=== PATIENT | female | born 1975 | race Caucasian/White ===

== ENCOUNTER 2020-05-28 20:14 | Emergency (ER) | payer MEDICAID, SELFPAY ==
[2020-05-28 20:45] VITALS: BP 141/83; PULSE 95; RESP 20; TEMP 36.9; O2SAT 98; BMI 35.9
--- NOTE | 2020-05-28 20:47 | HMH.EDUTC ---
[facility] [place] Disposition Clinical Impression: UTI (urinary tract infection) Qualifiers: Urinary tract infection type: site unspecified Hematuria presence: with hematuria Qualified Code(s): N39.0 - Urinary tract infection, site not specified Disposition: Home, Self-Care Condition on Discharge: Good Instructions: Urinary Tract Infection Additional Instructions: Drink plenty of fluids. Take tylenol or ibuprofen for pain or fever. Take the medications as directed. Follow up with your regular doctor. GO TO THE ER FOR ANY WORSENING SYMPTOMS The pyridium will make your urine turn orange, this is an expected side effect. It will stain your clothes if it comes into contact with them. Prescriptions: Ondansetron [Zofran 4mg ODT] 4 mg PO Q8HP PRN #10 tab.rapdis PRN Reason: Nausea Transmission Status: Received by [facility] Ciprofloxacin HCl [Cipro 500mg Tab] 500 mg PO BID 7 Days #14 tab Transmission Status: Received by [facility] Phenazopyridine HCl [Pyridium 200mg Tablet] 200 pow PO TID #6 tab Transmission Status: Received by [facility] Referrals: PCP,No [Primary Care Provider] - Forms: Work/School Release Time of Disposition: 20:50 Medical Decision Making - Medical Records Medical records reviewed: No: I reviewed the patient's medical records. - Tee Inquiry Pt receiving controlled substance: No Vital Signs: 05/28/20 20:45 05/28/20 21:08 Temperature 98.4 F 98.4 F Temperature Source Oral Pulse Rate 95 H Pulse Rate [Right Brachial] 95 H Respiratory Rate 20 20 Blood Pressure 141/83 H Blood Pressure [Right Arm] 141/83 H Blood Pressure Mean [Right Arm] 102 Blood Pressure Source [Right Arm] Automatic Cuff Blood Pressure Position [Right Arm] Sitting 02 Sat by Pulse Oximetry 98 Oxygen Delivery Method Room Air - Lab Data Lab results reviewed: Yes: I reviewed the patient's lab results. Lab Results 05/28/20 20:58: Urine Color [place], Urine Appearance Clear, Urine pH 5.0, Ur Specific [place] 1.010, Urine Protein 3+, Urine Glucose (UA) 250, Urine Ketones Trace, Urine Blood 3+, Urine Nitrate Positive A, Urine Bilirubin 2+ A, Urine Urobilinogen >=8, Ur Leukocyte Esterase 3+ A Orders (Tests/Meds): ED MEDICATIONS Discontinued Medications Generic Name Dose Route Start Last Admin Trade Name Eder PRN Reason Stop Dose Admin Ceftriaxone Sodium 1 gm 05/28/20 20:59 05/28/20 21:02 Rocephin 1gm Vial IM 05/28/20 21:00 1 gm ONCE ONE Administration Protocol Lidocaine HCl 0 ml 05/28/20 20:59 05/28/20 21:02 Lidocaine 1% 10ml Mdv IM 05/28/20 21:00 2.1 ml ONCE ONE Administration ORDERS Category Date Time Status Urine Culture Stat Micro 05/28/20 20:30 Results [facility] [place] HPI - General Stated complaint: Possible UTI Time Seen by Provider: 05/28/20 20:47 - History of Present Illness Provider Complaint: She c/o dysuria and low back pain since yesterday. - Related Data Previous Rx's Medication Instructions Recorded Ciprofloxacin HCl [Cipro 500mg 500 mg PO BID 7 Days #14 tab 05/28/20 Tab] Ondansetron [Zofran 4mg ODT] 4 mg PO Q8HP PRN #10 tab.rapdis 05/28/20 Phenazopyridine HCl [Pyridium 200 pow PO TID #6 tab 05/28/20 200mg Tablet] Allergies Allergy/AdvReac Type Severity Reaction Status Date / Time codeine Allergy Verified 05/28/20 20:48 Sulfa (Sulfonamide Allergy Verified 05/28/20 20:48 Antibiotics) [facility] History - Hepatitis A Screen Attestation statement:: This patient has been screened for Hepatitis A risk factors. I have reviewed the patient's past medical history: Yes ROS Obtained: Yes All systems reviewed & no additional complaints - Constitutional Constitutional: Reports chills, Denies fever(s), Reports poor appetite, Reports malaise - Eyes Eyes: Denies eye discharge - ENT Ears, Nose, Mouth, and Throat: Denies sore throat Physical
[2020-05-28 21:08] VITALS: BP 141/83; PULSE 95; RESP 20; TEMP 36.9; O2SAT 98
[2020-05-28 21:39] LABS: Apearance,Urine Clear (Clear); Color,Urine Orange (Yellow); Glucose,Urine (UA) 250 (Negative); Protein,Urine 3+ (Negative)
[2020-05-28 21:40] LABS: Bilirubin,Urine 2+ (Negative); Blood, Urine 3+ (Negative); Ketones,Urine TRACE (Negative); Urobilinogen,Urine >=8 EU/dl (0.2)
[2020-05-28 21:41] LABS: UTC Leukocyte Esterase,Urine 3+ (Negative); UTC Nitrate,Urine Positive (Negative)
--- NOTE | 2020-05-29 12:45 | PC.NURSE ---
[facility]
== END 2020-05-28 21:13 | disposition home or self-care (01) ==
PROVIDERS: Emergency Provider Nurse Practitioner Family
DX: N30.00 Acute cystitis without hematuria (principal); Z88.2 Allergy status to sulfonamides; Z88.5 Allergy status to narcotic agent
CPT/HCPCS: 81003; 87086; 87088; 87186; 96372; 99202

== ENCOUNTER 2020-10-17 12:31 | Emergency (ER) | payer MEDICAID, SELFPAY ==
[2020-10-17 13:00] VITALS: BP 143/76; PULSE 97; RESP 14; TEMP 36.8; O2SAT 97; BMI 33.1
[2020-10-17 13:02] LABS: Apearance,Urine Clear (Clear); Color,Urine Orange (Yellow)
[2020-10-17 13:03] LABS: Bilirubin,Urine Negative (Negative); Blood, Urine Trace (Negative); Glucose,Urine (UA) 1+ (Negative); Ketones,Urine Negative (Negative); Protein,Urine Negative (Negative); Specific Gravity, Urine <= 1.005 (1.005-1.030)
[2020-10-17 13:04] LABS: UTC Leukocyte Esterase,Urine Negative (Negative); UTC Nitrate,Urine Positive (Negative); Urobilinogen,Urine 1 EU/dl (0.2)
--- NOTE | 2020-10-17 13:20 | HMH.EDUTC ---
[facility] [place] Disposition Clinical Impression: UTI (urinary tract infection) Qualifiers: Urinary tract infection type: acute cystitis Hematuria presence: with hematuria Qualified Code(s): N30.01 - Acute cystitis with hematuria Disposition: Home, Self-Care Condition on Discharge: Good Instructions: Urinary Tract Infection, DI for Urinary Tract Infection (UTI) Additional Instructions: Increase fluids, water and not soda or tea. Can drink cranberry juice or cranberry extract. Wipe front to back Wear cotton underwear Empty bladder after intercourse Start antibiotics immediately and make sure you take the full course although you may start to see improvement over the next 48 hours. You can eat yogurt or take probiotics to decrease diarrhea or yeast infection caused by the antibiotic Be sure to follow-up anytime for new or worsening symptoms in 48 hours for wound urine culture results be sure to let you PCP no recent urine for culture so they can request records and ensure that you have appropriate antibiotic if you are not getting better or getting worse. If symptoms worsen or do not improve return or be seen in the ER. Follow-up with primary care this week. Prescriptions: cephALEXin [Keflex 500mg Cap] 500 mg PO BID 10 Days #20 cap Transmission Status: Pending to [facility] # Phenazopyridine HCl [Pyridium] 100 mg PO BID PRN 3 Days #6 tab PRN Reason: Mild To Moderate Pain Transmission Status: Pending to [facility] # Referrals: PCP,No [Primary Care Provider] - Time of Disposition: 13:23 Medical Decision Making - Tee Inquiry Pt receiving controlled substance: No - Lab Data Lab Results 10/17/20 13:01: Urine Color [place], Urine Appearance Clear, Urine pH 6.0, Ur Specific [place] <= 1.005, Urine Protein Negative, Urine Glucose (UA) 1+, Urine Ketones Negative, Urine Blood Trace, Urine Nitrate Positive A, Urine Bilirubin Negative, Urine Urobilinogen 1, Ur Leukocyte Esterase Negative Orders (Tests/Meds): ORDERS Category Date Time Status Urine Culture Routine Micro 10/17/20 13:04 Ordered [facility] [place] HPI - General Chief complaint: Urgent Treatment Center Stated complaint: UTI syptoms Time Seen by Provider: 10/17/20 13:20 Mode of Arrival: Ambulatory Source of Information: Patient Limitations: No Limitations - History of Present Illness Provider Complaint: 45 yr old female presents for burning with urination, freq, urgency, pain in pelvis and occ incont for 2 days. denies fever - Related Data Previous Rx's Medication Instructions Recorded Ciprofloxacin HCl [Cipro 500mg 500 mg PO BID 7 Days #14 tab 05/28/20 Tab] Ondansetron [Zofran 4mg ODT] 4 mg PO Q8HP PRN #10 tab.rapdis 05/28/20 Phenazopyridine HCl [Pyridium 200 pow PO TID #6 tab 05/28/20 200mg Tablet] Phenazopyridine HCl [Pyridium] 100 mg PO BID PRN 3 Days #6 tab 10/17/20 cephALEXin [Keflex 500mg Cap] 500 mg PO BID 10 Days #20 cap 10/17/20 Allergies Allergy/AdvReac Type Severity Reaction Status Date / Time codeine Allergy Verified 05/28/20 20:48 Sulfa (Sulfonamide Allergy Verified 05/28/20 20:48 Antibiotics) [facility] History - Hepatitis A Screen Attestation statement:: This patient has been screened for Hepatitis A risk factors. I have reviewed the patient's past medical history: Yes - Social History Alcohol Intake: never Occupational Status: employed ROS Obtained: Yes All systems reviewed & no additional complaints - Constitutional Constitutional: Reports system reviewed and no additional complaints, except as docu, Denies body ache, Denies chills, Denies fatigue, Denies fever(s) - Eyes Eyes: Reports system reviewed and no additional complaints, except as docu, Denies blurry vision, Denies eye discharge - ENT Ears, Nose, Mouth, and Throat: Reports system reviewed and no additional complaints, except as docu, Denies sore throat, Denies vertigo/dizziness - Cardiovascular Cardiovascul
[2020-10-17 13:27] VITALS: BP 143/76; PULSE 97; RESP 14; TEMP 36.8; O2SAT 97
== END 2020-10-17 13:36 | disposition home or self-care (01) ==
PROVIDERS: Emergency Provider Nurse Practitioner Family
DX: N30.01 Acute cystitis with hematuria (principal); Z88.2 Allergy status to sulfonamides; Z88.5 Allergy status to narcotic agent
CPT/HCPCS: 81003; 87086; 99202; G0463

== ENCOUNTER 2020-11-23 12:04 | Emergency (ER) | payer MEDICAID, SELFPAY ==
[2020-11-23 12:20] VITALS: BP 158/104; PULSE 131; RESP 18; TEMP 37.1; O2SAT 97; BMI 24.9
--- NOTE | 2020-11-23 12:36 | HMH.EDUTC ---
[facility] [place] Disposition Clinical Impression: Injury of conjunctiva and corneal abrasion without foreign body, left eye, initial encounter Disposition: Home, Self-Care Condition on Discharge: Good Instructions: DI for Corneal Abrasion, Corneal Abrasion Additional Instructions: Use the eye drops as directed. Follow up with an eye doctor. Follow up with your regular doctor. GO TO THE ER FOR ANY WORSENING SYMPTOMS, ESPECIALLY ANY VISION CHANGES OR EYE PAIN Prescriptions: Ofloxacin [Ocuflox 0.3% OPHTH drops 5mL] 1 drp EYE-LEFT Q4H 7 Days #1 bottle Transmission Status: Received by [facility][id number] Referrals: Apolinar Meneses [Primary Care Provider] - Time of Disposition: 12:47 Medical Decision Making - Medical Records Medical records reviewed: No: I reviewed the patient's medical records. - Tee Inquiry Pt receiving controlled substance: No Vital Signs: 11/23/20 12:20 11/23/20 12:38 Temperature 98.7 F 97.8 F Temperature Source Oral Tympanic Pulse Rate 106 H Pulse Rate [Right] 131 H Respiratory Rate 18 18 Blood Pressure 136/84 Blood Pressure [Right Arm] 158/104 H Blood Pressure Mean [Right Arm] 122 Blood Pressure Source [Right Arm] Automatic Cuff Blood Pressure Position [Right Arm] Sitting 02 Sat by Pulse Oximetry 97 Oxygen Delivery Method Room Air [facility] [place] HPI - General Stated complaint: possible eye infection, swelling Time Seen by Provider: 11/23/20 12:36 Mode of Arrival: Ambulatory Source of Information: Patient Limitations: No Limitations Description of Symptoms (Recalled from Triage Doc. by RN): pt states, left eye is hurting, itching, and blurry. there has been yellowish stuff comig out around my eye and its hurting. its been doing this for two days and is getting worse. i think my eye is infected. . under the patients left eye is red. PERRLA. HEENT Symptoms (Recalled from RN notes): Yes (pt complains of left eye discomfort. PERRLA) Resp Symptoms (Recalled from RN notes): No Skin Symptoms (Recalled from RN notes): No MS Symptoms (Recalled from RN notes): No Functional Status (Recalled from RN notes): na - History of Present Illness Provider Complaint: She states that for the past 2 days she has awoke with her left eye matted shut. Her eye has also felt irritated. She denies any known injury, but she does think that she wiped her eye and scratched before her symptoms began. She denies any foreign body sensation. - Related Data Previous Rx's Medication Instructions Recorded Ciprofloxacin HCl [Cipro 500mg 500 mg PO BID 7 Days #14 tab 05/28/20 Tab] Ondansetron [Zofran 4mg ODT] 4 mg PO Q8HP PRN #10 tab.rapdis 05/28/20 Phenazopyridine HCl [Pyridium 200 pow PO TID #6 tab 05/28/20 200mg Tablet] Phenazopyridine HCl [Pyridium] 100 mg PO BID PRN 3 Days #6 tab 10/17/20 cephALEXin [Keflex 500mg Cap] 500 mg PO BID 10 Days #20 cap 10/17/20 Ofloxacin [Ocuflox 0.3% OPHTH 1 drp EYE-LEFT Q4H 7 Days #1 bottle 11/23/20 drops 5mL] Allergies Allergy/AdvReac Type Severity Reaction Status Date / Time codeine Allergy Verified 11/23/20 12:11 Sulfa (Sulfonamide Allergy Verified 11/23/20 12:11 Antibiotics) - Worker's Comp Is this a Worker's Comp case?: No [facility] History - Hepatitis A Screen Drug use history?: No High risk sexual behaviors?: No History of sexually transmitted infection?: No Currently employed?: No Childcare worker?: No Do you have indoor plumbing?: Yes Do you have electricity?: Yes Attestation statement:: This patient has been screened for Hepatitis A risk factors. I have reviewed the patient's past medical history: Yes - Social History Smoking Status: Current every day smoker # Packs/Day (cigarettes): 2 Alcohol Intake: never Occupational Status: unemployed ROS Obtained: Yes All systems reviewed & no additional complaints - Constitutional Constitutional: Denies chills, Denies fever(s) - Eyes Eyes: Reports as per HPI
[2020-11-23 12:38] VITALS: BP 136/84; PULSE 106; RESP 18; TEMP 36.6
== END 2020-11-23 13:04 | disposition home or self-care (01) ==
PROVIDERS: Emergency Provider Nurse Practitioner Family; PCP Family Medicine
DX: S05.02XA Injury of conjunctiva and corneal abrasion without foreign body, left eye, initial encounter (principal)
CPT/HCPCS: 99202; G0463

== ENCOUNTER 2021-01-05 15:48 | Emergency (ER) | payer MEDICAID, SELFPAY ==
[2021-01-05 16:06] VITALS: BP 165/96; PULSE 102; RESP 16; O2SAT 100; BMI 33.2
--- NOTE | 2021-01-05 16:18 | HMH.EDUTC ---
[facility] [place] Disposition Clinical Impression: Muscle ache Disposition: Home, Self-Care Condition on Discharge: Good Instructions: Muscle Strain, DI for Muscle Strain Additional Instructions: *Ibuprofen brendan 6 hours with meal as needed for pain/inflammation *Not additional anti-inflammatory like motrin, aleve, advil with the above amount of ibuprofen. You can still take Tylenol every 4 hours as needed if you need something else for pain *Ice 20 minutes every 2 hours for the first 48 hours after the initial injury followed by moist heat every 20 minutes 3-4 times a day to affected area Over the counter Muscle rubs may help with pain and aches Wear good supportive bra *Keep this area active, no movement leads to more stiffness, However take it easy and avoid heavy lifting pushing or pulling *Follow up with you family doctor if no improvement for further treatment and further testing call and make appointment Straight to ER if any life threatening symptoms Referrals: Apolinar Meneses [Primary Care Provider] - As needed Time of Disposition: 16:34 Medical Decision Making - Tee Inquiry Pt receiving controlled substance: No Tee was queried for this patient: No Vital Signs: 01/05/21 16:06 01/05/21 16:45 Temperature 98 F Pulse Rate 95 H Pulse Rate [Right] 102 H Respiratory Rate 16 14 Blood Pressure 144/89 H Blood Pressure [Right Arm] 165/96 H Blood Pressure Mean [Right Arm] 119 Blood Pressure Source [Right Arm] Automatic Cuff Blood Pressure Position [Right Arm] Sitting 02 Sat by Pulse Oximetry 100 Medical Decision Narrative: Discussed with patient and recommended transfer to ED for further work up to rule out heart and patient declined states that pain only occurs when she moves it and improves with Ibuprofen states that she wanted to get checked to make sure she didnt have breast cancer and because her breast hurt when she squeezed it State that she slept wrong and her arm feels muscular. Patient aware of risks and still declined transfer Discussed with patient and educated her that she needs to make appointment with her PCP for further evaluation and more extensive testing such as mamograms etc and patient verbalized understanding and still declined transfer to the ED [facility] [place] HPI - General Stated complaint: pain under left arm and breast Time Seen by Provider: 01/05/21 16:15 Mode of Arrival: Ambulatory Source of Information: Patient Limitations: No Limitations Description of Symptoms (Recalled from Triage Doc. by RN): pt states she woke up two days ago and her left side of her arm and left breast is sore and aching. . pt is having pain around her left shoulder blade that comes around under her arm and in her left breast. pt states ibprofen helps relieve the pain as well as wearing a sports bra. pt thinks she may have pulled a muscle. HEENT Symptoms (Recalled from RN notes): No Resp Symptoms (Recalled from RN notes): No Skin Symptoms (Recalled from RN notes): No MS Symptoms (Recalled from RN notes): Yes (L behind the shoulder pain) Functional Status (Recalled from RN notes): na - History of Present Illness Provider Complaint: Patient states that she thinks she slept wrong States that she woke up a couple days ago feeling achy in the back of arm and it would come under her arm to her breast area States that when she touched the back of her it would feel achy all down the muscle into her breast Statse that she took some Ibuprofen and it helped but when she moves her arm feels like that muscle is tight and hurts Denies chest pain denies pain in neck states that pain is improved with wearing a good support bra. 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
[2021-01-05 16:45] VITALS: BP 144/89; PULSE 95; RESP 14; TEMP 36.6
== END 2021-01-05 16:48 | disposition home or self-care (01) ==
PROVIDERS: Emergency Provider Nurse Practitioner; PCP Family Medicine
DX: M79.18 Myalgia, other site (principal); F17.210 Nicotine dependence, cigarettes, uncomplicated; Z88.2 Allergy status to sulfonamides; Z88.5 Allergy status to narcotic agent
CPT/HCPCS: 99202; G0463

== ENCOUNTER 2021-03-09 18:01 | Emergency (ER) | payer MEDICAID, SELFPAY ==
[2021-03-09 18:34] VITALS: BP 147/88; PULSE 113; RESP 20; TEMP 36.7; O2SAT 100; BMI 34.3
--- NOTE | 2021-03-09 18:45 | HMH.EDGENADL ---
ED Disposition Condition on Discharge: Fair - Critical Care Critical Care Time: No <Dariel Moser - Last Filed: 03/09/21 20:09> <Marcial Landaverde - Last Filed: 03/09/21 21:49> Clinical Impression: Elevated d-dimer Calf pain Qualifiers: Laterality: left Qualified Code(s): M79.662 - Pain in left lower leg Disposition: Home, Self-Care Instructions: DI for Leg Pain Additional Instructions: see pcp in am for consideration of venous doppler or return to ed if needed Referrals: Apolinar Meneses [Primary Care Provider] - Attestation: On 03/09/21, the high probability of a clinically significant, sudden or life threatening deterioration of the following system(s) required my full and direct attention, intervention and personal management. The time I documented below is in addition to time spent performing reported procedures but includes the following listed in this critical care notation. Medical Decision Making - Medical Records Medical records reviewed: Yes: I reviewed the patient's medical records. - Tee Inquiry Pt receiving controlled substance: No - Lab Data Lab results reviewed: Yes: I reviewed the patient's lab results. Result diagrams: 03/09/21 19:10 03/09/21 19:10 - ECG Data Tracing #1 ECG initial impression date: 03/09/21 ECG initial impression time: 19:02 <Dariel Moser - Last Filed: 03/09/21 20:09> - Lab Data Result diagrams: 03/09/21 19:10 03/09/21 19:10 - CT Data CT Scan: Chest Time Received: 21:[address] Reviewed: Yes: I have viewed the radiologist's interpretation Preliminary Findings: Normal/NAD <Marcial Landaverde - Last Filed: 03/09/21 21:49> Vital Signs: 03/09/21 18:34 03/09/21 18:48 Temperature 98.1 F 98.3 F Temperature Source Oral Oral Pulse Rate [Right] 113 H 106 H Respiratory Rate 20 16 Blood Pressure [Right Arm] 147/88 H 130/71 Blood Pressure Mean [Right Arm] 107 90 Blood Pressure Source [Right Arm] Automatic Cuff Blood Pressure Position [Right Arm] Sitting Sitting 02 Sat by Pulse Oximetry 100 98 Oxygen Delivery Method Room Air Room Air - Lab Data Lab Results 03/09/21 19:10: D-Dimer 0.83 H 03/09/21 19:10: WBC 7.7, RBC 4.21, Hgb 10.1 L, Hct 32.9 L, MCV 78.2 L, MCH 24.0 L, MCHC 30.7 L, RDW 17.4, Plt Count 172, MPV 10.5 H, Neut % (Auto) 72.8, Lymph % (Auto) 21.0, [place] % (Auto) 3.2, Eos % (Auto) 2.6, Baso % (Auto) 0.4, Neut # (Auto) 5.6, Lymph # (Auto) 1.6, [place] # (Auto) 0.3, Eos # (Auto) 0.2, Baso # (Auto) 0.0 03/09/21 19:10: Sodium 139, Potassium 3.8, Chloride 104, Carbon Dioxide 28, Anion Gap 10.8, BUN 13, Creatinine 0.90, Estimated Creat Clear 115, Estimated GFR 68, Est GFR ( Amer) 83, Glucose 126 H, Calcium 9.0, Total Bilirubin 0.3, AST 24, ALT 14, Alkaline Phosphatase 63, Total Protein 7.1, Albumin 4.3, Globulin 2.8, Albumin/Globulin Ratio 1.5 Orders (Tests/Meds): ED MEDICATIONS Discontinued Medications Generic Name Dose Route Start Last Admin Trade Name Adamq PRN Reason Stop Dose Admin Iopamidol 70 ml 03/09/21 19:59 03/09/21 20:01 Iopamidol-370 (76%);100ml Bottle IV 03/09/21 20:00 70 ml ONCE ONE Administration Sodium Chloride 40 ml 03/09/21 19:59 03/09/21 20:00 0.9 % Sodium Chloride 50 Ml Vial IV 03/09/21 20:00 40 ml ONCE ONE Administration Sodium Chloride 10 ml 03/09/21 19:59 03/09/21 20:01 Sodium Chloride 0.9% 10ml Syr (Rad Only) IV 03/09/21 20:00 10 ml ONCE ONE Administration - ECG Data Tracing #1 64 bpm, normal sinus rhythm, no ST elevation or depression, normal intervals, no ectopy. (Dariel Moser) Medical Decision Narrative: 45yo F evaluated for pain in her left calf worsened with range of motion of her ankle. Patient is found to be tachycardic. She is 42 years old and smokes. Patient has some swelling of her left lower extremity without erythema, extreme tenderness to palpation, warmth. Patient has a positive PERC screen secondary to swelling. Ultrasound is not availab
[2021-03-09 18:48] VITALS: BP 130/71; PULSE 106; RESP 16; TEMP 36.8; O2SAT 98; BMI 34.3
[2021-03-09 19:35] LABS: D-Dimer 0.83 ug/mL (0.0-0.5)
--- NOTE | 2021-03-09 19:39 | CT_ITS ---
PROCEDURE INFORMATION: Exam: CTA Chest With Contrast Exam date and time: 03/09/2021 7:39 PM Age: 45 years old Clinical indication: Other: Weakness, elevated d dimer, left leg numbness; Additional info: Elevated d-dimer TECHNIQUE: Imaging protocol: Computed tomographic angiography of the chest with contrast. 3D rendering (Not supervised by radiologist): MIP and/or 3D reconstructed images were created by the technologist. Radiation optimization: All CT scans at this facility use at least one of these dose optimization techniques: automated exposure control; mA and/or kV adjustment per patient size (includes targeted exams where dose is matched to clinical indication); or iterative reconstruction. Contrast material: ISOVUE 370; Contrast volume: 70 ml; Contrast route: INTRAVENOUS (IV); COMPARISON: No relevant prior studies available. FINDINGS: Pulmonary arteries: Normal. No pulmonary emboli. Aorta: Unremarkable. No aortic aneurysm. No aortic dissection. Lungs: Unremarkable. No consolidation. No masses. Pleural spaces: Unremarkable. No pneumothorax. No pleural effusion. Heart: Unremarkable. No cardiomegaly. No pericardial effusion. Lymph nodes: Unremarkable. No enlarged lymph nodes. Bones/joints: Unremarkable. No acute fracture. Soft tissues: Unremarkable. IMPRESSION: No acute findings.
[2021-03-09 19:50] LABS: Basophils % 0.4 % (0.1-2.0); Chloride 104 mmol/L (98-107); Eosinophils # 0.2 K/mm3 (0.0-0.4); Eosinophils % 2.6 % (0.1-12.0); Hematocrit 32.9 % (37.0-47.0); Hemoglobin 10.1 g/dL (12.2-16.2); Lymphocytes # 1.6 K/mm3 (0.7-4.5); Mean Corpuscular HGB Conc 30.7 g/dL (31.8-35.4); Mean Corpuscular Volume 78.2 fl (81-99); Mean Platelet Volume 10.5 fl (7.4-10.4); Monocytes # 0.3 K/mm3 (0.1-1.0); Monocytes % 3.2 % (1.7-9.3); Neutrophils # 5.6 K/mm3 (1.8-7.8); Neutrophils % 72.8 % (37.0-80.0); Platelet Count 172 K/mm3 (142-424); Potassium 3.8 mmoL/L (3.5-5.1); Red Blood Count 4.21 M/mm3 (4.20-5.40); Red Cell Distribution Width 17.4 % (11.5-17.5); Sodium 139 mmol/L (136-145); White Blood Count 7.7 K/mm3 (4.8-10.8)
[2021-03-09 19:53] LABS: Alanine Aminotransferase 14 U/L (12-78); Albumin Level 4.3 g/dl (3.5-5.0); Albumin/Globulin Ratio 1.5 (1.1-1.8); Alkaline Phosphatase 63 U/L (38-126); Anion Gap 10.8 mEq/L (5-15); Aspartate Amino Transferase 24 U/L (14-36); Bilirubin,Total 0.3 mg/dl (0.2-1.3); Blood Urea Nitrogen 13 mg/dl (7-17); Carbon Dioxide 28 mmol/L (22.0-30.0); Creatinine Clearance Estimated 115 mL/min (50-200); Estimated Glomerular Filt Rate 68 ml/min (>60); GFR (African American) 83 ML/MIN (>60); Globulin 2.8 g/dL (1.3-3.2); Total Protein,Serum 7.1 g/dl (6.3-8.2)
[2021-03-09 19:54] LABS: Glucose 126 mg/dl (74-100)
--- NOTE | 2021-03-09 21:36 | PC.NURSE ---
pt ambulated to the BR with cane
--- NOTE | 2021-03-09 21:53 | PC.NURSE ---
Called [facility] for therapeutic Lovenox dosinmg SQ q12 would be the recommended dose
[2021-03-09 22:09] VITALS: BP 142/89; PULSE 78; RESP 18; TEMP 36.7; O2SAT 97
== END 2021-03-09 22:20 | disposition home or self-care (01) ==
LOC: UTC 18:15 → ER 18:42
PROVIDERS: Emergency Provider Family Medicine; PCP Family Medicine
DX: M79.662 Pain in left lower leg (principal); R79.89 Other specified abnormal findings of blood chemistry; F17.210 Nicotine dependence, cigarettes, uncomplicated
CPT/HCPCS: 71275; 80053; 85025; 85378; 96372; 99282; Q9967

== ENCOUNTER → 2021-03-15 14:10 | Outpatient (CLI) | payer MEDICAID, SELFPAY ==
--- NOTE | 2021-03-15 14:11 | CA_ITS ---
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: CT Indications Lower Extremity Pain: Left Lower Extremity Edema: Left LLE Edema Vein Imaging CFV (L): compressive, spontaneous, phasic, augmentation SFJ (L): compressive, spontaneous, phasic, augmentation FEM (L): compressive, spontaneous, phasic, augmentation POP (L): compressive, spontaneous, phasic, augmentation DFV (L): compressive, spontaneous, phasic, augmentation PTV (L): compressive, spontaneous, phasic, augmentation GSV (L): compressive, spontaneous, phasic, augmentation SSV (L): compressive, spontaneous, phasic, augmentation Peroneals (L):compressive, spontaneous, phasic, augmentation GAS (L): compressive, spontaneous, phasic, augmentation Findings LLE negative for DVT/SVT vessels fully compressible Conclusion LLE negative for DVT/SVT vessels fully compressible Electronically signed by : Milo Quinteros MD 03/15/2021 17:39:08
== END ==
PROVIDERS: PCP Nurse Practitioner Family; Visit Provider Nurse Practitioner Family
DX: R60.0 Localized edema (principal)
CPT/HCPCS: 93971

== ENCOUNTER 2021-06-16 02:49 | Emergency (ER) | payer MEDICAID, SELFPAY ==
[2021-06-16 03:00] VITALS: BP 150/97; PULSE 119; RESP 24; TEMP 36.9; O2SAT 100; BMI 31.7
--- NOTE | 2021-06-16 03:07 | CT_ITS ---
PROCEDURE INFORMATION: Exam: CT Abdomen And Pelvis With Contrast Exam date and time: 06/16/2021 3:07 AM Age: 45 years old Clinical indication: Abdominal pain; Localized; Right upper quadrant (ruq); Prior surgery; Surgery type: Gallbladder; Patient HX: Ruq pain for 2 days with nausea; Additional info: Abd pain TECHNIQUE: Imaging protocol: Computed tomography of the abdomen and pelvis with contrast. Radiation optimization: All CT scans at this facility use at least one of these dose optimization techniques: automated exposure control; mA and/or kV adjustment per patient size (includes targeted exams where dose is matched to clinical indication); or iterative reconstruction. Contrast material: ISOVUE; Contrast volume: 75 ml; Contrast route: IV; COMPARISON: CT ANGIO CHEST 03/09/2021 7:50 PM FINDINGS: Liver: Normal. No mass. Gallbladder and bile ducts: The patient is status post cholecystectomy. Pancreas: Normal. No ductal dilation. Spleen: Normal. No splenomegaly. Adrenal glands: Normal. No mass. Kidneys and ureters: Multiple small intrarenal stones are present on the right and left measuring 2-3 mm in maximal diameter. There is mild right-sided hydroureter and hydronephrosis although a stone is not identified within the ureter. Stomach and bowel: Unremarkable. No obstruction. No mucosal thickening. Appendix: No evidence of appendicitis. Intraperitoneal space: Unremarkable. No free air. No significant fluid collection. Vasculature: Unremarkable. No abdominal aortic aneurysm. Lymph nodes: Unremarkable. No enlarged lymph nodes. Urinary bladder: Unremarkable as visualized. Reproductive: The left adnexa is enlarged measuring 6.5 x 5.4 by 6.0 cm and contains multiple hypodensities. Bones/joints: Unremarkable. No acute fracture. Soft tissues: Unremarkable. IMPRESSION: Complex cystic appearing left adnexal mass recommend pelvic sonography for further characterization. Nonobstructing bilateral nephrolithiasis. Mild right hydroureter without identified stone, this may represent a recently passed stone.
[2021-06-16 03:29] LABS: Microscopic, Urine URINE MICROSCOPIC (MICROSCOPIC)
[2021-06-16 03:30] VITALS: BP 142/91; PULSE 99; O2SAT 97
[2021-06-16 03:33] LABS: Basophils # 0.1 K/mm3 (0-0.2); Basophils % 0.9 % (0.1-2.0); Eosinophils # 0.3 K/mm3 (0.0-0.4); Hematocrit 38.3 % (37.0-47.0); Hemoglobin 11.4 g/dL (12.2-16.2); Lymphocytes # 1.8 K/mm3 (0.7-4.5); Mean Corpuscular HGB Conc 29.8 g/dL (31.8-35.4); Mean Corpuscular Hemoglobin 25.2 pg (27.0-31.2); Mean Corpuscular Volume 84.5 fl (81-99); Mean Platelet Volume 10.2 fl (7.4-10.4); Monocytes # 0.2 K/mm3 (0.1-1.0); Monocytes % 3.7 % (1.7-9.3); Neutrophils # 4.2 K/mm3 (1.8-7.8); Neutrophils % 64.3 % (37.0-80.0); Platelet Count 299 K/mm3 (142-424); Red Blood Count 4.53 M/mm3 (4.20-5.40); Red Cell Distribution Width 17.8 % (11.5-17.5); White Blood Count 6.6 K/mm3 (4.8-10.8)
[2021-06-16 03:38] LABS: Appearance,Urine CLEAR (Clear); Bilirubin,Urine Negative (Negative); Blood, Urine 2+ (Negative); Color,Urine YELLOW (Yellow); Glucose,Urine (UA) Negative (Negative); Ketones,Urine Negative (Negative); Leukocyte Esterase,Urine Negative (Negative); Nitrate,Urine Negative (Negative); Protein,Urine Negative (Negative); Specific Gravity, Urine <= 1.005 (1.005-1.030); Urobilinogen,Urine 0.2 EU/dl (0.2)
[2021-06-16 03:41] LABS: Alanine Aminotransferase 12 U/L (12-78); Albumin Level 4.1 g/dl (3.5-5.0); Albumin/Globulin Ratio 1.2 (1.1-1.8); Alkaline Phosphatase 77 U/L (38-126); Amylase 58 U/L (30-110); Anion Gap 12.1 mEq/L (5-15); Aspartate Amino Transferase 22 U/L (14-36); Bilirubin,Total 0.3 mg/dl (0.2-1.3); Blood Urea Nitrogen 13 mg/dl (7-17); Calcium 8.8 mg/dl (8.4-10.2); Carbon Dioxide 28 mmol/L (22.0-30.0); Chloride 103 mmol/L (98-107); Creatinine Clearance Estimated 107 mL/min (50-200); Estimated Glomerular Filt Rate 68 ml/min (>60); GFR (African American) 83 ML/MIN (>60); Globulin 3.3 g/dL (1.3-3.2); Glucose 98 mg/dl (74-100); Lipase 92 U/L (23-300); Potassium 4.1 mmoL/L (3.5-5.1); Sodium 139 mmol/L (136-145); Total Protein,Serum 7.4 g/dl (6.3-8.2)
[2021-06-16 03:47] LABS: C-Reactive Protein 1.8 mg/L (0-4)
[2021-06-16 04:00] VITALS: BP 151/95; PULSE 98; RESP 16; O2SAT 99
[2021-06-16 04:01] LABS: Procalcitonin 0.031 ng/mL (0.0-2.0)
[2021-06-16 04:02] LABS: Bacteria,Urine Trace /lpf; WBC,Urine Occasional #/hpf (0-3)
[2021-06-16 04:03] LABS: Erythrocyte Sedimentation Rate 23 mm/hr (0-20)
--- NOTE | 2021-06-16 04:20 | HMH.EDGENADL ---
ED Disposition Clinical Impression: UTI (urinary tract infection), Renal lithiasis, Adnexal mass Disposition: Home, Self-Care Condition on Discharge: Good Instructions: DI for Acute Abdominal Pain Additional Instructions: Finish the entire course of antibiotics and increase oral hydration. Return to the ED for any new or worsening symptoms. Please be sure to follow-up with gynecology for repeat evaluation of the ovarian mass seen today on CT and for follow-up ultrasound. Prescriptions: Cefdinir [Omnicef 300mg Capsule] 300 mg PO BID 10 Days #20 cap Transmission Status: Pending to [facility] # Ondansetron [Zofran 4mg ODT] 4 mg PO TIDP PRN 3 Days #9 tab PRN Reason: Nausea Transmission Status: Pending to [facility] # Referrals: Provider,MD Robert [Primary Care Provider] - Tiffanie Varma MD [Staff Physician] - Time of Disposition: 04:37 - Critical Care Critical Care Time: No Attestation: On 06/16/21, the high probability of a clinically significant, sudden or life threatening deterioration of the following system(s) required my full and direct attention, intervention and personal management. The time I documented below is in addition to time spent performing reported procedures but includes the following listed in this critical care notation. Medical Decision Making - Medical Records Medical records reviewed: Yes: I reviewed the patient's medical records. - Tee Inquiry Pt receiving controlled substance: No Vital Signs: 06/16/21 03:00 Temperature 98.4 F Temperature Source Oral Pulse Rate [Right Brachial] 119 H Respiratory Rate 24 Blood Pressure [Right Arm] 150/97 H Blood Pressure Mean [Right Arm] 114 Blood Pressure Source [Right Arm] Automatic Cuff Blood Pressure Position [Right Arm] Sitting 02 Sat by Pulse Oximetry 100 Oxygen Delivery Method Room Air - Lab Data Lab Results 06/16/21 03:00: Urine Color Yellow, Urine Appearance Clear, Urine pH 7.0, Ur Specific [place] <= 1.005, Urine Protein Negative, Urine Glucose (UA) Negative, Urine Ketones Negative, Urine Blood 2+, Urine Nitrate Negative, Urine Bilirubin Negative, Urine Urobilinogen 0.2, Ur Leukocyte Esterase Negative, Urine RBC 5-10, Urine WBC Occasional, Ur Squamous Epith Cells 3-5, Urine Bacteria Trace 06/16/21 03:00: WBC 6.6, RBC 4.53, Hgb 11.4 L, Hct 38.3, MCV 84.5, MCH 25.2 L, MCHC 29.8 L, RDW 17.8 H, Plt Count 299, MPV 10.2, Neut % (Auto) 64.3, Lymph % (Auto) 27.0, [place] % (Auto) 3.7, Eos % (Auto) 4.0, Baso % (Auto) 0.9, Neut # (Auto) 4.2, Lymph # (Auto) 1.8, [place] # (Auto) 0.2, Eos # (Auto) 0.3, Baso # (Auto) 0.1, ESR 23 H 06/16/21 03:00: Sodium 139, Potassium 4.1, Chloride 103, Carbon Dioxide 28, Anion Gap 12.1, BUN 13, Creatinine 0.90, Estimated Creat Clear 107, Estimated GFR 68, Est GFR ( Amer) 83, Glucose 98, Calcium 8.8, Total Bilirubin 0.3, AST 22, ALT 12, Alkaline Phosphatase 77, C-Reactive Protein 1.8, Total Protein 7.4, Albumin 4.1, Globulin 3.3 H, Albumin/Globulin Ratio 1.2, Amylase 58, Lipase 92, Procalcitonin 0.031 Result diagrams: 06/16/21 03:00 06/16/21 03:00 Orders (Tests/Meds): ED MEDICATIONS Discontinued Medications Generic Name Dose Route Start Last Admin Trade Name Freq PRN Reason Stop Dose Admin Belladonna Alkaloids 60 ml 06/16/21 03:32 06/16/21 04:10 Gi Cocktail 60ml Udc PO 06/16/21 03:33 60 ml ONCE ONE Administration Iopamidol 75 ml 06/16/21 04:02 06/16/21 04:03 Iopamidol-370 (76%);100ml Bottle IV 06/16/21 04:03 75 ml ONCE ONE Administration Ketorolac Tromethamine 15 mg 06/16/21 03:34 06/16/21 04:10 Ketorolac 30mg/Ml Vial IV 06/16/21 03:35 15 mg ONCE ONE Administration Ondansetron HCl 4 mg 06/16/21 03:32 06/16/21 04:10 Ondansetron 4mg/2ml Vial IV 06/16/21 03:33 4 mg ONCE ONE Administration Sodium Chloride 10 ml 06/16/21 04:02 06/16/21 04:03 Sodium Chloride 0.9% 10ml Syr (Rad Only) IV 06/16/21 04:03 10 m
[2021-06-16 04:30] VITALS: BP 154/82; PULSE 104; O2SAT 96
[2021-06-16 05:04] VITALS: BP 146/86; PULSE 96; RESP 16; TEMP 36.9; O2SAT 97
== END 2021-06-16 05:05 | disposition home or self-care (01) ==
PROVIDERS: Emergency Provider Student in an Organized Health Care Education/Training Program
DX: N39.0 Urinary tract infection, site not specified (principal); N20.0 Calculus of kidney; F41.8 Other specified anxiety disorders; Z87.442 Personal history of urinary calculi; F17.210 Nicotine dependence, cigarettes, uncomplicated
CPT/HCPCS: 74177; 80053; 81001; 82150; 83690; 84145; 85025; 85651; 86140; 96374; 96375; 99283; J2405; Q9967

== ENCOUNTER 2021-06-22 15:06 | Emergency (ER) | payer MEDICAID, SELFPAY ==
[2021-06-22 16:39] VITALS: BP 143/79; RESP 19; TEMP 36.9; O2SAT 98; BMI 28.7
--- NOTE | 2021-06-22 16:45 | HMH.EDUTC ---
[facility] Disposition Clinical Impression: Urinary problem in female Disposition: Home, Self-Care Condition on Discharge: Good Instructions: DI for Dysuria -- Adult Additional Instructions: Continue taking medication as prescribed Follow up with your Family Doctor for further evaluation and treatment Return if needed Make sure to drink plenty of fluids Straight to ER if any life threatening symptoms Referrals: Apolinar Meneses [Primary Care Provider] - As needed Time of Disposition: 16:50 Medical Decision Making - Tee Inquiry Pt receiving controlled substance: No Tee was queried for this patient: No Vital Signs: 06/22/21 16:39 Temperature 98.5 F Temperature Source Oral Respiratory Rate 19 Blood Pressure [Right Arm] 143/79 H Blood Pressure Mean [Right Arm] 100 02 Sat by Pulse Oximetry 98 - Lab Data Lab results reviewed: Yes: I reviewed the patient's lab results. [facility] HPI - General Stated complaint: uti Time Seen by Provider: 06/22/21 16:46 Description of Symptoms (Recalled from Triage Doc. by RN): UTI INFECTION MEDS NOT WORKING & NOW I'M HURTING TO URINE & MY KIDNEY ARE HURTING HEENT Symptoms (Recalled from RN notes): No Resp Symptoms (Recalled from RN notes): No Skin Symptoms (Recalled from RN notes): No MS Symptoms (Recalled from RN notes): No Functional Status (Recalled from RN notes): WNL - History of Present Illness Provider Complaint: Patient states that she is currently on Medication for UTI states that she has been having some burning on and off and achy like pain in her lower back on and off and wanted to get her urine checked to make sure that her medication was working to clear her UTI - Related Data Home Medications Medication Instructions Recorded Confirmed Buprenorphine HCl/Naloxone HCl 8 mg SL BID 03/09/21 03/15/21 [Suboxone 8 mg-2 mg Sl Film] Gabapentin [Gabapentin 300mg/6ml 300 mg PO BID 03/09/21 03/15/21 Oral Soln] Previous Rx's Medication Instructions Recorded polyethylene glycol 3350 17 17 g PO DAILY #238 g 03/15/21 gram/dose oral powder cyclobenzaprine 10 mg tablet 10 mg PO TID PRN #60 tab 03/17/21 buspirone 10 mg tablet 10 mg PO BID #60 tab 03/24/21 Cefdinir [Omnicef 300mg Capsule] 300 mg PO BID 10 Days #20 cap 06/16/21 Ondansetron [Zofran 4mg ODT] 4 mg PO TIDP PRN 3 Days #9 tab 06/16/21 Allergies Allergy/AdvReac Type Severity Reaction Status Date / Time codeine Allergy Verified 06/22/21 16:44 Sulfa (Sulfonamide Allergy Verified 06/22/21 16:44 Antibiotics) - Worker's Comp Is this a Worker's Comp case?: No Is this an H Worker's Comp?: No [facility] History - Hepatitis A Screen Drug use history?: No High risk sexual behaviors?: No History of sexually transmitted infection?: No Currently employed?: No Childcare worker?: No Do you have indoor plumbing?: Yes Do you have electricity?: Yes Attestation statement:: This patient has been screened for Hepatitis A risk factors. I have reviewed the patient's past medical history: Yes Medical History: Reports:: Anxiety, Depression, Kidney Stones Other Medical History: Reports: Anemia, Other Other Surgeries: Yes: Cholecystectomy, , Tubal Ligation - Social History Smoking Status: Current every day smoker # Packs/Day (cigarettes): 2 Alcohol Intake: never Occupational Status: unemployed - Psychiatric History Pschychiatric History:: Reports:: Anxiety, Depression Family Hx:: Hypertension, Cancer, Heart Attack, Mental illness ROS Obtained: Yes All systems reviewed & no additional complaints, Yes Systems reviewed as appropriate & no additional complaints - Constitutional Constitutional: Reports system reviewed and no additional complaints, except as docu, Denies body ache, Denies chills, Denies fever(s) - ENT Ears, Nose, Mouth, and Throat: Reports system reviewed and no additional complaints, except as docu - Cardiovascular Cardiovascular: Reports system reviewed and n
[2021-06-22 16:58] VITALS: BP 143/79; PULSE 68; RESP 19; TEMP 36.9; O2SAT 98
[2021-06-22 20:12] LABS: Apearance,Urine Clear (Clear); Blood, Urine Negative (Negative); Color,Urine Yellow (Yellow); Glucose,Urine (UA) Negative (Negative); Ketones,Urine Negative (Negative); Protein,Urine Negative (Negative)
[2021-06-22 20:13] LABS: Bilirubin,Urine Negative (Negative); UTC Leukocyte Esterase,Urine Negative (Negative); UTC Nitrate,Urine Negative (Negative); Urobilinogen,Urine 0.2 EU/dl (0.2)
== END 2021-06-22 16:59 | disposition home or self-care (01) ==
PROVIDERS: Emergency Provider Nurse Practitioner; PCP Family Medicine
DX: N39.0 Urinary tract infection, site not specified (principal); F41.8 Other specified anxiety disorders; F17.210 Nicotine dependence, cigarettes, uncomplicated; Z88.2 Allergy status to sulfonamides; Z88.5 Allergy status to narcotic agent
CPT/HCPCS: 81003; 99202; G0463

== ENCOUNTER 2021-07-02 00:34 | Emergency (ER) | payer MEDICAID, SELFPAY ==
--- NOTE | 2021-07-02 00:45 | HMH.EDGENADL ---
ED Disposition Clinical Impression: Abdominal pain Qualifiers: Abdominal location: epigastric Qualified Code(s): R10.13 - Epigastric pain Disposition: Home, Self-Care Condition on Discharge: Good Instructions: DI for Acute Abdominal Pain Additional Instructions: Protonix as prescribed. Reduce use of ibuprofen. Follow-up with Dr. Barbour, gastroenterology, call for appointment. Also, Keep your appointments with your primary care provider and education program coordinator. Prescriptions: Pantoprazole Sodium [Protonix 40mg tablet] 40 mg PO DAILY #15 tab Transmission Status: Pending to [facility] #[id number] Referrals: Apolinar Meneses [Primary Care Provider] - Ant Barbour MD [Staff Physician] - - Critical Care Critical Care Time: No Attestation: On , the high probability of a clinically significant, sudden or life threatening deterioration of the following system(s) required my full and direct attention, intervention and personal management. The time I documented below is in addition to time spent performing reported procedures but includes the following listed in this critical care notation. Medical Decision Making - Medical Records Medical records reviewed: Yes: I reviewed the patient's medical records. MR Comment: Emergency department chart from 06/16/2021 reviewed. Patient's presenting symptoms sound identical to her complaints tonight. She had an extensive work-up including CT scan of her abdomen and pelvis. She had a cystic mass of her left adnexa. Nephrolithiasis and some mild right hydroureter without ureteral stone. She was treated for UTI, no culture sent. - Tee Inquiry Pt receiving controlled substance: No Tee was queried for this patient: Yes Vital Signs: 07/02/21 00:47 Temperature 98 F Temperature Source Oral Pulse Rate [Left] 103 H Respiratory Rate 16 Blood Pressure [Left Arm] 165/85 H Blood Pressure Mean [Left Arm] 111 Blood Pressure Source [Left Arm] Automatic Cuff Blood Pressure Position [Left Arm] Sitting 02 Sat by Pulse Oximetry 97 Oxygen Delivery Method Room Air - Lab Data Lab Results 07/02/21 00:41: Urine Color Yellow, Urine Appearance Clear, Urine pH 7.0, Ur Specific [place] 1.020, Urine Protein Negative, Urine Glucose (UA) Negative, Urine Ketones Negative, Urine Blood Trace-i, Urine Nitrate Negative, Urine Bilirubin Negative, Urine Urobilinogen 0.2, Ur Leukocyte Esterase Trace, Urine WBC 3-5, Ur Squamous Epith Cells 10-20 07/02/21 00:49: WBC 7.7, RBC 4.60, Hgb 11.7 L, Hct 37.6, MCV 81.9, MCH 25.5 L, MCHC 31.1 L, RDW 17.3, Plt Count 231, MPV 9.8, Neut % (Auto) 62.6, Lymph % (Auto) 29.5, [place] % (Auto) 3.3, Eos % (Auto) 4.1, Baso % (Auto) 0.4, Neut # (Auto) 4.8, Lymph # (Auto) 2.3, [place] # (Auto) 0.3, Eos # (Auto) 0.3, Baso # (Auto) 0.0 07/02/21 00:49: Sodium 140, Potassium 3.6, Chloride 104, Carbon Dioxide 26, Anion Gap 13.6, BUN 11, Creatinine 0.80, Estimated Creat Clear 114, Estimated GFR 78, Est GFR ( Amer) 95, Glucose 110 H, Calcium 9.5, Total Bilirubin < 0.1 L, AST 23, ALT 11 L, Alkaline Phosphatase 77, Total Protein 7.7, Albumin 4.5, Globulin 3.2, Albumin/Globulin Ratio 1.4, Lipase 200 07/02/21 00:49: Serum HCG, Qual Negative Result diagrams: 07/02/21 00:49 07/02/21 00:49 Orders (Tests/Meds): ED MEDICATIONS Generic Name Dose Route Start Last Admin Trade Name Freq PRN Reason Stop Dose Admin Sodium Chloride 10 ml 07/02/21 01:11 Sodium Chloride 0.9% 10ml Vial IV 08/01/21 01:10 NEEDED PRN dilute protonix Discontinued Medications Generic Name Dose Route Start Last Admin Trade Name Freq PRN Reason Stop Dose Admin Pantoprazole Sodium 40 mg 07/02/21 01:11 07/02/21 01:18 Pantoprazole 40mg Vial IV 07/02/21 01:12 40 mg ONCE ONE Administration General Adult HPI - General Stated complaint: Stomach pain with nausea Time Seen by Provider: 07/02/21 00:45 - History of Present Illness HPI narrative: States that she has
[2021-07-02 00:47] VITALS: BP 165/85; PULSE 103; RESP 16; TEMP 36.6; O2SAT 97
[2021-07-02 01:10] LABS: Chloride 104 mmol/L (98-107); Potassium 3.6 mmoL/L (3.5-5.1); Sodium 140 mmol/L (136-145)
[2021-07-02 01:11] LABS: Microscopic, Urine URINE MICROSCOPIC (MICROSCOPIC)
[2021-07-02 01:11] LABS: Basophils % 0.4 % (0.1-2.0); Eosinophils # 0.3 K/mm3 (0.0-0.4); Eosinophils % 4.1 % (0.1-12.0); Hematocrit 37.6 % (37.0-47.0); Hemoglobin 11.7 g/dL (12.2-16.2); Lymphocytes # 2.3 K/mm3 (0.7-4.5); Lymphocytes % 29.5 % (10-50); Mean Corpuscular HGB Conc 31.1 g/dL (31.8-35.4); Mean Corpuscular Hemoglobin 25.5 pg (27.0-31.2); Mean Corpuscular Volume 81.9 fl (81-99); Mean Platelet Volume 9.8 fl (7.4-10.4); Monocytes # 0.3 K/mm3 (0.1-1.0); Monocytes % 3.3 % (1.7-9.3); Neutrophils # 4.8 K/mm3 (1.8-7.8); Neutrophils % 62.6 % (37.0-80.0); Platelet Count 231 K/mm3 (142-424); Red Cell Distribution Width 17.3 % (11.5-17.5); White Blood Count 7.7 K/mm3 (4.8-10.8)
[2021-07-02 01:12] LABS: Alanine Aminotransferase 11 U/L (12-78); Aspartate Amino Transferase 23 U/L (14-36); Blood Urea Nitrogen 11 mg/dl (7-17); Creatinine Clearance Estimated 114 mL/min (50-200); Estimated Glomerular Filt Rate 78 ml/min (>60); GFR (African American) 95 ML/MIN (>60)
[2021-07-02 01:12] LABS: Appearance,Urine CLEAR (Clear); Bilirubin,Urine Negative (Negative); Blood, Urine TRACE-I (Negative); Color,Urine YELLOW (Yellow); Glucose,Urine (UA) Negative (Negative); Ketones,Urine Negative (Negative); Leukocyte Esterase,Urine TRACE (Negative); Nitrate,Urine Negative (Negative); Protein,Urine Negative (Negative); Urobilinogen,Urine 0.2 EU/dl (0.2)
[2021-07-02 01:13] LABS: Albumin Level 4.5 g/dl (3.5-5.0); Albumin/Globulin Ratio 1.4 (1.1-1.8); Alkaline Phosphatase 77 U/L (38-126); Anion Gap 13.6 mEq/L (5-15); Bilirubin,Total < 0.1 mg/dl (0.2-1.3); Calcium 9.5 mg/dl (8.4-10.2); Carbon Dioxide 26 mmol/L (22.0-30.0); Globulin 3.2 g/dL (1.3-3.2); Glucose 110 mg/dl (74-100); Lipase 200 U/L (23-300); Total Protein,Serum 7.7 g/dl (6.3-8.2)
[2021-07-02 01:17] LABS: HCG Qualitative, Serum Negative (Negative)
[2021-07-02 01:34] VITALS: BP 144/81; PULSE 80; RESP 16; TEMP 36.8; O2SAT 98
== END 2021-07-02 01:50 | disposition home or self-care (01) ==
PROVIDERS: Emergency Provider Emergency Medicine; PCP Family Medicine
DX: R10.13 Epigastric pain (principal); M79.7 Fibromyalgia; Z79.899 Other long term (current) drug therapy; Z88.2 Allergy status to sulfonamides; Z88.6 Allergy status to analgesic agent; F41.9 Anxiety disorder, unspecified; F32.9 Major depressive disorder, single episode, unspecified; Z72.0 Tobacco use
CPT/HCPCS: 80053; 81001; 83690; 84703; 85025; 96374; 99282

== ENCOUNTER 2021-07-07 15:48 | Emergency (ER) | payer MEDICAID, SELFPAY ==
[2021-07-07 15:55] VITALS: BP 140/97; PULSE 91; RESP 18; TEMP 36.8; O2SAT 99; BMI 28.2
--- NOTE | 2021-07-07 16:27 | HMH.EDUTC ---
[facility] [place] Clinical Impression: Allergic rhinitis Qualifiers: Allergic rhinitis trigger: unspecified Allergic rhinitis seasonality: unspecified Qualified Code(s): J30.9 - Allergic rhinitis, unspecified Disposition: Home, Self-Care Condition on Discharge: Good Instructions: Allergic Rhinitis, DI for Allergic Rhinitis, Fluticasone Nasal [place] Additional Instructions: *Monitor Temp, Over the counter Motrin or Tylenol as directed/as needed Tylenol every 4 hours and Motrin every 6 hours (as long as your family doctor has told you that you can take it) for fever or pain. and straight to ER if unable to lower temp less than 101.0 after medication given *Warm salt water gargles may help to soothe the throat *Throat Lozenges *Warm fluids like tea with honey may help to soothe the throat *Sleep elevated *Humidifier/Vaporizer *Flonase 2 sprays in each nostril daily but be aware that it may take 2-3 days before you notice improvement Over the counter allergy medication like Claritan or Zyrtec may help with allergy symptoms Follow up IMMEDIATELY for new or worsening symptoms or no Noticeable improvement over the next 48-72 hours. 911 for difficulty breathing or swallowing Prescriptions: Fluticasone Propionate [Flonase 50mcg nasal spray 16gm] 1 spr NS DAILY #1 ml Transmission Status: Pending to [facility] #[id number] Referrals: Apolinar Meneses [Primary Care Provider] - As needed Time of Disposition: 16:37 Medical Decision Making - Tee Inquiry Pt receiving controlled substance: No Tee was queried for this patient: No Vital Signs: 07/07/21 15:55 07/07/21 16:34 Temperature 98.2 F 98.2 F Temperature Source Oral Pulse Rate 91 H Pulse Rate [Left] 91 H Respiratory Rate 18 18 Blood Pressure 140/97 H Blood Pressure [Right Arm] 140/97 H Blood Pressure Mean [Right Arm] 111 02 Sat by Pulse Oximetry 99 [facility] [place] HPI - General Stated complaint: ears,glands swollen Time Seen by Provider: 07/07/21 16:27 Mode of Arrival: Ambulatory Source of Information: Patient Limitations: No Limitations Description of Symptoms (Recalled from Triage Doc. by RN): pt c/o her ears hurtig, off balanve, right gland is swollen like an infection. ongoing x3 days. HEENT Symptoms (Recalled from RN notes): Yes (ears aching and vertigo) Resp Symptoms (Recalled from RN notes): No Skin Symptoms (Recalled from RN notes): No MS Symptoms (Recalled from RN notes): No Functional Status (Recalled from RN notes): na - History of Present Illness Provider Complaint: Patient states that she has been having pressure like feeling on and off in her ears and feeling a little off balance at times if she raises up too quickly for months States that for the last couple of days she feels like her ears has fluid in them and feels like her gland is swollen on her right neck area and wanted to have it checked to see if it was allergies or if she had an infection Denies fever, denies chills - Related Data Home Medications Medication Instructions Recorded Confirmed Buprenorphine HCl/Naloxone HCl 8 mg SL BID 03/09/21 03/15/21 [Suboxone 8 mg-2 mg Sl Film] Gabapentin [Gabapentin 300mg/6ml 300 mg PO BID 03/09/21 03/15/21 Oral Soln] Previous Rx's Medication Instructions Recorded polyethylene glycol 3350 17 17 g PO DAILY #238 g 03/15/21 gram/dose oral powder cyclobenzaprine 10 mg tablet 10 mg PO TID PRN #60 tab 03/17/21 buspirone 10 mg tablet 10 mg PO BID #60 tab 03/24/21 Cefdinir [Omnicef 300mg Capsule] 300 mg PO BID 10 Days #20 cap 06/16/21 Ondansetron [Zofran 4mg ODT] 4 mg PO TIDP PRN 3 Days #9 tab 06/16/21 Pantoprazole Sodium [Protonix 40mg 40 mg PO DAILY #15 tab 07/02/21 tablet] Fluticasone Propionate [Flonase 1 spr NS DAILY #1 ml 07/07/21 50mcg nasal spray 16gm] Allergies Allergy/AdvReac Type Severity Reaction Status Date / Time codeine Allergy Verified 06/22/21 16:44 Sulfa (Sulfonamide Allergy Verified 06/22/21
[2021-07-07 16:34] VITALS: BP 140/97; PULSE 91; RESP 18; TEMP 36.8
== END 2021-07-07 16:39 | disposition home or self-care (01) ==
PROVIDERS: Emergency Provider Nurse Practitioner; PCP Family Medicine
DX: J30.9 Allergic rhinitis, unspecified (principal); F41.8 Other specified anxiety disorders; F17.210 Nicotine dependence, cigarettes, uncomplicated
CPT/HCPCS: 99202; G0463

== ENCOUNTER → 2021-10-13 09:56 | Outpatient (CLI) | payer MEDICAID, SELFPAY ==
--- NOTE | 2021-10-13 09:56 | US_ITS ---
PROCEDURE: US TRANSVAGINAL CLINICAL INDICATION: adnexal mass COMPARISON: CT CT ABDOMEN PELVIS W CON from 06/16/2021 FINDINGS: UTERUS: 9cm x 7cmx 6cm with a combined endometrial thickness of 3.4mm. The uterus is retroverted and bulky appearing. Heterogeneous echogenicity is noted in the fundus of the uterus raising the question of fibroid involvement. LEFT OVARY: [id number] with a volume of 45.4ml. There is a complex appearing left ovarian cyst measuring approximately 6 by 3 x 3 cm with low level echoes and irregular margins. This would correspond to the cystic left adnexal mass on the CT scan of 06/16/2021. RIGHT OVARY: [id number] with a volume of 27.3ml. Complex appearing right ovarian cyst noted at 4 x 2 cm. Lopez are slightly thickened and irregular. No cul-de-sac fluid. IMPRESSION: Complex bilateral ovarian cysts. Suggest MRI of the pelvis without and with contrast for more thorough evaluation and characterization of these lesions. Retroverted bulky uterus with possible uterine fibroid Dictated by: Milo Quinteros MD 10/13/2021 15:37 Milo Quinteros MD in [place] 10/13/2021 15:37
== END ==
PROVIDERS: PCP Family Medicine; Visit Provider Obstetrics & Gynecology
DX: R10.2 Pelvic and perineal pain (principal); N94.89 Other specified conditions associated with female genital organs and menstrual cycle
CPT/HCPCS: 76830

== ENCOUNTER 2021-10-17 18:05 | Emergency (ER) | payer MEDICAID, SELFPAY ==
[2021-10-17 18:18] VITALS: BP 153/84; PULSE 97; RESP 18; TEMP 37; O2SAT 98; BMI 31.7
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
[2021-10-17 18:54] VITALS: BP 143/98; PULSE 95; RESP 18; TEMP 36.9; O2SAT 98
== END 2021-10-17 18:54 | disposition home or self-care (01) ==
PROVIDERS: Emergency Provider Emergency Medicine; PCP Family Medicine
DX: S00.83XA Contusion of other part of head, initial encounter (principal); W06.XXXA Fall from bed, initial encounter; Y92.013 Bedroom of single-family (private) house as the place of occurrence of the external cause; F41.8 Other specified anxiety disorders; F17.210 Nicotine dependence, cigarettes, uncomplicated; Z88.2 Allergy status to sulfonamides; Z88.5 Allergy status to narcotic agent
CPT/HCPCS: 99281

== ENCOUNTER 2021-10-22 21:39 | Emergency (ER) | payer MEDICAID, SELFPAY ==
[2021-10-22 21:40] VITALS: BP 151/91; PULSE 114; RESP 20; TEMP 36.9; O2SAT 97; BMI 31.7
[2021-10-22 22:01] VITALS: BP 132/84; PULSE 105; O2SAT 96
--- NOTE | 2021-10-22 22:19 | CT_ITS ---
PROCEDURE INFORMATION: Exam: CT Abdomen And Pelvis Without Contrast Exam date and time: 10/22/2021 10:19 PM Age: 46 years old Clinical indication: Abdominal pain; Localized; Left lower quadrant (llq); Prior surgery; Surgery type: Tubal, gallbladder, csection; Patient HX: Llq pain TECHNIQUE: Imaging protocol: Computed tomography of the abdomen and pelvis without contrast. Radiation optimization: All CT scans at this facility use at least one of these dose optimization techniques: automated exposure control; mA and/or kV adjustment per patient size (includes targeted exams where dose is matched to clinical indication); or iterative reconstruction. COMPARISON: CT ABDOMEN PELVIS W CON 06/16/2021 3:53 AM transvaginal ultrasound 10/13/2021 FINDINGS: Lungs: Multiple nodules at the lung bases measuring up to 4 mm. Liver: Parenchymal enhancement is not evaluated without contrast. No hepatomegaly. Gallbladder and bile ducts: Post cholecystectomy change. Pancreas: Parenchymal enhancement is not evaluated without contrast. No ductal dilation. Spleen: Parenchymal enhancement is not evaluated without contrast. No splenomegaly. Adrenal glands: No mass. Kidneys and ureters: Nonobstructing renal calculi bilaterally. Stomach and bowel: Scattered colonic diverticula with moderate to large stool burden. Appendix: No evidence of appendicitis. Intraperitoneal space: No free air. No significant fluid collection. Vasculature: Limited evaluation without contrast. No abdominal aortic aneurysm. Lymph nodes: No enlarged lymph nodes. Urinary bladder: No acute abnormality. Reproductive: Complex appearing left adnexal mass measuring 4.2 x 4.6 cm. Right ovarian hypodensity measuring 4.5 x 3.3 cm. Bones/joints: Scattered sclerotic bony lesions which appear grossly stable. No acute fracture. Soft tissues: Limited evaluation without contrast. No significant soft tissue swelling. IMPRESSION: 1. Bilateral adnexal lesions which may be benign or malignant and for which pelvic MRI was recommended for further evaluation. 2. Nonobstructing renal calculi bilaterally. 3. Scattered colonic diverticula with moderate to large stool burden. 4. Multiple nodules at the lung bases measuring up to 4 mm. For patients at low risk (minimal or absent history of smoking and of other known risk factors), no routine follow-up is indicated. For patients at high risk (history of smoking or of other known risk factors), consider optional CT Chest at 12 months. (Reference: Jillian) References: Jillian Ware et al. Guidelines for Management of Incidental Pulmonary Nodules Detected on CT Images: From the Fleischner Society 2017. Radiology. 2017;284(1):228-243.
[2021-10-22 22:25] LABS: Basophils # 0.1 K/mm3 (0-0.2); Basophils % 0.9 % (0.1-2.0); Eosinophils # 0.2 K/mm3 (0.0-0.4); Eosinophils % 4.5 % (0.1-12.0); Hematocrit 31.3 % (37.0-47.0); Hemoglobin 9.4 g/dL (12.2-16.2); Lymphocytes # 1.8 K/mm3 (0.7-4.5); Lymphocytes % 34.1 % (10-50); Mean Corpuscular Hemoglobin 21.8 pg (27.0-31.2); Mean Corpuscular Volume 72.8 fl (81-99); Mean Platelet Volume 12.1 fl (7.4-10.4); Monocytes # 0.2 K/mm3 (0.1-1.0); Monocytes % 3.7 % (1.7-9.3); Neutrophils # 3.1 K/mm3 (1.8-7.8); Neutrophils % 56.9 % (37.0-80.0); Platelet Count 155 K/mm3 (142-424); Red Blood Count 4.31 M/mm3 (4.20-5.40); Red Cell Distribution Width 18.4 % (11.5-17.5); White Blood Count 5.4 K/mm3 (4.8-10.8)
[2021-10-22 22:26] LABS: Chloride 99 mmol/L (98-107); Potassium 3.6 mmoL/L (3.5-5.1); Sodium 139 mmol/L (136-145)
[2021-10-22 22:28] LABS: Alanine Aminotransferase 16 U/L (12-78); Amylase 71 U/L (30-110); Aspartate Amino Transferase 29 U/L (14-36); Blood Urea Nitrogen 15 mg/dl (7-17); Creatinine Clearance Estimated 106 mL/min (50-200); Estimated Glomerular Filt Rate 68 ml/min (>60); GFR (African American) 82 ML/MIN (>60)
[2021-10-22 22:29] LABS: Albumin Level 3.9 g/dl (3.5-5.0); Albumin/Globulin Ratio 1.3 (1.1-1.8); Alkaline Phosphatase 77 U/L (38-126); Anion Gap 13.6 mEq/L (5-15); Bilirubin,Total 0.3 mg/dl (0.2-1.3); Calcium 8.6 mg/dl (8.4-10.2); Carbon Dioxide 30 mmol/L (22.0-30.0); Glucose 103 mg/dl (74-100); Total Protein,Serum 6.9 g/dl (6.3-8.2)
[2021-10-22 22:33] VITALS: BP 126/72; PULSE 89; O2SAT 100
[2021-10-22 22:34] LABS: C-Reactive Protein 0.9 mg/L (0-4)
[2021-10-22 22:38] LABS: Appearance,Urine SL CLOUDY (Clear); Bilirubin,Urine Negative (Negative); Blood, Urine 3+ (Negative); Color,Urine YELLOW (Yellow); Glucose,Urine (UA) Negative (Negative); Ketones,Urine Negative (Negative); Leukocyte Esterase,Urine Negative (Negative); Microscopic, Urine URINE MICROSCOPIC (MICROSCOPIC); Nitrate,Urine Negative (Negative); Protein,Urine Negative (Negative); Urobilinogen,Urine 0.2 EU/dl (0.2)
[2021-10-22 22:51] LABS: Bacteria,Urine 2+ /lpf
[2021-10-22 23:00] VITALS: BP 124/68; PULSE 88; O2SAT 97
[2021-10-22 23:03] LABS: Erythrocyte Sedimentation Rate 20 mm/hr (0-20)
--- NOTE | 2021-10-22 23:23 | HMH.EDGENADL ---
ED Disposition Clinical Impression: Pelvic pain in female, Adnexal mass Disposition: Home, Self-Care Condition on Discharge: Good Instructions: DI for Pelvic Pain Additional Instructions: see pcp and systems development consultant for follow up Prescriptions: Ketorolac Tromethamine [Toradol 10mg tablet] 10 mg PO Q6HP PRN #6 tab MDD 40mg/day PRN Reason: Moderate To Severe Pain Transmission Status: Pending to [facility] #[id number] Referrals: Apolinar Meneses [Primary Care Provider] - Bulmaro Varma [Referring] - Tiffanie Varma MD [Staff Physician] - - Critical Care Critical Care Time: No Attestation: On 10/22/21, the high probability of a clinically significant, sudden or life threatening deterioration of the following system(s) required my full and direct attention, intervention and personal management. The time I documented below is in addition to time spent performing reported procedures but includes the following listed in this critical care notation. Medical Decision Making - Medical Records Medical records reviewed: Yes: I reviewed the patient's medical records. - Tee Inquiry Pt receiving controlled substance: No Vital Signs: 10/22/21 21:40 10/22/21 22:01 10/22/21 22:33 Temperature 98.5 F Temperature Source Oral Pulse Rate 105 H 89 Pulse Rate [Apical] 114 H Respiratory Rate 20 Blood Pressure 132/84 126/72 Blood Pressure [Right Arm] 151/91 H Blood Pressure Mean [Right Arm] 111 Blood Pressure Source [Right Arm] Automatic Cuff Blood Pressure Position [Right Arm] Sitting 02 Sat by Pulse Oximetry 97 96 100 Oxygen Delivery Method Room Air Room Air Room Air 10/22/21 23:00 10/22/21 23:32 Temperature Temperature Source Pulse Rate 88 67 Pulse Rate [Apical] Respiratory Rate Blood Pressure 124/68 115/55 L Blood Pressure [Right Arm] Blood Pressure Mean [Right Arm] Blood Pressure Source [Right Arm] Blood Pressure Position [Right Arm] 02 Sat by Pulse Oximetry 97 97 Oxygen Delivery Method Room Air Room Air - Lab Data Lab results reviewed: Yes: I reviewed the patient's lab results. Lab Results 10/22/21 21:44: WBC 5.4, RBC 4.31, Hgb 9.4 L, Hct 31.3 L, MCV 72.8 L, MCH 21.8 L, MCHC 30.0 L, RDW 18.4 H, Plt Count 155, MPV 12.1 H, Neut % (Auto) 56.9, Lymph % (Auto) 34.1, [place] % (Auto) 3.7, Eos % (Auto) 4.5, Baso % (Auto) 0.9, Neut # (Auto) 3.1, Lymph # (Auto) 1.8, [place] # (Auto) 0.2, Eos # (Auto) 0.2, Baso # (Auto) 0.1, ESR 20 10/22/21 21:44: Sodium 139, Potassium 3.6, Chloride 99, Carbon Dioxide 30, Anion Gap 13.6, BUN 15, Creatinine 0.90, Estimated Creat Clear 106, Estimated GFR 68, Est GFR ( Amer) 82, Glucose 103 H, Calcium 8.6, Total Bilirubin 0.3, AST 29, ALT 16, Alkaline Phosphatase 77, C-Reactive Protein 0.9, Total Protein 6.9, Albumin 3.9, Globulin 3.0, Albumin/Globulin Ratio 1.3, Amylase 71 10/22/21 21:44: Urine Color Yellow, Urine Appearance Sl cloudy, Urine pH 6.0, Ur Specific [place] 1.020, Urine Protein Negative, Urine Glucose (UA) Negative, Urine Ketones Negative, Urine Blood 3+, Urine Nitrate Negative, Urine Bilirubin Negative, Urine Urobilinogen 0.2, Ur Leukocyte Esterase Negative, Urine WBC 5-10, Ur Squamous Epith Cells 5-10, Urine Bacteria 2+ Result diagrams: 10/22/21 21:44 10/22/21 21:44 Orders (Tests/Meds): ED MEDICATIONS Generic Name Dose Route Start Last Admin Trade Name Freq PRN Reason Stop Dose Admin Sodium Chloride 1,000 mls @ 999 mls/hr 10/22/21 22:30 10/22/21 22:47 Sod Chlor 0.9% 1000ml Bag IV 10/22/21 23:30 999 mls/hr .Q1H1M ELIZABETH Administration Discontinued Medications Generic Name Dose Route Start Last Admin Trade Name Freq PRN Reason Stop Dose Admin Ketorolac Tromethamine 30 mg 10/22/21 22:18 10/22/21 22:47 Ketorolac 30mg/Ml Vial IV 10/22/21 22:19 30 mg ONCE ONE Administration ORDERS Category Date Time Status Urine Culture Stat Micro 10/22/21 21:44 Received - CT Data CT Scan: Abdomen, Pelvis Time Re
[2021-10-22 23:32] VITALS: BP 115/55; PULSE 67; O2SAT 97
[2021-10-23 00:03] VITALS: BP 115/55; PULSE 67; RESP 20; TEMP 36.9; O2SAT 97
== END 2021-10-23 00:05 | disposition home or self-care (01) ==
PROVIDERS: Emergency Provider Emergency Medicine; PCP Family Medicine
DX: N94.89 Other specified conditions associated with female genital organs and menstrual cycle (principal); R10.2 Pelvic and perineal pain
CPT/HCPCS: 74176; 80053; 81001; 82150; 85025; 85651; 86140; 87086; 96365; 96375; 99282

== ENCOUNTER 2021-11-03 09:22 | Emergency (ER) | payer MEDICAID, SELFPAY ==
[2021-11-03 11:49] VITALS: BP 162/83; PULSE 102; RESP 20; TEMP 36.8; O2SAT 100; BMI 31.7
--- NOTE | 2021-11-03 11:59 | HMH.EDUTC ---
[facility] [place] Disposition Clinical Impression: Strep throat Disposition: Home, Self-Care Condition on Discharge: Good Instructions: DI for Strep Throat, Strep Throat Additional Instructions: Drink plenty of fluids. Take tylenol or ibuprofen for pain or fever. Take the medications as directed. Follow up with your regular doctor. GO TO THE ER FOR ANY WORSENING SYMPTOMS Throw your tooth brush away and get a new one. Don't start the oral steroids until tomorrow, since you had the shot here today. Prescriptions: Amoxicillin [Amoxicillin 500mg Tab] 500 mg PO TID 10 Days #30 tab Transmission Status: Pending to [facility] # Benzonatate [Benzonatate 100mg cap] 100 mg PO TIDP PRN #30 cap PRN Reason: Cough Transmission Status: Pending to [facility] # methylPREDNISolone [Medrol] 4 mg PO DIRECTED 6 Days #21 packet Transmission Status: Pending to [facility] # Referrals: Apolinar Meneses [Primary Care Provider] - Forms: Work/School Release Time of Disposition: 12:10 Medical Decision Making - Medical Records Medical records reviewed: No: I reviewed the patient's medical records. - Tee Inquiry Pt receiving controlled substance: No Vital Signs: 11/03/21 11:49 Temperature 98.2 F Temperature Source Oral Pulse Rate [Left] 102 H Respiratory Rate 20 Blood Pressure [Right Arm] 162/83 H Blood Pressure Mean [Right Arm] 109 02 Sat by Pulse Oximetry 100 - Lab Data Lab results reviewed: Yes: I reviewed the patient's lab results. Orders (Tests/Meds): ORDERS Category Date Time Status Rapid Strep Scrn Group A [Strep Scrn Group A (Rapid)] Lab 11/03/21 11:42 Received Stat [facility] [place] HPI - General Stated complaint: sore throat, runny nose Time Seen by Provider: 11/03/21 11:59 Mode of Arrival: Ambulatory Source of Information: Patient Limitations: No Limitations Description of Symptoms (Recalled from Triage Doc. by RN): PT C/O A SORE THROAT, R SIDED SINUS CONGESTION/PAIN, AND R EAR ACHE. PT WAS NEGATIVE FOR COVID OF TODAY. BOY FRIEND IS POSITIVE FOR STREP. HEENT Symptoms (Recalled from RN notes): Yes Resp Symptoms (Recalled from RN notes): No Skin Symptoms (Recalled from RN notes): No MS Symptoms (Recalled from RN notes): No Functional Status (Recalled from RN notes): WNL - History of Present Illness Provider Complaint: She states that she has had a sore throat, sinus congestion, ear pain, chills and body aches for the past 2 days. She had a negative covid test yesterday. Her boy friend has strep throat, so that is what she thinks it going on. - Related Data Home Medications Medication Instructions Recorded Confirmed Buprenorphine HCl/Naloxone HCl 8 mg SL BID 03/09/21 10/13/21 [Suboxone 8 mg-2 mg Sl Film] sertraline 100 mg tablet 100 mg PO DAILY 09/29/21 10/13/21 Gabapentin [Gabapentin 400mg Cap] 400 mg PO TID 10/22/21 10/22/21 Previous Rx's Medication Instructions Recorded Ketorolac Tromethamine [Toradol 10 mg PO Q6HP PRN #6 tab MDD 10/22/21 10mg tablet] 40mg/day Amoxicillin [Amoxicillin 500mg Tab] 500 mg PO TID 10 Days #30 tab 11/03/21 Benzonatate [Benzonatate 100mg 100 mg PO TIDP PRN #30 cap 11/03/21 cap] methylPREDNISolone [Medrol] 4 mg PO DIRECTED 6 Days #21 11/03/21 packet Allergies Allergy/AdvReac Type Severity Reaction Status Date / Time codeine Allergy Verified 10/13/21 15:33 Sulfa (Sulfonamide Allergy Verified 10/13/21 15:33 Antibiotics) - Worker's Comp Is this a Worker's Comp case?: No [facility] History - Hepatitis A Screen Drug use history?: No High risk sexual behaviors?: No History of sexually transmitted infection?: No Currently employed?: No Childcare worker?: No Do you have indoor plumbing?: Yes Do you have electricity?: Yes Attestation statement:: This patient has been screened for Hepatitis A risk factors. I have reviewed the patient's past medical history: Yes
[2021-11-03 12:19] VITALS: BP 162/83; PULSE 102; RESP 20; TEMP 36.8
[2021-11-03 12:23] LABS: Strep Scrn Group A (Rapid) Negative (Negative)
== END 2021-11-03 12:20 | disposition home or self-care (01) ==
PROVIDERS: Emergency Provider Nurse Practitioner Family; PCP Family Medicine
DX: J02.0 Streptococcal pharyngitis (principal); F41.8 Other specified anxiety disorders; F17.210 Nicotine dependence, cigarettes, uncomplicated; Z87.442 Personal history of urinary calculi
CPT/HCPCS: 87430; 96372; 99202; G0463; J0696

== ENCOUNTER 2021-12-04 21:41 | Emergency (ER) | payer MEDICAID, SELFPAY ==
[2021-12-04 21:42] VITALS: BP 130/84; PULSE 78; RESP 20; TEMP 36.7; O2SAT 99; BMI 33.5
--- NOTE | 2021-12-04 22:07 | CT_ITS ---
PROCEDURE INFORMATION: Exam: CT Abdomen And Pelvis Without Contrast Exam date and time: 12/04/2021 10:07 PM Age: 46 years old Clinical indication: Abdominal pain; Flank; Right; Prior surgery; Surgery date: 6+ months; Surgery type: Gb and tubal ligation; Additional info: Back and abd pain TECHNIQUE: Imaging protocol: Computed tomography of the abdomen and pelvis without contrast. Radiation optimization: All CT scans at this facility use at least one of these dose optimization techniques: automated exposure control; mA and/or kV adjustment per patient size (includes targeted exams where dose is matched to clinical indication); or iterative reconstruction. COMPARISON: CT ABDOMEN PELVIS WO CON 10/22/2021 10:27 PM FINDINGS: Liver: Parenchymal enhancement is not evaluated without contrast. No hepatomegaly. Gallbladder and bile ducts: Post cholecystectomy change. Pancreas: Parenchymal enhancement is not evaluated without contrast. No ductal dilation. Spleen: Parenchymal enhancement is not evaluated without contrast. No splenomegaly. Adrenal glands: No mass. 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 Moderately distended right renal collecting system and ureter without visualized radiodense intraluminal obstructing calcification. Stomach and bowel: Diverticulosis coli with decompression of the descending and sigmoid colon. Appendix: No evidence of appendicitis. Intraperitoneal space: No free air. No significant fluid collection. Vasculature: Limited evaluation without contrast. No abdominal aortic aneurysm. Lymph nodes: No enlarged lymph nodes. Urinary bladder: No acute abnormality. Reproductive: Bilobed intermediate density structure within the region of the left adnexa measuring 3.7 x 5 cm in bilobed low-density structure region of right adnexa measuring approximately 5.2 x 4.2 cm. Bones/joints: No acute fracture. Soft tissues: Limited evaluation without contrast. No significant soft tissue swelling. IMPRESSION: 1. 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 2. Moderately distended right renal collecting system and ureter without visualized radiodense intraluminal obstructing calcification. 3. Bilateral adnexal structures which are indeterminate and may be benign or malignant. Ultrasound is recommended on a nonemergent basis for further evaluation. 4. Diverticulosis coli with decompression of the descending and sigmoid colon which is not well evaluated. Colitis should be clinically excluded.
[2021-12-04 22:11] LABS: Microscopic, Urine URINE MICROSCOPIC (MICROSCOPIC)
[2021-12-04 22:22] LABS: Basophils % 0.4 % (0.1-2.0); Eosinophils % 0.5 % (0.1-12.0); Hematocrit 41.5 % (37.0-47.0); Hemoglobin 12.5 g/dL (12.2-16.2); Lymphocytes # 1.4 K/mm3 (0.7-4.5); Lymphocytes % 16.5 % (10-50); Mean Corpuscular HGB Conc 30.1 g/dL (31.8-35.4); Mean Corpuscular Volume 79.8 fl (81-99); Mean Platelet Volume 10.3 fl (7.4-10.4); Monocytes # 0.4 K/mm3 (0.1-1.0); Monocytes % 4.7 % (1.7-9.3); Neutrophils # 6.5 K/mm3 (1.8-7.8); Neutrophils % 77.9 % (37.0-80.0); Platelet Count 253 K/mm3 (142-424); Red Cell Distribution Width 20.6 % (11.5-17.5); White Blood Count 8.3 K/mm3 (4.8-10.8)
[2021-12-04 22:23] LABS: Appearance,Urine CLEAR (Clear); Bilirubin,Urine Negative (Negative); Blood, Urine 2+ (Negative); Color,Urine YELLOW (Yellow); Glucose,Urine (UA) Negative (Negative); Ketones,Urine Negative (Negative); Leukocyte Esterase,Urine TRACE (Negative); Nitrate,Urine Negative (Negative); Protein,Urine Negative (Negative); Specific Gravity, Urine <= 1.005 (1.005-1.030); Urobilinogen,Urine 0.2 EU/dl (0.2)
[2021-12-04 22:24] LABS: HCG Qualitative, Serum Negative (Negative)
[2021-12-04 22:28] LABS: WBC,Urine Occasional #/hpf (0-3)
[2021-12-04 22:28] LABS: Alanine Aminotransferase 21 U/L (12-78); Albumin Level 4.6 g/dl (3.5-5.0); Albumin/Globulin Ratio 1.6 (1.1-1.8); Alkaline Phosphatase 66 U/L (38-126); Amylase 67 U/L (30-110); Anion Gap 11.7 mEq/L (5-15); Aspartate Amino Transferase 31 U/L (14-36); Bilirubin,Total 0.4 mg/dl (0.2-1.3); Blood Urea Nitrogen 17 mg/dl (7-17); Calcium 9.2 mg/dl (8.4-10.2); Carbon Dioxide 28 mmol/L (22.0-30.0); Chloride 99 mmol/L (98-107); Creatinine Clearance Estimated 125 mL/min (50-200); Estimated Glomerular Filt Rate 78 ml/min (>60); GFR (African American) 94 ML/MIN (>60); Globulin 2.9 g/dL (1.3-3.2); Glucose 122 mg/dl (74-100); Lipase 89 U/L (23-300); Potassium 3.7 mmoL/L (3.5-5.1); Sodium 135 mmol/L (136-145); Total Protein,Serum 7.5 g/dl (6.3-8.2)
[2021-12-04 22:33] LABS: C-Reactive Protein 1.2 mg/L (0-4)
[2021-12-04 22:46] LABS: Erythrocyte Sedimentation Rate 11 mm/hr (0-20)
[2021-12-04 22:57] LABS: Procalcitonin < 0.030 ng/mL (0.0-2.0)
--- NOTE | 2021-12-04 23:14 | HMH.EDGENADL ---
ED Disposition Clinical Impression: Flank pain, acute Disposition: Home, Self-Care Condition on Discharge: Good Instructions: DI for Flank Pain Additional Instructions: fluids and see pcp and urology for follow up Prescriptions: Ketorolac Tromethamine [Toradol 10mg tablet] 10 mg PO Q4HP PRN #6 tab MDD 40mg/day PRN Reason: Moderate To Severe Pain Transmission Status: Pending to [facility] Referrals: Apolinar Meneses [Primary Care Provider] - Jose Guadalupe Cash MD [Staff Physician] - - Critical Care Critical Care Time: No Attestation: On 12/04/21, the high probability of a clinically significant, sudden or life threatening deterioration of the following system(s) required my full and direct attention, intervention and personal management. The time I documented below is in addition to time spent performing reported procedures but includes the following listed in this critical care notation. Medical Decision Making - Medical Records Medical records reviewed: Yes: I reviewed the patient's medical records. - Tee Inquiry Pt receiving controlled substance: No Vital Signs: 12/04/21 21:42 Temperature 98.1 F Temperature Source Oral Pulse Rate [Apical] 78 Respiratory Rate 20 Blood Pressure [Right Arm] 130/84 Blood Pressure Mean [Right Arm] 99 Blood Pressure Source [Right Arm] Automatic Cuff Blood Pressure Position [Right Arm] Sitting 02 Sat by Pulse Oximetry 99 Oxygen Delivery Method Room Air - Lab Data Lab results reviewed: Yes: I reviewed the patient's lab results. Lab Results 12/04/21 21:50: Urine Color Yellow, Urine Appearance Clear, Urine pH 7.0, Ur Specific [place] <= 1.005, Urine Protein Negative, Urine Glucose (UA) Negative, Urine Ketones Negative, Urine Blood 2+, Urine Nitrate Negative, Urine Bilirubin Negative, Urine Urobilinogen 0.2, Ur Leukocyte Esterase Trace, Urine RBC 3-5, Urine WBC Occasional, Ur Squamous Epith Cells 3-5, Urine Bacteria None 12/04/21 22:00: WBC 8.3, RBC 5.20, Hgb 12.5, Hct 41.5, MCV 79.8 L, MCH 24.0 L, MCHC 30.1 L, RDW 20.6 H, Plt Count 253, MPV 10.3, Neut % (Auto) 77.9, Lymph % (Auto) 16.5, [place] % (Auto) 4.7, Eos % (Auto) 0.5, Baso % (Auto) 0.4, Neut # (Auto) 6.5, Lymph # (Auto) 1.4, [place] # (Auto) 0.4, Eos # (Auto) 0.0, Baso # (Auto) 0.0, ESR 11 12/04/21 22:00: Sodium 135 L, Potassium 3.7, Chloride 99, Carbon Dioxide 28, Anion Gap 11.7, BUN 17, Creatinine 0.80, Estimated Creat Clear 125, Estimated GFR 78, Est GFR ( Amer) 94, Glucose 122 H, Calcium 9.2, Total Bilirubin 0.4, AST 31, ALT 21, Alkaline Phosphatase 66, C-Reactive Protein 1.2, Total Protein 7.5, Albumin 4.6, Globulin 2.9, Albumin/Globulin Ratio 1.6, Amylase 67, Lipase 89, Procalcitonin < 0.030 12/04/21 22:00: Serum HCG, Qual Negative Result diagrams: 12/04/21 22:00 12/04/21 22:00 Orders (Tests/Meds): ED MEDICATIONS Generic Name Dose Route Start Last Admin Trade Name Freq PRN Reason Stop Dose Admin Sodium Chloride 1,000 mls @ 999 mls/hr 12/04/21 22:15 12/04/21 22:21 Sod Chlor 0.9% 1000ml Bag IV 12/04/21 23:15 999 mls/hr .Q1H1M ELIZABETH Administration Discontinued Medications Generic Name Dose Route Start Last Admin Trade Name Freq PRN Reason Stop Dose Admin Ketorolac Tromethamine 30 mg 12/04/21 22:08 12/04/21 22:21 Ketorolac 30mg/Ml Vial IV 12/04/21 22:09 30 mg ONCE ONE Administration - CT Data CT Scan: Abdomen, Pelvis Time Received: 23:[address] Reviewed: Yes: I have viewed the radiologist's interpretation Preliminary Findings: Abnormal (see report ) Medical Decision Narrative: has acute flank pain with abn ct but no def stone and will have pt see pcp and consider pelvic u/s and urology appt General Adult HPI - General Chief complaint: PAIN Stated complaint: RIGHT SIDE PAIN Time Seen by Provider: 12/04/21 22:20 Mode of Arrival: Ambulatory Source of Information: Patient, Medical Record Limitations: No Limitations Description of Symptoms
[2021-12-04 23:26] VITALS: BP 125/78; PULSE 80; RESP 18; TEMP 36.8; O2SAT 98
== END 2021-12-04 23:28 | disposition home or self-care (01) ==
PROVIDERS: Emergency Provider Emergency Medicine; PCP Family Medicine
DX: R10.11 Right upper quadrant pain (principal); M54.9 Dorsalgia, unspecified; F41.8 Other specified anxiety disorders; Z88.2 Allergy status to sulfonamides
CPT/HCPCS: 74176; 80053; 81001; 82150; 83690; 84145; 84703; 85025; 85651; 86140; 96365; 96375; 99283; 99284

== ENCOUNTER 2022-03-02 23:26 | Emergency (ER) | payer MEDICAID, SELFPAY ==
[2022-03-02 23:30] VITALS: BP 161/90; PULSE 85; RESP 16; TEMP 36.7; O2SAT 100; BMI 34.7
[2022-03-02 23:41] LABS: Microscopic, Urine URINE MICROSCOPIC (MICROSCOPIC)
[2022-03-02 23:53] LABS: Appearance,Urine CLEAR (Clear); Bilirubin,Urine Negative (Negative); Blood, Urine TRACE-I (Negative); Color,Urine YELLOW (Yellow); Glucose,Urine (UA) Negative (Negative); Ketones,Urine Negative (Negative); Leukocyte Esterase,Urine Negative (Negative); Nitrate,Urine Negative (Negative); Protein,Urine Negative (Negative); Urobilinogen,Urine 0.2 EU/dl (0.2)
--- NOTE | 2022-03-02 23:55 | HMH.EDUROGF ---
ED Disposition Clinical Impression: Cystitis, Enlarged uterus Disposition: Home, Self-Care Condition on Discharge: Good Instructions: DI for Urinary Tract Infection (UTI) Additional Instructions: see pcp and exceptional student education aide for follow up Prescriptions: RX: levoFLOXacin [Levaquin 500mg tab] 500 mg PO DAILY #7 tab Transmission Status: Pending to [facility] Referrals: Apolinar Meneses [Primary Care Provider] - - Critical Care Critical Care Time: No Attestation: On 03/02/22, the high probability of a clinically significant, sudden or life threatening deterioration of the following system(s) required my full and direct attention, intervention and personal management. The time I documented below is in addition to time spent performing reported procedures but includes the following listed in this critical care notation. Medical Decision Making - Medical Records Medical records reviewed: Yes: I reviewed the patient's medical records. - Tee Inquiry Pt receiving controlled substance: No Vital Signs: 03/02/22 23:30 03/03/22 01:47 Temperature 98.0 F Temperature Source Oral Pulse Rate 89 Pulse Rate [Right Brachial] 85 Respiratory Rate 16 Blood Pressure 132/77 Blood Pressure [Right Arm] 161/90 H Blood Pressure Mean 98 Blood Pressure Mean [Right Arm] 113 Blood Pressure Source [Right Arm] Automatic Cuff Blood Pressure Position [Right Arm] Sitting 02 Sat by Pulse Oximetry 100 100 Oxygen Delivery Method Room Air - Lab Data Lab results reviewed: Yes: I reviewed the patient's lab results. Lab Results 03/02/22 23:35: Urine Color Yellow, Urine Appearance Clear, Urine pH 6.0, Ur Specific [place] 1.020, Urine Protein Negative, Urine Glucose (UA) Negative, Urine Ketones Negative, Urine Blood Trace-i, Urine Nitrate Negative, Urine Bilirubin Negative, Urine Urobilinogen 0.2, Ur Leukocyte Esterase Negative, Urine WBC 3-5, Ur Squamous Epith Cells 5-10, Urine Bacteria 1+ 03/03/22 00:00: Urine HCG, Qual Negative 03/03/22 00:25: WBC 7.6, RBC 4.42, Hgb 11.5 L, Hct 36.2 L, MCV 81.9, MCH 26.0 L, MCHC 31.7 L, RDW 16.6, Plt Count 143, MPV 13.5 H, Neut % (Auto) 73.7, Lymph % (Auto) 18.2, [place] % (Auto) 3.2, Eos % (Auto) 3.7, Baso % (Auto) 1.1, Neut # (Auto) 5.6, Lymph # (Auto) 1.4, [place] # (Auto) 0.3, Eos # (Auto) 0.3, Baso # (Auto) 0.1, ESR 56 H 03/03/22 00:25: Sodium 138, Potassium 3.6, Chloride 104, Carbon Dioxide 28, Anion Gap 9.6, BUN 8, Creatinine 0.80, Estimated Creat Clear 138, Estimated GFR 78, Est GFR ( Amer) 94, Glucose 134 H, Calcium 8.5, Total Bilirubin 0.2, AST 25, ALT 17, Alkaline Phosphatase 69, Total Protein 6.4, Albumin 3.7, Globulin 2.7, Albumin/Globulin Ratio 1.4, Procalcitonin 0.042 03/03/22 00:25: Lactate 2.0 Result diagrams: 03/03/22 00:25 03/03/22 00:25 Orders (Tests/Meds): ED MEDICATIONS Generic Name Dose Route Start Last Admin Trade Name Freq PRN Reason Stop Dose Admin Sodium Chloride 1,000 mls @ 999 mls/hr 03/03/22 00:30 03/03/22 00:27 Sod Chlor 0.9% 1000ml Bag IV 03/03/22 01:30 999 mls/hr .Q1H1M ELIZABETH Administration Ceftriaxone Sodium 1 gm/ 50 mls @ 100 mls/hr 03/03/22 02:00 03/03/22 02:00 Sodium Chloride IV 03/17/22 01:59 100 mls/hr Q24H ELIZABETH Administration Discontinued Medications Generic Name Dose Route Start Last Admin Trade Name Freq PRN Reason Stop Dose Admin Iopamidol 75 ml 03/03/22 01:33 03/03/22 01:34 Iopamidol-370 (76%);100ml Bottle IV 03/03/22 01:34 75 ml ONCE ONE Administration Ketorolac Tromethamine 30 mg 03/03/22 01:53 03/03/22 02:00 Ketorolac 30mg/Ml Vial IV 03/03/22 01:54 30 mg ONCE ONE Administration Sodium Chloride 10 ml 03/03/22 01:33 03/03/22 01:34 Sodium Chloride 0.9% 10ml Syr (Rad Only) IV 03/03/22 01:34 10 ml ONCE ONE Administration ORDERS Category Date Time Status C-Reactive Protein Stat Lab 03/03/22 00:25 Results Comprehensive Metabolic Panel Stat Lab 03/03/22 00:25 Results
--- NOTE | 2022-03-03 00:14 | CT_ITS ---
PROCEDURE INFORMATION: Exam: CT Abdomen And Pelvis With Contrast Exam date and time: 03/03/2022 1:24 AM Age: 46 years old Clinical indication: Abdominal pain; Localized; Lower; Patient HX: HX ovarian cysts; Additional info: Low abd pain TECHNIQUE: Imaging protocol: Computed tomography of the abdomen and pelvis with contrast. Radiation optimization: All CT scans at this facility use at least one of these dose optimization techniques: automated exposure control; mA and/or kV adjustment per patient size (includes targeted exams where dose is matched to clinical indication); or iterative reconstruction. Contrast material: ISOVUE; Contrast volume: 75 ml; Contrast route: IV; COMPARISON: CT ABDOMEN PELVIS WO CON 12/04/2021 10:28 PM FINDINGS: Lungs: Several small nodules are noted at each lung base including a calcified granuloma in the left lower lobe. Findings are similar to prior. Pleural spaces: No pleural fluid. Heart: Normal heart size. Liver: Normal. No mass. Gallbladder and bile ducts: Exam demonstrates features of prior cholecystectomy. No biliary tree dilation or high-density retained stones appreciated. Pancreas: Normal. No ductal dilation. Spleen: Normal. No splenomegaly. Adrenal glands: Normal. No mass. Kidneys and ureters: Kidneys enhance symmetrically and demonstrate no evidence of mass, obstruction, or inflammation. Punctate intrarenal stones are noted on each side. Kidneys are mildly atrophic for age. Stomach and bowel: Postprandial stomach. Normal caliber small bowel. Normal colon. Appendix: Normal appendix is confirmed. Intraperitoneal space: Unremarkable. No free air. No significant fluid collection. Vasculature: Unremarkable. No abdominal aortic aneurysm. Lymph nodes: Unremarkable. No enlarged lymph nodes. Urinary bladder: Unremarkable as visualized. Reproductive: Lobulated bulky appearing uterus. Right ovarian fluid-filled structure may reflect hydrosalpinx. Bones/joints: Unremarkable. No acute fracture. Soft tissues: Unremarkable. IMPRESSION: 1. Lobulated enlarged uterus. Probable right hydrosalpinx, slightly diminished from prior. Ovaries are difficult to separate from the uterus there is no inflammatory change. Pelvic ultrasound may be helpful for further characterization. 2. Renal atrophy for age. Numerous small intrarenal stones. No obstruction. 3. Stable multiple tiny pulmonary nodules.For patients at low risk (minimal or absent history of smoking and of other known risk factors), no routine follow-up is indicated. For patients at high risk (history of smoking or of other known risk factors), consider optional CT Chest at 12 months. (Reference: Jillian) REFERENCES: Jillian Ware, et al. Guidelines for Management of Incidental Pulmonary Nodules Detected on CT Images: From the Fleischner Society 2017. Radiology. 2017;284(1):228-243.
[2022-03-03 00:23] LABS: Bacteria,Urine 1+ /lpf
[2022-03-03 00:38] LABS: Basophils # 0.1 K/mm3 (0-0.2); Basophils % 1.1 % (0.1-2.0); Eosinophils # 0.3 K/mm3 (0.0-0.4); Eosinophils % 3.7 % (0.1-12.0); Hematocrit 36.2 % (37.0-47.0); Hemoglobin 11.5 g/dL (12.2-16.2); Lymphocytes # 1.4 K/mm3 (0.7-4.5); Lymphocytes % 18.2 % (10-50); Mean Corpuscular HGB Conc 31.7 g/dL (31.8-35.4); Mean Corpuscular Volume 81.9 fl (81-99); Mean Platelet Volume 13.5 fl (7.4-10.4); Monocytes # 0.3 K/mm3 (0.1-1.0); Monocytes % 3.2 % (1.7-9.3); Neutrophils # 5.6 K/mm3 (1.8-7.8); Neutrophils % 73.7 % (37.0-80.0); Platelet Count 143 K/mm3 (142-424); Red Blood Count 4.42 M/mm3 (4.20-5.40); Red Cell Distribution Width 16.6 % (11.5-17.5); White Blood Count 7.6 K/mm3 (4.8-10.8)
[2022-03-03 00:43] LABS: Chloride 104 mmol/L (98-107); Potassium 3.6 mmoL/L (3.5-5.1); Sodium 138 mmol/L (136-145)
[2022-03-03 00:46] LABS: Alanine Aminotransferase 17 U/L (12-78); Albumin Level 3.7 g/dl (3.5-5.0); Albumin/Globulin Ratio 1.4 (1.1-1.8); Alkaline Phosphatase 69 U/L (38-126); Anion Gap 9.6 mEq/L (5-15); Aspartate Amino Transferase 25 U/L (14-36); Bilirubin,Total 0.2 mg/dl (0.2-1.3); Blood Urea Nitrogen 8 mg/dl (7-17); Calcium 8.5 mg/dl (8.4-10.2); Carbon Dioxide 28 mmol/L (22.0-30.0); Creatinine Clearance Estimated 138 mL/min (50-200); Estimated Glomerular Filt Rate 78 ml/min (>60); GFR (African American) 94 ML/MIN (>60); Globulin 2.7 g/dL (1.3-3.2); Glucose 134 mg/dl (74-100); Total Protein,Serum 6.4 g/dl (6.3-8.2)
[2022-03-03 01:15] LABS: Erythrocyte Sedimentation Rate 56 mm/hr (0-20)
[2022-03-03 01:15] LABS: Urine Pregnancy, HCG Qual. Negative (Negative)
[2022-03-03 01:47] VITALS: BP 132/77; PULSE 89; O2SAT 100
--- NOTE | 2022-03-03 01:48 | PC.NURSE ---
Pt updated on POC. No new needs.
[2022-03-03 02:13] LABS: Procalcitonin 0.042 ng/mL (0.0-2.0)
[2022-03-03 02:32] VITALS: BP 132/70; PULSE 78; RESP 17; TEMP 36.7; O2SAT 98
[2022-03-03 02:39] LABS: C-Reactive Protein 2.5 mg/L (0-4)
== END 2022-03-03 02:42 | disposition home or self-care (01) ==
PROVIDERS: Emergency Provider Emergency Medicine; PCP Family Medicine
DX: N39.0 Urinary tract infection, site not specified (principal); D64.9 Anemia, unspecified; F41.9 Anxiety disorder, unspecified; F32.A Depression, unspecified; F17.210 Nicotine dependence, cigarettes, uncomplicated; Z88.2 Allergy status to sulfonamides; Z88.5 Allergy status to narcotic agent; Z82.49 Family history of ischemic heart disease and other diseases of the circulatory system; Z80.9 Family history of malignant neoplasm, unspecified; Z81.8 Family history of other mental and behavioral disorders
CPT/HCPCS: 74177; 80053; 81001; 81025; 83605; 84145; 85025; 85651; 86140; 87086; 87088; 87186; 96361; 96374; 96375; 99285; J0696; Q9967

== ENCOUNTER → 2022-03-07 15:40 | Outpatient (CLI) | payer MEDICAID, SELFPAY ==
[2022-03-07 16:57] LABS: Urine Pregnancy, HCG Qual. Negative (Negative)
== END ==
PROVIDERS: Visit Provider Internal Medicine Gastroenterology
DX: Z01.818 Encounter for other preprocedural examination (principal); Z20.822 Contact with and (suspected) exposure to COVID-19
CPT/HCPCS: 81025; C9803; U0003; U0005

== ENCOUNTER → 2022-03-22 16:24 | Outpatient (CLI) | payer MEDICAID, SELFPAY ==
[2022-03-22 17:17] LABS: Urine Pregnancy, HCG Qual. Negative (Negative)
== END ==
PROVIDERS: PCP Emergency Medicine; Visit Provider Internal Medicine Gastroenterology
DX: Z01.818 Encounter for other preprocedural examination (principal); Z20.822 Contact with and (suspected) exposure to COVID-19; Z13.810 Encounter for screening for upper gastrointestinal disorder
CPT/HCPCS: 81025; C9803; U0003; U0005

== ENCOUNTER 2022-03-23 09:35 | Day surgery (SDC) | payer MEDICAID, SELFPAY ==
[2022-03-21 14:00] VITALS: BMI 36.0
[2022-03-23 09:48] VITALS: BP 133/79; PULSE 76; RESP 16; TEMP 36.4; O2SAT 99
--- NOTE | 2022-03-23 10:06 | HMH.ANESCL ---
[facility] Anesthesia Checklist - Patient Identification Patient Identification: Arm Band - Structural Data Admitted From: Home Planned Operative Procedure/s: EGD Consent for Planned Operative Procedure(s) Verified: Yes - NPO Status Verified Time NPO: 00:00 - Airway Assessment C-Spine Mobility Assessed: Yes TMJ Mobility Assessed: Yes Dentition: Good Dentition - Neurological Assessment Level of Consciousness: Awake Hx Seizures: No Numbness or tingling in extremities: No - Anesthesia Plan Anesthesia Risk discussed: Yes Anesthesia Plan: Verified ASA Class: II Anesthesia Type: MAC [facility] History Medical History: Reports:: Anxiety, Depression, Kidney Stones Denies:: Cancer, Diabetes Mellitus Type 1, Diabetes Mellitus Type 2, MRSA, Seizures *Have you ever received a pneumonia vaccine?: No *Have you received a flu vaccine this season?: No Other Medical History: Reports: Anemia, Other Anesthesia experience/problems:: None Other Surgeries: Yes: Cholecystectomy, , Tubal Ligation Amputation: No Fractures: No - *Social History Last grade of school completed: Some college Smoking Status: Current every day smoker Tobacco Type: cigarettes # Packs/Day (cigarettes): 2 Alcohol Intake: never Substance Use Type: painkillers *Occupational Status:: unemployed Housing: house Household Members: significant other, family *Travel in the last 8 weeks: None - Psychiatric History Pschychiatric History:: Reports:: Anxiety, Depression Family Hx:: Hypertension, Cancer, Heart Attack, Mental illness
[2022-03-23 10:11] VITALS: O2SAT 99
[2022-03-23 10:24] VITALS: BP 113/72; PULSE 83; RESP 18; TEMP 36.8; O2SAT 97
--- NOTE | 2022-03-23 10:25 | HMH.SCOPE ---
- Procedure: Date: 03/23/22 Patient Date of :: 1975 Procedure Performed:: Diagnostic EGD Indications:: Abdominal pain, bloating Performing Provider:: Timur Best MD Referring Provider:: Marcial Landaverde Sedation:: Propofol Procedure:: The gastroscope was gently passed through the incisoral orifice into the oral cavity and under direct visualization the esophagus was intubated. The endoscope was passed down the esophagus, through the stomach, and into the duodenum. Color, texture, mucosa, and anatomy of the esophagus, stomach, and duodenum were carefully examined with the scope. Findings:: Oropharynx: normal Esophagus: normal EG Junction: intact at 40 cm Cardia: normal Fundus: normal Body: normal Antrum: normal Duodenal bulb: normal Duodenum (second and third portion): normal Impression: Normal EGD No evidence of ulcer disease or hiatus hernia Specimens:: None Recommendations:: Consider Treatment for IBS and f/u with PCP Complications:: None Estimated blood obtained (mL): 0
[2022-03-23 10:35] VITALS: BP 139/87; PULSE 96; RESP 18; O2SAT 98
[2022-03-23 10:41] VITALS: BP 137/88; PULSE 85; RESP 18; O2SAT 100
[2022-03-23 10:54] VITALS: BP 149/91; PULSE 88; RESP 18; O2SAT 99
== END 2022-03-23 11:03 | disposition home or self-care (01) ==
LOC: OUTP 09:36
PROVIDERS: PCP Emergency Medicine; Visit Provider Internal Medicine Gastroenterology
PROC: 0DJ08ZZ Inspection of Upper Intestinal Tract, Via Natural or Artificial Opening Endoscopic (ICD-10-PCS; CPT 43235; principal; 2022-03-23 11:00)
DX: R10.84 Generalized abdominal pain (principal); R14.0 Abdominal distension (gaseous); K58.9 Irritable bowel syndrome, unspecified
CPT/HCPCS: 43235

== ENCOUNTER 2022-07-14 16:20 | Emergency (ER) | payer MEDICAID, SELFPAY ==
[2022-07-14 16:47] VITALS: BP 131/86; PULSE 86; RESP 19; TEMP 36.9; O2SAT 97; BMI 29.3
--- NOTE | 2022-07-14 16:53 | EXP.UTC ---
Discharge Plan Disposition Patient Disposition: Home, Self-Care Condition: Good Prescriptions Prescriptions: New cefdinir 300 mg capsule 300 mg PO BID 7 Days Qty: 14 0RF No Action sertraline [Zoloft] 100 mg tablet 100 mg PO DAILY Qty: 30 2RF dicyclomine 10 mg capsule 10 mg PO TID Qty: 90 0RF nicotine 21 mg/24 hr patch 24 hour 1 patch transdermal DAILY Qty: 30 2RF clonazepam [Klonopin] 0.5 mg tablet 0.5 mg PO TID Qty: 90 2RF gabapentin 800 mg tablet 800 mg PO TID Qty: 90 2RF buprenorphine-naloxone 1 EACH film 8 mg SL BID Referrals Follow up/Referrals: Marcial Landaverde MD [Primary Care Provider] - See instructions Activity Restrictions/Add. Instructions Additional Instructions/Restrictions: *Monitor Temp, Over the counter Motrin or Tylenol as directed/as needed Tylenol every 4 hours and Motrin every 6 hours (as long as your family doctor has told you that you can take it) for fever or pain. and straight to ER if unable to lower temp less than 101.0 after medication given *Warm salt water gargles may help to soothe the throat *Throat Lozenges? *Warm fluids like tea with honey may help to soothe the throat? *Sleep elevated *Humidifier/Vaporizer Take medication as prescribed Follow up IMMEDIATELY for new or worsening symptoms or no Noticeable improvement over the next 48-72 hours. 911 for difficulty breathing or swallowing Clinical Impressions Clinical Impression: Sinusitis Qualifiers: Sinusitis location: unspecified location Chronicity: unspecified Qualified Code(s): J32.9 - Chronic sinusitis, unspecified Stand Alone Forms Stand Alone Forms: Work/School Release Instructions Patient Instructions: Sinusitis, DI for Sinusitis Discharge ED Provider: Nola Haque [facility] General Stated complaint: [place],Left earache Mode of Arrival: Ambulatory Source of Information: Patient Limitations: No Limitations Time Seen by Provider: 07/14/22 16:53 Description of Symptoms (Recalled from Triage Doc. by RN): C/O left side sinus pressure and cough HEENT Symptoms (Recalled from RN notes): Yes (Left sinus pressure) Resp Symptoms (Recalled from RN notes): Yes (cough) Skin Symptoms (Recalled from RN notes): No MS Symptoms (Recalled from RN notes): No Functional Status (Recalled from RN notes): n/a History of Present Illness Provider Complaint: Patient states that she has been having sinus pain and pressure, headache and pain in her left ear States that she has taken several OTC sinus medications but they havent helped States that she came in this evening when she was still having headache and pressure to see if there was something she could get to help with her headache Related Data Home Medications Medication Instructions Recorded Confirmed buprenorphine 8 mg-naloxone 2 mg 8 mg sublingual BID RECOVERY 03/09/21 07/11/22 sublingual film Previous Rx's Medication Instructions Recorded dicyclomine 10 mg capsule 10 mg PO TID #90 caps 06/21/22 sertraline 100 mg tablet (Zoloft) 100 mg PO DAILY Depression #30 tabs 06/21/22 clonazepam 0.5 mg tablet (Klonopin) 0.5 mg PO TID #90 tabs 07/11/22 gabapentin 800 mg tablet 800 mg PO TID #90 tabs 07/11/22 nicotine 21 mg/24 hr daily 1 patch transdermal DAILY #30 ea 07/11/22 transdermal patch cefdinir 300 mg capsule 300 mg PO BID 7 days #14 caps 07/14/22 Allergies Allergy/AdvReac Type Severity Reaction Status Date / Time codeine Allergy Verified 07/11/22 09:26 Sulfa (Sulfonamide Allergy Verified 07/11/22 09:26 Antibiotics) Worker's Comp Is this a Worker's Comp case?: No PFSH PFSH Social History Smoking Status: Current every day smoker tobacco type: cigarettes packs per day: 2 alcohol intake: never substance use type: painkillers current occupational status: unemployed Travel in the last 8 weeks: None household members: significant o
[2022-07-14 17:45] VITALS: BP 131/86; PULSE 86; RESP 19; TEMP 36.9; O2SAT 97
== END 2022-07-14 17:45 | disposition home or self-care (01) ==
PROVIDERS: Emergency Provider Nurse Practitioner; PCP Emergency Medicine
DX: J32.9 Chronic sinusitis, unspecified (principal); H92.02 Otalgia, left ear; R51.9 Headache, unspecified; R05.9 Cough, unspecified; F17.210 Nicotine dependence, cigarettes, uncomplicated; Z88.2 Allergy status to sulfonamides; Z88.5 Allergy status to narcotic agent
CPT/HCPCS: 96372; 99213; G0463

== ENCOUNTER → 2022-08-18 16:51 | Outpatient (CLI) | payer MEDICAID, SELFPAY ==
[2022-08-18 14:44] LABS: Adenovirus,PCR Not Detected (NotDetected); Bordetella Pertussis Not Detected (NotDetected); Chlamydophila Pneumoniae, PCR Not Detected (NotDetected); Coronavirus 19, PCR Not Detected (NotDetected); Coronavirus 229E Not Detected (NotDetected); Coronavirus NL63 Not Detected (NotDetected); Coronavirus OC43 Not Detected (NotDetected); Coronovirus HKU1,PCR Not Detected (NotDetected); Human Metapneumovirus Not Detected (NotDetected); Influenza A, PCR Not Detected (NotDetected); Influenza AH1, 2009 Not Detected (NotDetected); Influenza AH1, PCR Not Detected (NotDetected); Influenza AH3,PCR Not Detected (NotDetected); Influenza B, PCR Not Detected (NotDetected); Mycoplasma Pneumoniae, PCR Not Detected (NotDetected); Parainfluenza 1, PCR Not Detected (NotDetected); Parainfluenza 2, PCR Not Detected (NotDetected); Parainfluenza 3, PCR Not Detected (NotDetected); Parainfluenza 4, PCR Not Detected (NotDetected); Respiratory Syncytial Virus Not Detected (NotDetected); Rhinovirus/Enterovirus Not Detected (NotDetected)
== END ==
PROVIDERS: PCP Student in an Organized Health Care Education/Training Program; Visit Provider Student in an Organized Health Care Education/Training Program
DX: J06.9 Acute upper respiratory infection, unspecified (principal)
CPT/HCPCS: 87581; 87632; 87798; C9803; U0003; U0005

== ENCOUNTER → 2023-01-05 18:23 | Outpatient (CLI) | payer MEDICAID, SELFPAY | PROVIDERS: PCP Nurse Practitioner Family; Visit Provider Nurse Practitioner Family | DX: N39.0 Urinary tract infection, site not specified (principal) | CPT/HCPCS: 87086 ==

== ENCOUNTER 2023-01-07 10:25 | Emergency (ER) | payer MEDICAID, SELFPAY ==
[2023-01-07 11:11] VITALS: BMI 27.4
[2023-01-07 11:11] LABS: Microscopic, Urine URINE MICROSCOPIC (MICROSCOPIC)
[2023-01-07 11:16] VITALS: BP 180/142; PULSE 115; RESP 18; TEMP 36.8; O2SAT 100; BMI 27.4
--- NOTE | 2023-01-07 11:16 | PC.NURSE ---
1045 OBTAINED URINE FROM PATIENT LABELED AND SENT TO LAB. CALL NATHAN WITHIN REACH
[2023-01-07 11:20] LABS: Appearance,Urine CLOUDY (Clear); Blood, Urine 2+ (Negative); Color,Urine ORANGE (Yellow); Glucose,Urine (UA) TRACE (Negative); Ketones,Urine 3+ (Negative); Leukocyte Esterase,Urine TRACE (Negative); Nitrate,Urine POSITIVE (Negative); PH,Urine 5.5 (5.0-8.5); Protein,Urine 2+ (Negative); Specific Gravity, Urine 1.025 (1.005-1.030)
[2023-01-07 11:21] LABS: Urine Pregnancy, HCG Qual. Negative (Negative)
[2023-01-07 11:21] LABS: Chloride 103 mmol/L (98-107); Potassium 3.8 mmoL/L (3.5-5.1); Sodium 138 mmol/L (136-145)
[2023-01-07 11:24] LABS: Alanine Aminotransferase 15 U/L (12-78); Albumin Level 4.3 g/dl (3.5-5.0); Albumin/Globulin Ratio 1.5 (1.1-1.8); Alkaline Phosphatase 82 U/L (38-126); Anion Gap 10.8 mEq/L (5-15); Aspartate Amino Transferase 23 U/L (14-36); Bilirubin,Total 0.5 mg/dl (0.2-1.3); Blood Urea Nitrogen 10 mg/dl (7-17); Carbon Dioxide 28 mmol/L (22.0-30.0); Creatinine Clearance Estimated 90 mL/min (50-200); Estimated Glomerular Filt Rate 68 ml/min (>60); GFR (African American) 82 ML/MIN (>60); Globulin 2.8 g/dL (1.3-3.2); Total Protein,Serum 7.1 g/dl (6.3-8.2)
[2023-01-07 11:25] LABS: Basophils % 0.7 % (0.1-2.0); Calcium 8.9 mg/dl (8.4-10.2); Eosinophils # 0.1 K/mm3 (0.0-0.4); Glucose 119 mg/dl (74-100); Hematocrit 49.4 % (37.0-47.0); Hemoglobin 15.4 g/dL (12.2-16.2); Lymphocytes % 20.4 % (10-50); Mean Corpuscular HGB Conc 31.2 g/dL (31.8-35.4); Mean Corpuscular Hemoglobin 27.9 pg (27.0-31.2); Mean Corpuscular Volume 89.5 fl (81-99); Mean Platelet Volume 12.7 fl (7.4-10.4); Monocytes # 0.1 K/mm3 (0.1-1.0); Monocytes % 2.6 % (1.7-9.3); Neutrophils # 3.5 K/mm3 (1.8-7.8); Neutrophils % 74.4 % (37.0-80.0); Platelet Count 91 K/mm3 (142-424); Red Blood Count 5.51 M/mm3 (4.20-5.40); Red Cell Distribution Width 16.7 % (11.5-17.5); White Blood Count 4.7 K/mm3 (4.8-10.8)
[2023-01-07 11:25] LABS: Bilirubin,Urine 2+ (Negative)
[2023-01-07 11:36] LABS: Bacteria,Urine Trace /lpf; Calcium Oxalate Crystals,Urine Trace /lpf
--- NOTE | 2023-01-07 11:40 | CT_ITS ---
PROCEDURE INFORMATION: Exam: CT Abdomen And Pelvis Without Contrast Exam date and time: 01/07/2023 11:57 AM Age: 47 years old Clinical indication: Abdominal pain; Flank; Right; Additional info: Right flank pain, hematuria, R/O stone TECHNIQUE: Imaging protocol: Computed tomography of the abdomen and pelvis without contrast. Radiation optimization: All CT scans at this facility use at least one of these dose optimization techniques: automated exposure control; mA and/or kV adjustment per patient size (includes targeted exams where dose is matched to clinical indication); or iterative reconstruction. REPORTING DATA: Count of CT and Cardiac NM exams in prior 12 months: This patient has received [address] and 0 known cardiac nuclear medicine studies in the 12 months prior to the current study. COMPARISON: CT ABDOMEN PELVIS W CON 03/03/2022 1:24 AM FINDINGS: Lungs: Lung bases are clear. Liver: Normal. No mass. Gallbladder and bile ducts: Gallbladder has been removed. Bile ducts are not appreciably dilated. Pancreas: Unremarkable. Main pancreatic duct is not significantly dilated. Spleen: Spleen is borderline enlarged, unchanged. Adrenal glands: Normal. No mass. Kidneys and ureters: There are numerable indistinct punctate calcifications along the medullary pyramids of both kidneys fairly symmetric consistent with medullary sponge kidney. Few small non-obstructing calyceal stones. There are no ureteral stones or hydronephrosis. Stomach and bowel: Unremarkable. No obstruction. No mucosal thickening. Appendix: No evidence of acute appendicitis. Intraperitoneal space: Unremarkable. No free air. No significant fluid collection. Vasculature: Unremarkable. No abdominal aortic aneurysm. Lymph nodes: Unremarkable. No enlarged lymph nodes. Urinary bladder: Unremarkable as visualized. Reproductive: Uterus is retroverted mildly enlarged, unchanged. 6 x 4 cm lobulated solid-appearing left adnexal mass that needs further evaluation. 4 x 3 cm septated cystic structure right adnexa possibly secondary to chronic hydrosalpinx and could also be better assessed on the ultrasound study. Bones/joints: Mild degenerative disc/endplate changes L5-S1. No acute abnormalities. The Soft tissues: Unremarkable. IMPRESSION: 1. Findings consistent with medullary sponge kidney disease with few small non-obstructing calyceal stones bilaterally. No hydronephrosis. 2. 6 x 4 cm solid left adnexal mass and questionable hydrosalpinx right adnexa for which follow-up nonemergent pelvic ultrasound recommended for further evaluation. 3. Retroverted enlarged uterus unchanged.
[2023-01-07 11:44] LABS: Lipase 73 U/L (23-300)
--- NOTE | 2023-01-07 12:40 | PC.NURSE ---
Pt updated on plan of care; awaiting CT results.
--- NOTE | 2023-01-07 13:10 | HMH.EDGENADL ---
Discharge Plan Disposition Patient Disposition: Home, Self-Care Condition: Fair Prescriptions Prescriptions: New cefdinir 300 mg capsule 300 mg PO BID 10 Days Qty: 20 0RF No Action sertraline [Zoloft] 100 mg tablet 100 mg PO DAILY Qty: 30 2RF trazodone 50 mg tablet 50 mg PO DAILY Qty: 30 2RF clonazepam [Klonopin] 0.5 mg tablet 0.5 mg PO TID Qty: 90 1RF nitrofurantoin macrocrystal [Macrodantin] 100 mg capsule 100 mg PO BID Qty: 20 0RF Rx Instructions: must administer with a meal/food nystatin 100,000 unit/mL suspension 10 ml PO TID 7 Days Qty: 210 0RF Rx Instructions: swish and swallow pregabalin 150 mg capsule 150 mg PO BID Qty: 60 0RF buprenorphine-naloxone 1 EACH film 8 mg SL BID Referrals Follow up/Referrals: Marcial Landaverde MD [Primary Care Provider] - See instructions Activity Restrictions/Add. Instructions Additional Instructions/Restrictions: Please follow-up with your [facility] about findings on your CT. I would also recommend following up with Dr. Hope at urology to talk about potential options with your kidneys. Clinical Impressions Clinical Impression: Pyelonephritis Instructions Patient Instructions: DI for Kidney Infection Discharge ED Provider: Jaxson Neri General Adult HPI General Chief complaint: Abdominal Pain Stated complaint: Rt side abd pain Time Seen by Provider: 01/07/23 10:45 Mode of Arrival: Ambulatory Source of Information: Patient Limitations: No Limitations Description of Symptoms (Recalled from ER Triage Doc. by RN): Pt c/o ongoing Right flank pain w hematuria since 01/04; was seen at PCP and Rx macrobid then but no better History of Present Illness HPI narrative: Patient is a 47-year-old female with past medical history of recurrent nephrolithiasis, recurrent urinary tract infection who presents with right flank pain and hematuria. She says that she was seen by her PCP who placed her on Macrobid. She says that since then she has started to develop the right-sided lower quadrant pain as well as the flank pain. She says he also has a generalized unwell feeling. She is a little bit nauseous. Denies any diarrhea or constipation. No vomiting. Denies any fever. Related Data Home Medications Medication Instructions Recorded Confirmed buprenorphine 8 mg-naloxone 2 mg 8 mg sublingual BID RECOVERY 03/09/21 01/05/23 sublingual film Previous Rx's Medication Instructions Recorded nystatin 100,000 unit/mL oral 10 ml PO TID 7 days #210 mL 10/10/22 suspension clonazepam 0.5 mg tablet (Klonopin) 0.5 mg PO TID #90 tabs 11/28/22 sertraline 100 mg tablet (Zoloft) 100 mg PO DAILY Depression #30 tabs 11/28/22 trazodone 50 mg tablet 50 mg PO DAILY #30 tabs 11/28/22 pregabalin 150 mg capsule 150 mg PO BID #60 caps 12/25/22 nitrofurantoin macrocrystal 100 mg 100 mg PO BID #20 caps 01/05/23 capsule (Macrodantin) cefdinir 300 mg capsule 300 mg PO BID 10 days #20 caps 01/07/23 Allergies Allergy/AdvReac Type Severity Reaction Status Date / Time codeine Allergy Verified 01/05/23 15:31 Sulfa (Sulfonamide Allergy Verified 01/05/23 15:31 Antibiotics) [facility] Disclaimer: The information contained in this section may have been updated after the patient was seen, as this information can be updated by other users. Social History Smoking Status: Never smoker alcohol intake: never substance use type: painkillers current occupational status: unemployed Travel in the last 8 weeks: None household members: significant other and family housing: house ROS Obtained: Yes All systems reviewed & no additional complaints except as documented Physical Exam General General appearance: alert and in no apparent distress Head Head exam: atraumatic, normocephalic and normal inspection Eye Eye exam: Present normal appearance and PERRL ENT EN
[2023-01-07 13:30] VITALS: BP 181/88; PULSE 83; RESP 16; TEMP 36.9; O2SAT 99
== END 2023-01-07 13:36 | disposition home or self-care (01) ==
PROVIDERS: Emergency Provider Student in an Organized Health Care Education/Training Program; PCP Emergency Medicine
DX: N10 Acute pyelonephritis (principal); R31.9 Hematuria, unspecified
CPT/HCPCS: 74176; 80053; 81001; 81025; 83690; 85025; 96372; 96374; 96375; 99284; 99285; J0696; J2405

== ENCOUNTER → 2023-02-23 13:17 | Outpatient (CLI) | payer MEDICAID, SELFPAY ==
[2023-02-23 15:20] LABS: Amphetamine/Metha Screen,Urine Negative ng/ml (<1000)
[2023-02-23 15:21] LABS: Barbiturates Screen,Urine Negative ng/ml (<200)
[2023-02-23 15:22] LABS: Benzodiazepines Screen,Urine Negative ng/ml (<200); Cannabinoid Screen,Urine Negative ng/ml (<50)
[2023-02-23 15:23] LABS: Cocaine Screen,Urine Negative ng/ml (<300)
[2023-02-23 15:24] LABS: Methadone Screen,Urine Negative ng/ml (<300); Opiate Screen,Urine Negative ng/ml (<300)
[2023-02-23 15:25] LABS: Phencyclidine Screen,Urine Negative ng/ml (<25)
== END ==
PROVIDERS: PCP Emergency Medicine; Visit Provider Emergency Medicine
DX: N39.0 Urinary tract infection, site not specified (principal); Z79.899 Other long term (current) drug therapy
CPT/HCPCS: 80305; 87086

== ENCOUNTER → 2023-05-22 13:06 | Outpatient (CLI) | payer MEDICAID, SELFPAY ==
[2023-05-22 13:17] LABS: Amphetamine/Metha Screen,Urine Negative ng/ml (<1000); Barbiturates Screen,Urine Negative ng/ml (<200); Benzodiazepines Screen,Urine Negative ng/ml (<200); Cocaine Screen,Urine Negative ng/ml (<300); Opiate Screen,Urine Negative ng/ml (<300); Phencyclidine Screen,Urine Negative ng/ml (<25)
[2023-05-22 13:25] LABS: Cannabinoid Screen,Urine Negative ng/ml (<50)
[2023-05-23 15:58] LABS: Methadone Screen,Urine Negative ng/ml (<300)
== END ==
PROVIDERS: PCP Emergency Medicine; Visit Provider Emergency Medicine
DX: F41.9 Anxiety disorder, unspecified (principal)
CPT/HCPCS: 80305

== ENCOUNTER 2023-06-20 21:58 | Emergency (ER) | payer MEDICAID, SELFPAY ==
[2023-06-20 22:09] VITALS: BP 160/101; PULSE 82; RESP 17; TEMP 36.8; O2SAT 98; BMI 27.4
--- NOTE | 2023-06-20 22:22 | XR_ITS ---
PROCEDURE INFORMATION: Exam: XR Chest Exam date and time: 06/20/2023 10:22 PM Age: 47 years old Clinical indication: Pain; Right-sided; Additional info: Right lateral chest wall pain after fall TECHNIQUE: Imaging protocol: Radiologic exam of the chest. Views: 2 views. COMPARISON: CT ANGIO CHEST 03/09/2021 7:50 PM FINDINGS: Lungs: Unremarkable. No consolidation. Pleural spaces: Unremarkable. No pleural effusion. No pneumothorax. Heart/Mediastinum: Unremarkable. No cardiomegaly. Bones/joints: Unremarkable. IMPRESSION: No acute findings.
--- NOTE | 2023-06-20 22:22 | HMH.EDGENADL ---
Discharge Plan Disposition Patient Disposition: Home, Self-Care Prescriptions Prescriptions: No Action buprenorphine-naloxone 1 EACH film 8 mg SL BID clonazepam [Klonopin] 0.5 mg tablet 0.5 mg PO TID sertraline 100 mg tablet See Rx Instructions .ROUTE .COMPLEX Rx Instructions: TAKE ONE TABLET BY MOUTH ONCE A DAY FOR DEPRESSION gabapentin 800 mg tablet 800 mg PO TID Referrals Follow up/Referrals: Marcial Landaverde MD [Primary Care Provider] - See instructions Clinical Impressions Clinical Impression: Contusion of right chest wall Discharge ED Provider: Nathanael Varma General Adult HPI General Chief complaint: PAIN Stated complaint: AO fall 06/13, right rib pain Time Seen by Provider: 06/20/23 22:17 Mode of Arrival: Family Vehicle Source of Information: Patient Limitations: No Limitations Description of Symptoms (Recalled from ER Triage Doc. by RN): 47 yo female presents with CC of right side rib pain radiating down into her right lower quad abd; patient states she fell on 06/13/23 against a metal chair and 'somewhat caught myself' and 'now i figure i should get checked out'. Afebrile. Denies n/v/d. Denies constipation. Denies hematuria. Denies dysuria. Denies blood in stool. PMH: depression, anxiety,peripheal neuropathy. PSH: cholecystectomy,c/s,tubal,nephrolithiasis, teeth removal. All: sulfa,codeine. 1ppd smoker. History of Present Illness HPI narrative: Patient is a 47-year-old female with a history of fibromyalgia presents today with right lateral chest wall pain after she fell and struck the side of her chest wall. States she was in bed and jumped due to being startled and fell to the right side into a metal chair that struck her directly in the lateral side of her chest wall. She is been taking Tylenol and ibuprofen with improvement over the last several days but she is here to get a chest x-ray because she wants to make sure that there are any rib fractures. States that her pain is largely controlled with Tylenol and ibuprofen she is wants to make sure is not some underlying problem. She denies any abdominal pain any urinary symptoms no hematuria. No injuries elsewhere. Related Data Home Medications Medication Instructions Recorded Confirmed buprenorphine 8 mg-naloxone 2 mg 8 mg sublingual BID RECOVERY 03/09/21 06/20/23 sublingual film clonazepam 0.5 mg tablet (Klonopin) 0.5 mg PO TID Anxiety 06/20/23 06/20/23 gabapentin 800 mg tablet 800 mg PO TID neuropathy 06/20/23 06/20/23 sertraline 100 mg tablet See Rx Instructions .Route 06/20/23 06/20/23 .COMPLEX Depression Allergies Allergy/AdvReac Type Severity Reaction Status Date / Time codeine Allergy Verified 05/22/23 08:50 Sulfa (Sulfonamide Allergy Verified 05/22/23 08:50 Antibiotics) [facility] Disclaimer: The information contained in this section may have been updated after the patient was seen, as this information can be updated by other users. Social History Smoking Status: Current every day smoker tobacco type: cigarettes packs per day: 2 alcohol intake: never substance use type: painkillers current occupational status: unemployed Travel in the last 8 weeks: None household members: significant other and family housing: house ROS Obtained: Yes All systems reviewed & no additional complaints except as documented Physical Exam General General appearance: alert Chest Chest inspection: Present tenderness (Right inferior lateral chest wall tenderness along the rib margins) Respiratory Respiratory exam: Present normal lung sounds bilaterally; Absent respiratory distress Cardiovascular Cardiovascular exam: Present regular rate; Absent tachycardia Abdominal Exam Abdominal exam: Present soft; Absent distention or tenderness Neurological Exam Neurological exam: Present alert and oriented X3 Medical Decision Making Tee Inquiry Pt
[2023-06-20 22:51] VITALS: BP 150/70; PULSE 81; RESP 17; TEMP 36.8; O2SAT 98
== END 2023-06-20 22:53 | disposition home or self-care (01) ==
PROVIDERS: Emergency Provider Student in an Organized Health Care Education/Training Program; PCP Emergency Medicine
DX: S20.211A Contusion of right front wall of thorax, initial encounter (principal); R10.31 Right lower quadrant pain; M79.7 Fibromyalgia; F17.210 Nicotine dependence, cigarettes, uncomplicated; W06.XXXA Fall from bed, initial encounter
CPT/HCPCS: 71046; 99283

== ENCOUNTER 2023-08-01 16:50 | Emergency (ER) | payer MEDICAID, SELFPAY ==
[2023-08-01 16:50] VITALS: BP 168/109; PULSE 88; RESP 16; TEMP 36.8; O2SAT 100; BMI 27.4
--- OUTSIDE RECORDS SUMMARY | 2023-08-01 16:55 | XMS_ITS | Patient Health Record ---
Author Name Unknown Organization Unknown Support Name Relationship Address Phone Vaibhav Orozco Emergency Contact , [place] [id number] [address] Guarantor Unknown [phone] ALLERGIES Allergen (clinical drug ingredient) Drug/Non Drug Allergy documented on EMR Reaction Allergy Type Onset Date Status BuSpar Unknown Drug Allergy Active Tylenol with Codeine SOB Drug Allergy Active fluoxetine Prozac Unknown Drug Allergy Active citalopram Celexa felt like she wants to jump out of skin Drug Allergy Active REASON FOR REFERRAL No Information MEDICATIONS Medication SIG (Take, Route, Fr equency, Duration) Notes Start Date End Date Status Suboxone 8 mg-2 mg 2 film(s) sublingually once a day Active sertraline 100 mg 1 tab(s) orally once a day for 30 day(s) 05/13/2021 Active PROBLEMS Problem Type ICD Code Onset Dates Problem Status W/U Status Risk SNOMED Code Notes Problem Essential (primary) hypertension (I10) Active confirmed Essential hypertension (97213254) Problem 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
--- NOTE | 2023-08-01 16:59 | PC.NURSE ---
pt sitting up in bed with call light within reach.
[2023-08-01 17:00] VITALS: BMI 27.4
[2023-08-01 17:11] LABS: Microscopic, Urine URINE MICROSCOPIC (MICROSCOPIC)
[2023-08-01 17:16] LABS: Appearance,Urine CLEAR (Clear); Bilirubin,Urine Negative (Negative); Blood, Urine 3+ (Negative); Color,Urine YELLOW (Yellow); Glucose,Urine (UA) Negative (Negative); Ketones,Urine Negative (Negative); Leukocyte Esterase,Urine Negative (Negative); Nitrate,Urine Negative (Negative); PH,Urine 6.5 (5.0-8.5); Protein,Urine Negative (Negative); Specific Gravity, Urine <= 1.005 (1.005-1.030); Urobilinogen,Urine 0.2 EU/dl (0.2)
--- NOTE | 2023-08-01 17:23 | CT_ITS ---
PROCEDURE INFORMATION: Exam: CT Abdomen And Pelvis With Contrast Exam date and time: 08/01/2023 6:05 PM Age: 47 years old Clinical indication: Abdominal pain; Flank; Right; Additional info: R flank pain to rlq, assess for stones, append TECHNIQUE: Imaging protocol: Computed tomography of the abdomen and pelvis with contrast. Radiation optimization: All CT scans at this facility use at least one of these dose optimization techniques: automated exposure control; mA and/or kV adjustment per patient size (includes targeted exams where dose is matched to clinical indication); or iterative reconstruction. Contrast material: ISOVUE; Contrast volume: 75 ml; Contrast route: IV; REPORTING DATA: Count of CT and Cardiac NM exams in prior 12 months: This patient has received [address] and 0 known cardiac nuclear medicine studies in the 12 months prior to the current study. COMPARISON: CT ABDOMEN PELVIS WO CON 01/07/2023 11:57 AM FINDINGS: Lungs: There are areas of subpleural reticulation throughout the visualized lungs which are nonspecific. Liver: Normal. No mass. Gallbladder and bile ducts: The patient is status post cholecystectomy. There is dilation of the intrahepatic biliary ducts most likely reflecting post cholecystectomy effect. Pancreas: The pancreas is of normal size and morphology, without evidence of masses, cysts, or calcifications. The pancreatic duct is not dilated. Spleen: Upper limits of normal-sized spleen. Adrenal glands: The adrenal glands appear normal. Kidneys and ureters: There are nonobstructing bilateral intrarenal calculi. [id number] right hydroureteronephrosis extending to the urinary bladder without a focal obstructing calculus identified; the appearance is stable from prior. Mild bilateral urothelial thickening is noted. Bilateral medullary nephrocalcinosis. Stomach and bowel: See Reproductive finding. Appendix: The appendix is normal. Intraperitoneal space: There is a small volume of free fluid in the pelvis. Vasculature: The abdominal aorta and its major branches appear normal without evidence of aneurysm or stenosis. The portal and mesenteric veins are patent. Lymph nodes: No enlarged or pathological lymph nodes are identified in the abdomen or pelvis. Urinary bladder: There is moderate distention of the urinary bladder. Reproductive: There is bulky enlargement of the uterus with suspected multiple fibroids. Moderate cystic enlargement of the right adnexa with a tubular fluid-filled structure, possibly reflecting hydrosalpinx versus adjacent fluid-filled small bowel. Mild cystic enlargement of the left ovary. Bones/joints: Bone island in T12. Soft tissues: Unremarkable. Other findings: Mild pericystic stranding. IMPRESSION: 1. Bulky enlargement of the uterus with suspected underlying fibroids. Complex cystic expansion of the right adnexa, increased from the prior examination with possible hydrosalpinx versus adjacent fluid-filled small bowel loop. Cystic expansion of the left adnexa. Further evaluation with pelvic ultrasound is suggested, the urgency of which would be as per patient's clinical status. 2. Stable bilateral renal calculi and nephrocalcinosis. Mild right hydronephrosis, stable from prior.
[2023-08-01 17:30] VITALS: BP 151/95; PULSE 94; RESP 20; O2SAT 96
--- NOTE | 2023-08-01 17:36 | PC.NURSE ---
pt ambulated to bathroom independently. warm blanket was given upon request.
[2023-08-01 17:43] LABS: Basophils % 0.4 % (0.1-2.0); Eosinophils # 0.2 K/mm3 (0.0-0.4); Eosinophils % 2.6 % (0.1-12.0); Hematocrit 34.2 % (37.0-47.0); Hemoglobin 11.2 g/dL (12.2-16.2); Lymphocytes # 2.3 K/mm3 (0.7-4.5); Lymphocytes % 26.6 % (10-50); Mean Corpuscular HGB Conc 32.7 g/dL (31.8-35.4); Mean Corpuscular Hemoglobin 30.1 pg (27.0-31.2); Mean Corpuscular Volume 91.8 fl (81-99); Mean Platelet Volume 9.6 fl (7.4-10.4); Monocytes # 0.3 K/mm3 (0.1-1.0); Monocytes % 3.6 % (1.7-9.3); Neutrophils # 5.8 K/mm3 (1.8-7.8); Neutrophils % 66.7 % (37.0-80.0); Platelet Count 234 K/mm3 (142-424); Red Blood Count 3.72 M/mm3 (4.20-5.40); Red Cell Distribution Width 16.4 % (11.5-17.5); White Blood Count 8.7 K/mm3 (4.8-10.8)
[2023-08-01 17:44] LABS: Chloride 102 mmol/L (98-107)
[2023-08-01 17:45] LABS: Potassium 3.5 mmoL/L (3.5-5.1); Sodium 138 mmol/L (136-145)
[2023-08-01 17:47] LABS: Alanine Aminotransferase 14 U/L (12-78); Aspartate Amino Transferase 26 U/L (14-36); Blood Urea Nitrogen 11 mg/dl (7-17); Creatinine Clearance Estimated 102 mL/min (50-200); Estimated Glomerular Filt Rate 78 ml/min (>60); GFR (African American) 94 ML/MIN (>60)
[2023-08-01 17:48] LABS: Albumin/Globulin Ratio 1.2 (1.1-1.8); Alkaline Phosphatase 78 U/L (38-126); Anion Gap 9.5 mEq/L (5-15); Calcium 8.8 mg/dl (8.4-10.2); Carbon Dioxide 30 mmol/L (22.0-30.0); Globulin 3.3 g/dL (1.3-3.2); Glucose 87 mg/dl (74-100); Lipase 123 U/L (23-300); Total Protein,Serum 7.3 g/dl (6.3-8.2)
[2023-08-01 17:51] LABS: Bilirubin,Total < 0.1 mg/dl (0.2-1.3)
[2023-08-01 18:00] VITALS: BP 144/91; PULSE 96; RESP 20; O2SAT 95
--- NOTE | 2023-08-01 18:01 | PC.NURSE ---
Pt called out to ask if she could have her IV removed at this time. Marylu Florentino RN educated pt that she would be getting a CT scan with contrast, so the IV was needed at this time. Pt was understanding and agreed to keep IV in place at this time.
[2023-08-01 18:03] LABS: Lactic Acid 0.9 mmol/L (0.7-2.1)
--- NOTE | 2023-08-01 18:03 | PC.NURSE ---
pt to CT by wheelchair
--- NOTE | 2023-08-01 18:04 | PC.NURSE ---
Pt gone to RAD via wheelchair
--- NOTE | 2023-08-01 18:05 | PC.NURSE ---
pt to CT via wheelchair
[2023-08-01 18:12] LABS: RBC,Urine Occasional #/hpf (0-3)
--- NOTE | 2023-08-01 18:14 | HMH.EDGENADL ---
Discharge Plan Disposition Patient Disposition: Home, Self-Care Condition: Good Prescriptions Prescriptions: No Action buprenorphine-naloxone 1 EACH film 8 mg SL BID clonazepam [Klonopin] 0.5 mg tablet 0.5 mg PO TID sertraline 100 mg tablet See Rx Instructions .ROUTE .COMPLEX Rx Instructions: TAKE ONE TABLET BY MOUTH ONCE A DAY FOR DEPRESSION gabapentin 800 mg tablet 800 mg PO TID Referrals Follow up/Referrals: Marcial Landaverde MD [Primary Care Provider] - See instructions Activity Restrictions/Add. Instructions Additional Instructions/Restrictions: You have been evaluated in the ED for your complaints. You may follow-up with your PCP in the next 3 to 5 days. Please return to ED for any new or worsening symptoms. Clinical Impressions Clinical Impression: Nephrolithiasis, Right flank pain Instructions Patient Instructions: DI for Urinary Tract Infection (UTI), DI for Urinary Tract Infection in Children Discharge ED Provider: James Jones Adult HPI General Chief complaint: Urogenital-Female Stated complaint: right side pain Time Seen by Provider: 08/01/23 17:13 Mode of Arrival: Ambulatory Source of Information: Patient Limitations: No Limitations Description of Symptoms (Recalled from ER Triage Doc. by RN): Patient reports right sided lower back pain that feels like a soreness that started a few days ago. States she just wants to make sure she doesn't have a uti. History of Present Illness HPI narrative: 47-year-old female with past medical history significant for IBS, anxiety, medullary sponge kidney, history of pyelonephritis, sciatica, PTSD, history of nephrolithiasis, presents today for evaluation concerning right-sided abdominal pain over the past 2 to 3 days. Patient states that the pain initially starts in her right flank region and radiates around to her right upper quadrant. She has not had any episodes of emesis. Has not any fevers or chills, chest pain, shortness of breath, nausea, dysuria, hematuria. States that she took 800 mg of ibuprofen prior to arrival to assist with her pain. To add to history she does report that she was recently walking a dog and was pulled by the dog and is unsure as to whether or not she is having a muscle spasm. No further complaints on assessment. Related Data Home Medications Medication Instructions Recorded Confirmed buprenorphine 8 mg-naloxone 2 mg 8 mg sublingual BID RECOVERY 03/09/21 06/20/23 sublingual film clonazepam 0.5 mg tablet (Klonopin) 0.5 mg PO TID Anxiety 06/20/23 06/20/23 gabapentin 800 mg tablet 800 mg PO TID neuropathy 06/20/23 06/20/23 sertraline 100 mg tablet See Rx Instructions .Route 06/20/23 06/20/23 .COMPLEX Depression Allergies Allergy/AdvReac Type Severity Reaction Status Date / Time codeine Allergy Verified 05/22/23 08:50 Sulfa (Sulfonamide Allergy Verified 05/22/23 08:50 Antibiotics) [facility] Disclaimer: The information contained in this section may have been updated after the patient was seen, as this information can be updated by other users. Social History Smoking Status: Current every day smoker tobacco type: cigarettes packs per day: 2 alcohol intake: never substance use type: painkillers current occupational status: unemployed Travel in the last 8 weeks: None household members: significant other and family housing: house ROS Obtained: Yes All systems reviewed & no additional complaints except as documented Physical Exam General General appearance: alert and in no apparent distress Head Head exam: atraumatic and normocephalic Eye Eye exam: Present normal appearance, PERRL and EOMI ENT ENT exam: Present normal oropharynx and mucous membranes moist Neck Neck exam: Present full ROM; Absent meningismus Respiratory Respiratory exam: Absent respiratory distress, wheezes, stridor or accessory muscl
[2023-08-01 18:34] VITALS: BP 156/103; PULSE 93; RESP 20; O2SAT 100
[2023-08-01 18:50] VITALS: BP 137/85; PULSE 84; RESP 20; O2SAT 96
[2023-08-01 20:35] VITALS: BP 161/98; PULSE 92; RESP 16; TEMP 36.6; O2SAT 98
== END 2023-08-01 20:37 | disposition home or self-care (01) ==
PROVIDERS: Emergency Provider Emergency Medicine; PCP Emergency Medicine
DX: R10.31 Right lower quadrant pain (principal); N20.0 Calculus of kidney; F17.210 Nicotine dependence, cigarettes, uncomplicated; F41.9 Anxiety disorder, unspecified; F43.10 Post-traumatic stress disorder, unspecified; Q61.5 Medullary cystic kidney
CPT/HCPCS: 74177; 80053; 81001; 83605; 83690; 85025; 99284; Q9967

== ENCOUNTER 2023-08-17 22:14 | Emergency (ER) | payer MEDICAID, SELFPAY ==
[2023-08-17 22:15] VITALS: BP 162/98; PULSE 110; RESP 19; TEMP 37; O2SAT 100; BMI 27.4
[2023-08-17 22:23] VITALS: BP 152/103; PULSE 110; RESP 15; O2SAT 100
[2023-08-17 22:30] VITALS: BP 162/98; PULSE 109; RESP 21; O2SAT 100
--- NOTE | 2023-08-17 22:59 | CT_ITS ---
PROCEDURE INFORMATION: Exam: CT Lumbar Spine Without Contrast Exam date and time: 08/17/2023 11:30 PM Age: 47 years old Clinical indication: Low back pain; Additional info: Midline tenderness rad down ble TECHNIQUE: Imaging protocol: Computed tomography of the lumbar spine without contrast. Radiation optimization: All CT scans at this facility use at least one of these dose optimization techniques: automated exposure control; mA and/or kV adjustment per patient size (includes targeted exams where dose is matched to clinical indication); or iterative reconstruction. REPORTING DATA: Count of CT and Cardiac NM exams in prior 12 months: This patient has received 2 known CTs and 0 known cardiac nuclear medicine studies in the 12 months prior to the current study. COMPARISON: CT ABDOMEN PELVIS W CON 08/01/2023 6:05 PM FINDINGS: Bones/joints: Trace retrolisthesis of L2 on L3, L3 on L4 and L4 on L5. The alignment is otherwise maintained. Minimal posterior wedging of the L5 vertebral body is likely degenerative. The vertebral body heights are otherwise maintained. No evidence of acute fractures. L1-L2: Minimal disc bulge. The spinal canal and neural foramina are patent. L2-L3: Diffuse disc bulge. Mild epidural the ligamentum flavum. Mild facet arthropathy. No high-grade spinal canal or neural foraminal stenosis. L3-L4: Diffuse disc bulge/disc osteophyte complex. Mild hypertrophy of the ligamentum flavum. Overall mild the moderate spinal canal stenosis. L4-L5: Diffuse disc bulge. Mild hypertrophy of the ligamentum flavum. Minimal spinal canal narrowing. No high-grade spinal canal stenosis. Mild bilateral lateral recess stenosis. Bilateral facet arthropathy. Mild bilateral neural foraminal stenosis. L5-S1: Diffuse disc bulge/disc osteophyte complex. Mild spinal canal narrowing without high-grade stenosis. Moderate right and severe left neural foraminal stenosis. Gallbladder and bile ducts: The patient is status post cholecystectomy. Metallic clips are seen in the jamal hepatis. Kidneys and ureters: There are calcific densities in the kidneys compatible with small renal stones and papillary calcifications. The largest stone in the right kidney measures approximately 4 mm, (series 3, image 38), and the largest in the left kidney measures less than 2 mm, (series 3, image 18). Soft tissues: Unremarkable. IMPRESSION: 1. No evidence of acute fracture or traumatic malalignment in the lumbar spine. 2. Bilateral nonobstructing renal stones. 3. Multilevel degenerative disc and joint disease as detailed level by level above, worst at L5-S1 and L3-L4 as outlined.
[2023-08-17 23:00] VITALS: BP 173/103; PULSE 108; RESP 27; O2SAT 100
--- NOTE | 2023-08-17 23:02 | HMH.EDGENADL ---
Discharge Plan Disposition Patient Disposition: Home, Self-Care Prescriptions Prescriptions: New lidocaine 5 % adhesive patch,medicated 1 patch topical DAILY PRN (Reason: pain) Qty: 30 0RF Rx Instructions: leave on most painful area for up to 12 hrs No Action sertraline 100 mg tablet See Rx Instructions .ROUTE .COMPLEX Qty: 30 0RF Dose Instruction: TAKE ONE TABLET BY MOUTH ONCE A DAY FOR DEPRESSION Rx Instructions: TAKE ONE TABLET BY MOUTH ONCE A DAY FOR DEPRESSION cyclobenzaprine 10 mg tablet 10 mg PO BID Qty: 20 0RF buprenorphine-naloxone 1 EACH film 8 mg SL BID clonazepam [Klonopin] 0.5 mg tablet 0.5 mg PO TID gabapentin 800 mg tablet 800 mg PO TID Referrals Follow up/Referrals: Marcial Landaverde MD [Primary Care Provider] - See instructions Activity Restrictions/Add. Instructions Additional Instructions/Restrictions: Please use multimodal pain control including lidocaine patches as discussed. Please follow-up with your primary care provider. Please return to the emergency department if you develop any new or worsening symptoms or become concerned for your health. Clinical Impressions Clinical Impression: Back pain Qualifiers: Back pain location: low back pain Chronicity: acute Back pain laterality: bilateral Sciatica laterality: bilateral sciatica Discharge ED Provider: Moody Hui General Adult HPI <Mike Phillip MD - Last Filed: 08/17/23 23:06> General Chief complaint: PAIN Stated complaint: pain, cant feel legs Time Seen by Provider: 08/17/23 22:14 Mode of Arrival: Wheelchair Source of Information: Patient Limitations: No Limitations Description of Symptoms (Recalled from ER Triage Doc. by RN): patient to ED via wheelchair. C/O of lower back pain radiating into her right leg. Complains of tingling sensation in bilateral legs. Meds FEED GRINDER, 2400mg of Gabapentin, 2500mg of tylenol and Klonopin. Movement makes pain worst, and rest eases pain. History of Present Illness HPI narrative: Patient is a 47-year-old female with past medical history of neuropathic pain, medullary sponge kidney who presents emergency department for evaluation of back pain. Patient states that she normally has radicular pain down her left lower extremity. She slept in an awkward position last night and has since had bilateral pain radiating down her lower extremities. Patient denies saddle anesthesia, urinary incontinence, bowel incontinence. Patient is a previous opiate abuser on Suboxone, has never injected opiates. Symptoms are refractory to supratherapeutic dose of Tylenol with 2.4 g, home dose gabapentin. No other acute complaints at this time. Related Data Home Medications Medication Instructions Recorded Confirmed buprenorphine 8 mg-naloxone 2 mg 8 mg sublingual BID RECOVERY 03/09/21 06/20/23 sublingual film clonazepam 0.5 mg tablet (Klonopin) 0.5 mg PO TID Anxiety 06/20/23 06/20/23 gabapentin 800 mg tablet 800 mg PO TID neuropathy 06/20/23 06/20/23 Previous Rx's Medication Instructions Recorded sertraline 100 mg tablet See Rx Instructions .Route 08/13/23 .COMPLEX #30 tabs cyclobenzaprine 10 mg tablet 10 mg PO BID #20 tabs 08/17/23 lidocaine 5 % topical patch 1 patch topical DAILY PRN pain #30 08/18/23 ea Allergies Allergy/AdvReac Type Severity Reaction Status Date / Time codeine Allergy Verified 05/22/23 08:50 Sulfa (Sulfonamide Allergy Verified 05/22/23 08:50 Antibiotics) [facility] <Mike Phillip MD - Last Filed: 08/17/23 23:06> [facility] Disclaimer: The information contained in this section may have been updated after the patient was seen, as this information can be updated by other users. Social History Smoking Status: Current every day smoker tobacco type: cigarettes packs per day: 2 alcohol intake: never substance use type: painkillers current occupational status: unempl
[2023-08-17 23:11] LABS: Basophils % 0.5 % (0.1-2.0); Eosinophils # 0.2 K/mm3 (0.0-0.4); Eosinophils % 3.8 % (0.1-12.0); Hematocrit 36.5 % (37.0-47.0); Hemoglobin 11.7 g/dL (12.2-16.2); Lymphocytes # 1.8 K/mm3 (0.7-4.5); Lymphocytes % 28.3 % (10-50); Mean Corpuscular HGB Conc 32.1 g/dL (31.8-35.4); Mean Corpuscular Volume 90.3 fl (81-99); Mean Platelet Volume 10.4 fl (7.4-10.4); Monocytes # 0.2 K/mm3 (0.1-1.0); Monocytes % 2.8 % (1.7-9.3); Neutrophils # 4.1 K/mm3 (1.8-7.8); Neutrophils % 64.5 % (37.0-80.0); Platelet Count 165 K/mm3 (142-424); Red Blood Count 4.04 M/mm3 (4.20-5.40); White Blood Count 6.4 K/mm3 (4.8-10.8)
[2023-08-17 23:12] LABS: Chloride 103 mmol/L (98-107); Potassium 3.6 mmoL/L (3.5-5.1); Sodium 141 mmol/L (136-145)
[2023-08-17 23:14] LABS: Blood Urea Nitrogen 11 mg/dl (7-17); Creatinine Clearance Estimated 74 mL/min (50-200); Estimated Glomerular Filt Rate 54 ml/min (>60); GFR (African American) 65 ML/MIN (>60)
[2023-08-17 23:15] LABS: Alanine Aminotransferase 23 U/L (12-78); Albumin Level 4.3 g/dl (3.5-5.0); Albumin/Globulin Ratio 1.4 (1.1-1.8); Alkaline Phosphatase 67 U/L (38-126); Anion Gap 9.6 mEq/L (5-15); Aspartate Amino Transferase 32 U/L (14-36); Bilirubin,Total < 0.1 mg/dl (0.2-1.3); Calcium 8.6 mg/dl (8.4-10.2); Carbon Dioxide 32 mmol/L (22.0-30.0); Glucose 115 mg/dl (74-100); Total Protein,Serum 7.3 g/dl (6.3-8.2)
[2023-08-17 23:20] VITALS: BP 146/99; PULSE 98; RESP 17; O2SAT 99
[2023-08-17 23:21] LABS: HCG Qualitative, Serum Negative (Negative)
--- NOTE | 2023-08-17 23:22 | PC.NURSE ---
in to administer medications, pt found to be rest in bed with eyes closed, easily awakened with verbal stimuli, rates pain 10/10
[2023-08-17 23:28] LABS: C-Reactive Protein 1.7 mg/L (0-4)
--- NOTE | 2023-08-17 23:36 | PC.NURSE ---
provided patients family with zachery bruno
[2023-08-18] VITALS: BP 122/79; PULSE 95; RESP 16; O2SAT 100
[2023-08-18 00:28] VITALS: BP 143/87; PULSE 92; RESP 15; TEMP 36.9; O2SAT 100
== END 2023-08-18 00:28 | disposition home or self-care (01) ==
PROVIDERS: Emergency Medicine; Emergency Provider Emergency Medicine; PCP Emergency Medicine
DX: M54.41 Lumbago with sciatica, right side (principal); M54.42 Lumbago with sciatica, left side; F17.210 Nicotine dependence, cigarettes, uncomplicated
CPT/HCPCS: 72131; 80053; 84703; 85025; 86140; 96361; 96374; 99284

== ENCOUNTER → 2023-08-20 16:44 | Outpatient (CLI) | payer MEDICAID, SELFPAY ==
[2023-08-20 16:28] LABS: Amphetamine/Metha Screen,Urine Negative ng/ml (<1000); Barbiturates Screen,Urine Negative ng/ml (<200)
[2023-08-20 16:29] LABS: Benzodiazepines Screen,Urine Negative ng/ml (<200)
[2023-08-20 16:30] LABS: Cannabinoid Screen,Urine Negative ng/ml (<50); Cocaine Screen,Urine Negative ng/ml (<300)
[2023-08-20 16:31] LABS: Methadone Screen,Urine Negative ng/ml (<300)
[2023-08-20 16:32] LABS: Opiate Screen,Urine Negative ng/ml (<300); Phencyclidine Screen,Urine Negative ng/ml (<25)
== END ==
PROVIDERS: PCP Emergency Medicine; Visit Provider Emergency Medicine
DX: M79.2 Neuralgia and neuritis, unspecified (principal); Z79.899 Other long term (current) drug therapy
CPT/HCPCS: 80305

== ENCOUNTER 2023-11-02 14:36 | Emergency (ER) | payer MEDICAID, SELFPAY ==
--- NOTE | 2023-11-02 14:40 | EXP.UTC ---
Discharge Plan Disposition Patient Disposition: Home, Self-Care Condition: Good Prescriptions Prescriptions: New prednisone [prednisone] 20 mg tablet 20 mg PO BID 5 Days Qty: 10 0RF pseudoephedrine HCl [12 Hour Decongestant] 120 mg Tablet Extended Release 120 mg PO Q12H Qty: 20 0RF amoxicillin-pot clavulanate 875-125 mg Tablet 1 tab PO Q12H Qty: 20 0RF No Action gabapentin 800 mg tablet 800 mg PO TID 30 Days Qty: 90 0RF clonazepam 0.5 mg tablet 0.5 mg PO TID 30 Days Qty: 90 0RF buprenorphine-naloxone 1 EACH film 8 mg SL BID sertraline 100 mg tablet 100 mg PO DAILY Rx Instructions: TAKE ONE TABLET BY MOUTH ONCE A DAY FOR DEPRESSION trazodone 50 mg Tablet 50 mg PO HS Referrals Follow up/Referrals: Zackary Newell DO [Primary Care Provider] - See instructions Clinical Impressions Clinical Impression: Sinusitis Qualifiers: Sinusitis location: maxillary Chronicity: acute Recurrence: non-recurrent Qualified Code(s): J01.00 - Acute maxillary sinusitis, unspecified Bilateral otitis media Qualifiers: Otitis media type: suppurative Chronicity: acute Recurrence: non-recurrent Spontaneous tympanic membrane rupture: without spontaneous rupture Qualified Code(s): H66.003 - Acute suppurative otitis media without spontaneous rupture of ear drum, bilateral Instructions Patient Instructions: DI for Sinusitis Discharge ED Provider: Lakisha Simmons [facility] [place], [place] HPI General Stated complaint: congestion,sore throat, ear pain Time Seen by Provider: 11/02/23 15:13 History of Present Illness Provider Complaint: Cough, congestion, fever, sinus pressure, ear pain X 2-3 days. No vomiting or diarrhea. She does smoke. Onset (ago): day(s) (2) Treatments prior to arrival: none Related Data Home Medications Medication Instructions Recorded Confirmed buprenorphine 8 mg-naloxone 2 mg 8 mg sublingual BID 03/09/21 11/02/23 sublingual film sertraline 100 mg tablet 100 mg PO DAILY 11/02/23 11/02/23 trazodone 50 mg tablet 50 mg PO HS 11/02/23 11/02/23 Previous Rx's Medication Instructions Recorded clonazepam 0.5 mg tablet 0.5 mg PO TID 30 days #90 tabs 11/01/23 gabapentin 800 mg tablet 800 mg PO TID 30 days #90 tabs 11/01/23 amoxicillin 875 mg-potassium 1 tab PO Q12H #20 tabs 11/02/23 clavulanate 125 mg tablet prednisone 20 mg tablet 20 mg PO BID 5 days #10 tabs 11/02/23 pseudoephedrine HCl 120 mg 120 mg PO Q12H #20 tabs 11/02/23 tablet,extended release (12 Hour Decongestant ER) Allergies Allergy/AdvReac Type Severity Reaction Status Date / Time codeine Allergy Verified 09/18/23 09:19 Sulfa (Sulfonamide Allergy Verified 09/18/23 09:19 Antibiotics) [facility] Disclaimer: The information contained in this section may have been updated after the patient was seen, as this information can be updated by other users. Social History Smoking Status: Current every day smoker tobacco type: cigarettes packs per day: 2 alcohol intake: never substance use type: painkillers current occupational status: unemployed Travel in the last 8 weeks: None household members: significant other and family housing: house ROS Obtained: Yes Systems reviewed as appropriate & no additional complaints except as documented Constitutional Constitutional: Reports headache(s) and Reports malaise ENT Ears, Nose, Mouth, and Throat: Reports otalgia, Reports headache(s), Reports nasal congestion, Reports sinus pain, Reports sinus pressure and Reports sore throat Respiratory Respiratory: Reports cough Neurologic Neurologic: Reports headache(s) Physical Exam General General appearance: alert and in no apparent distress Head Head exam: atraumatic and normocephalic Eye Eye exam: Present PERRL and EOMI ENT ENT exam: Present mucous membranes moist Expanded ENT Exam TM/Canal exam: Bilateral TM: erythema and effusion Nose exam: Present sinus tenderness Neck Neck exam: Present normal inspection Chest Chest inspection: Present normal inspection and symmetric chest wall rise Respiratory Respiratory exam: Absent respiratory distress Cardiovascular Cardiovascular exam: Present regular rate and normal rhythm Neurological Exam Neurological exam: Present alert and CN II-XII intact; Absent motor sensory deficit Psychiatric Psychiatric exam: Present normal affect Skin Skin exam: Present warm and dry Medical Decision Making Tee Inquiry Pt receiving controlled substance: No
[2023-11-02 14:50] VITALS: BP 128/81; PULSE 110; RESP 19; TEMP 36.8; O2SAT 98; BMI 28.8
[2023-11-02 15:18] VITALS: BP 128/81; PULSE 110; RESP 19; TEMP 36.8; O2SAT 98
== END 2023-11-02 15:20 | disposition home or self-care (01) ==
PROVIDERS: Emergency Provider Physician Assistant; PCP Internal Medicine
DX: J01.00 Acute maxillary sinusitis, unspecified (principal); H66.003 Acute suppurative otitis media without spontaneous rupture of ear drum, bilateral; R07.0 Pain in throat; R50.9 Fever, unspecified; R05.9 Cough, unspecified; F17.210 Nicotine dependence, cigarettes, uncomplicated
CPT/HCPCS: 99212; 99214; G0463

== ENCOUNTER 2023-11-26 13:38 | Outpatient (CLI) | payer MEDICAID, SELFPAY ==
[2023-11-26 12:25] LABS: Basophils % 0.3 % (0.1-2.0); Eosinophils # 0.1 K/mm3 (0.0-0.4); Eosinophils % 1.3 % (0.1-12.0); Hematocrit 43.7 % (37.0-47.0); Hemoglobin 14.2 g/dL (12.2-16.2); Lymphocytes # 1.9 K/mm3 (0.7-4.5); Lymphocytes % 30.7 % (10-50); Mean Corpuscular HGB Conc 32.4 g/dL (31.8-35.4); Mean Corpuscular Hemoglobin 26.8 pg (27.0-31.2); Mean Corpuscular Volume 82.8 fl (81-99); Mean Platelet Volume 10.3 fl (7.4-10.4); Monocytes # 0.3 K/mm3 (0.1-1.0); Neutrophils % 63.7 % (37.0-80.0); Platelet Count 237 K/mm3 (142-424); Red Blood Count 5.29 M/mm3 (4.20-5.40); Red Cell Distribution Width 19.9 % (11.5-17.5); White Blood Count 6.2 K/mm3 (4.8-10.8)
[2023-11-26 20:06] LABS: Alanine Aminotransferase 23 U/L (12-78); Alkaline Phosphatase 75 U/L (38-126); Aspartate Amino Transferase 27 U/L (14-36); Bilirubin,Total 0.3 mg/dl (0.2-1.3); Blood Urea Nitrogen 13 mg/dl (7-17); Carbon Dioxide 25 mmol/L (22.0-30.0); Estimated Glomerular Filt Rate 67 ml/min (>60); GFR (African American) 82 ML/MIN (>60)
[2023-11-26 20:07] LABS: Albumin Level 4.6 g/dl (3.5-5.0); Albumin/Globulin Ratio 1.6 (1.1-1.8); Calcium 9.7 mg/dl (8.4-10.2); Chol/HDL Ratio 6.2 (1-3.5); Cholesterol 254 mg/dl (140-200); Globulin 2.9 g/dL (1.3-3.2); Glucose 103 mg/dl (74-100); HDL Cholesterol 41 mg/dl (40-60); Iron 60 ug/dL (37-170); Total Protein,Serum 7.5 g/dl (6.3-8.2); Triglycerides 151 mg/dl (30-150); VLDL Cholesterol 30 mg/dL (0-40)
[2023-11-26 20:17] LABS: 25-OH Vitamin D, Total < 12.8 ng/mL (30-100)
[2023-11-26 20:38] LABS: Thyroid Stimulating Hormone 1.21 uIU/mL (0.465-4.68)
[2023-11-26 20:42] LABS: Ferritin 10.4 ng/ml (6.24-137)
[2023-11-26 20:56] LABS: Anion Gap 15.2 mEq/L (5-15); Chloride 102 mmol/L (98-107); Potassium 4.2 mmoL/L (3.5-5.1); Sodium 138 mmol/L (136-145)
[2023-11-26 21:49] LABS: Vitamin B12 258 pg/mL (239-931)
[2023-11-26 22:12] LABS: Total Iron Binding Capacity 411 ug/dL (265-497)
[2023-11-27 08:18] LABS: HBsAg Screen Negative (Negative); HCV Ab Non Reactive (Non Reactive); HIV Screen 4th Generation wRfx Non Reactive (Non Reactive); Hep A Ab, IGM Negative (Negative); Hep B Core Ab, IgM Negative (Negative)
== END 2023-11-26 23:59 ==
LOC: LAB.DROPOF 13:38
PROVIDERS: PCP Internal Medicine; Visit Provider Internal Medicine
DX: R53.83 Other fatigue (principal); F41.9 Anxiety disorder, unspecified; F19.90 Other psychoactive substance use, unspecified, uncomplicated; N20.0 Calculus of kidney; M79.7 Fibromyalgia; M54.50 Low back pain, unspecified; E55.9 Vitamin D deficiency, unspecified; Z91.89 Other specified personal risk factors, not elsewhere classified; Z79.899 Other long term (current) drug therapy; Z11.4 Encounter for screening for human immunodeficiency virus [HIV]; E61.1 Iron deficiency
CPT/HCPCS: 80053; 80061; 80074; 82306; 82607; 82728; 83540; 83550; 84443; 85025; 86703; G0432

== ENCOUNTER 2023-12-25 19:00 | Outpatient (CLI) | payer MEDICAID, SELFPAY ==
[2023-12-25 17:56] LABS: Coronavirus 19, PCR Not Detected (NotDetected); Influenza A, PCR Not Detected (NotDetected); Influenza B, PCR Not Detected (NotDetected)
== END 2023-12-25 23:59 ==
LOC: LAB.DROPOF 19:01
PROVIDERS: PCP Internal Medicine; Visit Provider Internal Medicine
DX: H66.90 Otitis media, unspecified, unspecified ear (principal); J34.89 Other specified disorders of nose and nasal sinuses; R53.83 Other fatigue; R05.9 Cough, unspecified
CPT/HCPCS: 87636

== ENCOUNTER 2023-12-28 00:14 | Emergency (ER) | payer MEDICAID, SELFPAY ==
[2023-12-28 00:23] VITALS: BP 191/124; PULSE 117; RESP 20; TEMP 36.9; O2SAT 99; BMI 26.6
--- NOTE | 2023-12-28 00:32 | HMH.EDGENADL ---
Discharge Plan Disposition Patient Disposition: Home, Self-Care Condition: Good Prescriptions Prescriptions: New fluticasone propionate [Flonase Allergy Relief] 50 mcg/actuation spray,suspension 1 spray intranasal BID Qty: 16 0RF Rx Instructions: administer into each nostril Zyrtec 10 mg capsule 10 mg PO DAILY Qty: 30 0RF amoxicillin-pot clavulanate 875-125 mg tablet 1 tab PO BID Qty: 20 0RF No Action amitriptyline 25 mg tablet 25 mg PO HS 60 Days Qty: 60 2RF sertraline 100 mg tablet 100 mg PO DAILY Qty: 90 0RF Rx Instructions: TAKE ONE TABLET BY MOUTH ONCE A DAY FOR DEPRESSION sertraline 50 mg tablet 50 mg PO DAILY Qty: 90 3RF cholecalciferol (vitamin D3) 1,250 mcg (50,000 unit) capsule 1,250 mcg PO WEEKLY Qty: 5 0RF prednisone 5 mg tablets,dose pack See Rx Instructions PO PER PKG DIR Qty: 21 0RF Rx Instructions: PO PER PKG DIR fluticasone propionate [Flonase Allergy Relief] 50 mcg/actuation spray,suspension 1 spray intranasal BID Qty: 16 2RF Rx Instructions: administer into each nostril fluconazole 150 mg tablet 150 mg PO Q3D Qty: 2 0RF clonazepam 0.5 mg tablet 0.5 mg PO TID 30 Days Qty: 90 0RF gabapentin 800 mg tablet 800 mg PO TID 30 Days Qty: 90 0RF azithromycin 250 mg tablet See Rx Instructions PO .COMPLEX Qty: 6 0RF Rx Instructions: For 250 mg dose pack: take 500 mg today (day 1), then 250 mg for 4 days (days 2-5) PO buprenorphine-naloxone 1 EACH film 8 mg SL BID Referrals Follow up/Referrals: Zackary Newell DO [Primary Care Provider] - See instructions Activity Restrictions/Add. Instructions Additional Instructions/Restrictions: You were evaluated in the emergency department today. At this time, it is felt that you could be potentially developing a bacterial sinusitis on top of a viral infection that you are previously diagnosed with. We are prescribing antibiotics. Please take the full course as prescribed. Take Tylenol and ibuprofen at home as needed for pain. Use nasal spray and allergy medication prescribed to you as well. Return to the emergency department for new or worsening symptoms. Clinical Impressions Clinical Impression: Sinusitis Instructions Patient Instructions: DI for Sinusitis, DI for Viral Upper Respiratory Infection -- Adult Discharge ED Provider: Rebecca Wang General Adult HPI General Chief complaint: Upper Respiratory Infection Stated complaint: pain in teeth, congestion, pain in ears, weakness Time Seen by Provider: 12/28/23 00:18 Mode of Arrival: Ambulatory Source of Information: Patient Limitations: No Limitations Description of Symptoms (Recalled from ER Triage Doc. by RN): patient states she feels like she has a sinus infection states she seen her PCP 3 days ago and tested negative for flu,covid, and strep she was diagnosed with viral infection and prescribed steriods. Patient feels she is getting worse. History of Present Illness HPI narrative: This patient is a 48-year-old female with a history of substance use, anxiety, PTSD, and tobacco dependence presenting with concern for sinus congestion, tooth pain, and bilateral ear pain that has been going on for at least 10 days. She notes that she saw her primary care provider 12/25/2023, and she was told she had a viral upper respiratory infection and was given steroids. She states that she knows that it is bacterial sinus infection and she is upset that she was not given antibiotics. She states that she was swabbed for COVID and flu, and it was negative so she knows that it is not viral. She states that she knows her body and has always required antibiotics for this in the past, so she is sure that she needs antibiotics now. She states that because of her symptoms and knowing that she is not being appropriately treated for bacterial infection, she is getting worse and she is concerned that her infection is going to spread to her bloodstream and kill her. She notes that right now, her anxiety is through the roof because of this. Related Data Home Medications Medication Instructions Recorded Confirmed buprenorphine 8 mg-naloxone 2 mg 8 mg sublingual BID 03/09/21 12/25/23 sublingual film Previous Rx's Medication Instructions Recorded amitriptyline 25 mg tablet 25 mg PO HS 60 days #60 tabs 11/26/23 fluconazole 150 mg tablet 150 mg PO Q3D 2 doses #2 tabs 12/07/23 cholecalciferol (vitamin D3) 1,250 1,250 mcg PO WEEKLY #5 caps 12/25/23 mcg (50,000 unit) capsule fluticasone propionate 50 1 spray intranasal BID #16 grams 03/12/24 mcg/actuation nasal spray,suspension (Flonase Allergy Relief) prednisone 5 mg tablets in a dose See Rx Instructions PO PER PKG DIR 12/25/23 pack #21 tabs sertraline 100 mg tablet 100 mg PO DAILY #90 tabs 12/25/23 sertraline 50 mg tablet 50 mg PO DAILY #90 tabs 12/25/23 clonazepam 0.5 mg tablet 0.5 mg PO TID 30 days #90 tabs 12/26/23 gabapentin 800 mg tablet 800 mg PO TID 30 days #90 tabs 12/26/23 azithromycin 250 mg tablet See Rx Instructions PO .COMPLEX #6 12/27/23 tabs amoxicillin 875 mg-potassium 1 tab PO BID #20 tabs 12/28/23 clavulanate 125 mg tablet cetirizine 10 mg capsule (Zyrtec) 10 mg PO DAILY #30 caps 12/28/23 fluticasone propionate 50 1 spray intranasal BID #16 grams 12/28/23 mcg/actuation nasal spray,suspension (Flonase Allergy Relief) Allergies Allergy/AdvReac Type Severity Reaction Status Date / Time codeine Allergy Verified 12/25/23 14:28 Sulfa (Sulfonamide Allergy Verified 12/25/23 14:28 Antibiotics) [facility] Disclaimer: The information contained in this section may have been updated after the patient was seen, as this information can be updated by other users. Social History Smoking Status: Current every day smoker tobacco type: cigarettes packs per day: 2 alcohol intake: never substance use type: painkillers current occupational status: unemployed Travel in the last 8 weeks: None household members: significant other and family housing: house ROS Obtained: Yes All systems reviewed & no additional complaints except as documented Physical Exam General General appearance: alert and anxious Comment: Agitated Head Head exam: atraumatic and normocephalic Eye Eye exam: Present normal appearance, PERRL and EOMI ENT ENT exam: Present normal oropharynx, mucous membranes moist, TM's normal bilaterally and normal external ear exam Expanded ENT Exam Nose exam: Present sinus tenderness; Absent nasal deviation Nasal speculum exam: Bilateral: normal Mouth exam: Present normal external inspection Teeth exam: Present normal inspection Throat exam: Present normal inspection Neck Neck exam: Present normal inspection, full ROM and trachea midline; Absent tenderness Chest Chest inspection: Present normal inspection and symmetric chest wall rise; Absent tenderness Respiratory Respiratory exam: Present normal lung sounds bilaterally; Absent respiratory distress, wheezes, stridor or accessory muscle use Cardiovascular Cardiovascular exam: Present regular rate and normal rhythm Abdominal Exam Abdominal exam: Present soft; Absent distention, tenderness or guarding Extremities Exam Extremities exam: Present normal inspection, full ROM and normal capillary refill; Absent tenderness or edema Back Exam Back exam: Present normal inspection and full ROM; Absent tenderness Neurological Exam Neurological exam: Present alert, oriented X3, CN II-XII intact and normal gait; Absent motor sensory deficit Psychiatric Psychiatric exam: Present agitated and anxious Skin Skin exam: Present warm and dry Medical Decision Making Medical Records Medical records reviewed: Yes I reviewed the patient's medical records. Tee Inquiry Pt receiving controlled substance: No Vital Signs: 12/28/23 00:23 Temperature 98.4 F Temperature Source Oral Pulse Rate [Left Radial] 117 H Respiratory Rate 20 Blood Pressure [Right Arm] 191/124 H Blood Pressure Mean [Right Arm] 146 02 Sat by Pulse Oximetry 99 Oxygen Delivery Method Room Air Lab Data Lab results reviewed: Yes I reviewed the patient's lab results. Medical Decision Narrative: In summary, this patient is a 48-year-old female presenting to the Emergency Department for evaluation of nasal congestion, facial pain, and dental pain as well as bilateral ear pain that has been going on for approximately 10 days. Differential diagnoses considered include but are not limited to sinusitis, bacterial sinusitis, dental infection, otitis. Ruling out the most morbid conditions drove assessment. I reviewed patient's past medical records and noted evaluation by her primary care provider and appropriate diagnosis of viral upper respiratory infection given her symptoms and duration of symptoms. On exam, the patient is nontoxic-appearing. She has sinus tenderness, but her exam is otherwise reassuring. I do feel that the initial diagnosis of viral upper respiratory infection was appropriate given the duration of patient's symptoms. She states that since she was negative for COVID and flu, she knows it is not a viral infection. I did spend quite some time explaining to her that there are multiple different viral infections that cause upper respiratory infections, which we do not routinely test for. She also advised that she knows her body and knows that she has to have an antibiotic, and I explained to her that antibiotics are not indicated in the setting of viral sinusitis, which is the most common cause of sinusitis. I explained to her that she may have been previously given antibiotics every time, however this is not good practice. Given that she maintains that her symptoms been going on for at least 10 days and are acutely worsening, it could be possible that she is developing a secondary bacterial sinusitis on top of a viral infection. Given this, after long discussion with the patient, decision was made to prescribe her Augmentin as well as Flonase and Zyrtec for treatment. She was given instructions for close follow-up with her primary care provider, strict return precautions, and she was discharged in stable condition after all questions were answered. Critical Care Critical Care Time Critical Care Time: No
[2023-12-28 00:38] VITALS: BP 170/106; PULSE 93; RESP 24; TEMP 36.8; O2SAT 96
== END 2023-12-28 00:47 | disposition home or self-care (01) ==
LOC: ER 00:39
PROVIDERS: Emergency Provider Emergency Medicine; PCP Internal Medicine
DX: J01.90 Acute sinusitis, unspecified (principal); H92.03 Otalgia, bilateral; G50.1 Atypical facial pain; R53.1 Weakness; F17.210 Nicotine dependence, cigarettes, uncomplicated
CPT/HCPCS: 99282

== ENCOUNTER 2024-02-04 12:18 | Outpatient (CLI) | payer MEDICAID, SELFPAY ==
[2024-02-04 15:51] LABS: Microscopic, Urine URINE MICROSCOPIC (MICROSCOPIC)
[2024-02-04 16:27] LABS: Appearance,Urine CLEAR (Clear); Blood, Urine 3+ (Negative); Color,Urine YELLOW (Yellow); Glucose,Urine (UA) Negative (Negative); Ketones,Urine TRACE (Negative); Leukocyte Esterase,Urine TRACE (Negative); Nitrate,Urine Negative (Negative); Protein,Urine 2+ (Negative); Specific Gravity, Urine 1.025 (1.005-1.030); Urobilinogen,Urine 0.2 EU/dl (0.2)
[2024-02-04 17:11] LABS: Bilirubin,Urine 1+ (Negative)
[2024-02-04 17:38] LABS: RBC,Urine TNTC #/hpf (0-3); Squamous Epithelial Cell,Urine Occasional #/hpf (0-5); WBC,Urine Occasional #/hpf (0-3)
== END 2024-02-04 23:59 | disposition home or self-care (01) ==
PROVIDERS: PCP Internal Medicine; Visit Provider Urology
DX: R31.9 Hematuria, unspecified (principal)
CPT/HCPCS: 81001

== ENCOUNTER 2024-02-14 07:16 | Outpatient (CLI) | payer BC, SELFPAY ==
--- NOTE | 2024-02-14 07:21 | CT_ITS ---
FINAL REPORT TECHNIQUE: Axial CT of the abdomen and pelvis, without and with IV contrast. CLINICAL HISTORY: Renal Stone COMPARISON: 08/01/2023 FINDINGS: Abdomen: Lung bases are clear. Liver has an unremarkable CT appearance. The spleen, pancreas and adrenal glands are unremarkable. The gallbladder has been surgically resected. Mild fecal impaction is noted. There are numerous bilateral calyceal renal stones, without evidence of an obstructive stone. The medullary calcifications may indicate medullary sponge disease. On the right side, there is urothelial thickening that may represent infection versus inflammation, which however is stable since the prior CT of July 2023. An upper pole right renal cyst is present. No bowel obstruction or fluid collection is seen. Pelvis: The appendix is normal. The uterus is retroverted. Bilateral ovarian cysts are present with enlargement of the left ovary at 5.2 x 2.7 cm in size, similar to that seen in the prior CT. Pelvic bowel loops are unremarkable. No fluid collection or adenopathy is seen. IMPRESSION: Numerous bilateral calyceal stones without obstruction, which are stable. This may represent medullary sponge kidneys. No active obstruction or stone is seen. Right urothelial thickening, infectious versus inflammatory, however the lack of change since the prior CT makes chronic inflammation more likely. Reviewed, Interpreted and Dictated by Grover Das MD Transcribed by Vangie Meeks Authenticated and . [facility]
[2024-02-14] MEDS: IOPAMIDOL-370 (76%);100ML BOTTLE 75 ML IV (08:05)
[2024-02-14] MEDS: SODIUM CHLORIDE 0.9% 10ML SYR (RAD ONLY) 10 ML IV (08:05)
== END 2024-02-14 23:59 | disposition home or self-care (01) ==
LOC: RAD 07:17
PROVIDERS: PCP Internal Medicine; Visit Provider Urology
DX: N20.0 Calculus of kidney (principal)
CPT/HCPCS: 74178; Q9967

== ENCOUNTER 2024-04-02 17:00 | Outpatient (RCR) | payer BC, SELFPAY ==
--- NOTE | 2024-03-04 15:03 | HMH.PTOPEV ---
PT Outpatient Evaluation Rehab PT Outpatient Evaluation Start: 03/04/24 14:08 Freq: Status: Active Protocol: Document 03/04/24 14:24 ANG (Rec: 03/04/24 15:03 ANG [id number]) E-signed By Jaxson Navarro, PT Outpatient Therapy Subjective History Subjective History Pt reports h/o chronic LBP for 'years', and intermittent episodes of LE radicular s/s. Pt reports w/this episode of LBP 'it's been hurting in both legs from time to time'. Recent lumbar spine CT has revealed multi-level lumbar spine DDD. Pt currently reports 'very little' LBP and denies any LE s/s this pm. New diagnosis of cancer in past 12 No months? Chief Complaint Pain,Stiff Symptom Type Ache,Sharp,Dull,Stabbing Symptoms Relieved By Rest/Positioning,Heat,OTC Meds ,Prescription Meds Symptoms Aggravated By Standing,Walking,Lifting Prior Functional Limitations Lifting,Housework,Standing, Walking Current Functional Limitations Lifting,Housework,Standing, Walking Symptom Description Constant but Variable Level of pain today (0-10) 0 Pain scale - at its best (0-10) 0 Pain scale - at its worst (0-10) 10 Lumbopelvic Eval Posture Thoracic Spine Posture Standing Position Neutral Lumbar Spine Posture Standing Position Neutral Assistive device Assistive Devices None / NA Gait Observation General Gait Pattern Observation Antalgic Gait Palapation tenderness right lumbar spinal tenderness Yes: 2/4 paraspinal tenderness Yes: 2/4 buttock tenderness Yes: 0-1/4 Lumbar/Sacral Palpation Findings Tenderness left lumbar spinal tenderness Yes: 2/4 paraspinal tenderness Yes: 2-3/4 buttock tenderness Yes: 1/4 Lumbar/Sacral Palpation Findings Tenderness,Muscle Guarding Accessory Movement L-spine Vertebrae Accessory Movements Central P/A [place] that Elicit Symptoms L3 bilateral L4 bilateral L5 bilateral Range of Motion Lumbar Spine Active Flexion Range of 0-65 Motion (degrees) Lumbar Spine Active Extension Range of 0-10 Motion (degrees) Left Lumbar Spine Lateral Flexion Active 0-15 Range of Motion (degrees) Right Lumbar Spine Lateral Flexion 0-20 Active Range of Motion (degrees) Lumbar Spine ROM Limitations Pain Manual Muscle Test Bilateral Knee Extension Strength Grade 5 Normal Knee Flexion Strength Grade 5 Normal Hip Flexion Strength Grade 4 Good Hip Abduction Strength Grade 4- Good- Extensor Hallucis Longus Strength Grade 5 Normal Ankle Dorsiflexion Strength Grade 5 Normal Gastronemius/Soleus Strength Grade 5 Normal Special Tests Hip Piriformis Test Negative Left,Negative Right Sciatic Nerve Tension Test Negative Left,Negative Right Reverse Sciatic Nerve Tension Test Negative Left,Negative Right Lumbar Long Lapoint Distraction Test/Manual Positive Traction Oswestry Index Section 1 Pain Intensity The pain is moderate and does not vary much Section 2 Personal Care (Washing,Dresing) my way of washing or dressing even though it causes some pain Section 3 Lifting I can only lift very light weights at most Section 4 Walking I have some pain when walking but it does not increase with distance Section 5 Sitting Pain prevents me from sitting for more than one hour Section 6 Standing I cannot stand more than 10 minutes without increasing pain Section 7 Sleeping Because of my pain, my normal night's sleep is less than 6 hours sleep Section 8 Social Life Pain has restricted my social life and I do not go out often Section 9 Traveling I get some pain when traveling , but none of my usual forms of travel m Section 10 Changing Degreee of Pain My pain is gradually getting worse Score and Risk Level Oswestry Sc 26 Oswestry Risk Level Severe Disability Outpatient Therapy Assessment Impairments Problems/Impairmments Palpation Tenderness,Impaired Range of Motion,Impaired Strength,Impaired Gait Pattern ,Impaired Walking,Impaired Standing,Impaired Lifting, Impaired Household Care, Impaired Bending,Subjective C/ O Pain,Impaired Self Care/Self Management Prognosis Rehab Potential Good Clinical Impression Consistent with Diagnosis Yes Short Term Goals Number of Weeks 4 Decreased Palpation Tenderness Yes: 1-2/4 lumbar mm Increase Range of Motion Yes: 50-75% of WFL LUMBAR AROM Increase Strength Yes: 4/5 B/L LE'S Increase Ability to Walk Yes: 30MIN Increase Ability to Stand Yes: 30MIN Improve Ability For Household Care Yes: 30MIN Decrease Subjective C/O Pain Yes: 3-4/10 W/ABOVE ACTIVITIES Patient to be Ind w/ HEP Yes Ip Attorney Goals Number of Weeks 6-8 Decreased Palpation Tenderness Yes: 0-1/4 LUMBAR MM Increase Range of Motion Yes: WFL LUMBAR AROM Increase Strength Yes: 4+-5/5 B/L LE'S Increase Ability to Walk Yes: 60MIN Increase Ability to Stand Yes: 60MIN Restore Ability to Lift Objects to Waist Yes: 10-15# Level Improve Ability For Household Care Yes: 60MIN Improve Oswestry Score Yes: 10-12 Decrease Subjective C/O Pain Yes: 0-2/10 W/ABOVE ACTIVITIES Patient to be Ind w/ Advanced HEP Yes Outpatient Therapy Plan of Care Treatment Plan May Include Therapeutic Exercise Including Home Yes Exercise Program Manual Therapy Techniques Yes Neuromuscular Re-education Yes Therapeutic Activities to Return to Yes Previous Functional/Work Level ADL/Self Care Education Yes Mechanical Traction Yes Dry Needling Yes Thermal Modalities Yes Electrical Stimulation Yes Ultrasound/Phonophoresis Yes Iontophoresis Yes Eval/Re-Eval Yes Frequency Times per week 2-3 Duration Number of Weeks 6-8 Addendums This patient is a candidate for social No or vocational rehab? Patient/Guardian verbally acknowledges Yes understanding of treatment program and consents to further treatment? Patient/Guardian verbally acknowledges Yes understanding of diagnosis, prognosis and goals for treatment? Eval Complexity PT Charges 48033 - Moderate Complexity Shoulder/Elbow Eval Shoulder Objective Measurements Elbow Objective Measurements PHYSICIAN CERTIFICATION: I certify the specified therapy services for Armida Horta are required, authorized, and reviewed every 30 days.
== END 2024-04-02 18:10 | disposition home or self-care (01) ==
LOC: PT 17:00
PROVIDERS: Visit Provider Internal Medicine
DX: M51.36 Other intervertebral disc degeneration, lumbar region (principal); M54.16 Radiculopathy, lumbar region; M54.9 Dorsalgia, unspecified
CPT/HCPCS: 97010; 97014; 97035; 97163; G0283

== ENCOUNTER 2024-07-18 10:37 | Emergency (ER) | payer BC, SELFPAY ==
[2024-07-18 10:53] VITALS: BP 153/99; PULSE 90; RESP 16; TEMP 36.6; O2SAT 99; BMI 29.2
--- NOTE | 2024-07-18 11:00 | ED_ITS ---
Discharge Plan Disposition Patient Disposition: Home, Self-Care Condition: Good Prescriptions Prescriptions: New amoxicillin-pot clavulanate 875-125 mg Tablet 1 tab PO Q12H Qty: 20 0RF fluticasone propionate [Flonase Allergy Relief] 50 mcg/actuation spray ,suspension 2 spray intranasal DAILY Qty: 16 0RF Rx Instructions: administer into each nostril No Action atorvastatin 10 mg tablet 10 mg PO DAILY 90 Days Qty: 90 2RF cetirizine 10 mg tablet See Rx Instructions .ROUTE .COMPLEX Qty: 90 2RF Dose Instruction: TAKE ONE TABLET BY MOUTH ONCE A DAY Rx Instructions: TAKE ONE TABLET BY MOUTH ONCE A DAY amitriptyline 25 mg tablet 25 mg PO HS 60 Days Qty: 60 2RF fluticasone propionate [Flonase Allergy Relief] 50 mcg/actuation spray,suspension 1 spray intranasal BID Qty: 16 2RF Rx Instructions: administer into each nostril sertraline 50 mg tablet 50 mg PO DAILY Qty: 90 3RF buprenorphine-naloxone 8-2 mg tablet, sublingual sublingual cholecalciferol (vitamin D3) 1,250 mcg (50,000 unit) capsule See Rx Instructions .ROUTE .COMPLEX Qty: 12 4RF Dose Instruction: TAKE ONE CAPSULE BY MOUTH ONCE WEEKLY Rx Instructions: TAKE ONE CAPSULE BY MOUTH ONCE WEEKLY clonazepam 0.5 mg tablet 0.5 mg PO BID 30 Days Qty: 60 0RF gabapentin 800 mg tablet 800 mg PO TID 30 Days Qty: 90 0RF sertraline 100 mg tablet See Rx Instructions .ROUTE .COMPLEX Qty: 30 0RF Dose Instruction: TAKE ONE TABLET BY MOUTH ONCE A DAY FOR DEPRESSION Rx Instructions: TAKE ONE TABLET BY MOUTH ONCE A DAY FOR DEPRESSION Referrals Follow up/Referrals: Zackary Newell DO [Primary Care Provider] - See instructions Activity Restrictions/Add. Instructions Additional Instructions/Restrictions: *Monitor Temp, Over the counter Motrin or Tylenol as directed/as needed Tylenol every 4 hours and Motrin every 6 hours (as long as your family doctor has told you that you can take it) for fever or pain. and straight to ER if unable to lower temp less than 101.0 after medication given *Warm salt water gargles may help to soothe the throat *Throat Lozenges? *Warm fluids like tea with honey may help to soothe the throat? *Sleep elevated *Humidifier/Vaporizer *Flonase 2 sprays in each nostril daily but be aware that it may take 2-3 days before you notice improvement *Bromfed may cause drowsiness. Know how it effects you (your child) before driving, caring for small child, or sending your child to school. Not other antihistamines/allergy medications while taking bromfed Your throat swab was sent for culture. Those results are typically sent to your primary care. Be sure to follow up in 2-3 days with your family doctor/primary care physician if no improvement so they can review those result and treat if necessary. If you don?t have a primary care doctor, I recommend you get one but in the mean time, you will have to return to a walk in clinic Follow up IMMEDIATELY for new or worsening symptoms or no Noticeable improvement over the next 48-72 hours. 911 for difficulty breathing or swallowing Clinical Impressions Clinical Impression: Sinusitis Qualifiers: Sinusitis location: unspecified location Chronicity: unspecified Qualified Code(s): J32.9 - Chronic sinusitis, unspecified Instructions Patient Instructions: DI for Sinusitis, Amoxicillin and Clavulanic Acid Print Language Print Language: Khmer Discharge ED Provider: Nola Haque [facility] General Stated complaint: severe headache, ear pain, teeth pain Mode of Arrival: Ambulatory Source of Information: Patient Limitations: No Limitations Time Seen by Provider: 07/18/24 11:00 Description of Symptoms (Recalled from Triage Doc. by RN): Patient reports she thinks she has a sinus infection. Complaint of facial, teeth and head pain. HEENT Symptoms (Recalled from RN notes): Yes Resp Symptoms (Recalled from RN notes): No Skin Symptoms (Recalled from RN notes): No MS Symptoms (Recalled from RN notes): No Functional Status (Recalled from RN notes): wnl History of Present Illness Provider Complaint: Patient states that she feels like she is has a sinus infection States that she has been having sinus pain and pressure and pressure behind her eyes an her teeth like she has had before with a sinus infection so she came in to get checked Related Data Home Medications ?Medication ?Instructions ?Recorded ?Confirmed buprenorphine 8 mg-naloxone 2 mg tab sublingual 02/25/24 07/09/24 sublingual tablet Previous Rx's ?Medication ?Instructions ?Recorded amitriptyline 25 mg tablet 25 mg PO HS 60 days #60 tabs 11/26/23 fluticasone propionate 50 1 spray intranasal BID #16 grams 01/30/24 mcg/actuation nasal spray,suspension (Flonase Allergy Relief) sertraline 50 mg tablet 50 mg PO DAILY #90 tabs 01/30/24 cholecalciferol (vitamin D3) 1,250 See Rx Instructions .Route 04/21/24 mcg (50,000 unit) capsule .COMPLEX #12 caps sertraline 100 mg tablet See Rx Instructions .Route 04/21/24 .COMPLEX #30 tabs atorvastatin 10 mg tablet 10 mg PO DAILY 90 days #90 tabs 06/18/24 cetirizine 10 mg tablet See Rx Instructions .Route 06/18/24 .COMPLEX #90 tabs clonazepam 0.5 mg tablet 0.5 mg PO BID 30 days #60 tabs 07/09/24 gabapentin 800 mg tablet 800 mg PO TID 30 days #90 tabs 07/09/24 amoxicillin 875 mg-potassium 1 tab PO Q12H #20 tabs 07/18/24 clavulanate 125 mg tablet fluticasone propionate 50 2 spray intranasal DAILY #16 grams 07/18/24 mcg/actuation nasal spray,suspension (Flonase Allergy Relief) Allergies Allergy/AdvReac Type Severity Reaction Status Date / Time codeine Allergy Verified 07/09/24 09:49 Sulfa (Sulfonamide Allergy Verified 07/09/24 09:49 Antibiotics) Worker's Comp Is this a Worker's Comp case?: No [facility] Disclaimer: The information contained in this section may have been updated after the patient was seen, as this information can be updated by other users. Social History Smoking Status: Current every day smoker tobacco type: cigarettes packs per day: 2 alcohol intake: never substance use type: painkillers current occupational status: unemployed Travel in the last 8 weeks: None household members: significant other and family housing: house ROS Obtained: Yes All systems reviewed & no additional complaints except as documented and Yes Systems reviewed as appropriate & no additional complaints except as documented Constitutional Constitutional: Reports system reviewed and no additional complaints, except as documented, Reports as per HPI and Reports headache(s) ENT Ears, Nose, Mouth, and Throat: Reports system reviewed and no additional complaints, except as documented, Reports as per HPI, Reports otalgia, Reports headache(s), Reports sinus pain and Reports sinus pressure Cardiovascular Cardiovascular: Reports system reviewed and no additional complaints, except as documented and Reports as per HPI Respiratory Respiratory: Reports system reviewed and no additional complaints, except as documented and Reports as per HPI Neurologic Neurologic: Reports headache(s) Physical Exam General General appearance: alert and in no apparent distress ENT ENT exam: Present mucous membranes moist Expanded ENT Exam Nose exam: Present sinus tenderness Throat exam: Present other (PND noted) Respiratory Respiratory exam: Present normal lung sounds bilaterally; Absent respiratory distress or wheezes Cardiovascular Cardiovascular exam: Present regular rate, normal rhythm and normal heart sounds Neurological Exam Neurological exam: Present alert, oriented X3 and normal gait Medical Decision Making Medical Records Screening: Per USPSTF and CDC recommendations, given the prevalence of disease in our region, it is our hospital?s policy to screen for HIV and viral Hepatitis for all patients aged 18 and over and those with ongoing risk factors. Tee Inquiry Pt receiving controlled substance: No Tee was queried for this patient: No Vital Signs: 07/18/24 10:53 Temperature 97.9 F Temperature Source Oral Pulse Rate [Radial] 90 Respiratory Rate 16 Blood Pressure [Right Arm] 153/99 H Blood Pressure Mean [Right Arm] 117 Blood Pressure Source [Right Arm] Automatic Cuff Blood Pressure Position [Right Arm] Sitting 02 Sat by Pulse Oximetry 99 Oxygen Delivery Method Room Air
[2024-07-18 11:09] VITALS: BP 153/99; PULSE 90; RESP 16; TEMP 36.6; O2SAT 99
== END 2024-07-18 11:10 | disposition home or self-care (01) ==
PROVIDERS: Emergency Provider Nurse Practitioner; PCP Internal Medicine
DX: J32.9 Chronic sinusitis, unspecified (principal)
CPT/HCPCS: 99212; G0381

== ENCOUNTER 2024-08-23 00:03 | Emergency (ER) | payer BC, SELFPAY ==
[2024-08-23 00:28] VITALS: BP 144/89; PULSE 83; RESP 16; TEMP 36.6; O2SAT 97; BMI 29.2
[2024-08-23] MEDS: FLUORESCEIN SODIUM 1MG STRIP 1 MG OP (00:38)
[2024-08-23 00:39] VITALS: BP 144/89; PULSE 83; RESP 16; TEMP 36.6
[2024-08-23] MEDS: TETRACAINE 0.5% OPTH SOL 15ML OP (00:41)
--- NOTE | 2024-08-23 00:46 | ED_ITS ---
Discharge Plan Disposition Patient Disposition: Home, Self-Care Condition: Good Prescriptions Prescriptions: No Action atorvastatin 10 mg tablet 10 mg PO DAILY 90 Days Qty: 90 2RF cetirizine 10 mg tablet See Rx Instructions .ROUTE .COMPLEX Qty: 90 2RF Dose Instruction: TAKE ONE TABLET BY MOUTH ONCE A DAY Rx Instructions: TAKE ONE TABLET BY MOUTH ONCE A DAY fluticasone propionate [Flonase Allergy Relief] 50 mcg/actuation spray,suspension 1 spray intranasal BID Qty: 16 2RF Rx Instructions: administer into each nostril buprenorphine-naloxone 8-2 mg tablet, sublingual sublingual cholecalciferol (vitamin D3) 1,250 mcg (50,000 unit) capsule See Rx Instructions .ROUTE .COMPLEX Qty: 12 4RF Dose Instruction: TAKE ONE CAPSULE BY MOUTH ONCE WEEKLY Rx Instructions: TAKE ONE CAPSULE BY MOUTH ONCE WEEKLY amitriptyline 25 mg tablet 25 mg PO HS 60 Days Qty: 60 2RF clonazepam 0.5 mg tablet 0.25 mg PO TID 30 Days Qty: 45 0RF varenicline [Chantix Starting Month Box] 0.5 mg (11)- 1 mg (42) tablets,dose pack See Rx Instructions PO PER PKG DIR Qty: 53 0RF Rx Instructions: PO PER PKG DIR gabapentin 800 mg tablet 800 mg PO TID 30 Days Qty: 90 1RF sertraline 100 mg tablet See Rx Instructions .ROUTE .COMPLEX Qty: 30 0RF Dose Instruction: TAKE ONE TABLET BY MOUTH ONCE A DAY FOR DEPRESSION Rx Instructions: TAKE ONE TABLET BY MOUTH ONCE A DAY FOR DEPRESSION sertraline 50 mg tablet See Rx Instructions .ROUTE .COMPLEX Qty: 90 0RF Dose Instruction: TAKE ONE TABLET BY MOUTH ONCE A DAY Rx Instructions: TAKE ONE TABLET BY MOUTH ONCE A DAY amoxicillin-pot clavulanate 875-125 mg Tablet 1 tab PO Q12H Qty: 20 0RF fluticasone propionate [Flonase Allergy Relief] 50 mcg/actuation spray,suspension 2 spray intranasal DAILY Qty: 16 0RF Rx Instructions: administer into each nostril Referrals Follow up/Referrals: Zackary Newell DO [Primary Care Provider] - See instructions Activity Restrictions/Add. Instructions Additional Instructions/Restrictions: You were evaluated in the ER and are appropriate for discharge at this time. Continue your home medications as previously prescribed. As discussed, you can try an [id number] eyedrop to help with symptoms if necessary. Even saline drops may help to keep the eye moist and more comfortable. Make an appointment with your primary care doctor for reevaluation in a few days, also follow-up with your eye doctor for reevaluation. Return to the ER with new, worsening, or otherwise concerning symptoms Clinical Impressions Clinical Impression: Itch of right eye Print Language Print Language: Kenyan Discharge ED Provider: Nidia Espinosa Adult HPI General Chief complaint: PAIN Stated complaint: R eye pain Time Seen by Provider: 08/23/24 00:27 Mode of Arrival: Ambulatory Source of Information: Patient Limitations: No Limitations Description of Symptoms (Recalled from ER Triage Doc. by RN): Left eye pain and swelling History of Present Illness HPI narrative: 48-year-old female with a history of environmental allergies presents to the ER with right eye itching. She reports she woke up a few hours ago and her right eye was slightly red and itchy. She states she flushed it out and the itching improved but she came to the ER to make sure that she would not go blind. Patient reports no vision changes, she wears glasses at baseline and states her vision is at baseline. Last eye exam was 1 year ago. She has no headache, dizziness, numbness, tingling, weakness, nausea, vomiting, chest pain, shortness of breath, or any other associated symptoms. 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 Patient does not wear contacts Related Data Home Medications ?Medication ?Instructions ?Recorded ?Confirmed buprenorphine 8 mg-naloxone 2 mg tab sublingual 02/25/24 08/13/24 sublingual tablet Previous Rx's ?Medication ?Instructions ?Recorded fluticasone propionate 50 1 spray intranasal BID #16 grams 01/30/24 mcg/actuation nasal spray,suspension (Flonase Allergy Relief) cholecalciferol (vitamin D3) 1,250 See Rx Instructions .Route 04/21/24 mcg (50,000 unit) capsule .COMPLEX #12 caps sertraline 100 mg tablet See Rx Instructions .Route 04/21/24 .COMPLEX #30 tabs atorvastatin 10 mg tablet 10 mg PO DAILY 90 days #90 tabs 06/18/24 cetirizine 10 mg tablet See Rx Instructions .Route 06/18/24 .COMPLEX #90 tabs amoxicillin 875 mg-potassium 1 tab PO Q12H #20 tabs 07/18/24 clavulanate 125 mg tablet fluticasone propionate 50 2 spray intranasal DAILY #16 grams 07/18/24 mcg/actuation nasal spray,suspension (Flonase Allergy Relief) sertraline 50 mg tablet See Rx Instructions .Route 07/18/24 .COMPLEX #90 tabs amitriptyline 25 mg tablet 25 mg PO HS 60 days #60 tabs 08/13/24 clonazepam 0.5 mg tablet 0.25 mg (1/2 x 0.5 mg) PO TID 30 08/13/24 days #45 tabs gabapentin 800 mg tablet 800 mg PO TID 30 days #90 tabs 08/13/24 varenicline 0.5 mg (11)-1 mg (42) See Rx Instructions PO PER PKG DIR 08/13/24 tablets in a dose pack (Chantix #53 tabs Starting Month Box) Allergies Allergy/AdvReac Type Severity Reaction Status Date / Time codeine Allergy Verified 08/13/24 10:13 Sulfa (Sulfonamide Allergy Verified 08/13/24 10:13 Antibiotics) [facility] Disclaimer: The information contained in this section may have been updated after the patient was seen, as this information can be updated by other users. Social History Smoking Status: Current every day smoker tobacco type: cigarettes packs per day: 2 alcohol intake: never substance use type: painkillers current occupational status: unemployed Travel in the last 8 weeks: None household members: significant other and family housing: house Other Medical History Have you received the Flu Vaccine for this season: No Have you received the Pneumonia Vaccine: No ROS Obtained: Yes Systems reviewed as appropriate & no additional complaints except as documented ROS per HPI Physical Exam General General appearance: alert and in no apparent distress Head Head exam: atraumatic and normocephalic Eye Eye exam: Present PERRL and EOMI; Absent conjunctival redness, conjunctival injection or discharge Expanded Eye Exam Eyelids: bilateral: normal inspection Pupils: Bilateral: size (3mm) Sclera/Conjunctival: bilateral: normal inspection Visual acuity (R) = 20/: 30 Visual acuity (L) = 20/: 30 With correction: Yes IOP (R) in mmH IOP (L) in mmH IOP measured with: other ([employer]Care tonometer) Comment: Fluorescein stain of right eye negative for abrasion, ulcer, foreign body, or other abnormality No hyphema, no hypopyon ENT ENT exam: Present mucous membranes moist Neck Neck exam: Present normal inspection and full ROM Chest Chest inspection: Present symmetric chest wall rise Respiratory Respiratory exam: Absent respiratory distress or stridor Cardiovascular Cardiovascular exam: Present regular rate and normal rhythm Extremities Exam Extremities exam: Present full ROM Neurological Exam Neurological exam: Present alert and oriented X3; Absent motor sensory deficit Psychiatric Psychiatric exam: Present normal affect and normal mood Skin Skin exam: Present warm and dry Medical Decision Making Medical Records Screening: Per USPSTF and CDC recommendations, given the prevalence of disease in our region, it is our hospital?s policy to screen for HIV and viral Hepatitis for all patients aged 18 and over and those with ongoing risk factors. Tee Inquiry Pt receiving controlled substance: No Vital Signs: 08/23/24 00:28 08/23/24 00:39 Temperature 97.9 F 97.9 F Temperature Source Oral Oral Pulse Rate 83 Pulse Rate [Left Brachial] 83 Respiratory Rate 16 16 Blood Pressure 144/89 H Blood Pressure [Right Arm] 144/89 H Blood Pressure Mean [Right Arm] 107 Blood Pressure Source Automatic Cuff Blood Pressure Source [Right Arm] Automatic Cuff Blood Pressure Position Sitting 02 Sat by Pulse Oximetry 97 Oxygen Delivery Method Room Air Room Air Orders (Tests/Meds): ED MEDICATIONS Discontinued Medications Generic Name Dose Route Start Last Admin Trade Name Freq PRN Reason Stop Dose Admin Fluorescein Sodium 1 mg 08/23/24 00:36 08/23/24 00:38 Fluorescein Sodium 1mg Strip OP 08/23/24 00:37 1 mg ONCE ONE Administration Tetracaine HCl 0 ml 08/23/24 00:36 08/23/24 00:41 Tetracaine 0.5% Opth Lola 15ml OP 08/23/24 00:37 1 ml ONCE ONE Administration ORDERS Category Date Time Status HIV (1&2) Antibody Rapid Stat Lab 08/23/24 00:32 Ordered Hep C Ab with Reflex to RNA Stat Lab 08/23/24 00:32 Ordered Medical Decision Narrative: In summary, 48-year-old female presents to the ER with right eye itching, redness earlier. Differential diagnose includes but is not limited to conjuncti vitis, foreign body, corneal abrasion, corneal ulcer, histamine reaction, increased intraocular pressure. On evaluation patient is hemodynamically stable, afebrile, her corrected visual acuity is at baseline, 20/30 in each eye, 20/20 in both eyes. Negative fluorescein stain exam. Intraocular pressure is normal and reassuring. Patient states she is asymptomatic at this time and I do not have any abnormal findings on exam. I do not believe she requires treatment or further workup. I did suggest an [id number] saline or antihistamine eyedrop since patient has a history of significant environmental allergies. Patient was given instructions on symptomatic management, follow up instructions, and return precautions for the emergency department. Patient indicated understanding and was discharged in stable condition. Critical Care Critical Care Time Critical Care Time: No
== END 2024-08-23 00:50 | disposition home or self-care (01) ==
PROVIDERS: Emergency Provider Emergency Medicine; PCP Internal Medicine
DX: H57.9 Unspecified disorder of eye and adnexa (principal); H57.11 Ocular pain, right eye
CPT/HCPCS: 99282

== ENCOUNTER 2024-09-09 11:24 | Outpatient (CLI) | payer BC, SELFPAY ==
[2024-09-09 18:39] LABS: Chol/HDL Ratio 5.5 (1-3.5); Cholesterol 233 mg/dl (140-200); HDL Cholesterol 42 mg/dl (40-60); Triglycerides 230 mg/dl (30-150); VLDL Cholesterol 46 mg/dL (0-40)
[2024-09-09 18:50] LABS: Direct LDL Cholesterol 140.11 mg/dL (100-129)
== END 2024-09-09 23:59 | disposition home or self-care (01) ==
LOC: LAB.DROPOF 09-10 07:18
PROVIDERS: PCP Internal Medicine; Visit Provider Internal Medicine
DX: I10 Essential (primary) hypertension (principal); H69.92 Unspecified Eustachian tube disorder, left ear; Z72.0 Tobacco use
CPT/HCPCS: 80061

== ENCOUNTER 2024-09-10 21:27 | Outpatient (CLI) | payer BC, SELFPAY ==
[2024-09-10 22:05] LABS: Creatinine,Urine Random 147 mg/dL (Not Estab.); Microalbumin/Creatinine Ratio 35.7
== END 2024-09-10 23:59 | disposition home or self-care (01) ==
LOC: LAB.DROPOF 21:28
PROVIDERS: PCP Internal Medicine; Visit Provider Internal Medicine
DX: R73.9 Hyperglycemia, unspecified (principal)
CPT/HCPCS: 82043; 82570

== ENCOUNTER 2024-11-04 09:45 | Outpatient (CLI) | payer MEDICAID, SELFPAY ==
[2024-11-04 18:22] LABS: Basophils # 0.1 K/mm3 (0-0.2); Basophils % 0.5 % (0.1-2.0); Eosinophils # 0.2 K/mm3 (0.0-0.4); Eosinophils % 2.6 % (0.1-12.0); Hemoglobin 14.3 g/dL (12.2-16.2); Lymphocytes # 3.6 K/mm3 (0.7-4.5); Lymphocytes % 38.3 % (10-50); Mean Corpuscular HGB Conc 32.5 g/dL (31.8-35.4); Mean Corpuscular Hemoglobin 29.8 pg (27.0-31.2); Mean Corpuscular Volume 91.7 fl (81-99); Mean Platelet Volume 13.2 fl (7.4-10.4); Monocytes # 0.5 K/mm3 (0.1-1.0); Monocytes % 4.8 % (1.7-9.3); Neutrophils % 53.7 % (37.0-80.0); Platelet Count 204 K/mm3 (142-424); Red Cell Distribution Width 13.4 % (11.5-17.5); White Blood Count 9.3 K/mm3 (4.8-10.8)
[2024-11-04 18:49] LABS: Alanine Aminotransferase 24 U/L (12-78); Albumin Level 4.8 g/dl (3.5-5.0); Albumin/Globulin Ratio 1.9 (1.1-1.8); Alkaline Phosphatase 63 U/L (38-126); Anion Gap 17.8 mEq/L (5-15); Aspartate Amino Transferase 30 U/L (14-36); Bilirubin,Total 0.4 mg/dl (0.2-1.3); Blood Urea Nitrogen 21 mg/dl (7-17); Calcium 9.6 mg/dl (8.4-10.2); Carbon Dioxide 22 mmol/L (22.0-30.0); Chloride 102 mmol/L (98-107); Chol/HDL Ratio 7.8 (1-3.5); Cholesterol 225 mg/dl (140-200); Estimated Glomerular Filt Rate 67 ml/min (>60); GFR (African American) 81 ML/MIN (>60); Globulin 2.5 g/dL (1.3-3.2); Glucose 115 mg/dl (74-100); HDL Cholesterol 29 mg/dl (40-60); Potassium 3.8 mmoL/L (3.5-5.1); Sodium 138 mmol/L (136-145); Total Protein,Serum 7.3 g/dl (6.3-8.2); Triglycerides 193 mg/dl (30-150); VLDL Cholesterol 39 mg/dL (0-40)
[2024-11-04 19:00] LABS: Direct LDL Cholesterol 140.27 mg/dL (100-129)
[2024-11-04 19:05] LABS: Hemoglobin A1C 5.1 % (4.0-6.0)
[2024-11-04 19:12] LABS: 25-OH Vitamin D, Total 75.9 ng/mL (30-100)
== END 2024-11-04 23:59 | disposition home or self-care (01) ==
LOC: LAB.DROPOF 11-05 12:11
PROVIDERS: PCP Internal Medicine; Visit Provider Internal Medicine
DX: I10 Essential (primary) hypertension (principal); E66.3 Overweight; R06.09 Other forms of dyspnea; Z13.1 Encounter for screening for diabetes mellitus; E78.00 Pure hypercholesterolemia, unspecified; Z79.899 Other long term (current) drug therapy; Z68.25 Body mass index [BMI] 25.0-25.9, adult; Q61.5 Medullary cystic kidney
CPT/HCPCS: 80053; 80061; 82306; 83036; 85025

== ENCOUNTER 2024-12-11 01:58 | Emergency (ER) | payer MEDICAID, SELFPAY ==
--- NOTE | 2024-12-11 02:05 | ED_ITS ---
Discharge Plan Disposition Patient Disposition: Left Against Medical Advice Condition: Undetermined Prescriptions Prescriptions: New tamsulosin [Flomax] 0.4 mg capsule 0.4 mg PO HS Qty: 7 0RF No Action cetirizine 10 mg tablet See Rx Instructions .ROUTE .COMPLEX Qty: 90 2RF Dose Instruction: TAKE ONE TABLET BY MOUTH ONCE A DAY Rx Instructions: TAKE ONE TABLET BY MOUTH ONCE A DAY buprenorphine-naloxone 8-2 mg tablet, sublingual 8 tab sublingual DIRECTED cholecalciferol (vitamin D3) 1,250 mcg (50,000 unit) capsule See Rx Instructions .ROUTE .COMPLEX Qty: 12 4RF Dose Instruction: TAKE ONE CAPSULE BY MOUTH ONCE WEEKLY Rx Instructions: TAKE ONE CAPSULE BY MOUTH ONCE WEEKLY clonazepam 0.5 mg tablet 0.25 mg PO TID 30 Days Qty: 45 2RF lisinopril 5 mg tablet 10 mg PO DAILY 90 Days Qty: 180 2RF simvastatin 20 mg tablet 20 mg PO DAILY Qty: 30 2RF sertraline 100 mg tablet See Rx Instructions .ROUTE .COMPLEX Qty: 30 0RF Dose Instruction: TAKE ONE TABLET BY MOUTH ONCE A DAY FOR DEPRESSION Rx Instructions: TAKE ONE TABLET BY MOUTH ONCE A DAY FOR DEPRESSION gabapentin 800 mg tablet 800 mg PO TID 30 Days Qty: 90 2RF sertraline 50 mg tablet See Rx Instructions .ROUTE .COMPLEX Qty: 90 3RF Dose Instruction: TAKE ONE TABLET BY MOUTH ONCE A DAY Rx Instructions: TAKE ONE TABLET BY MOUTH ONCE A DAY fluticasone propionate [Flonase Allergy Relief] 50 mcg/actuation spray,suspension 2 spray intranasal DAILY Qty: 16 0RF Rx Instructions: administer into each nostril Referrals Follow up/Referrals: Zackary Newell DO [Primary Care Provider] - See instructions Rohit Morales MD [Referring] - See instructions (3mm distal R ureteral stone w/ hydro, Rx tamsulosin from ER) Clinical Impressions Clinical Impression: Right flank pain, Calculus of distal right ureter, Hydronephrosis Print Language Print Language: [place] Discharge ED Provider: Nidia Espinosa General Adult HPI General Chief complaint: Urogenital-Female Stated complaint: pain R side, history of kidney issues Time Seen by Provider: 12/11/24 02:03 History of Present Illness HPI narrative: 49-year-old female with history of medullary sponge kidney, previous pyelonephritis, previous kidney stones, previous infected kidney stone presents to the ER with right flank pain. She states pain is consistent with previous kidney stones. It is in her low right flank, she states it comes in waves and is sharp. She has not had nausea or vomiting, no diarrhea or constipation. She is unclear if there has been any blood in her urine because she is currently on her menstrual period. She denies any fevers, chills, chest pain, difficulty breathing, abdominal pain, dysuria. No headache, dizziness, numbness, tingling, or weakness. She reports she took ibuprofen prior to arrival. Symptoms started approximately 1 hour ago. Related Data Home Medications ?Medication ?Instructions ?Recorded ?Confirmed buprenorphine 8 mg-naloxone 2 mg 8 tab sublingual DIRECTED 02/25/24 12/11/24 sublingual tablet Previous Rx's ?Medication ?Instructions ?Recorded cholecalciferol (vitamin D3) 1,250 See Rx Instructions .Route 04/21/24 mcg (50,000 unit) capsule .COMPLEX #12 caps sertraline 100 mg tablet See Rx Instructions .Route 04/21/24 .COMPLEX #30 tabs cetirizine 10 mg tablet See Rx Instructions .Route 06/18/24 .COMPLEX #90 tabs fluticasone propionate 50 2 spray intranasal DAILY #16 grams 07/18/24 mcg/actuation nasal spray,suspension (Flonase Allergy Relief) gabapentin 800 mg tablet 800 mg PO TID 30 days #90 tabs 10/20/24 sertraline 50 mg tablet See Rx Instructions .Route 10/21/24 .COMPLEX #90 tabs clonazepam 0.5 mg tablet 0.25 mg (1/2 x 0.5 mg) PO TID 30 11/04/24 days #45 tabs lisinopril 5 mg tablet 10 mg (2 x 5 mg) PO DAILY 90 days 11/04/24 #180 tabs simvastatin 20 mg tablet 20 mg PO DAILY #30 tabs 11/04/24 tamsulosin 0.4 mg capsule (Flomax) 0.4 mg PO HS #7 caps 12/11/24 Allergies Allergy/AdvReac Type Severity Reaction Status Date / Time codeine Allergy Verified 11/04/24 09:22 Sulfa (Sulfonamide Allergy Verified 11/04/24 09:22 Antibiotics) [facility] Disclaimer: The information contained in this section may have been updated after the patient was seen, as this information can be updated by other users. Social History Smoking Status: Current every day smoker tobacco type: cigarettes packs per day: 2 alcohol intake: never substance use type: painkillers current occupational status: unemployed Travel in the last 8 weeks: None household members: significant other and family housing: house Have you lived/traveled outside [place] in past 30 days?: No Contact w/someone who lives/traveled outside US past 30 days?: No Exposure to someone with infectious disease in past 14 days?: No Do you have a fever (greater than 100.4 F or 38 C)?: No Have you tested positive for COVID-19: No Exposed to someone with COVID-19 in past 14 days?: No Do you have a sore throat?: No Do you have a cough?: No Do you have any weakness?: No Do you have any diarrhea?: No Are you experiencing any unusual bleeding?: No Do you have any muscle aches/pain?: No Do you have any abdominal pain?: Yes Are you experiencing loss of taste or smell?: No Other Medical History Have you received the Flu Vaccine for this season: No Have you received the Pneumonia Vaccine: No ROS Obtained: Yes Systems reviewed as appropriate & no additional complaints except as documented Per HPI Physical Exam General General appearance: alert and in no apparent distress Head Head exam: atraumatic and normocephalic Eye Eye exam: Present PERRL and EOMI ENT ENT exam: Present mucous membranes moist Neck Neck exam: Present normal inspection and full ROM Chest Chest inspection: Present symmetric chest wall rise Respiratory Respiratory exam: Present normal lung sounds bilaterally; Absent respiratory distress, wheezes or stridor Cardiovascular Cardiovascular exam: Present normal rhythm and tachycardia Abdominal Exam Abdominal exam: Present soft; Absent distention, tenderness, guarding or rebound Extremities Exam Extremities exam: Present full ROM; Absent edema Back Exam Back exam: Present CVA tenderness (R) (Low right CVA); Absent CVA tenderness (L) Neurological Exam Neurological exam: Present alert and oriented X3; Absent motor sensory deficit Psychiatric Psychiatric exam: Present normal affect and normal mood Skin Skin exam: Present warm and dry Medical Decision Making Medical Records Medical records reviewed: Yes I reviewed the patient's medical records. Screening: Per USPSTF and CDC recommendations, given the prevalence of disease in our region, it is our hospital?s policy to screen for HIV and viral Hepatitis for all patients aged 18 and over and those with ongoing risk factors. MR Comment: Patient had nephrolithiasis in July 2023 but did not have ureterolithiasis at that time. Provider had suspicion that she may have passed a stone. She was discharged in stable condition. In December 2022 patient had pyelonephritis identified in the ER, no evidence of retained stone, treated in the hospital with Rocephin and then outpatient with cefdinir. Discharged from the ER. Note from urology in January 2024 demonstrates patient presented to the urologist for complaints of hematuria with large occult blood in the urine, also had a long history of recurrent renal stones. She was diagnosed with atrophic vaginitis and prescribed estradiol cream. Tee Inquiry Pt receiving controlled substance: No Vital Signs: 12/11/24 02:06 12/11/24 02:12 12/11/24 02:30 Temperature 97.7 F Temperature Source Oral Pulse Rate 119 H 102 H Pulse Rate [Right] 118 H Respiratory Rate 18 Blood Pressure 158/98 H 143/89 H Blood Pressure [Right Arm] 158/98 H Blood Pressure Mean [Right Arm] 118 Blood Pressure Source Blood Pressure Position 02 Sat by Pulse Oximetry 100 100 99 Oxygen Delivery Method Room Air Room Air Room Air 12/11/24 03:00 12/11/24 04:49 Temperature 97.9 F Temperature Source Oral Pulse Rate 102 H 74 Pulse Rate [Right] Respiratory Rate 18 Blood Pressure 145/89 H 132/74 Blood Pressure [Right Arm] Blood Pressure Mean [Right Arm] Blood Pressure Source Automatic Cuff Blood Pressure Position Supine 02 Sat by Pulse Oximetry 98 Oxygen Delivery Method Room Air Room Air Lab Data Lab Results 12/11/24 02:07: WBC 9.4, RBC 4.10 L, Hgb 12.2, Hct 37.1, MCV 90.5, MCH 29.8, MCHC 32.9, RDW 13.3, Plt Count 220, MPV 12.4 H, Neut % (Auto) 59.0, Lymph % (Auto) 32.5, [place] % (Auto) 4.8, Eos % (Auto) 3.1, Baso % (Auto) 0.4, Neut # (Auto) 5.5, Lymph # (Auto) 3.0, [place] # (Auto) 0.5, Eos # (Auto) 0.3, Baso # (Auto) 0.0, PT 10.3, INR 0.91, Sodium 136, Potassium 3.6, Chloride 101, Carbon Dioxide 30, Anion Gap 8.6, BUN 21 H, Creatinine 1.10 H, Estimated Creat Clear 77, Estimated GFR 53 L, Est GFR ( Amer) 64, Glucose 117 H, Calcium 9.6, T otal Bilirubin < 0.1 L, AST 31, ALT 28, Alkaline Phosphatase 78, Total Protein 7.5, Albumin 4.8, Globulin 2.7, Albumin/Globulin Ratio 1.8, Serum HCG, Qual Negative, HCV Ab JILLIAN w/Rflx PCR Qn Negative, HIV Ag/Ab Combo Qual Negative 12/11/24 02:19: Urine Color Yellow, Urine Appearance Clear, Urine pH 6.0, Ur Specific [place] >= 1.030, Urine Protein 1+ A, Urine Glucose (UA) Negative, Urine Ketones Negative, Urine Blood 3+ A, Urine Nitrate Negative, Urine Bilirubin Negative, Urine Urobilinogen 0.2, Ur Leukocyte Esterase Negative, Urine RBC 50-100, Urine WBC 5-10, Ur Squamous Epith Cells 3-5, Urine Bacteria 2+ 12/11/24 02:07 12/11/24 02:07 Orders (Tests/Meds): ED MEDICATIONS Discontinued Medications Generic Name Dose Route Start Last Admin Trade Name Freq PRN Reason Stop Dose Admin Lactated Ringer's 1,000 mls @ 999 mls/hr 12/11/24 02:05 12/11/24 02:27 Lactated Ringer's 1000 Ml Bag IV 12/11/24 03:05 999 mls/hr .Q1H1M ONE Administration Iopamidol 75 ml 12/11/24 03:22 12/11/24 03:23 Iopamidol-370 (76%);100ml Bottle IV 12/11/24 03:23 75 ml ONCE ONE Administration Ketorolac Tromethamine 15 mg 12/11/24 02:05 12/11/24 02:26 Ketorolac 30mg/Ml Vial IV 12/11/24 02:06 15 mg ONCE ONE Administration Sodium Chloride 10 ml 12/11/24 03:22 12/11/24 03:23 Sodium Chloride 0.9% 10ml Syr (Rad Only) IV 01/10/25 03:21 10 ml NEEDED PRN Administration Maintain IV Site ORDERS Category Date Time Status CT abdomen pelvis w con Stat Cat Scan 12/11/24 02:05 Completed CBC w/Auto Diff [Complete Blood Count Auto Diff] Stat Lab 12/11/24 02:07 Completed CMP [Comprehensive Metabolic Panel] Stat Lab 12/11/24 02:07 Completed HCG Qualitative, Serum Stat Lab 12/11/24 02:07 Completed HIV Combo Stat Lab 12/11/24 02:07 Completed Hepatitis C Ab Qual. W/ RFX Stat Lab 12/11/24 02:07 Completed PT INR [Prothrombin Time INR] Stat Lab 12/11/24 02:07 Completed Urinalysis and Microscopic Stat Lab 12/11/24 02:19 Completed Urine Culture Stat Micro 12/11/24 02:19 Received Medical Decision Narrative: In summary, this 49-year-old female with comorbidities as described in the HPI which are likely not at goal therapy presents to the emergency department today with right flank pain that is severe and nonradiating, classic of previous kidney stones according to the patient. On initial evaluation patient is tachycardic but otherwise hemodynamically stable, patient has tenderness to percussion of the low posterior right flank, no abdominal tenderness, remainder of exam reassuring. Differential diagnosis includes but is not limited to urinary tract infection, aloe nephritis, electrolyte abnormality, kidney dysfunction, nephrolithiasis, ureterolithiasis, hydronephrosis, among others. Based on these concerns, I ordered serum labs, urine studies, CT imaging. Patient reports only medication that helps her pain typically is ibuprofen, Toradol was ordered for treatment of pain. She is also receiving IV fluid bolus. Labs personally reviewed demonstrate no leukocytosis or anemia, platelets normal, CMP with BUN 21, creatinine 1.1 up from 0.9, no evidence of BENJAMIN, patient is already receiving IV fluids. hCG negative, UA positive for blood and protein with few WBCs but contaminated with squamous cells, patient is nitrate negative and has no dysuria, will not treat for UTI at this time. CT abdomen pelvis personally interpreted demonstrates right hydronephrosis, possible very small distal right ureteral stone, see radiology read for final interpretation. Radiology read was pending when the patient decided to leave AGAINST MEDICAL ADVICE. She reported she had to go because her ride was leaving and had to go to work and she has no other way to get home, I had offered her taxi or care van services but she stated she had to go with this ride in order to get home because of where she lives. Patient was able to explain back to me their condition and the risks of leaving up to and including wosening of condition, severe life altering disability, or . Patient was able to provide reason for their decision and clearly express their decision. Patient has capacity to make this decision and left AGAINST MEDICAL ADVICE. After the patient had left, CT resulted confirming small right distal ureteral stone with hydronephrosis. Since she does not have evidence of infection or kidney dysfunction at this time, I called to update the patient. It took a few phone calls to get through, however she eventually answered the phone and we discussed the findings on CT. I told her I was prescribing tamsulosin to her pharmacy of choice and that I referred her to Dr. Morales with urology in [place] for outpatient follow-up. She was very grateful for all of these things. I also recommended that she drink plenty of fluids to help pass the stone. She was given instructions on taking the new medication as well as outpatient follow-up with Dr. Mazariegos and her primary care doctor. She indicated understanding to all instructions. Critical Care Critical Care Time Critical Care Time: No
--- NOTE | 2024-12-11 02:05 | CT_ITS ---
PROCEDURE INFORMATION: Exam: CT Abdomen And Pelvis With Contrast Exam date and time: 12/11/2024 3:17 AM Age: 49 years old Clinical indication: Abdominal pain; Flank; Right; Additional info: R flank pain HX stones TECHNIQUE: Imaging protocol: Computed tomography of the abdomen and pelvis with contrast. Radiation optimization: All CT scans at this facility use at least one of these dose optimization techniques: automated exposure control; mA and/or kV adjustment per patient size (includes targeted exams where dose is matched to clinical indication); or iterative reconstruction. Contrast material: ISOVUE; Contrast volume: 75 ml; Contrast route: IV; COMPARISON: CT ABDOMEN PELVIS WO/W CON 02/14/2024 7:43 AM FINDINGS: Liver: The liver has an unremarkable appearance. Gallbladder and biliary ducts: The gallbladder is absent. There are cholecystectomy clips. Non dilated biliary tree. Pancreas: The pancreatic parenchyma appears homogeneous and unremarkable. Spleen: The spleen is normal. Adrenal glands: The adrenal glands are normal. Kidneys and ureters: Bilateral renal calculi. Bilateral renal medullary calcifications. There is right perinephric stranding and fluid with more than typical fluid volume and which may suggest caliceal perforation. Severe right hydronephrosis and proximal ureterectasis. 2.3 x 3.3 mm distal right ureteral calculus on image 3/81. The distal right ureter is decompressed. Stable sized upper pole right renal 1.5 cm probable cyst. Stomach and bowel: No evidence of gastric or intestinal viscus perforation or bowel obstruction. No bowel wall thickening. Appendix: No evidence of appendicitis. Intraperitoneal space: Unremarkable. No free air. No significant fluid collection. Vasculature: No abdominal aortic aneurysm. IVC patent. Lymph nodes: No enlarged lymph nodes. Urinary bladder: Urinary bladder decompressed. No stone within it. Reproductive: Uterus retroflexed. Cystic adnexa redemonstrated. Bones/joints: No acute fracture. Soft tissues: Unremarkable. IMPRESSION: 1. Acute obstructive uropathy. 2.3 x 3.3 in mm distal right ureteral calculus and associated right nephroureteral obstructive findings. 2. Bilateral nephrolithiasis.
[2024-12-11 02:06] VITALS: BP 158/98; PULSE 119; O2SAT 100
[2024-12-11 02:12] VITALS: BP 158/98; PULSE 118; RESP 18; TEMP 36.5; O2SAT 100; BMI 30.1
[2024-12-11 02:21] LABS: Basophils % 0.4 % (0.1-2.0); Eosinophils # 0.3 K/mm3 (0.0-0.4); Eosinophils % 3.1 % (0.1-12.0); Hematocrit 37.1 % (37.0-47.0); Hemoglobin 12.2 g/dL (12.2-16.2); Lymphocytes % 32.5 % (10-50); Mean Corpuscular HGB Conc 32.9 g/dL (31.8-35.4); Mean Corpuscular Hemoglobin 29.8 pg (27.0-31.2); Mean Corpuscular Volume 90.5 fl (81-99); Mean Platelet Volume 12.4 fl (7.4-10.4); Monocytes # 0.5 K/mm3 (0.1-1.0); Monocytes % 4.8 % (1.7-9.3); Neutrophils # 5.5 K/mm3 (1.8-7.8); Platelet Count 220 K/mm3 (142-424); Red Cell Distribution Width 13.3 % (11.5-17.5); White Blood Count 9.4 K/mm3 (4.8-10.8)
[2024-12-11 02:26] LABS: Appearance,Urine CLEAR (Clear); Bilirubin,Urine Negative (Negative); Blood, Urine 3+ (Negative); Color,Urine YELLOW (Yellow); Glucose,Urine (UA) Negative (Negative); Ketones,Urine Negative (Negative); Leukocyte Esterase,Urine Negative (Negative); Microscopic, Urine URINE MICROSCOPIC (MICROSCOPIC); Nitrate,Urine Negative (Negative); Protein,Urine 1+ (Negative); Specific Gravity, Urine >= 1.030 (1.005-1.030); Urobilinogen,Urine 0.2 EU/dl (0.2)
[2024-12-11 02:26] LABS: Alanine Aminotransferase 28 U/L (12-78); Albumin Level 4.8 g/dl (3.5-5.0); Albumin/Globulin Ratio 1.8 (1.1-1.8); Alkaline Phosphatase 78 U/L (38-126); Anion Gap 8.6 mEq/L (5-15); Aspartate Amino Transferase 31 U/L (14-36); Blood Urea Nitrogen 21 mg/dl (7-17); Calcium 9.6 mg/dl (8.4-10.2); Carbon Dioxide 30 mmol/L (22.0-30.0); Chloride 101 mmol/L (98-107); Creatinine Clearance Estimated 77 mL/min (50-200); Estimated Glomerular Filt Rate 53 ml/min (>60); GFR (African American) 64 ML/MIN (>60); Globulin 2.7 g/dL (1.3-3.2); Glucose 117 mg/dl (74-100); Potassium 3.6 mmoL/L (3.5-5.1); Sodium 136 mmol/L (136-145); Total Protein,Serum 7.5 g/dl (6.3-8.2)
[2024-12-11] MEDS: KETOROLAC 30MG/ML VIAL 15 MG IV (02:26)
[2024-12-11] MEDS: LACTATED RINGERS 1000ML 1,000 ML 999 ML IV (02:27)
[2024-12-11 02:28] LABS: Bilirubin,Total < 0.1 mg/dl (0.2-1.3); INR 0.91 (0.9-1.1); Prothrombin Time 10.3 seconds (10.1-12.5)
[2024-12-11 02:30] VITALS: BP 143/89; PULSE 102; O2SAT 99
[2024-12-11 03:00] VITALS: BP 145/89; PULSE 102; O2SAT 98
[2024-12-11 03:02] LABS: HCG Qualitative, Serum Negative (Negative)
[2024-12-11 03:05] LABS: Bacteria,Urine 2+ /lpf; RBC,Urine 50-100 #/hpf (0-3)
[2024-12-11] MEDS: IOPAMIDOL-370 (76%);100ML BOTTLE 75 ML IV (03:23)
[2024-12-11] MEDS: SODIUM CHLORIDE 0.9% 10ML SYR (RAD ONLY) 10 ML IV (03:23)
--- NOTE | 2024-12-11 04:47 | PC.NURSE ---
Patient states her daughter does not want to wait, so she has to leave ama. Dr. Espinosa explained risks of leaving ama, up to and including . IV removed. Catheter tip intact. Bleeding controlled.
[2024-12-11 04:49] VITALS: BP 132/74; PULSE 74; RESP 18; TEMP 36.6; O2SAT 98
[2024-12-11 04:50] LABS: HIV Combo NEGATIVE (Negative)
[2024-12-11 04:58] LABS: Hepatitis C Ab Qual. W/ RFX NEGATIVE (Negative)
== END 2024-12-11 04:49 | disposition left against medical advice (07) ==
LOC: ER 02:21
PROVIDERS: Emergency Provider Emergency Medicine; PCP Internal Medicine
DX: N20.1 Calculus of ureter (principal); F17.210 Nicotine dependence, cigarettes, uncomplicated; R10.31 Right lower quadrant pain; N13.30 Unspecified hydronephrosis; Z53.29 Procedure and treatment not carried out because of patient's decision for other reasons
CPT/HCPCS: 74177; 80053; 81001; 84703; 85025; 85610; 86803; 87086; 87389; 96361; 96374; 99285; J1885; J7120; Q9967

== ENCOUNTER 2024-12-30 11:50 | Emergency (ER) | payer MEDICAID, SELFPAY ==
--- NOTE | 2024-12-30 12:02 | ED_ITS ---
Discharge Plan Disposition Patient Disposition: Home, Self-Care Condition: Good Prescriptions Prescriptions: New tamsulosin 0.4 mg capsule 0.4 mg PO HS Qty: 10 0RF ketorolac 10 mg tablet 10 mg PO Q8H PRN (Reason: pain) 3 Days Qty: 10 0RF cefdinir 300 mg capsule 300 mg PO BID 5 Days Qty: 10 0RF No Action cetirizine 10 mg tablet See Rx Instructions .ROUTE .COMPLEX Qty: 90 2RF Dose Instruction: TAKE ONE TABLET BY MOUTH ONCE A DAY Rx Instructions: TAKE ONE TABLET BY MOUTH ONCE A DAY atorvastatin 20 mg tablet 20 mg PO DAILY amoxicillin 500 mg capsule 500 mg PO DAILY buprenorphine-naloxone 8-2 mg tablet, sublingual 8 tab sublingual DIRECTED cholecalciferol (vitamin D3) 1,250 mcg (50,000 unit) capsule See Rx Instructions .ROUTE .COMPLEX Qty: 12 4RF Dose Instruction: TAKE ONE CAPSULE BY MOUTH ONCE WEEKLY Rx Instructions: TAKE ONE CAPSULE BY MOUTH ONCE WEEKLY clonazepam 0.5 mg tablet 0.25 mg PO TID 30 Days Qty: 45 2RF gabapentin 800 mg tablet 800 mg PO TID 30 Days Qty: 90 2RF sertraline 50 mg tablet See Rx Instructions .ROUTE .COMPLEX Qty: 90 3RF Dose Instruction: TAKE ONE TABLET BY MOUTH ONCE A DAY Rx Instructions: TAKE ONE TABLET BY MOUTH ONCE A DAY Referrals Follow up/Referrals: Zackary Newell DO [Primary Care Provider] - See instructions Rohit Morales MD [Referring] - See instructions Activity Restrictions/Add. Instructions Additional Instructions/Restrictions: I have sent pain medicine that is nonsteroidal nonnarcotic into your pharmacy to help with your kidney stone pain. I sent in antibiotics that you may to take until they are complete. You need to strain all of your urine. Please call Dr. Anderson office to establish a follow-up appointment. If you have any increasing pain fever worsening signs or symptoms return to the ER as needed. Clinical Impressions Clinical Impression: Ureterolithiasis, Complicated urinary tract infection Instructions Patient Instructions: DI for Kidney Stones Print Language Print Language: Uzbek Discharge ED Provider: Sean Ortiz General Adult HPI <LUIS ALBERTO Prado - Last Filed: 12/30/24 13:57> General Chief complaint: Urogenital-Female Stated complaint: pain in upper thighs/abd painful urination Time Seen by Provider: 12/30/24 12:02 History of Present Illness HPI narrative: Patient presents for evaluation of right flank pain and dysuria. Patient states she woke up this morning with pressure in her lower abdomen and right flank pain that radiates to her groin. She denies chest pain shortness of breath fever chills hemoptysis hematochezia melena nausea vomiting diarrhea. Patient reports that she has history of kidney stones as well as frequent UTIs. Related Data Home Medications ?Medication ?Instructions ?Recorded ?Confirmed buprenorphine 8 mg-naloxone 2 mg 8 tab sublingual DIRECTED 02/25/24 12/25/24 sublingual tablet amoxicillin 500 mg capsule 500 mg PO DAILY 12/25/24 12/25/24 atorvastatin 20 mg tablet 20 mg PO DAILY 12/25/24 12/25/24 Previous Rx's ?Medication ?Instructions ?Recorded cholecalciferol (vitamin D3) 1,250 See Rx Instructions .Route 04/21/24 mcg (50,000 unit) capsule .COMPLEX #12 caps cetirizine 10 mg tablet See Rx Instructions .Route 06/18/24 .COMPLEX #90 tabs gabapentin 800 mg tablet 800 mg PO TID 30 days #90 tabs 10/20/24 sertraline 50 mg tablet See Rx Instructions .Route 10/21/24 .COMPLEX #90 tabs clonazepam 0.5 mg tablet 0.25 mg (1/2 x 0.5 mg) PO TID 30 11/04/24 days #45 tabs cefdinir 300 mg capsule 300 mg PO BID 5 days #10 caps 12/30/24 ketorolac 10 mg tablet 10 mg PO Q8H PRN pain 3 days #10 12/30/24 tabs tamsulosin 0.4 mg capsule 0.4 mg PO HS #10 caps 12/30/24 Allergies Allergy/AdvReac Type Severity Reaction Status Date / Time codeine Allergy Verified 12/25/24 09:38 Sulfa (Sulfonamide Allergy Verified 12/25/24 09:38 Antibiotics) FOR[facility]LY [facility], [facility] <LUIS ALBERTO Prado - Last Filed: 12/30/24 13:57> [facility] Disclaimer: The information contained in this section may have been updated after the patient was seen, as this information can be updated by other users. Medical History (Updated 12/30/24 @ 13:41 by LUIS ALBERTO Prado) History of nephrolithotomy with removal of calculi PTSD (post-traumatic stress disorder) Surgical History (Updated 12/25/24 @ 09:55 by DESTINY Kuo) History of cholecystectomy History of Social History Smoking Status: Current every day smoker tobacco type: cigarettes packs per day: 2 alcohol intake: never substance use type: painkillers current occupational status: unemployed Travel in the last 8 weeks: None household members: significant other and family housing: house Have you lived/traveled outside [place] in past 30 days?: No Contact w/someone who lives/traveled outside US past 30 days?: No Exposure to someone with infectious disease in past 14 days?: No Do you have a fever (greater than 100.4 F or 38 C)?: No Have you tested positive for COVID-19: No Exposed to someone with COVID-19 in past 14 days?: No Do you have a sore throat?: No Do you have a cough?: No Do you have any weakness?: No Do you have any diarrhea?: No Are you experiencing any unusual bleeding?: No Do you have any muscle aches/pain?: No Do you have any abdominal pain?: No Are you experiencing loss of taste or smell?: No Other Medical History Have you received the Flu Vaccine for this season: No Have you received the Pneumonia Vaccine: No <LUIS ALBERTO Prado - Last Filed: 12/30/24 13:57> ROS Obtained: Yes Systems reviewed as appropriate & no additional complaints except as documented Physical Exam <LUIS ALBERTO Prado - Last Filed: 12/30/24 13:57> General General appearance: alert and in no apparent distress Respiratory Respiratory exam: Present normal lung sounds bilaterally Cardiovascular Cardiovascular exam: Present regular rate Neurological Exam Neurological exam: Present alert and oriented X3 Medical Decision Making <LUIS ALBERTO Prado - Last Filed: 12/30/24 13:57> Medical Records Medical records reviewed: Yes I reviewed the patient's medical records. Screening: Per USPSTF and CDC recommendations, given the prevalence of disease in our region, it is our hospital?s policy to screen for HIV and viral Hepatitis for all patients aged 18 and over and those with ongoing risk factors. Tee Inquiry Pt receiving controlled substance: No Vital Signs: 12/30/24 12:04 12/30/24 13:50 Temperature 98.6 F 98.9 F Temperature Source Oral Oral Pulse Rate 103 H Pulse Rate [Right Brachial] 120 H Respiratory Rate 18 20 Blood Pressure 155/102 H Blood Pressure [Right Arm] 155/108 H Blood Pressure Mean [Right Arm] 123 Blood Pressure Source Automatic Cuff Blood Pressure Source [Right Arm] Automatic Cuff Blood Pressure Position Sitting Blood Pressure Position [Right Arm] Sitting 02 Sat by Pulse Oximetry 100 Oxygen Delivery Method Room Air Room Air Lab Data Lab results reviewed: Yes I reviewed the patient's lab results. Lab Results 12/30/24 11:54: Urine Color Yellow, Urine Appearance Clear, Urine pH 6.0, Ur Specific [place] 1.015, Urine Protein Negative, Urine Glucose (UA) Negative, Urine Ketones Negative, Urine Blood 3+ A, Urine Nitrate Negative, Urine Bilirubin Negative, Urine Urobilinogen 0.2, Ur Leukocyte Esterase Trace A, Urine RBC 3-5, Urine WBC 3-5, Ur Squamous Epith Cells 5-10, Urine Bacteria Trace, Urine Mucus Trace, Urine HCG, Qual Negative 12/30/24 12:16: WBC 6.8, RBC 4.16 L, Hgb 12.3, Hct 38.5, MCV 92.5, MCH 29.6, MCHC 31.9, RDW 13.2, Plt Count 196, MPV 12.1 H, Neut % (Auto) 54.6, Lymph % (Auto) 36.1, [place] % (Auto) 3.5, Eos % (Auto) 5.3, Baso % (Auto) 0.4, Neut # (Auto) 3.7, Lymph # (Auto) 2.5, [place] # (Auto) 0.2, Eos # (Auto) 0.4, Baso # (Auto) 0.0, Sodium 139, Potassium 3.6, Chloride 102, Carbon Dioxide 31 H, Anion Gap 9.6, BUN 10, Creatinine 1.00, Estimated Creat Clear 89, Estimated GFR 59, Est GFR ( Amer) 72, Glucose 112 H, Calcium 9.1, Total Bilirubin < 0.1 L, AST 23, ALT 25, Alkaline Phosphatase 76, Total Protein 7.1, Albumin 4.3, Globulin 2.8, Albumin/Globulin Ratio 1.5 12/30/24 12:16 12/30/24 12:16 Orders (Tests/Meds): ED MEDICATIONS Discontinued Medications Generic Name Dose Route Start Last Admin Trade Name Eder PRN Reason Stop Dose Admin Acetaminophen 1,000 mg 12/30/24 12:06 12/30/24 12:20 Acetaminophen 500mg Tab PO 12/30/24 12:07 1,000 mg ONCE ONE Administration Sodium Chloride 1,000 mls @ 999 mls/hr 12/30/24 12:06 12/30/24 12:20 Sod Chlor 0.9% 1000ml Bag IV 12/30/24 13:06 999 mls/hr .Q1H1M ONE Administration Ceftriaxone Sodium 1 gm/ 50 mls @ 100 mls/hr 12/30/24 13:30 12/30/24 13:35 Sodium Chloride IV 01/09/25 13:29 100 mls/hr Q24H ELIZABETH Administration Ketorolac Tromethamine 15 mg 12/30/24 12:06 12/30/24 12:20 Ketorolac 30mg/Ml Vial IV 12/30/24 12:07 15 mg ONCE ONE Administration Ondansetron HCl 4 mg 12/30/24 12:06 12/30/24 12:20 Ondansetron 4mg/2ml Vial IV 12/30/24 12:07 4 mg ONCE ONE Administration ORDERS Category Date Time Status CT abdomen pelvis wo con Stat Cat Scan 12/30/24 12:06 Completed CBC w/Auto Diff [Complete Blood Count Auto Diff] Stat Lab 12/30/24 12:16 Completed CMP [Comprehensive Metabolic Panel] Stat Lab 12/30/24 12:16 Completed UA [Urinalysis and Microscopic] Stat Lab 12/30/24 11:54 Completed Urine , HCG Qual. Stat Lab 12/30/24 11:54 Completed Urine Culture Stat Micro 12/30/24 11:54 Received Medical Decision Narrative: In summary patient is a 49-year-old female who presents to the emergency department for evaluation of. Right flank pain. Patient is normotensive tachycardic but afebrile upon arrival.. Physical exam is remarkable for mild suprapubic tenderness to palpation but no rebound no guarding or rigidity. Bowel sounds normal active. Patient has negative CVA tenderness to percussion bilaterally. Differential diagnosis includes urinary tract infection versus pyelonephritis versus kidney stone etc. Initial workup will be conducted with hematologic labs urinalysis urine CT scan abdomen pelvis stone protocol. Initial interventions include crystalloid bolus Toradol Tylenol. Initial workup reviewed by me and patient's white count 6.8 with no neutrophilic shift, BUN is 10 creatinine is 1 GFR is 59 and patient's urinalysis shows 3+ of blood negative nitrite trace leukocyte Estrace microscopic shows 3-5 reds 3-5 whites 5-10 epithelial cells trace bacteria and my informal interpretation of her CT scan abdomen pelvis shows 2 mid to distal obstructing kidney stones with significant hydronephrosis on the right. Given the complicated nature of possible urinary tract infection I gave the patient an initial dose of Rocephin IV upon repeat evaluation patient reports that her pain is now controlled after initial intervention. Given this I had interactive discussion about patient management with Dr. Rohit Morales urology at [facility]. Dr. Morales after review of patient's presentation findings as patient has no fever normal renal function pains under control and no significant urinary tract infection is happy to see the patient in outpatient setting as she will likely pass the stones within addition of tamsulosin to patient's regimen. Given this I had interactive discussion and shared decision-making discussion with the patient and she is comfortable going home with that plan. Thus she will be discharged with a prescription for Omnicef Toradol and tamsulosin with strict return precautions. <Sean Ortiz MD - Last Filed: 12/30/24 14:31> Vital Signs: 12/30/24 12:04 12/30/24 13:50 Temperature 98.6 F 98.9 F Temperature Source Oral Oral Pulse Rate 103 H Pulse Rate [Right Brachial] 120 H Respiratory Rate 18 20 Blood Pressure 155/102 H Blood Pressure [Right Arm] 155/108 H Blood Pressure Mean [Right Arm] 123 Blood Pressure Source Automatic Cuff Blood Pressure Source [Right Arm] Automatic Cuff Blood Pressure Position Sitting Blood Pressure Position [Right Arm] Sitting 02 Sat by Pulse Oximetry 100 Oxygen Delivery Method Room Air Room Air Lab Data Lab Results 12/30/24 11:54: Urine Color Yellow, Urine Appearance Clear, Urine pH 6.0, Ur Specific [place] 1.015, Urine Protein Negative, Urine Glucose (UA) Negative, Urine Ketones Negative, Urine Blood 3+ A, Urine Nitrate Negative, Urine Bilirubin Negative, Urine Urobilinogen 0.2, Ur Leukocyte Esterase Trace A, Urine RBC 3-5, Urine WBC 3-5, Ur Squamous Epith Cells 5-10, Urine Bacteria Trace, Urine Mucus Trace, Urine HCG, Qual Negative 12/30/24 12:16: WBC 6.8, RBC 4.16 L, Hgb 12.3, Hct 38.5, MCV 92.5, MCH 29.6, MCHC 31.9, RDW 13.2, Plt Count 196, MPV 12.1 H, Neut % (Auto) 54.6, Lymph % (Auto) 36.1, [place] % (Auto) 3.5, Eos % (Auto) 5.3, Baso % (Auto) 0.4, Neut # (Auto) 3.7, Lymph # (Auto) 2.5, [place] # (Auto) 0.2, Eos # (Auto) 0.4, Baso # (Auto) 0.0, Sodium 139, Potassium 3.6, Chloride 102, Carbon Dioxide 31 H, Anion Gap 9.6, BUN 10, Creatinine 1.00, Estimated Creat Clear 89, Estimated GFR 59, Est GFR ( Amer) 72, Glucose 112 H, Calcium 9.1, Total Bilirubin < 0.1 L, AST 23, ALT 25, Alkaline Phosphatase 76, Total Protein 7.1, Albumin 4.3, Globulin 2.8, Albumin/Globulin Ratio 1.5 Orders (Tests/Meds): ED MEDICATIONS Discontinued Medications Generic Name Dose Route Start Last Admin Trade Name Freq PRN Reason Stop Dose Admin Acetaminophen 1,000 mg 12/30/24 12:06 12/30/24 12:20 Acetaminophen 500mg Tab PO 12/30/24 12:07 1,000 mg ONCE ONE Administration Sodium Chloride 1,000 mls @ 999 mls/hr 12/30/24 12:06 12/30/24 12:20 Sod Chlor 0.9% 1000ml Bag IV 12/30/24 13:06 999 mls/hr .Q1H1M ONE Administration Ceftriaxone Sodium 1 gm/ 50 mls @ 100 mls/hr 12/30/24 13:30 12/30/24 13:35 Sodium Chloride IV 01/09/25 13:29 100 mls/hr Q24H ELIZABETH Administration Ketorolac Tromethamine 15 mg 12/30/24 12:06 12/30/24 12:20 Ketorolac 30mg/Ml Vial IV 12/30/24 12:07 15 mg ONCE ONE Administration Ondansetron HCl 4 mg 12/30/24 12:06 12/30/24 12:20 Ondansetron 4mg/2ml Vial IV 12/30/24 12:07 4 mg ONCE ONE Administration ORDERS Category Date Time Status CT abdomen pelvis wo con Stat Cat Scan 12/30/24 12:06 Completed CBC w/Auto Diff [Complete Blood Count Auto Diff] Stat Lab 12/30/24 12:16 Completed CMP [Comprehensive Metabolic Panel] Stat Lab 12/30/24 12:16 Completed UA [Urinalysis and Microscopic] Stat Lab 12/30/24 11:54 Completed Urine , HCG Qual. Stat Lab 12/30/24 11:54 Completed Urine Culture Stat Micro 12/30/24 11:54 Received Medical Decision Narrative: In summary patient is a 49-year-old female who presents to the emergency department for evaluation of. Right flank pain. Patient is normotensive tachycardic but afebrile upon arrival.. Physical exam is remarkable for mild suprapubic tenderness to palpation but no rebound no guarding or rigidity. Bowel sounds normal active. Patient has negative CVA tenderness to percussion bilaterally. Differential diagnosis includes urinary tract infection versus pyelonephritis versus kidney stone etc. Initial workup will be conducted with hematologic labs urinalysis urine CT scan abdomen pelvis stone protocol. Initial interventions include crystalloid bolus Toradol Tylenol. Initial workup reviewed by me and patient's white count 6.8 with no neutrophilic shift, BUN is 10 creatinine is 1 GFR is 59 and patient's urinalysis shows 3+ of blood negative nitrite trace leukocyte Estrace microscopic shows 3-5 reds 3-5 whites 5-10 epithelial cells trace bacteria and my informal interpretation of her CT scan abdomen pelvis shows 2 mid to distal obstructing kidney stones with significant hydronephrosis on the right. Given the complicated nature of possible urinary tract infection I gave the patient an initial dose of Rocephin IV upon repeat evaluation patient reports that her pain is now controlled after initial intervention. Given this I had interactive discussion about patient management with Dr. Rohit Morales urology at [facility]. Dr. Morales after review of patient's presentation findings as patient has no fever normal renal function pains under control and no significant urinary tract infection is happy to see the patient in outpatient setting as she will likely pass the stones within addition of tamsulosin to patient's regimen. Given this I had interactive discussion and shared decision-making discussion with the patient and she is comfortable going home with that plan. Thus she will be discharged with a prescription for Omnicef Toradol and tamsulosin with strict return precautions. I was consulted by the CLARA, and we discussed the complexity of the problems being addressed. I approved the treatment and management plan for this patient's care in the Emergency Department, thus performing a substantive portion of the medical decision making. Sean Ortiz MD Critical Care <LUIS ALBERTO Prado - Last Filed: 12/30/24 13:57> Critical Care Time Critical Care Time: Yes Attestation: On 12/30/24, the high probability of a clinically significant, sudden or life threatening deterioration of the following system(s) required my full and direct attention, intervention and personal management. The time I documented below is in addition to time spent performing reported procedures but includes the following listed in this critical care notation. Total Time Total Critical Care Time: 35
[2024-12-30 12:04] VITALS: BP 155/108; PULSE 120; RESP 18; TEMP 37; O2SAT 100; BMI 31.5
--- NOTE | 2024-12-30 12:06 | CT_ITS ---
FINAL REPORT TECHNIQUE: Noncontrast CT exam of the abdomen and pelvis. This study was performed with techniques to keep radiation doses as low as reasonably achievable (ALARA). Individualized dose reduction techniques using automated exposure control or adjustment of mA and/or kV according to the patient's size were employed. CLINICAL HISTORY: Right flank pain and dysuria COMPARISON: 12/11/2024 FINDINGS: CT ABDOMEN PELVIS WITHOUT CONTRAST: Abdomen: Lung bases are clear. Liver, spleen, pancreas and adrenal glands have a normal CT appearance in their limited unenhanced state. There is severe right hydronephrosis and hydroureter present. There is a distal right ureteral stone best seen on image #88 of series 3, measuring 6 x 4 mm. There is a slightly more distal second ureteral stone measuring 5 mm in size, best seen on image #94 of series 3. A nonobstructing left renal lower pole stone is present, measuring 5 mm. Bilateral renal medullary nephrocalcinosis is present. Pelvis: Bladder is unremarkable. No fluid collection or adenopathy is seen. No changes of appendicitis are noted. The uterus is somewhat enlarged, probably secondary to fibroids. Bilateral ovarian cysts are present, larger on the right than on the left. The right sided cyst measures 34 x 18 mm in size. IMPRESSION: Severe right hydronephrosis and hydroureter, also seen on the prior CT of 12/11/2024, with 2 stones now present in the distal ureter as described above. Reviewed, Interpreted and Dictated by Grover Das MD Transcribed by Vangie Meeks Authenticated and [facility]
[2024-12-30] MEDS: ACETAMINOPHEN 500MG TAB 1000 MG PO (12:20)
[2024-12-30] MEDS: 0.9 % SODIUM CHLORIDE 1000ML 1,000 ML 999 ML IV (12:20)
[2024-12-30] MEDS: KETOROLAC 30MG/ML VIAL 15 MG IV (12:20)
[2024-12-30] MEDS: ONDANSETRON 4MG/2ML VIAL 4 MG IV (12:20)
[2024-12-30 12:24] LABS: Microscopic, Urine URINE MICROSCOPIC (MICROSCOPIC)
[2024-12-30 12:27] LABS: Basophils % 0.4 % (0.1-2.0); Eosinophils # 0.4 K/mm3 (0.0-0.4); Eosinophils % 5.3 % (0.1-12.0); Hematocrit 38.5 % (37.0-47.0); Hemoglobin 12.3 g/dL (12.2-16.2); Lymphocytes # 2.5 K/mm3 (0.7-4.5); Lymphocytes % 36.1 % (10-50); Mean Corpuscular HGB Conc 31.9 g/dL (31.8-35.4); Mean Corpuscular Hemoglobin 29.6 pg (27.0-31.2); Mean Corpuscular Volume 92.5 fl (81-99); Mean Platelet Volume 12.1 fl (7.4-10.4); Monocytes # 0.2 K/mm3 (0.1-1.0); Monocytes % 3.5 % (1.7-9.3); Neutrophils # 3.7 K/mm3 (1.8-7.8); Neutrophils % 54.6 % (37.0-80.0); Platelet Count 196 K/mm3 (142-424); Red Blood Count 4.16 M/mm3 (4.20-5.40); Red Cell Distribution Width 13.2 % (11.5-17.5); White Blood Count 6.8 K/mm3 (4.8-10.8)
[2024-12-30 12:30] LABS: Albumin Level 4.3 g/dl (3.5-5.0); Chloride 102 mmol/L (98-107); Potassium 3.6 mmoL/L (3.5-5.1); Sodium 139 mmol/L (136-145)
[2024-12-30 12:32] LABS: Urine Pregnancy, HCG Qual. Negative (Negative)
[2024-12-30 12:33] LABS: Alanine Aminotransferase 25 U/L (12-78); Albumin/Globulin Ratio 1.5 (1.1-1.8); Alkaline Phosphatase 76 U/L (38-126); Anion Gap 9.6 mEq/L (5-15); Aspartate Amino Transferase 23 U/L (14-36); Blood Urea Nitrogen 10 mg/dl (7-17); Calcium 9.1 mg/dl (8.4-10.2); Carbon Dioxide 31 mmol/L (22.0-30.0); Creatinine Clearance Estimated 89 mL/min (50-200); Estimated Glomerular Filt Rate 59 ml/min (>60); GFR (African American) 72 ML/MIN (>60); Globulin 2.8 g/dL (1.3-3.2); Glucose 112 mg/dl (74-100); Total Protein,Serum 7.1 g/dl (6.3-8.2)
[2024-12-30 12:35] LABS: Bilirubin,Total < 0.1 mg/dl (0.2-1.3)
[2024-12-30 12:45] LABS: Appearance,Urine Clear (Clear); Bilirubin,Urine Negative (Negative); Blood, Urine 3+ (Negative); Color,Urine Yellow (Yellow); Glucose,Urine (UA) Negative (Negative); Ketones,Urine Negative (Negative); Nitrate,Urine Negative (Negative); Protein,Urine Negative (Negative); Specific Gravity, Urine 1.015 (1.005-1.030); Urobilinogen,Urine 0.2 EU/dl (0.2)
[2024-12-30 12:46] LABS: Bacteria,Urine Trace /lpf; Leukocyte Esterase,Urine Trace (Negative); Mucus,Urine Trace /lpf
--- NOTE | 2024-12-30 13:03 | PC.NURSE ---
Radiology notified that the pt was concerned her IV was leaking. I went and redressed and tightened the j-loop to the catheter. It stopped leaking. no other needs voiced. no new complaints. call barr in reach.
--- NOTE | 2024-12-30 13:21 | PC.NURSE ---
calling [facility] at this time.
--- NOTE | 2024-12-30 13:30 | PC.NURSE ---
Mckay SAHU states we do not need to obtain blood cultures. He states to continue with IV antibiotics without them.
[2024-12-30] MEDS: CEFTRIAXONE 1 GM 1 GM in 0.9 % SODIUM CHLORIDE 50 ML IV (13:35)
[2024-12-30 13:50] VITALS: BP 155/102; PULSE 103; RESP 20; TEMP 37.2; O2SAT 100
== END 2024-12-30 13:57 | disposition home or self-care (01) ==
PROVIDERS: Physician Assistant; Emergency Provider Emergency Medicine; PCP Internal Medicine
DX: N20.1 Calculus of ureter (principal); N39.0 Urinary tract infection, site not specified; R30.0 Dysuria; R10.30 Lower abdominal pain, unspecified; R30.9 Painful micturition, unspecified; F17.210 Nicotine dependence, cigarettes, uncomplicated
CPT/HCPCS: 74176; 80053; 81001; 81025; 85025; 87086; 96361; 96365; 96374; 96375; 99291; J0696; J1885; J2405; J7030

== ENCOUNTER 2024-12-31 13:04 | Emergency (ER) | payer MEDICAID, SELFPAY ==
[2024-12-31 13:07] VITALS: BP 159/91; PULSE 116; RESP 18; TEMP 36.9; O2SAT 100; BMI 31.5
--- NOTE | 2024-12-31 13:12 | ED_ITS ---
Discharge Plan Disposition Patient Disposition: Home, Self-Care Condition: Good Prescriptions Prescriptions: No Action cetirizine 10 mg tablet See Rx Instructions .ROUTE .COMPLEX Qty: 90 2RF Dose Instruction: TAKE ONE TABLET BY MOUTH ONCE A DAY Rx Instructions: TAKE ONE TABLET BY MOUTH ONCE A DAY atorvastatin 20 mg tablet 20 mg PO DAILY amoxicillin 500 mg capsule 500 mg PO DAILY buprenorphine-naloxone 8-2 mg tablet, sublingual 8 tab sublingual DIRECTED cholecalciferol (vitamin D3) 1,250 mcg (50,000 unit) capsule See Rx Instructions .ROUTE .COMPLEX Qty: 12 4RF Dose Instruction: TAKE ONE CAPSULE BY MOUTH ONCE WEEKLY Rx Instructions: TAKE ONE CAPSULE BY MOUTH ONCE WEEKLY clonazepam 0.5 mg tablet 0.25 mg PO TID 30 Days Qty: 45 2RF gabapentin 800 mg tablet 800 mg PO TID 30 Days Qty: 90 2RF sertraline 50 mg tablet See Rx Instructions .ROUTE .COMPLEX Qty: 90 3RF Dose Instruction: TAKE ONE TABLET BY MOUTH ONCE A DAY Rx Instructions: TAKE ONE TABLET BY MOUTH ONCE A DAY tamsulosin 0.4 mg capsule 0.4 mg PO HS Qty: 10 0RF ketorolac 10 mg tablet 10 mg PO Q8H PRN (Reason: pain) 3 Days Qty: 10 0RF cefdinir 300 mg capsule 300 mg PO BID 5 Days Qty: 10 0RF Referrals Follow up/Referrals: Provider,Referral, MD [Referring] - See instructions Activity Restrictions/Add. Instructions Additional Instructions/Restrictions: Follow-up with the urologist to schedule an appointment. Follow-up with your primary care physician. Continue your medications as prescribed. If you develop any new or worsening symptoms, or if you become concerned for your health for any reason, return to the emergency department for evaluation Clinical Impressions Clinical Impression: Shaking, Right flank pain Stand Alone Forms Stand Alone Forms: Work/School Release Instructions Patient Instructions: DI for Urinary Tract Infection (UTI) Print Language Print Language: Spanish Discharge ED Provider: Norberto Plascencia General Adult HPI <LUIS ALBERTO Prado - Last Filed: 12/31/24 14:18> General Chief complaint: Urogenital-Female Stated complaint: poss. kidney stones w/ back pain and chills Time Seen by Provider: 12/31/24 13:23 Mode of Arrival: Ambulatory Description of Symptoms (Recalled from ER Triage Doc. by RN): Pt states she was seen here yesterday. Pt states she was diagnosed with a UTI. Pt staes she keeps shivering and it keeps getting worse. Pt states she still has pain to her kidneys Related Data Home Medications ?Medication ?Instructions ?Recorded ?Confirmed buprenorphine 8 mg-naloxone 2 mg 8 tab sublingual DIRECTED 02/25/24 12/25/24 sublingual tablet amoxicillin 500 mg capsule 500 mg PO DAILY 12/25/24 12/25/24 atorvastatin 20 mg tablet 20 mg PO DAILY 12/25/24 12/25/24 Previous Rx's ?Medication ?Instructions ?Recorded cholecalciferol (vitamin D3) 1,250 See Rx Instructions .Route 04/21/24 mcg (50,000 unit) capsule .COMPLEX #12 caps cetirizine 10 mg tablet See Rx Instructions .Route 06/18/24 .COMPLEX #90 tabs gabapentin 800 mg tablet 800 mg PO TID 30 days #90 tabs 10/20/24 sertraline 50 mg tablet See Rx Instructions .Route 10/21/24 .COMPLEX #90 tabs clonazepam 0.5 mg tablet 0.25 mg (1/2 x 0.5 mg) PO TID 30 11/04/24 days #45 tabs cefdinir 300 mg capsule 300 mg PO BID 5 days #10 caps 12/30/24 ketorolac 10 mg tablet 10 mg PO Q8H PRN pain 3 days #10 12/30/24 tabs tamsulosin 0.4 mg capsule 0.4 mg PO HS #10 caps 12/30/24 Allergies Allergy/AdvReac Type Severity Reaction Status Date / Time codeine Allergy Verified 12/25/24 09:38 Sulfa (Sulfonamide Allergy Verified 12/25/24 09:38 Antibiotics) <Norberto Plascencia MD - Last Filed: 12/31/24 21:05> History of Present Illness HPI narrative: Armida Horta is a 49-year-old female with a history of previous kidney stones, PTSD, cholecystectomy, who presents to the emergency department for complaints of shaking all over as well as right flank and right lower quadrant abdominal pain in the setting of a known obstructing right-sided kidney stone. Patient was seen in the emergency department yesterday, 12/30/2024 for complaints of flank pain and dysuria and was found to have right-sided hydronephrosis and hydroureter, however this was seen on previous CT in November, with 2 stones present in the distal ureter. She was discharged with tamsulosin, Toradol and cefdinir, which she has been taking. She states that she attempted to call Dr. Morales with urology but has not been able able to get her to his office. She reports that today, she reports that she feels like she is shaking all over and notes that she feels anxious. She states that the pain that she is experiencing is not worse than it was yesterday but her primary concern is the shaking. [facility] <LUIS ALBERTO Prado - Last Filed: 12/31/24 14:18> [facility] Disclaimer: The information contained in this section may have been updated after the patient was seen, as this information can be updated by other users. Medical History (Updated 12/31/24 @ 14:59 by Norberto Plascencia MD) History of nephrolithotomy with removal of calculi PTSD (post-traumatic stress disorder) Surgical History (Updated 12/25/24 @ 09:55 by DESTINY Kuo) History of cholecystectomy History of Social History Smoking Status: Current every day smoker tobacco type: cigarettes packs per day: 2 alcohol intake: never substance use type: painkillers current occupational status: unemployed Travel in the last 8 weeks: None household members: significant other and family housing: house Have you lived/traveled outside [place] in past 30 days?: No Contact w/someone who lives/traveled outside [place] past 30 days?: No Exposure to someone with infectious disease in past 14 days?: No Do you have a fever (greater than 100.4 F or 38 C)?: No Have you tested positive for COVID-19: No Exposed to someone with COVID-19 in past 14 days?: No Do you have a sore throat?: No Do you have a cough?: No Do you have any weakness?: No Do you have any diarrhea?: No Are you experiencing any unusual bleeding?: No Do you have any muscle aches/pain?: No Do you have any abdominal pain?: No Are you experiencing loss of taste or smell?: No Other Medical History Have you received the Flu Vaccine for this season: No Have you received the Pneumonia Vaccine: No <Norberto Plascencia MD - Last Filed: 12/31/24 21:05> ROS Obtained: Yes Systems reviewed as appropriate & no additional complaints except as documented Physical Exam <Norberto Plascencia MD - Last Filed: 12/31/24 21:05> General General appearance: alert and in no apparent distress Comment: Anxious Head Head exam: atraumatic Eye Eye exam: Present normal appearance ENT ENT exam: Present normal external ear exam Neck Neck exam: Present full ROM Chest Chest inspection: Present symmetric chest wall rise Respiratory Respiratory exam: Present normal lung sounds bilaterally; Absent respiratory distress Cardiovascular Cardiovascular exam: Present regular rate and normal rhythm Abdominal Exam Abdominal exam: Present soft; Absent distention, tenderness or guarding Extremities Exam Extremities exam: Present normal inspection Back Exam Back exam: Present normal inspection; Absent CVA tenderness (R) or CVA tenderness (L) Neurological Exam Neurological exam: Present alert and oriented X3 Psychiatric Psychiatric exam: Present normal affect Skin Skin exam: Present warm and dry Medical Decision Making <LUIS ALBERTO Prado - Last Filed: 12/31/24 14:18> Medical Records Screening: Per USPSTF and CDC recommendations, given the prevalence of disease in our region, it is our hospital?s policy to screen for HIV and viral Hepatitis for all patients aged 18 and over and those with ongoing risk factors. Vital Signs: 12/31/24 13:07 12/31/24 14:06 12/31/24 14:10 Temperature 98.4 F Temperature Source Oral Pulse Rate 89 102 H Pulse Rate [Right] 116 H Respiratory Rate 18 Blood Pressure 145/100 H 142/87 H Blood Pressure [Right Arm] 159/91 H Blood Pressure Mean [Right Arm] 113 Blood Pressure Source Blood Pressure Source [Right Arm] Automatic Cuff Blood Pressure Position [Right Arm] Sitting 02 Sat by Pulse Oximetry 100 96 96 Oxygen Delivery Method Room Air Room Air 12/31/24 14:20 12/31/24 15:04 Temperature 98.4 F Temperature Source Oral Pulse Rate 93 H 85 Pulse Rate [Right] Respiratory Rate 17 Blood Pressure 139/87 128/75 Blood Pressure [Right Arm] Blood Pressure Mean [Right Arm] Blood Pressure Source Automatic Cuff Blood Pressure Source [Right Arm] Blood Pressure Position [Right Arm] 02 Sat by Pulse Oximetry 98 Oxygen Delivery Method Room Air Room Air Lab Data Lab Results 12/31/24 13:07: SARS-CoV-2 (PCR) Not detected, Influenza A Untype (PCR) Not detected, Influenza Type B (PCR) Not detected 12/31/24 13:14: Urine Color Yellow, Urine Appearance Clear, Urine pH 6.0, Ur Specific [place] 1.020, Urine Protein Negative, Urine Glucose (UA) Negative, Urine Ketones Negative, Urine Blood Small, Urine Nitrate Negative, Urine Bilirubin Negative, Urine Urobilinogen 0.2, Ur Leukocyte Esterase Trace, Urine RBC None, Urine WBC None, Ur Squamous Epith Cells 3-5, Urine Bacteria Trace 12/31/24 13:47: WBC 5.1, RBC 3.99 L, Hgb 11.7 L, Hct 36.4 L, MCV 91.2, MCH 29.3, MCHC 32.1, RDW 12.8, Plt Count 177, MPV 12.1 H, Neut % (Auto) 65.4, Lymph % (Auto) 26.8, [place] % (Auto) 3.9, Eos % (Auto) 3.3, Baso % (Auto) 0.4, Neut # (Auto) 3.4, Lymph # (Auto) 1.4, [place] # (Auto) 0.2, Eos # (Auto) 0.2, Baso # (Auto) 0.0, Sodium 137, Potassium 4.2, Chloride 103, Carbon Dioxide 27, Anion Gap 11.2, BUN 11, Creatinine 0.90, Estimated Creat Clear 98, Estimated GFR 67, Est GFR ( Amer) 81, Glucose 106 H, Lactate 1.0, Calcium 9.8, Total Bilirubin 0.3, AST 25, ALT 23, Alkaline Phosphatase 62, Total Protein 6.9, Albumin 4.2, Globulin 2.7, Albumin/Globulin Ratio 1.6 12/31/24 13:47 12/31/24 13:47 Orders (Tests/Meds): ED MEDICATIONS Discontinued Medications Generic Name Dose Route Start Last Admin Trade Name Freq PRN Reason Stop Dose Admin Lorazepam 1 mg 12/31/24 13:36 12/31/24 13:54 Lorazepam 1mg Tablet PO 12/31/24 13:37 1 mg ONCE ONE Administration ORDERS Category Date Time Status CBC w/Auto Diff [Complete Blood Count Auto Diff] Stat Lab 12/31/24 13:47 Completed CMP [Comprehensive Metabolic Panel] Stat Lab 12/31/24 13:47 Completed Lactic Acid Stat Lab 12/31/24 13:47 Completed Rapid PCR Covid and Flu A/B Stat Lab 12/31/24 13:07 Completed UA [Urinalysis and Microscopic] Stat Lab 12/31/24 13:14 Completed Blood Culture Stat Micro 12/31/24 13:56 Received <Norberto Plascencia MD - Last Filed: 12/31/24 21:05> [place] Pt receiving controlled substance: No Vital Signs: 12/31/24 13:07 12/31/24 14:06 12/31/24 14:10 Temperature 98.4 F Temperature Source Oral Pulse Rate 89 102 H Pulse Rate [Right] 116 H Respiratory Rate 18 Blood Pressure 145/100 H 142/87 H Blood Pressure [Right Arm] 159/91 H Blood Pressure Mean [Right Arm] 113 Blood Pressure Source Blood Pressure Source [Right Arm] Automatic Cuff Blood Pressure Position [Right Arm] Sitting 02 Sat by Pulse Oximetry 100 96 96 Oxygen Delivery Method Room Air Room Air 12/31/24 14:20 12/31/24 15:04 Temperature 98.4 F Temperature Source Oral Pulse Rate 93 H 85 Pulse Rate [Right] Respiratory Rate 17 Blood Pressure 139/87 128/75 Blood Pressure [Right Arm] Blood Pressure Mean [Right Arm] Blood Pressure Source Automatic Cuff Blood Pressure Source [Right Arm] Blood Pressure Position [Right Arm] 02 Sat by Pulse Oximetry 98 Oxygen Delivery Method Room Air Room Air Lab Data Lab Results 12/31/24 13:07: SARS-CoV-2 (PCR) Not detected, Influenza A Untype (PCR) Not detected, Influenza Type B (PCR) Not detected 12/31/24 13:14: Urine Color Yellow, Urine Appearance Clear, Urine pH 6.0, Ur Specific [place] 1.020, Urine Protein Negative, Urine Glucose (UA) Negative, Urine Ketones Negative, Urine Blood Small, Urine Nitrate Negative, Urine Bilirubin Negative, Urine Urobilinogen 0.2, Ur Leukocyte Esterase Trace, Urine RBC None, Urine WBC None, Ur Squamous Epith Cells 3-5, Urine Bacteria Trace 12/31/24 13:47: WBC 5.1, RBC 3.99 L, Hgb 11.7 L, Hct 36.4 L, MCV 91.2, MCH 29.3, MCHC 32.1, RDW 12.8, Plt Count 177, MPV 12.1 H, Neut % (Auto) 65.4, Lymph % (Auto) 26.8, [place] % (Auto) 3.9, Eos % (Auto) 3.3, Baso % (Auto) 0.4, Neut # (Auto) 3.4, Lymph # (Auto) 1.4, [place] # (Auto) 0.2, Eos # (Auto) 0.2, Baso # (Auto) 0.0, Sodium 137, Potassium 4.2, Chloride 103, Carbon Dioxide 27, Anion Gap 11.2, BUN 11, Creatinine 0.90, Estimated Creat Clear 98, Estimated GFR 67, Est GFR ( Amer) 81, Glucose 106 H, Lactate 1.0, Calcium 9.8, Total Bilirubin 0.3, AST 25, ALT 23, Alkaline Phosphatase 62, Total Protein 6.9, Albumin 4.2, Globulin 2.7, Albumin/Globulin Ratio 1.6 Orders (Tests/Meds): ED MEDICATIONS Discontinued Medications Generic Name Dose Route Start Last Admin Trade Name Freq PRN Reason Stop Dose Admin Lorazepam 1 mg 12/31/24 13:36 12/31/24 13:54 Lorazepam 1mg Tablet PO 12/31/24 13:37 1 mg ONCE ONE Administration ORDERS Category Date Time Status CBC w/Auto Diff [Complete Blood Count Auto Diff] Stat Lab 12/31/24 13:47 Completed CMP [Comprehensive Metabolic Panel] Stat Lab 12/31/24 13:47 Completed Lactic Acid Stat Lab 12/31/24 13:47 Completed Rapid PCR Covid and Flu A/B Stat Lab 12/31/24 13:07 Completed UA [Urinalysis and Microscopic] Stat Lab 12/31/24 13:14 Completed Blood Culture Stat Micro 12/31/24 13:56 Received Medical Decision Narrative: Armida Horta is a 49-year-old female with a history of previous kidney stones, PTSD, cholecystectomy, who presents to the emergency department for complaints of shaking all over as well as right flank and right lower quadrant abdominal pain in the setting of a known obstructing right-sided kidney stone. Patient was seen in the emergency department yesterday, 12/30/2024 for complaints of flank pain and dysuria and was found to have right-sided hydronephrosis and hydroureter, however this was seen on previous CT in November, with 2 stones present in the distal ureter. She was discharged with tamsulosin, Toradol and cefdinir, which she has been taking, and outpatient followup with urology. She states that she attempted to call Dr. Morales with urology but has not been able able to get her to his office. She reports that today, she reports that she feels like she is shaking all over and notes that she feels anxious. She states that the pain that she is experiencing is not worse than it was yesterday but her primary concern is the shaking. Differential diagnosis includes, but is not limited to: Ureterolithiasis, pyelonephritis, infected kidney stone, sepsis, anxiety, electrolyte derangement, among others. Workup in the emergency department included CBC, CMP, urinalysis, lactic acid, blood cultures x 2. Patient was offered pain medication, however states that she does not want opioid pain medication and took a Toradol prior to arrival and states that her pain is fairly well-controlled at this time. Patient was given 1 mg of oral Ativan for anxiety. CT imaging from patient's previous visit was reviewed and showed findings consistent with 2 right-sided kidney stones in distal ureter with hydronephrosis. No additional imaging is indicated at this time. Laboratory studies show no leukocytosis, no elevated lactate, electrolytes unremarkable and nonactionable. No evidence of infection on urinalysis. On reassessment, patient reports significant improvement in her shaking and anxiety. Her workup today demonstrates no acute pathology and no evidence of infected kidney stone. Is felt that she is appropriate for discharge at this time with plan to follow-up with Dr. Morales with urology as discussed on her last visit. She was amenable to this plan. Return precautions were given. All questions were answered. She demonstrated understanding and was subsequently discharged from the emergency department in stable condition. Critical Care <Norberto Plascencia MD - Last Filed: 12/31/24 21:05> Critical Care Time Critical Care Time: No
[2024-12-31 13:19] LABS: Coronavirus 19, PCR Not Detected (NotDetected); Influenza A, PCR Not Detected (NotDetected); Influenza B, PCR Not Detected (NotDetected)
[2024-12-31 13:41] LABS: Microscopic, Urine URINE MICROSCOPIC (MICROSCOPIC)
--- NOTE | 2024-12-31 13:51 | PC.NURSE ---
patient reports she was here yesterday and diagnosed with a uti, she reports today she feels worse she states she feels shaky and anxious
[2024-12-31 13:52] LABS: Appearance,Urine CLEAR (Clear); Bilirubin,Urine Negative (Negative); Blood, Urine SMALL (Negative); Color,Urine YELLOW (Yellow); Glucose,Urine (UA) Negative (Negative); Ketones,Urine Negative (Negative); Leukocyte Esterase,Urine TRACE (Negative); Nitrate,Urine Negative (Negative); Protein,Urine Negative (Negative); Urobilinogen,Urine 0.2 EU/dl (0.2)
[2024-12-31] MEDS: LORazepam 1MG TABLET 1 MG PO (13:54)
[2024-12-31 14:04] LABS: Bacteria,Urine Trace /lpf
[2024-12-31 14:06] VITALS: BP 145/100; PULSE 89; O2SAT 96
[2024-12-31 14:09] LABS: Basophils % 0.4 % (0.1-2.0); Eosinophils # 0.2 K/mm3 (0.0-0.4); Eosinophils % 3.3 % (0.1-12.0); Hematocrit 36.4 % (37.0-47.0); Hemoglobin 11.7 g/dL (12.2-16.2); Lymphocytes # 1.4 K/mm3 (0.7-4.5); Lymphocytes % 26.8 % (10-50); Mean Corpuscular HGB Conc 32.1 g/dL (31.8-35.4); Mean Corpuscular Hemoglobin 29.3 pg (27.0-31.2); Mean Corpuscular Volume 91.2 fl (81-99); Mean Platelet Volume 12.1 fl (7.4-10.4); Monocytes # 0.2 K/mm3 (0.1-1.0); Monocytes % 3.9 % (1.7-9.3); Neutrophils # 3.4 K/mm3 (1.8-7.8); Neutrophils % 65.4 % (37.0-80.0); Platelet Count 177 K/mm3 (142-424); Red Blood Count 3.99 M/mm3 (4.20-5.40); Red Cell Distribution Width 12.8 % (11.5-17.5); White Blood Count 5.1 K/mm3 (4.8-10.8)
[2024-12-31 14:10] VITALS: BP 142/87; PULSE 102; O2SAT 96
[2024-12-31 14:20] VITALS: BP 139/87; PULSE 93; O2SAT 98
[2024-12-31 14:49] LABS: Alanine Aminotransferase 23 U/L (12-78); Albumin Level 4.2 g/dl (3.5-5.0); Albumin/Globulin Ratio 1.6 (1.1-1.8); Alkaline Phosphatase 62 U/L (38-126); Anion Gap 11.2 mEq/L (5-15); Aspartate Amino Transferase 25 U/L (14-36); Bilirubin,Total 0.3 mg/dl (0.2-1.3); Blood Urea Nitrogen 11 mg/dl (7-17); Calcium 9.8 mg/dl (8.4-10.2); Carbon Dioxide 27 mmol/L (22.0-30.0); Chloride 103 mmol/L (98-107); Creatinine Clearance Estimated 98 mL/min (50-200); Estimated Glomerular Filt Rate 67 ml/min (>60); GFR (African American) 81 ML/MIN (>60); Globulin 2.7 g/dL (1.3-3.2); Glucose 106 mg/dl (74-100); Potassium 4.2 mmoL/L (3.5-5.1); Sodium 137 mmol/L (136-145); Total Protein,Serum 6.9 g/dl (6.3-8.2)
[2024-12-31 15:04] VITALS: BP 128/75; PULSE 85; RESP 17; TEMP 36.9; O2SAT 99
== END 2024-12-31 15:05 | disposition home or self-care (01) ==
PROVIDERS: Emergency Provider Student in an Organized Health Care Education/Training Program; PCP Internal Medicine
DX: R25.1 Tremor, unspecified (principal); M54.9 Dorsalgia, unspecified; R68.83 Chills (without fever); R10.31 Right lower quadrant pain; F17.210 Nicotine dependence, cigarettes, uncomplicated
CPT/HCPCS: 80053; 81001; 83605; 85025; 87040; 87636; 99283

== ENCOUNTER 2025-01-03 23:33 | Emergency (ER) | payer MEDICAID, SELFPAY ==
[2025-01-03 23:50] VITALS: PULSE 141; O2SAT 98
[2025-01-03 23:52] VITALS: BP 156/93; PULSE 141; RESP 16; TEMP 37.2; O2SAT 100; BMI 31.5
[2025-01-04 00:01] VITALS: BP 165/98; PULSE 135; O2SAT 100
[2025-01-04 00:08] LABS: Appearance,Urine CLOUDY (Clear); Bilirubin,Urine Negative (Negative); Blood, Urine LARGE (Negative); Color,Urine RED (Yellow); Glucose,Urine (UA) 250 (Negative); Ketones,Urine 15 (Negative); Leukocyte Esterase,Urine MODERATE (Negative); Nitrate,Urine POSITIVE (Negative); Protein,Urine >=300 (Negative); Specific Gravity, Urine 1.015 (1.005-1.030)
[2025-01-04 00:15] VITALS: PULSE 110; O2SAT 99
[2025-01-04 00:30] VITALS: BP 129/84; PULSE 114; O2SAT 98
[2025-01-04] MEDS: LACTATED RINGERS 1000ML 1,000 ML 999 ML IV (00:51)
[2025-01-04 00:56] LABS: Basophils % 0.5 % (0.1-2.0); Eosinophils # 0.1 K/mm3 (0.0-0.4); Eosinophils % 1.9 % (0.1-12.0); Hematocrit 36.6 % (37.0-47.0); Hemoglobin 11.9 g/dL (12.2-16.2); Lymphocytes # 1.4 K/mm3 (0.7-4.5); Lymphocytes % 24.8 % (10-50); Mean Corpuscular HGB Conc 32.5 g/dL (31.8-35.4); Mean Corpuscular Hemoglobin 29.4 pg (27.0-31.2); Mean Corpuscular Volume 90.4 fl (81-99); Mean Platelet Volume 11.9 fl (7.4-10.4); Monocytes # 0.2 K/mm3 (0.1-1.0); Monocytes % 4.2 % (1.7-9.3); Neutrophils # 3.9 K/mm3 (1.8-7.8); Neutrophils % 68.4 % (37.0-80.0); Platelet Count 197 K/mm3 (142-424); Red Blood Count 4.05 M/mm3 (4.20-5.40); Red Cell Distribution Width 12.9 % (11.5-17.5); White Blood Count 5.7 K/mm3 (4.8-10.8)
[2025-01-04 01:00] VITALS: BP 140/87; PULSE 120; O2SAT 98
[2025-01-04 01:03] LABS: Albumin Level 4.7 g/dl (3.5-5.0); Chloride 102 mmol/L (98-107); Potassium 3.7 mmoL/L (3.5-5.1); Sodium 139 mmol/L (136-145)
[2025-01-04 01:06] LABS: Alanine Aminotransferase 18 U/L (12-78); Albumin/Globulin Ratio 1.7 (1.1-1.8); Alkaline Phosphatase 59 U/L (38-126); Anion Gap 6.7 mEq/L (5-15); Aspartate Amino Transferase 22 U/L (14-36); Bilirubin,Total 0.3 mg/dl (0.2-1.3); Blood Urea Nitrogen 13 mg/dl (7-17); Carbon Dioxide 34 mmol/L (22.0-30.0); Creatinine Clearance Estimated 98 mL/min (50-200); Estimated Glomerular Filt Rate 67 ml/min (>60); GFR (African American) 81 ML/MIN (>60); Globulin 2.7 g/dL (1.3-3.2); Total Protein,Serum 7.4 g/dl (6.3-8.2)
[2025-01-04 01:07] LABS: Calcium 9.5 mg/dl (8.4-10.2); Glucose 160 mg/dl (74-100)
[2025-01-04 01:11] VITALS: PULSE 93
[2025-01-04 01:13] VITALS: BP 140/87; PULSE 106; RESP 20; TEMP 36.9; O2SAT 99
--- NOTE | 2025-01-04 02:32 | ED_ITS ---
Discharge Plan Disposition Patient Disposition: Home, Self-Care Condition: Good Prescriptions Prescriptions: No Action cetirizine 10 mg tablet See Rx Instructions .ROUTE .COMPLEX Qty: 90 2RF Dose Instruction: TAKE ONE TABLET BY MOUTH ONCE A DAY Rx Instructions: TAKE ONE TABLET BY MOUTH ONCE A DAY atorvastatin 20 mg tablet 20 mg PO DAILY amoxicillin 500 mg capsule 500 mg PO DAILY buprenorphine-naloxone 8-2 mg tablet, sublingual 8 tab sublingual DIRECTED cholecalciferol (vitamin D3) 1,250 mcg (50,000 unit) capsule See Rx Instructions .ROUTE .COMPLEX Qty: 12 4RF Dose Instruction: TAKE ONE CAPSULE BY MOUTH ONCE WEEKLY Rx Instructions: TAKE ONE CAPSULE BY MOUTH ONCE WEEKLY clonazepam 0.5 mg tablet 0.25 mg PO TID 30 Days Qty: 45 2RF gabapentin 800 mg tablet 800 mg PO TID 30 Days Qty: 90 2RF sertraline 50 mg tablet See Rx Instructions .ROUTE .COMPLEX Qty: 90 3RF Dose Instruction: TAKE ONE TABLET BY MOUTH ONCE A DAY Rx Instructions: TAKE ONE TABLET BY MOUTH ONCE A DAY tamsulosin 0.4 mg capsule 0.4 mg PO HS Qty: 10 0RF ketorolac 10 mg tablet 10 mg PO Q8H PRN (Reason: pain) 3 Days Qty: 10 0RF cefdinir 300 mg capsule 300 mg PO BID 5 Days Qty: 10 0RF Referrals Follow up/Referrals: Zackary Newell DO [Primary Care Provider] - See instructions Rohit Morales MD [Referring] - See instructions (6mm and 5mm stone R ureter, has had stone for a month, needs follow up) Activity Restrictions/Add. Instructions Additional Instructions/Restrictions: You were evaluated in the ER and are appropriate for discharge at this time. Continue your home medications as previously prescribed. Drink plenty of fluids including water to help pass the stone. Continue straining your urine to collect any stones. Call Dr. Morales's office for close follow-up and explain to them that you have had kidney stone for the last month. Also follow-up with your primary care doctor. Return to the ER with new, worsening, or otherwise concerning symptoms. Clinical Impressions Clinical Impression: Anxiety, Dysuria Instructions Patient Instructions: DI for Kidney Stones Print Language Print Language: Mohawk Discharge ED Provider: Nidia Espinosa Adult [facility] General Chief complaint: Urogenital-Female Stated complaint: back pain, racing heart Time Seen by Provider: 01/03/25 23:51 Mode of Arrival: Ambulatory Source of Information: Patient Description of Symptoms (Recalled from ER Triage Doc. by RN): Patient states she is having vaginal pain. States she feels like she may have a UTI. She says it feels like she is peeing sand and that she is having burning and frequency when urinating. Patient is very anxious. States she has anxiety and that is why her heart rate is elevated. States she drinks a lot of mountain dew. History of Present Illness HPI narrative: 49-year-old female presents to the ER with pain down there . She reports she feels like she is peeing sand and reports being very anxious. She states she has bad anxiety especially when she is not feeling well. She has been seen for this in our ER recently. Patient knows she has 2 kidney stones and thinks maybe she is passing those but she is not sure so she is anxious and came to the ER for further evaluation. She is taking Azo which has been helping her symptoms. She is also taking antibiotics which were prescribed for suspected UTI a few days ago. Patient reports she is not having any worsening pain than normal. Pain has been well-controlled with prescription of ketorolac which she is taking at home. She reports she is mainly here for reassurance. She does states she has had difficulty getting into the urology office. No fevers, chills, chest pain, shortness of breath, cough, congestion, vomiting, diarrhea, constipation. Patient reports she is currently on her period. When asked, she does not report vaginal pain, she reports pain with urination. Related Data Home Medications ?Medication ?Instructions ?Recorded ?Confirmed buprenorphine 8 mg-naloxone 2 mg 8 tab sublingual DIRECTED 02/25/24 12/25/24 sublingual tablet amoxicillin 500 mg capsule 500 mg PO DAILY 12/25/24 12/25/24 atorvastatin 20 mg tablet 20 mg PO DAILY 12/25/24 12/25/24 Previous Rx's ?Medication ?Instructions ?Recorded cholecalciferol (vitamin D3) 1,250 See Rx Instructions .Route 04/21/24 mcg (50,000 unit) capsule .COMPLEX #12 caps cetirizine 10 mg tablet See Rx Instructions .Route 06/18/24 .COMPLEX #90 tabs gabapentin 800 mg tablet 800 mg PO TID 30 days #90 tabs 10/20/24 sertraline 50 mg tablet See Rx Instructions .Route 10/21/24 .COMPLEX #90 tabs clonazepam 0.5 mg tablet 0.25 mg (1/2 x 0.5 mg) PO TID 30 11/04/24 days #45 tabs cefdinir 300 mg capsule 300 mg PO BID 5 days #10 caps 12/30/24 ketorolac 10 mg tablet 10 mg PO Q8H PRN pain 3 days #10 12/30/24 tabs tamsulosin 0.4 mg capsule 0.4 mg PO HS #10 caps 12/30/24 Allergies Allergy/AdvReac Type Severity Reaction Status Date / Time codeine Allergy Verified 12/25/24 09:38 Sulfa (Sulfonamide Allergy Verified 12/25/24 09:38 Antibiotics) [facility] Disclaimer: The information contained in this section may have been updated after the patient was seen, as this information can be updated by other users. Medical History (Updated 01/04/25 @ 01:12 by Nidia Espinosa MD) History of nephrolithotomy with removal of calculi PTSD (post-traumatic stress disorder) Surgical History (Updated 12/25/24 @ 09:55 by DESTINY Kuo) History of cholecystectomy History of Social History Smoking Status: Current every day smoker tobacco type: cigarettes packs per day: 2 alcohol intake: never substance use type: painkillers current occupational status: unemployed Travel in the last 8 weeks: None household members: significant other and family housing: house Have you lived/traveled outside US in past 30 days?: No Contact w/someone who lives/traveled outside US past 30 days?: No Exposure to someone with infectious disease in past 14 days?: No Do you have a fever (greater than 100.4 F or 38 C)?: No Have you tested positive for COVID-19: No Exposed to someone with COVID-19 in past 14 days?: No Do you have a sore throat?: No Do you have a cough?: No Do you have any weakness?: No Do you have any diarrhea?: No Are you experiencing any unusual bleeding?: No Do you have any muscle aches/pain?: No Do you have any abdominal pain?: No Are you experiencing loss of taste or smell?: No Other Medical History Have you received the Flu Vaccine for this season: No Have you received the Pneumonia Vaccine: No ROS Obtained: Yes Systems reviewed as appropriate & no additional complaints except as documented Per HPI Physical Exam General General appearance: alert and in no apparent distress Head Head exam: atraumatic and normocephalic Eye Eye exam: Present PERRL and EOMI ENT ENT exam: Present mucous membranes moist Neck Neck exam: Present normal inspection and full ROM Chest Chest inspection: Present symmetric chest wall rise Respiratory Respiratory exam: Present normal lung sounds bilaterally; Absent respiratory distress, wheezes or stridor Cardiovascular Cardiovascular exam: Present regular rate (Patient's heart rate is variable between the 90s and 110s and she is able to lower it by controlling her breathing and trying to relax) and normal rhythm Abdominal Exam Abdominal exam: Present soft and tenderness (Mild suprapubic discomfort but no true tenderness); Absent distention, guarding or rebound Extremities Exam Extremities exam: Present full ROM Back Exam Back exam: Absent CVA tenderness (R) or CVA tenderness (L) Neurological Exam Neurological exam: Present alert and oriented X3; Absent motor sensory deficit Psychiatric Psychiatric exam: Present normal affect and anxious; Absent homicidal ideation or suicidal ideation Skin Skin exam: Present warm and dry Medical Decision Making Medical Records Medical records reviewed: Yes I reviewed the patient's medical records. Screening: Per USPSTF and CDC recommendations, given the prevalence of disease in our region, it is our hospital?s policy to screen for HIV and viral Hepatitis for all patients aged 18 and over and those with ongoing risk factors. MR Comment: Patient has had multiple evaluations in the last week in our ER. Review of imaging demonstrates she has 2 distal right ureteral stones, she is currently on cefdinir. She was seen a few days ago with very similar complaints to those with which she presents today and had reassuring workup. Tee Inquiry Pt receiving controlled substance: No Vital Signs: 01/03/25 23:50 01/03/25 23:52 01/04/25 00:01 Temperature 98.9 F Temperature Source Oral Pulse Rate 141 H 135 H Pulse Rate [Right Radial] 141 H Respiratory Rate 16 Blood Pressure 165/98 H Blood Pressure [Right Arm] 156/93 H Blood Pressure Mean [Right Arm] 114 Blood Pressure Source Blood Pressure Source [Right Arm] Automatic Cuff Blood Pressure Position Blood Pressure Position [Right Arm] Supine 02 Sat by Pulse Oximetry 98 100 100 Oxygen Delivery Method Room Air 01/04/25 00:15 01/04/25 00:30 01/04/25 01:00 Temperature Temperature Source Pulse Rate 110 H 114 H 120 H Pulse Rate [Right Radial] Respiratory Rate Blood Pressure 129/84 140/87 Blood Pressure [Right Arm] Blood Pressure Mean [Right Arm] Blood Pressure Source Blood Pressure Source [Right Arm] Blood Pressure Position Blood Pressure Position [Right Arm] 02 Sat by Pulse Oximetry 99 98 98 Oxygen Delivery Method 01/04/25 01:11 01/04/25 01:13 Temperature 98.4 F Temperature Source Oral Pulse Rate 93 H 106 H Pulse Rate [Right Radial] Respiratory Rate 20 Blood Pressure 140/87 Blood Pressure [Right Arm] Blood Pressure Mean [Right Arm] Blood Pressure Source Automatic Cuff Blood Pressure Source [Right Arm] Blood Pressure Position Sitting Blood Pressure Position [Right Arm] 02 Sat by Pulse Oximetry Oxygen Delivery Method Room Air Lab Data Lab Results 01/04/25 00:01: Urine Color Red, Urine Appearance Cloudy, Urine pH 7.0, Ur Specific [place] 1.015, Urine Protein >=300, Urine Glucose (UA) 250, Urine Ketones 15, Urine Blood Large, Urine Nitrate Positive, Urine Bilirubin Negative, Urine Urobilinogen 4.0, Ur Leukocyte Esterase Moderate 01/04/25 00:46: WBC 5.7, RBC 4.05 L, Hgb 11.9 L, Hct 36.6 L, MCV 90.4, MCH 29.4, MCHC 32.5, RDW 12.9, Plt Count 197, MPV 11.9 H, Neut % (Auto) 68.4, Lymph % (Auto) 24.8, [place] % (Auto) 4.2, Eos % (Auto) 1.9, Baso % (Auto) 0.5, Neut # (Auto) 3.9, Lymph # (Auto) 1.4, [place] # (Auto) 0.2, Eos # (Auto) 0.1, Baso # (Auto) 0.0, Sodium 139, Potassium 3.7, Chloride 102, Carbon Dioxide 34 H, Anion Gap 6.7, BUN 13, Creatinine 0.90, Estimated Creat Clear 98, Estimated GFR 67, Est GFR ( Amer) 81, Glucose 160 H, Calcium 9.5, Total Bilirubin 0.3, AST 22, ALT 18, Alkaline Phosphatase 59, Total Protein 7.4, Albumin 4.7, Globulin 2.7, Albumin/Globulin Ratio 1.7 01/04/25 00:46 01/04/25 00:46 Orders (Tests/Meds): ED MEDICATIONS Discontinued Medications Generic Name Dose Route Start Last Admin Trade Name Eder PRN Reason Stop Dose Admin Lactated Ringer's 1,000 mls @ 999 mls/hr 01/04/25 00:34 01/04/25 00:51 Lactated Ringer's 1000 Ml Bag IV 01/04/25 01:34 999 mls/hr .Q1H1M ONE Administration ORDERS Category Date Time Status CBC w/Auto Diff [Complete Blood Count Auto Diff] Stat Lab 01/04/25 00:46 Completed CMP [Comprehensive Metabolic Panel] Stat Lab 01/04/25 00:46 Completed UA/RFX Microscopic Stat Lab 01/04/25 00:01 Completed Urine Culture Routine Micro 01/04/25 00:01 Received Medical Decision Narrative: In summary, this 49-year-old female with history of kidney stones not at goal therapy presents to the emergency department today with concerns of painful urination, anxiety. On initial evaluation patient is hemodynamically stable, intermittently tachycardia but able to control her heart rate when she calms herself down, afebrile, mild discomfort in the suprapubic area but no true tenderness, no rebound or guarding, no CVA tenderness, remainder of exam benign aside from patient being anxious. Differential diagnosis includes but is not limited to UTI, considered pyelonephritis but have very low suspicion for this since patient is afebrile has no CVA tenderness, patient already has known ureteral stones which have been present since November, consider the possibility of infected stone but have lower suspicion for this, with the presence of stones consider the possibility of kidney dysfunction. Based on these concerns, I ordered basic serum labs and urine studies. Patient received IV fluids for treatment. Labs reviewed by me demonstrate no findings of UTI, nitrate positive consistent with patient taking Azo. I reviewed previous micro results which demonstrate multiple organisms likely contamination. Patient has blood in her urine consistent with her being on her period. Serum labs are nonactionable. I do not believe patient requires any further workup or imaging at this time. I had considered performing CT scan to reevaluate stones but patient is not having any worsening pain, no evidence of active infection, and is resting comfortably. She also has already been referred to urology for outpatient follow-up. I again sent a note to Dr. Morales with urology for close follow-up. Patient is appropriate for discharge. No changes in medication, encouraged the patient to finish her antibiotics as they were prescribed. She is also already on tamsulosin. Pain has been controlled at home with Toradol. No further prescriptions necessary. Patient was given instructions on symptomatic management, follow up instructions, and return precautions for the emergency department. Patient indicated understanding and was discharged in stable condition. Critical Care Critical Care Time Critical Care Time: No
== END 2025-01-04 01:18 | disposition home or self-care (01) ==
PROVIDERS: Emergency Provider Emergency Medicine; PCP Internal Medicine
DX: R30.0 Dysuria (principal); R35.0 Frequency of micturition; F41.9 Anxiety disorder, unspecified
CPT/HCPCS: 80053; 81003; 85025; 87086; 96360; 99283; J7120

== ENCOUNTER 2025-04-01 12:34 | Emergency (ER) | payer MEDICAID, SELFPAY ==
--- OUTSIDE RECORDS SUMMARY | 2025-03-21 17:30 | XMS_ITS ---
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 Name Role Phone Migration, Provider Unavailable Unavailable Allergies Allergen (clinical drug ingredient) Drug/Non Drug Allergy documented on EMR Reaction Allergy Type Onset Date Status citalopram CeleXA felt like she wants to jump out of skin Drug Allergy Active fluoxetine PROzac Unknown Drug Allergy Active Tylenol with Codeine SOB Drug Allergy Active BuSpar Unknown Drug Allergy Active Buspar Unknown Drug Allergy Active REASON FOR VISIT Multum To Medispan Conversion Encounter Medications Medication SIG (Take, Route, Frequency, Duration) Notes Start Date End Date Status Sertraline HCl 100 MG Tablet 1 tab(s) orally once a day; Duration: 30 day(s) 05/13/2021 Active Suboxone 8-2 MG Film 2 film(s) sublingua lly once a day Active Encounters Encounter Location Date Provider Diagnosis [facility] [address] [place] [address] 03/21/2025 Provider Migration Plan Of Treatment No Information Progress Notes * Armida HORTA SDOB:[birth year] (49 yo F)Acc No.[id number]:03/21/2025 Patient: Armida Ly Provider: :1975 A ge:49 Y S ex:Female Date:03/21/2025 Address:[address] [id number] Subjective: * Chief Complaints: * M ultum To Medispan Conversion Encounter * Medications: T akingSuboxone 8-2 MG Film 2 film(s) sublingually once a day Sertraline HCl 100 MG Tablet 1 tab(s) orally once a day Taking Suboxone 8-2 MG Film 2 film(s) sublingually once a day Taking Sertraline HCl 100 MG Tablet 1 tab(s) orally once a day * Allergies: B uSpar: Side EffectsBuspar: Side EffectsPROzac: Side EffectsTylenol with Codeine: SOB - Side EffectsCeleXA: felt like she wants to jump out of skin - Side Effects * Electronic signature of Prov ider Migration on 04/01/2025 at 12:49 PM EDT Sign off status: Pending * Provider: Date: 03/21/2025 Generated for Ani rodriguez/Naveed/Brendon on: 04/01/2025 12:49 PM EDT
[2025-04-01] VITALS (11 sets, daily range): BP systolic 126–181; BP diastolic 69–101; PULSE 89–114; RESP 16–20; TEMP 36.8; O2SAT 96–100; BMI 30.9
--- NOTE | 2025-04-01 12:46 | CT_ITS ---
FINAL REPORT TECHNIQUE: Axial images through the abdomen and pelvis were performed without contrast. This study was performed with techniques to keep radiation doses as low as reasonably achievable, (ALARA). Individualized dose reduction techniques using automated exposure control or adjustment of mA and/or kV according to the patient's size were employed. CLINICAL HISTORY: right flank pain COMPARISON: 12/30/2024 FINDINGS: Abdomen: The lung bases are clear. The liver parenchyma is homogeneous. The gallbladder is surgically absent. The spleen, pancreas, and adrenals are unremarkable. There is marked right hydronephrosis and hydroureter. There is an obstructing stone in the distal right ureter measuring 8 mm in greatest dimension. There are multiple nonobstructing stones in the left kidney measuring up to 7 mm. Bilateral medullary nephrocalcinosis is identified. Pelvis: The urinary bladder is unremarkable. There is a benign-appearing cyst in the right adnexa measuring 3.3 cm. The uterus is retroverted. The appendix is not visualized. IMPRESSION: Redemonstrated is severe right hydronephrosis and hydroureter secondary to a distal right ureteral stone. The more distal of the 2 stones is no longer identified. Multiple nonobstructing left renal stones. Bilateral medullary nephrocalcinosis. Reviewed, Interpreted and Dictated by Martin Linda MD Transcribed by Lorene Vallejo Authenticated and [facility]
--- NOTE | 2025-04-01 12:49 | ED_ITS ---
Discharge Plan Disposition Patient Disposition: Home, Self-Care Prescriptions Prescriptions: No Action cetirizine 10 mg tablet See Rx Instructions .ROUTE .COMPLEX Qty: 90 2RF Dose Instruction: TAKE ONE TABLET BY MOUTH ONCE A DAY Rx Instructions: TAKE ONE TABLET BY MOUTH ONCE A DAY atorvastatin 20 mg tablet 20 mg PO DAILY buprenorphine-naloxone 8-2 mg tablet, sublingual 8 tab sublingual DIRECTED cholecalciferol (vitamin D3) 1,250 mcg (50,000 unit) capsule See Rx Instructions .ROUTE .COMPLEX Qty: 12 4RF Dose Instruction: TAKE ONE CAPSULE BY MOUTH ONCE WEEKLY Rx Instructions: TAKE ONE CAPSULE BY MOUTH ONCE WEEKLY Vraylar 1.5 mg capsule 1.5 mg PO DAILY Qty: 30 2RF Vraylar 1.5 mg capsule 0RF clonazepam 0.5 mg tablet 0.25 mg PO BID 30 Days Qty: 30 2RF sertraline 50 mg tablet See Rx Instructions .ROUTE .COMPLEX Qty: 90 3RF Dose Instruction: TAKE ONE TABLET BY MOUTH ONCE A DAY Rx Instructions: TAKE ONE TABLET BY MOUTH ONCE A DAY gabapentin 800 mg tablet 800 mg PO TID 30 Days Qty: 90 2RF tamsulosin 0.4 mg capsule 0.4 mg PO HS Qty: 10 0RF Referrals Follow up/Referrals: Sarah Stewart APRN [Primary Care Provider, Family Practice] - See instructions Activity Restrictions/Add. Instructions Additional Instructions/Restrictions: Call your family doctor to establish care for this visit to the emergency department and schedule follow-up within 48 hours to ensure improvement. If you have any worsening of your condition or any other concerning signs or symptoms, return to the emergency department or your primary care doctor for further evaluation. Dr. Wilson at [facility] said he would see you tomorrow or the next day in order to get procedure scheduled. [facility] urology. [phone] is the number, you can call this in order to schedule a follow-up. Address [facility] [address] in [facility]. Clinical Impressions Clinical Impression: Acute right flank pain, Hydronephrosis concurrent with and due to calculi of kidney and ureter Instructions Patient Instructions: DI for Urinary Tract Infection (UTI), DI for Urinary Tract Infection in Children Print Language Print Language: Jordanian Discharge ED Provider: Sean Ortiz General Adult HPI <J Reji Varma MD - Last Filed: 04/01/25 15:17> General Chief complaint: Urogenital-Female Stated complaint: back pain soa Time Seen by Provider: 04/01/25 12:42 History of Present Illness HPI narrative: Patient is a 49-year-old with a history of multiple kidney stones some requiring surgical intervention presents today with acute right flank pain over the last few days. Denies any hematuria frequency urgency etc. No fevers or chills. Denies any other symptoms. Related Data Home Medications ?Medication ?Instructions ?Recorded ?Confirmed buprenorphine 8 mg-naloxone 2 mg 8 tab sublingual D IRECTED 02/25/24 01/29/25 sublingual tablet atorvastatin 20 mg tablet 20 mg PO DAILY 12/25/2401/13 Previous Rx's ?Medication ?Instructions ?Recorded cholecalciferol (vitamin D3) 1,250 See Rx Instructions .Route 04/21/24 mcg (50,000 unit) capsule .COMPLEX #12 caps cetirizine 10 mg tablet See Rx Instructions .Route 0 06/18/24 .COMPLEX #90 tabs sertraline 50 mg tablet See Rx Instructions .Route 0 10/21/24 .COMPLEX #90 tabs tamsulosin 0.4 mg capsule 0.4 mg PO HS #10 caps cariprazine 1.5 mg capsule 1.5 mg PO DAILY #30 caps (Vraylar) clonazepam 0.5 mg tablet 0.25 mg (1/2 x 0.5 mg) PO BI D 30 01/29/25 days #30 tabs gabapentin 800 mg tablet 800 mg PO TID 30 days #90 ta bs 03/30/25 Allergies Allergy/AdvReac Type Severity Reaction Status Date / Time codeine Allergy Verified 01/29/25 09:47 Sulfa (Sulfonamide Allergy Verified 01/29/25 09:47 Antibiotics) [facility] <Nathanael Varma MD - Last Filed: 04/01/25 15:17> [facility] Disclaimer: The information contained in this section may have been updated after the patient was seen, as this information can be updated by other users. Medical History History of nephrolithotomy with removal of calculi PTSD (post-traumatic stress disorder) Surgical History History of cholecystectomy History of x1 2004 Social History Smoking Status: Current every day smoker tobacco type: cigarettes packs per day: 2 alcohol intake: never substance use type: painkillers current occupational status: unemployed Travel in the last 8 weeks?: None household members: significant other and family housing: house Have you lived/traveled outside US in past 30 days?: No Contact w/someone who lives/traveled outside US past 30 days?: No Exposure to someone with infectious disease in past 14 days?: No Do you have a fever (greater than 100.4 F or 38 C)?: No Have you tested positive for COVID-19?: No Exposed to someone with COVID-19 in past 14 days?: No Do you have a sore throat?: No Do you have a cough?: No Do you have any weakness?: No Do you have any diarrhea?: No Are you experiencing any unusual bleeding?: No Do you have any muscle aches/pain?: No Do you have any abdominal pain?: No Are you experiencing loss of taste or smell?: No Other Medical History Have you received the Flu Vaccine for this season: No Have you received the Pneumonia Vaccine: No <Nathanael Varma MD - Last Filed: 04/01/25 15:17> ROS Obtained: Yes All systems reviewed & no additional complaints except as documented Physical Exam <Nathanael Varma MD - Last Filed: 04/01/25 15:17> General General appearance: alert Respiratory Respiratory exam: Present normal lung sounds bilaterally Cardiovascular Cardiovascular exam: Present regular rate Abdominal Exam Abdominal exam: Present soft; Absent distention or tenderness Back Exam Back exam: Absent CVA tenderness (R) or CVA tenderness (L) Neurological Exam Neurological exam: Present alert and oriented X3 Medical Decision Making <Nathanael Varma MD - Last Filed: 04/01/25 15:17> Medical Records Screening: Per USPSTF and CDC recommendations, given the prevalence of disease in our region, it is our hospital?s policy to screen for HIV and viral Hepatitis for all patients aged 18 and over and those with ongoing risk factors. Tee Inquiry Pt receiving controlled substance: No Vital Signs: 04/01/25 12:46 04/01/25 13:02 04/01/25 13:28 Temperature 98.3 F Temperature Source Oral Pulse Rate 103 H 96 H Pulse Rate [Right] 114 H Respiratory Rate 18 19 Blood Pressure 157/101 H 147/94 H Blood Pressure [Right Arm] 181/100 H Blood Pressure Mean 133 111 Blood Pressure Mean [Right Arm] 127 02 Sat by Pulse Oximetry 100 100 99 Oxygen Delivery Method Room Air Room Air Room Air 04/01/25 13:30 04/01/25 14:00 04/01/25 14:30 Temperature Temperature Source Pulse Rate 110 H 107 H 105 H Pulse Rate [Right] Respiratory Rate 20 20 18 Blood Pressure 176/97 H 167/96 H 153/90 H Blood Pressure [Right Arm] Blood Pressure Mean 110 118 121 Blood Pressure Mean [Right Arm] 02 Sat by Pulse Oximetry 100 100 99 Oxygen Delivery Method 04/01/25 15:00 04/01/25 15:31 04/01/25 16:00 Temperature Temperature Source Pulse Rate 89 89 97 H Pulse Rate [Right] Respiratory Rate 18 19 Blood Pressure 164/93 H 153/90 H 127/78 Blood Pressure [Right Arm] Blood Pressure Mean 126 124 94 Blood Pressure Mean [Right Arm] 02 Sat by Pulse Oximetry 100 98 97 Oxygen Delivery Method Room Air 04/01/25 16:31 04/01/25 16:52 Temperature 98.3 F Temperature Source Pulse Rate 91 H 97 H Pulse Rate [Right] Respiratory Rate 16 Blood Pressure 126/69 126/69 Blood Pressure [Right Arm] Blood Pressure Mean 88 Blood Pressure Mean [Right Arm] 02 Sat by Pulse Oximetry 96 Oxygen Delivery Method Lab Data Lab results reviewed: Yes I reviewed the patient's lab results. Lab Results 04/01/25 12:38: Urine Color Yellow, Urine Appearance Clear, Urine pH 6.5, Ur Specific Amelia 1.020, Urine Protein Negative, Urine Glucose (UA) Negative, Urine Ketones Negative, Urine Blood Trace-i, Urine Nitrate Negative, Urine Bilirubin Negative, Urine Urobilinogen 0.2, Ur Leukocyte Esterase Negative, Urine RBC None, Urine WBC 5-10, Ur Squamous Epith Cells 50-100, Urine Bacteria Trace 04/01/25 12:45: WBC 7.5, RBC 4.68, Hgb 13.4, Hct 40.5, MCV 86.5, MCH 28.6, MCHC 33.1, RDW 15.2, Plt Count 170, MPV 11.7 H, Neut % (Auto) 44.6, Lymph % (Auto) 45.5, [place] % (Auto) 4.9, Eos % (Auto) 4.1, Baso % (Auto) 0.8, Neut # (Auto) 3.4, Lymph # (Auto) 3.4, [place] # (Auto) 0.4, Eos # (Auto) 0.3, Baso # (Auto) 0.1, Sodium 137, Potassium 3.5, Chloride 105, Carbon Dioxide 29, Anion Gap 6.5, BUN 14, Creatinine 1.00, Estimated Creat Clear 90, Estimated GFR 59, Est GFR ( Amer) 72, Glucose 98, Calcium 9.5, Total Bilirubin 0.3, AST 24, ALT 14, Alkaline Phosphatase 71, Total Protein 7.3, Albumin 4.2, Globulin 3.1, Albumin/Globulin Ratio 1.4, Serum HCG, Qual Negative 04/01/25 12:45 04/01/25 12:45 Orders (Tests/Meds): ED MEDICATIONS Discontinued Medications Generic Name Dose Route Start Last Admin Trade Name Freq PRN Reason Stop Dose Admin Acetaminophen 1,000 mg 04/01/25 13:38 04/01/25 13:41 Acetaminophen 500mg Tab PO 04/01/25 13:39 1,000 mg ONCE ONE Administration Buprenorphine/Naloxone 1 each 04/01/25 16:15 04/01/25 16:20 Buprenorphine/Naloxone 8mg/2mg Odt SL 04/01/25 16:16 1 each ONCE ONE Administration Lactated Ringer's 1,000 mls @ 999 mls/hr 04/01/25 13:00 04/01/25 12:54 Lactated Ringer's 1000 Ml Bag IV 04/01/25 14:00 999 mls/hr .Q1H1M ELIZABETH Administration Ketorolac Tromethamine 15 mg 04/01/25 12:46 04/01/25 12:54 Ketorolac 30mg/Ml Vial IV 04/01/25 12:47 15 mg ONCE ONE Administration Ketorolac Tromethamine 15 mg 04/01/25 15:17 04/01/25 15:26 Ketorolac 30mg/Ml Vial IV 04/01/25 15:18 15 mg ONCE ONE Administration Ondansetron HCl 4 mg 04/01/25 12:46 04/01/25 12:55 Ondansetron 4mg/2ml Vial IV 04/01/25 12:47 4 mg ONCE ONE Administration ORDERS Category Date Time Status CT abdomen pelvis wo con Stat Cat Scan 04/01/25 12:46 Completed CBC w/Auto Diff [Complete Blood Count Auto Diff] Stat Lab 04/01/25 12:45 Completed CMP [Comprehensive Metabolic Panel] Stat Lab 04/01/25 12:45 Completed HCG Qualitative, Serum Stat Lab 04/01/25 12:45 Completed UA [Urinalysis and Microscopic] Stat Lab 04/01/25 12:38 Completed Medical Decision Narrative: 49-year-old with above history and physical. I reviewed the patient's most recent CT scans were she had multiple distal ureteral stones and severe hydronephrosis. Patient has been able to pass them on her own she states but also has had surgical intervention in the past. States her symptoms today are very similar to symptoms she has had in the past with kidney stones therefore we will get a noncontrasted CT scan to further evaluate this. She has no CVA tenderness no signs or symptoms of sepsis do not suspect she has an infection at the moment. Pain medicine nausea medicine and IV fluids have been administered and will reassess. Reassessment 1:[address] scan was performed which I personally interpreted which continues to show severe right sided hydronephrosis and perinephric stranding and there is a 7 mm distal ureteral stone. I compared this to recent CT scans and she has had very severe hydronephrosis since November this appears to be unchanged certainly not improved. She did have 2 stones in the past on previous scans and I went back and talk to her further she was able to pass what she thought was 2 stones but in retrospect may have been just one of the stones that broke up. The stone that I see in the distal ureter appears very similar to previous scans. After talking the patient further she states she has had chronic back pain since November that she attributed to musculoskeletal pain as she thought that she passed the stones but in retrospect she believes that it may have this been persistent pain associated with the stones. Creatinine is stable. Urinalysis is pending. Previous scans did show that she had possible medullary sponge kidney. Given the fact that the patient had been seen at [facility] by urology who initially called them to have a discussion with urology but they are full and unable to speak to me regarding their specialist. Our second call will be Dr. Cash or his group with [facility] given the fact the patient has been seen there. Patient remains stable and symptoms seem to be adequately controlled at the moment. We are still awaiting final disposition and care has been transitioned to Dr. Ortiz. <Sean Ortiz MD - Last Filed: 04/01/25 18:54> Vital Signs: 04/01/25 12:46 04/01/25 13:02 04/01/25 13:28 Temperature 98.3 F Temperature Source Oral Pulse Rate 103 H 96 H Pulse Rate [Right] 114 H Respiratory Rate 18 19 Blood Pressure 157/101 H 147/94 H Blood Pressure [Right Arm] 181/100 H Blood Pressure Mean 133 111 Blood Pressure Mean [Right Arm] 127 02 Sat by Pulse Oximetry 100 100 99 Oxygen Delivery Method Room Air Room Air Room Air 04/01/25 13:30 04/01/25 14:00 04/01/25 14:30 Temperature Temperature Source Pulse Rate 110 H 107 H 105 H Pulse Rate [Right] Respiratory Rate 20 20 18 Blood Pressure 176/97 H 167/96 H 153/90 H Blood Pressure [Right Arm] Blood Pressure Mean 110 118 121 Blood Pressure Mean [Right Arm] 02 Sat by Pulse Oximetry 100 100 99 Oxygen Delivery Method 04/01/25 15:00 04/01/25 15:31 04/01/25 16:00 Temperature Temperature Source Pulse Rate 89 89 97 H Pulse Rate [Right] Respiratory Rate 18 19 Blood Pressure 164/93 H 153/90 H 127/78 Blood Pressure [Right Arm] Blood Pressure Mean 126 124 94 Blood Pressure Mean [Right Arm] 02 Sat by Pulse Oximetry 100 98 97 Oxygen Delivery Method Room Air 04/01/25 16:31 04/01/25 16:52 Temperature 98.3 F Temperature Source Pulse Rate 91 H 97 H Pulse Rate [Right] Respiratory Rate 16 Blood Pressure 126/69 126/69 Blood Pressure [Right Arm] Blood Pressure Mean 88 Blood Pressure Mean [Right Arm] 02 Sat by Pulse Oximetry 96 Oxygen Delivery Method Lab Data Lab Results 04/01/25 12:38: Urine Color Yellow, Urine Appearance Clear, Urine pH 6.5, Ur Specific Amelia 1.020, Urine Protein Negative, Urine Glucose (UA) Negative, Urine Ketones Negative, Urine Blood Trace-i, Urine Nitrate Negative, Urine Bilirubin Negative, Urine Urobilinogen 0.2, Ur Leukocyte Esterase Negative, Urine RBC None, Urine WBC 5-10, Ur Squamous Epith Cells 50-100, Urine Bacteria Trace 04/01/25 12:45: WBC 7.5, RBC 4.68, Hgb 13.4, Hct 40.5, MCV 86.5, MCH 28.6, MCHC 33.1, RDW 15.2, Plt Count 170, MPV 11.7 H, Neut % (Auto) 44.6, Lymph % (Auto) 45.5, [place] % (Auto) 4.9, Eos % (Auto) 4.1, Baso % (Auto) 0.8, Neut # (Auto) 3.4, Lymph # (Auto) 3.4, [place] # (Auto) 0.4, Eos # (Auto) 0.3, Baso # (Auto) 0.1, Sodium 137, Potassium 3.5, Chloride 105, Carbon Dioxide 29, Anion Gap 6.5, BUN 14, Creatinine 1.00, Estimated Creat Clear 90, Estimated GFR 59, Est GFR ( Amer) 72, Glucose 98, Calcium 9.5, Total Bilirubin 0.3, AST 24, ALT 14, Alkaline Phosphatase 71, Total Protein 7.3, Albumin 4.2, Globulin 3.1, Albumin/Globulin Ratio 1.4, Serum HCG, Qual Negative Orders (Tests/Meds): ED MEDICATIONS Discontinued Medications Generic Name Dose Route Start Last Admin Trade Name Freq PRN Reason Stop Dose Admin Acetaminophen 1,000 mg 04/01/25 13:38 04/01/25 13:41 Acetaminophen 500mg Tab PO 04/01/25 13:39 1,000 mg ONCE ONE Administration Buprenorphine/Naloxone 1 each 04/01/25 16:15 04/01/25 16:20 Buprenorphine/Naloxone 8mg/2mg Odt SL 04/01/25 16:16 1 each ONCE ONE Administration Lactated Ringer's 1,000 mls @ 999 mls/hr 04/01/25 13:00 04/01/25 12:54 Lactated Ringer's 1000 Ml Bag IV 04/01/25 14:00 999 mls/hr .Q1H1M ELIZABETH Administration Ketorolac Tromethamine 15 mg 04/01/25 12:46 04/01/25 12:54 Ketorolac 30mg/Ml Vial IV 04/01/25 12:47 15 mg ONCE ONE Administration Ketorolac Tromethamine 15 mg 04/01/25 15:17 04/01/25 15:26 Ketorolac 30mg/Ml Vial IV 04/01/25 15:18 15 mg ONCE ONE Administration Ondansetron HCl 4 mg 04/01/25 12:46 04/01/25 12:55 Ondansetron 4mg/2ml Vial IV 04/01/25 12:47 4 mg ONCE ONE Administration ORDERS Category Date Time Status CT abdomen pelvis wo con Stat Cat Scan 04/01/25 12:46 Completed CBC w/Auto Diff [Complete Blood Count Auto Diff] Stat Lab 04/01/25 12:45 Completed CMP [Comprehensive Metabolic Panel] Stat Lab 04/01/25 12:45 Completed HCG Qualitative, Serum Stat Lab 04/01/25 12:45 Completed UA [Urinalysis and Microscopic] Stat Lab 04/01/25 12:38 Completed Medical Decision Narrative: 49-year-old with above history and physical. I reviewed the patient's most recent CT scans were she had multiple distal ureteral stones and severe hydronephrosis. Patient has been able to pass them on her own she states but also has had surgical intervention in the past. States her symptoms today are very similar to symptoms she has had in the past with kidney stones therefore we will get a noncontrasted CT scan to further evaluate this. She has no CVA tenderness no signs or symptoms of sepsis do not suspect she has an infection at the moment. Pain medicine nausea medicine and IV fluids have been administered and will reassess. Reassessment 1:[address] scan was performed which I personally interpreted which continues to show severe right sided hydronephrosis and perinephric stranding and there is a 7 mm distal ureteral stone. I compared this to recent CT scans and she has had very severe hydronephrosis since November this appears to be unchanged certainly not improved. She did have 2 stones in the past on previous scans and I went back and talk to her further she was able to pass what she thought was 2 stones but in retrospect may have been just one of the stones that broke up. The stone that I see in the distal ureter appears very similar to previous scans. After talking the patient further she states she has had chronic back pain since November that she attributed to musculoskeletal pain as she thought that she passed the stones but in retrospect she believes that it may have this been persistent pain associated with the stones. Creatinine is stable. Urinalysis is pending. Previous scans did show that she had possible medullary sponge kidney. Given the fact that the patient had been seen at [facility] by urology who initially called them to have a discussion with urology but they are full and unable to speak to me regarding their specialist. Our second call will be Dr. Cash or his group with [facility] given the fact the patient has been seen there. Patient remains stable and symptoms seem to be adequately controlled at the moment. We are still awaiting final disposition and care has been transitioned to Dr. Ortiz. Angel: I assumed primary responsibility for this patient after signout from previous physician. On my evaluation, patient in no acute distress, appears very clinically well. [facility] called, surgeon is in surgery, will call back afterward. This was read around 3:30 PM. Independent interpretation of workup nonactionable with normal kidney function. Urinalysis unconcerning for UTI. CT scan worsening hydronephrosis from previous with what appears to be a 7 mm stone. Patient agreeable to outpatient management if can be prompt. I got a hold of Dr. Wilson at [facility]. He stated that he can see patient tomorrow in clinic to get her scheduled for procedure in the next couple of days. [phone] [place] [address] in [facility]. Patient agreeable to this plan. Because patient at baseline without signs or symptoms of clinical decompensation, deemed appropriate for discharge. Results were relayed to patient who voiced understanding and were agreeable to outpatient management and follow up. I discussed my clinical impression with patient and answered all questions. At this time, the evidence for any other entities in the differential is insufficient to warrant any further testing or ED observation. This was explained as well. Advisory was given that persistent or worsening symptoms require further evaluation. I confirmed the understanding of this discussion. Critical Care <Nathanael Varma MD - Last Filed: 04/01/25 15:17> Critical Care Time Critical Care Time: No
--- OUTSIDE RECORDS SUMMARY | 2025-04-01 12:49 | XMS_ITS | Clinical Summary ---
Author Organization [facility] are Address [address] [place] [address] Phone Care Team Providers Care Cloth Shader Name Role Phone Miah Palomino MD Primary Care Physician [phone] Conditions or Problems Problem Name Problem Code Onset Date Status Entry Date Provider Comment Standard Description Annotate Body mass index (BMI) 35.0-35.9; adult Z68.35 (ICD-10-CM ) 05/23 Active 05/23 Duyen Black [employer] Body mass index [BMI] 35.0-35.9, adult Screening for vitamin D deficiency 195283609 (SNOMED CT) 05/23 Active 05/23 Duyen Black [employer] Procedure carried out on subject Screening for diabetes mellitus 622694719 (SNOMED CT) 05/23 Active 05/23 Duyen Black [employer] Diabetes mellitus screening Screening for cardiovascul ar condition 348042056 (SNOMED CT) 05/23 Active 05/23 Duyen Black [employer] Procedure carried out on subject Screening for anemia 776732074 (SNOMED CT) 05/23 Active 05/23 Duyen Black [employer] Anemia screening Screening for thyroid disorder 423751862 (SNOMED CT) 05/23 Active 05/23 Duyen Black [employer] Thyroid disorder screening Body mass index (BMI) 34.0-34.9; adult Z68.34 (ICD-10-CM ) 03/26 Correction 03/28 Duyen Black [employer] Body mass index [BMI] 34.0-34.9, adult Anxiety associated with depression 900023512 (SNOMED CT) 05/23 Active 05/23 Duyen Black [employer] Mixed anxiety and depressive disorder Endometriosi s 244811095 (SNOMED CT) 2014 Active 05/23 Duyen Castro [employer] Endometriosis (clinical) Body mass index (BMI) 34.0-34.9; adult Z68.34 (ICD-10-CM ) 03/26 Removed 03/28 Miah Palomino MD Body mass index [BMI] 34.0-34.9, adult Body mass index (BMI) 34.0-34.9; adult Z68.34 (ICD-10-CM ) 03/26 Correction 03/26 Miah Palomino MD Body mass index [BMI] 34.0-34.9, adult Body mass index (BMI) 34.0-34.9; adult Z68.34 (ICD-10-CM ) 03/26 Removed 03/26 Miah Palomino MD Body mass index [BMI] 34.0-34.9, adult Body mass index (BMI) 34.0-34.9; adult Z68.34 (ICD-10-CM ) 03/26 Correction 03/26 Miah Palomino MD Body mass index [BMI] 34.0-34.9, adult Body mass index (BMI) 34.0-34.9; adult Z68.34 (ICD-10-CM ) 03/26 Removed 03/26 Miah Palomino MD Body mass index [BMI] 34.0-34.9, adult Body mass index (BMI) 34.0-34.9; adult Z68.34 (ICD-10-CM ) 11/20 Correction 11/20 Miah Palomino MD Body mass index [BMI] 34.0-34.9, adult Abscess, LEFT FACE / CHEEK 854511079 (SNOMED CT) 03/26 Inactive 03/26 Miah Palomino MD Abscess Body mass index (BMI) 34.0-34.9; adult Z68.34 (ICD-10-CM ) 11/20 Removed 11/20 Eleanor Hernandez [employer] Body mass index [BMI] 34.0-34.9, adult Sinusitis 43224042 (SNOMED CT) 11/20 Active 11/20 Eleanor Elvira David [employer] Sinusitis Medications Medication Instructions Start Date Stop Date Generic Name NDC Provider PAROXETINE HCL 20 MG TABS TAKE 1 TABLET BY MOUTH ONCE A DAY 9 PAROXETINE HCL 08052611470 Duyen Castro APRN ZOLOFT 100 MG TABS TAKE 1 & 1/2 TABLETS BY MOUTH ONCE A DAY 6 SERTRALINE HCL 68337878585 Duyen Castro APRN HYDROXYZINE HCL 25 MG TABS 9 HYDROXYZINE HCL 31294579971 Duyen Black [employer] POTASSIUM GLUCONATE TABS 9 POTASSIUM GLUCONATE TABS 13621921836 Duyen Castro APRN CYMBALTA 30 MG CPEP 9 DULOXETINE HCL 43910577111 Duyen Castro APRN MUPIROCIN 2 % OINT APPLY TO AFFECTED AREA TWICE A DAY NEEDED FOR INFECTION 2 MUPIROCIN 80384412444 Miah Palomino MD NAPROXEN 500 MG TABS TAKE 1 TABLET BY MOUTH 2 TIMES A DAY NEEDED 2 NAPROXEN 13925516943 Miah Palomino MD CLINDAMYCIN HCL 300 MG CAPS TAKE 1 CAPSULE BY MOUTH 4 TIMES A DAY FOR 10 DAYS 2 CLINDAMYCIN HCL 46894042887 Miah Palomino MD BACTRIM DS 800-160 MG TABS TAKE 1 TABLET BY MOUTH 2 TIMES A DAY FOR 10 DAYS 2 SULFAMETHOXAZO LE-TRIMETHOPRI M 84634178089 Miah Palomino MD PREDNISONE 20 MG TABS TAKE 1 TABLET BY MOUTH 2 TIMES A DAY FOR 5 DAYS 6 PREDNISONE 68449304551 Eleanor Elvira David [employer] AMOXICILLIN 875 MG TABS TAKE 1 TABLET BY MOUTH 2 TIMES A DAY 6 AMOXICILLIN 52910868720 Eleanor Elvira David [employer] ZOLOFT 100 MG TABS TAKE 1 & 1/2 TABLETS BY MOUTH ONCE A DAY 6 SERTRALINE HCL 31140324785 Eleanor Hernandez [employer] Medications Administered No information available. Allergies, Adverse Reactions, Alerts Allergy Name Reaction Description Start Date Severity Statu s Provider SULFA Critical Active Duyen Oliver lack [employer] CODEINE Critical Active Eleanor Be th Hernandez [employer] Results No information available. Plan of Care Type Date Detail Pending order Injection(s) Ord ered Pending order T1 Wound Culture Aerobic Patient education Medications Patient education Patient Educat ion Given Patient education Medications Patient education Patient Educat ion Given Procedures Code Procedure Name Date Entry Date [id number] Medication Reconciliation CPT-3074F Most recent systolic blood pressure <130 mm Hg CPT-3079F Most recent diastoli c blood pressure 80-89 mm Hg [facility] 6399 T1 CBC with diff [facility] 97415 T1 CMP [facility] 927 T1 B12 [facility] 89563 T1 Lipid Panel [facility] 81433 T1 TSH reflex to free T4 201 05/22/09 [facility] 05736 T2 Vitamin D 25 Dihydroxy 20 01/06/09 [id number] Medication Reconciliation CPT-3075F Most recent systolic blood pressure 130-139 mm Hg CPT-3079F Most recent diastoli c blood pressure 80-89 mm Hg [id number] 340B Rocephin 500mg Injection CPT-26556 IMADM >18YR IM ROUTE 1ST VAC/TOXOID 03/26 Inj Order Injection(s) Ordered [facility] 4550 T1 Wound Culture Aerobic 201 05/20/12 [id number] Medication Reconciliation [id number] Giving encouragement to exercise CPT-3075F Most recent systolic blood pressure 130-139 mm Hg CPT-3078F Most recent diastoli c blood pressure <80 mm Hg Vital Signs Date Name Value Unit Description BMI (Body Mass Index) 35.32 kg/m2 Bod y Mass Index (Ratio) Body Temperature 98.4 [degF] temperat ure E&M Body Temperature 36.89 Coby temperat ure in centigrade E&M BP Diastolic 80 mm[Hg] blood pressu re, diastolic BP Systolic 128 mm[Hg] blood pressur e, systolic BSA (Body Surface Area) 2.05 b andria surface area Heart Rate 95 /min pulse rate Height 64 [in_us] height E&M Height 162.56 cm height in cent imeters E&M Weight Measured 205 [lb_av] weight E& M Weight Measured 205 [lb_av] weight E& M Weight Measured 93.18 kg weight in kilograms E&M Respiratory Rate 18 /min respirat ory rate E&M Immunizations No information available. Advance Directives Directive Description Start Date DISCUSSED - NO DECISION MADE
--- OUTSIDE RECORDS SUMMARY | 2025-04-01 12:49 | XMS_ITS | Encounter Summary ---
Author Organization Healthcare Address [address] [place] [address] Care Team Providers Care Yarn Twister Name Role Phone Pcp, No Primary Care Provider Unavailabl e Encounter Details Date Type Department Care Team (Late Contact Info) Description 01/07/2023 Orders Only External Location [address] [place] [address] Provider, External Social History Tobacco Use Types Packs/Day Years Used Date Smoking Tobacco: Never Assessed Comments Unknown Sex and Gender Information Value Date Recorded Sex Assigned at Not on file Legal Sex Female 7:27 PM EDT Gender Identity Not on file Sexual Orientation Not on file documented as of this encounter Plan of Treatment Upcoming Encounters Date Type Department Care Team (Late st Contact Info) Description 05/11/2025 2:45 PM EDT Office Visit [facility] [address] [place] [address] Bell Lorenz documented as of this encounter Procedures Procedure Name Priority Date/Time Associated Diagnosis Comments CT OUTSIDE IMAGES 01/07/2023 11:57 AM EDT documented in this encounter Results * CT OUTSIDE IMAGES (01/07/2023 11:57 AM EDT) Anatomical Region Laterality Modality Computed Tomogra phy 01/07/2023 11:5 7 AM EDT us External Provider IMG CT PROCEDURES Final Result documented in this encounter Visit Diagnoses Not on filedocumented in this encounter Care Teams Yarn Twister Relationship Specialty Start Date End Date Pcp, No [address] [place] [address] PCP - General 06/27/21 documented as of this encounter
--- OUTSIDE RECORDS SUMMARY | 2025-04-01 12:49 | XMS_ITS | Clinical Summary ---
Author Organization Healthcare Address [address] [place] [address] Care Team Providers Care Epic Ambulatory Analyst Name Role Phone Pcp, No Primary Care Provider Unavailabl e Social History Tobacco Use Types Packs/Day Years Used Date Smoking Tobacco: Never Assessed Comments Unknown Sex and Gender Information Value Date Recorded Sex Assigned at Not on file Legal Sex Female 7:27 PM EDT Gender Identity Not on file Sexual Orientation Not on file Plan of Treatment Upcoming Encounters Date Type Department Care Team (Late st Contact Info) Description 05/11/2025 2:45 PM EDT Office Visit [facility] [address] [place] [address] Bell Lorenz Health Maintenance Due Date Last Done Comments [facility]-Depression Screening 1977 [facility]-HIV Screening 1977 [facility]-Hepatitis C Screening 1977 [facility]-/Child/Adol SDOH Screenings 1977 [facility]- SDOH Screenings 1995 [facility]-Adult SDOH Screenings 1995 [facility]-DTaP,Tdap,and Td Vaccine s (1 - Tdap) 1996 [facility]-Hepatitis B Vaccines (1 of 3 - 19+ 3-dose series) 1996 [facility]-Pap Smear 10/31/2003 10/31/2000 [facility]-Cervical Cancer Screening 2007 [facility]-HPV/Cotest 2007 10/31/2000 CT Colonography 2022 Colonoscopy 2022 FIT-DNA 2022 FIT 2022 FOBT 2022 Sigmoidoscopy 2022 [facility]-Colorectal Cancer Screening 2022 TBB-QDTSL-60 Vaccine (1 - 20 24-25 season) 2024 [facility]-Influenza Vaccine (Seaso n Ended) 2025 [facility]-Zoster Vaccines (1 of 2) 2027 [facility]-Pneumococcal Vaccine: Pediatrics (0 to 5 Years) and At-Risk Patients (6 to 49 Years) Aged Out 01/06/2019 No long er eligible based on patient's age to complete this topic HPV Vaccines Aged Out No longer eligi ble based on patient's age to complete this topic [facility]-HIB Vaccines Aged Out No longer e ligible based on patient's age to complete this topic [facility]-Hepatitis A Vaccines Aged Out No longer eligible based on patient's age to complete this topic [facility]-IPV Vaccines Aged Out No longer e ligible based on patient's age to complete this topic [facility]-Rotavirus Vaccines Aged Out No lo nger eligible based on patient's age to complete this topic Procedures Procedure Name Priority Date/Time Associated Diagnosis Comments CYTO DATA CONVERSION Routine 10/31/2000 12:00 AM EST from Last 3 Months or Most Recently Relevant to Health Maintenance Results * Cytology (10/31/2000 12:00 AM EST) 10/31/2000 11/01/2000 10: 48 AM EST Narrative [facility]QUEST - 11/07/2000 9:33 AM EST [facility] MR #: [id number] [facility] [place], [place] [address] 1975 (Age: 25) FW Collect Date: 10/31/2000 00:00 Receipt Date: 11/01/2000 10:48 Page 1 DEPARTMENT OF PATHOLOGY AND LABORATORY MEDICINE CYTOPATHOLOGY REPORT Email: [email or web address] ATTENDING MD/Practitioner: Yuliya Huizar M.D. Service: OB Location: OB OTHER MD(S): Tay Hernandez MD Reported: 11/07/2000 09:33 Collected: 10/31/2000 00:00 INTERPRETATION THIN PREP (CERVICAL/VAGINAL): WITHIN NORMAL LIMITS. SATISFACTORY BUT LIMITED BY SPARSE TO NO ENDOCERVICAL CELLS. Electronically Signed Out By GRECIA Rudolph(ASCP) GRECIA Arnett (ASCP) GRECIA Rudolph(ASCP) Cervical cytology is a screening test primarily for squamous cancers and precursors and has associated false negative and positive results. New technologies such as liquid based sampling may decrease but will not eliminate all false negative results. Regular screening and follow-up of unexplained clinical signs and symptoms are recommended to minimize false negative results. Please see the ASCCP website (www.[email or web address]) for followup recommendations. If HPV testing was requested, correlation with the results is suggested (please call Microbiology at [phone] for results). CLINICAL INFORMATION: Menstrual History: : Second trimester Date of Last Menstrual Period: {Not Provided} SPECIMEN DESCRIPTION: A: THIN PREP (CERVICAL/VAGINAL) THIN PREP PROCESS CELLULAR ENHANCEMENT ICD: V76.2 CERVIX, SPECIAL SCREENING FOR MALIGNANT NEOPLASM V22.1 SUPERVISION OF OTHER NORMAL F: A; THIN SCRN 14063 SNOMED CODES: A; [id number] In cases where a pathologist has signed out the report, the service has been rendered in part by a resident. The signing pathologist has performed and is responsible for the reported pathologic evaluation. us Historical Provider MD LAB PATHOLOGY ORDERABLES Final Result Performing Organization Address City/State/[facility] Co de Phone Number SUNQUEST from Last 3 Months or Most Recently Relevant to Health Maintenance Insurance [facility] MEDICAID [place] [facility] MED[facility] Care Teams Epic Ambulatory Analyst Relationship Specialty Start Date End Date Pcp, [place] [address] PCP - General 06/27/21
--- OUTSIDE RECORDS SUMMARY | 2025-04-01 12:49 | XMS_ITS | Clinical Summary ---
Author Organization [facility] Primary Care Address [address] [place] [address] Phone Care Team Providers Care Director Of Sustainability Programs Name Role Phone Miah Palomino MD Primary Care Provider [phone] Allergies Active Allergy Reactions Criticality Noted Date Comments Septra I.V. Rash 04/17/2019 Buspirone Anxiety 07/13/2010 Citalopram Anxiety Codeine Anxiety Per patient report it causes anxiety Fluoxetine Anxiety 07/08/2010 Sulfa (Sulfonamide Antibiotics) Hives 03/25/2022 Medications sertraline (ZOLOFT) 100 mg Oral Tablet Take 100 mg by mouth daily. Active gabapentin (NEURONTIN) 600 mg Oral Tablet Take 600 mg by mouth 2 times daily. Active Active Problems Patient Care Coordination No te Formatting of this note migh t be different from the original. CSTA-05/30/12 JAYCE-05/30/12 SOAPP-05/30/12 Tee 05/30/12 UDS 02/26/12 Problem Noted Date Diagnosed Date Hydronephrosis of right kidney 01/05/2019 Right ureteral stone 01/05/2019 Cysts of both ovaries 01/05/2019 Enlarged uterus 01/05/2019 Smoker 01/05/2019 LACEY (generalized anxiety disorder) 10/12/2011 Bipolar affective disorder 12/06/2010 Panic attack Pyelonephritis of right kidney MRSA bacteremia Acute kidney injury Thrombocytopenia Nephrolithiasis Resolved Problems Problem Noted Date Diagnosed Date Resolved Date Depression 12/06/2010 12/14/2010 Anxiety 11/11/2010 10/12/2011 Immunizations Immunization Administration Dates Next Due PPD Test 12/30/2009 Pneumococcal Polysaccharide 23 Valent 01/06/2019 Surgical History Surgery Date Site/Laterality Comments CHOLECYSTECTOMY SECTION TUBAL LIGATION CYSTOSCOPY 01/05/2019 with stent placement URETEROSCOPY 01/05/2019 Right cystoscopy, Right ureteroscopy, laser lithotripsy stone extraction right stent placement; Surgeon: Tiffanie Alexandra MD; Location: [facility] MAIN OR; Service: Urology Medical devices from this surgery are in the Medical Devices section. CYSTOSCOPY 04/17/2019 Right Cystoscopy, Right Stent Placement; Surgeon: Caesar Enriquez MD; Location: [facility] MAIN OR; Service: Urology Medical devices from this surgery are in the Medical Devices section. IR PICC INSERTION EQUAL OR > 5 YEARS 04/22/2019 IR PICC INSERTION EQUAL OR > 5 YEARS 04/22/2019 Mehnaz Rodriguez PA-C DOMINIC IR URETEROSCOPY 06/04/2019 Ureter/Right CYSTOSCOPY, RIGHT STENT exchangeLASER LITHOTRIPSY, RIGHT URETEROSCOPY; Surgeon: Tiffanie Alexandra MD; Location: [facility] MAIN OR; Service: Urology Medical devices from this surgery are in the Medical Devices section. UPPER GASTROINTESTINAL ENDOSCOPY Medical History Medical History Date Comments Ovarian mass Ovarian cyst Panic attack Anxiety 11/11/2010 Bipolar affective disorder (HCC) 12/06/2010 Pt states she is not bipolar Depression 12/06/2010 Renal disorder not releasing Ca Kidney stone 01/05/2019 Pyelonephritis RIGHT Family History Medical History Relation Name Comments Depression Paternal Aunt Depression Sister Bipolar Disorder Neg Hx Relation Name Status Comments Paternal Aunt Sister Social History Tobacco Use Types Packs/Day Years Used Date Smoking Tobacco: Every Day Cigarettes 1.5 32.5 Started: 10/15/1992 Smokeless Tobacco: Never Tobacco Cessation:Ready to Q uit: No Alcohol Use Standard Drinks/Week Comments No 0 (1 standard drink = 0.6 oz pur e alcohol) Sexually Active Control Partners Comments Yes Male Comments No Sex and Gender Information Value Date Recorded Sex Assigned at Not on file Legal Sex Female 6:28 PM EDT Gender Identity Not on file Sexual Orientation Not on file Obstetrics History Last Filed Vital Signs Vital Sign Reading Time Taken Comments Blood Pressure 136/82 03/25/2022 3:49 PM EDT Pulse 87 03/25/2022 3:49 PM EDT Temperature 36.6 C (97.8 F) 03/25/2022 3:49 PM EDT Respiratory Rate 16 03/25/2022 3:49 PM EDT Oxygen Saturation 100% 03/25/2022 3:49 PM EDT Inhaled Oxygen Concentration - - Weight 93 kg (205 lb) 03/25/2022 3:49 PM EDT Height 162.6 cm (5' 4 ) 03/25/2022 3:49 PM EDT Body Mass Index 35.19 03/25/2022 3:49 PM EDT Plan of Treatment Health Maintenance Due Date Last Done Comments Annual Wellness Exam 1980 DTaP/TDaP/Td (1 - Tdap) 1996 Hepatitis B Vaccine (1 of 3 - 19+ 3-dose series) 1996 Cervical Cancer Screening 1998 Pap Smear 1998 HPV/Pap Cotest 2007 Breast Cancer Screening 2017 Cologuard 2022 Colon Cancer Screening 2022 Colonoscopy 2022 FIT 2022 Sigmoidoscopy 2022 Virtual Colonography 2022 COVID-19 Vaccine ( - 2023-2 5 season) 2024 Influenza Vaccine (Season Ended) 2025 11/15/2015 (Declined) Pneumococcal Vaccine 0-49 Aged Out 01/06/2019 No longer eligible based on patient's age to complete this topic Meningococcal B Vaccine Aged Out No l onger eligible based on patient's age to complete this topic Medical Devices Implanted Type Area Dry Mixer Device Identifier Shelf Expiration Date Model / Serial / Lot Stent Contour 6 X 24 #[id number] - [id number] Implanted:Qty: 1 on 06/04/2019 by Tiffanie Alexandra MD at [facility] Stent Right: Ureter [employer]: UROLOGY 03/09/2022 [id number] / / [id number] Stent Ureteral Contour 6 X 22cm - [id number] Implanted:Qty: 1 on 04/17/2019 by Caesar Enriquez MD at [facility] Right: Ureter [employer]:MICR[employer]: UROLOGY 01/07/2021 [id number] / / [id number] Explanted Type Area Dry Mixer Device Identifier Shelf Expiration Date Model / Serial / Lot Stent Contour 6 X 24 #[id number] - [id number] Implanted:Qty: 1 on 01/05/2019 by Tiffanie Alexandra MD at [facility] Explanted:Qty: 1 on 06/04/2019 by Tiffanie Alexandra MD at [facility] Stent Right: Ureter [employer]MICR[employer]: UROLOGY 02/06/2021 [id number] / / [id number] Insurance PLAN BY [facility] Advance Directives For more information, please contact: [phone] * Full Code (Latest Code Status on File) Date Activated Date Inactivated Comments 04/17/2019 1:20 PM 04/21/2019 9:20 PM * Full Code Date Activated Date Inactivated Comments 01/05/2019 7:36 PM 01/05/2019 11:37 PM Care Teams Director Of Sustainability Programs Relationship Specialty Start Date End Date Miah Palomino MD PCP - General Family Medicine 11/25/16
--- OUTSIDE RECORDS SUMMARY | 2025-04-01 12:49 | XMS_ITS | Encounter Summary ---
Author Organization Healthcare Address [address] [id number] Care Team Providers Care Utilization Coordinator Name Role Phone Pcp, No Primary Care Provider Unavailabl e Encounter Details Date Type Department Care Team (Late Contact Info) Description 03/03/2022 Orders Only External Location [address] [place] [address] Marcial Landaverde MD [address] [place] [address] Social History Tobacco Use Types Packs/Day Years Used Date Smoking Tobacco: Never Assessed Comments Unknown Sex and Gender Information Value Date Recorded Sex Assigned at Not on file Legal Sex Female 7:27 PM EDT Gender Identity Not on file Sexual Orientation Not on file documented as of this encounter Plan of Treatment Upcoming Encounters Date Type Department Care Team (Late Contact Info) Description 05/11/2025 2:45 PM EDT Office Visit [facility] [address] [place] [address] Bell Lorenz documented as of this encounter Procedures Procedure Name Priority Date/Time Associated Diagnosis Comments CT ABDOMEN PELVIS W IV CONTRAST 03/03/2022 1:24 AM EDT documented in this encounter Results * CT Abdomen Pelvis w IV Contrast (03/03/2022 1:24 AM EDT) Anatomical Region Laterality Modality Abdomen, Pelvis Computed Tomogra phy 03/03/2022 1:24 AM EDT us Marcial Landaverde MD IMG CT PROCEDURES Final Resu lt documented in this encounter Visit Diagnoses Not on filedocumented in this encounter Care Teams Utilization Coordinator Relationship Specialty Start Date End Date Pcp, No [address] [place] [address] PCP - General 06/27/21 documented as of this encounter
--- OUTSIDE RECORDS SUMMARY | 2025-04-01 12:49 | XMS_ITS | Patient Health Record ---
Author Organization [employer] [facility] Address [address] [place] [address] Care Team Providers Care Robotics Engineer Name Role Phone Migration, Provider Unavailable Unavailable Allergies Allergen (clinical drug ingredient) Drug/Non Drug Allergy documented on EMR Reaction Allergy Type Onset Date Status citalopram CeleXA felt like she wants to jump out of skin Drug Allergy Active fluoxetine PROzac Unknown Drug Allergy Active Tylenol with Codeine SOB Drug Allergy Active BuSpar Unknown Drug Allergy Active Reason For Referral No Information Medications Medication SIG (Take, Route, Frequency, Duration) Notes Start Date End Date Status Sertraline HCl 100 MG Tablet 1 tab(s) orally once a day; Duration: 30 day(s) 05/13/2021 Active Suboxone 8-2 MG Film 2 film(s) sublingua lly once a day Active Social History Social History Additional Details Category Social Info Options Details Social History Occupation [employer] Occupational exposure none Travel outside [place] no Alcohol no Sexually active yes Drug use no Exercise no Home smoke detector use: yes Caffeine yes Marital Status Children 2 Pets 2 dogs Problems Problem Type SNOMED Code ICD Code Onset Dates Problem Status W/U Status Risk Notes Problem Information temporarily unavailable Essential (primary) hypertension (I10) Active confirmed Problem Information temporarily unavailable 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) Active confirmed Problem Information temporarily unavailable Major depressive disorder, recurrent, moderate (F33.1) Active confirmed Problem Information temporarily unavailable Generalized anxiety disorder (F41.1) Active confirmed Problem Information temporarily unavailable Malposition of uterus (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.4) Active confirmed Problem Information temporarily unavailable Gastro-esophagea l reflux disease without esophagitis (K21.9) Active confirmed Problem Information temporarily unavailable Sciatica, left side (M54.32) Active confirmed Problem Information temporarily unavailable Fibromyalgia (M79.7) Active confirmed Problem Information temporarily unavailable Generalized anxiety disorder (F41.1) Active confirmed Problem Information temporarily unavailable Panic disorder [episodic paroxysmal anxiety] (F41.0) Active confirmed Encounters Encounter Location Date Provider Diagnosis [facility] [address] [place] [address] 03/21/2025 Provider Migration Plan Of Treatment Pending Test Test Name Order Date PTH,INTACT AND CALCIUM 01/07/2014 PROTEIN TOTAL, 24 HOUR URINE WITH CREATI NINE 12/30/2015 Insurance Providers Payer Name Payer Address Payer Phone Subscriber Number Group Number Insured Name Patient Relationship to Insured Coverage Start Date Coverage End Date Passport by [employer] (Medicaid) [address] [address] [place] Huang [place] [id number] Armida Horta Self - patient is the insured Medical (General) History Medical History History ICD Code Generalized anxiety disorder Endometriosis (dr. hamilton) Surgical History Surgery Date(Month/Year) 2004 Tooth Extraction 2000 Cholecystectomy 09/2001 Cystectomy and tubal ligation 03/2014 Endometriosis surgery 04/2014 tubal 2016
[2025-04-01 12:52] LABS: Microscopic, Urine URINE MICROSCOPIC (MICROSCOPIC)
[2025-04-01] MEDS: KETOROLAC 30MG/ML VIAL 15 MG IV ×2 (12:54→15:26)
[2025-04-01] MEDS: LACTATED RINGERS 1000ML 1,000 ML 999 ML IV (12:54)
[2025-04-01 12:55] LABS: Appearance,Urine CLEAR (Clear); Bilirubin,Urine Negative (Negative); Blood, Urine TRACE-I (Negative); Color,Urine YELLOW (Yellow); Glucose,Urine (UA) Negative (Negative); Ketones,Urine Negative (Negative); Leukocyte Esterase,Urine Negative (Negative); Nitrate,Urine Negative (Negative); PH,Urine 6.5 (5.0-8.5); Protein,Urine Negative (Negative); Urobilinogen,Urine 0.2 EU/dl (0.2)
[2025-04-01] MEDS: ONDANSETRON 4MG/2ML VIAL 4 MG IV (12:55)
[2025-04-01 12:58] LABS: Basophils # 0.1 K/mm3 (0-0.2); Basophils % 0.8 % (0.1-2.0); Eosinophils # 0.3 Kmm3 (0.0-0.4); Eosinophils % 4.1 % (0.1-12.0); Hematocrit 40.5 % (37.0-47.0); Hemoglobin 13.4 g/dL (12.2-16.2); Immature Granulocytes # 0.01 10^3uL; Immature Granulocytes % 0.1 %; Lymphocytes # 3.4 K/mm3 (0.7-4.5); Lymphocytes % 45.5 % (10-50); Mean Corpuscular HGB Conc 33.1 g/dL (31.8-35.4); Mean Corpuscular Hemoglobin 28.6 pg (27.0-31.2); Mean Corpuscular Volume 86.5 fl (81-99); Mean Platelet Volume 11.7 fl (7.4-10.4); Monocytes # 0.4 K/mm3 (0.1-1.0); Monocytes % 4.9 % (1.7-9.3); Neutrophils # 3.4 K/mm3 (1.8-7.8); Neutrophils % 44.6 % (37.0-80.0); Nucleated Red Blood Cells # 0 10^3/uL; Nucleated Red Blood Cells % 0 %; Platelet Count 170 K/mm3 (142-424); Red Blood Count 4.68 M/mm3 (4.20-5.40); Red Cell Distribution Width 15.2 % (11.5-17.5); White Blood Count 7.5 K/mm3 (4.8-10.8)
[2025-04-01 13:10] LABS: HCG Qualitative, Serum Negative (Negative)
[2025-04-01 13:12] LABS: Alanine Aminotransferase 14 U/L (12-78); Albumin Level 4.2 g/dl (3.5-5.0); Albumin/Globulin Ratio 1.4 (1.1-1.8); Alkaline Phosphatase 71 U/L (38-126); Anion Gap 6.5 mEq/L (5-15); Aspartate Amino Transferase 24 U/L (14-36); Bilirubin,Total 0.3 mg/dl (0.2-1.3); Blood Urea Nitrogen 14 mg/dl (7-17); Calcium 9.5 mg/dl (8.4-10.2); Carbon Dioxide 29 mmol/L (22.0-30.0); Chloride 105 mmol/L (98-107); Creatinine Clearance Estimated 90 mL/min (50-200); Estimated Glomerular Filt Rate 59 ml/min (>60); GFR (African American) 72 ML/MIN (>60); Globulin 3.1 g/dL (1.3-3.2); Glucose 98 mg/dl (74-100); Potassium 3.5 mmoL/L (3.5-5.1); Sodium 137 mmol/L (136-145); Total Protein,Serum 7.3 g/dl (6.3-8.2)
[2025-04-01] MEDS: ACETAMINOPHEN 500MG TAB 1000 MG PO (13:41)
--- NOTE | 2025-04-01 13:42 | PC.NURSE ---
Calling [facility]
--- NOTE | 2025-04-01 13:47 | PC.NURSE ---
E transfer center stated the is a hold on admitting due to at capacity. will call back with any info moving forward
--- NOTE | 2025-04-01 13:57 | PC.NURSE ---
Addendum entered by Anusha Chan 04/01/25 14:00: Will call back, Left voicemail Original Note: calling [facility] for transfer/consult.
--- NOTE | 2025-04-01 14:33 | PC.NURSE ---
[facility] ([facility]) called back. will not accept any consults at this time. notified
--- NOTE | 2025-04-01 14:37 | PC.NURSE ---
calling [facility] for consult/transfer
--- NOTE | 2025-04-01 14:41 | PC.NURSE ---
[facility] is to call back with urology
[2025-04-01 14:46] LABS: Bacteria,Urine Trace /lpf; Squamous Epithelial Cell,Urine 50-100 #/hpf (0-5)
--- NOTE | 2025-04-01 15:32 | PC.NURSE ---
daughter advised she needed to leave and if pt is transferred or dc before she gets back to call her. [phone]
--- NOTE | 2025-04-01 15:44 | PC.NURSE ---
talked to brandan Toro in [place] at this time when finished will call YASSINE SOLER back
[2025-04-01] MEDS: BUPRENORPHINE/NALOXONE 8MG/2MG ODT 1 EACH SL (16:20)
--- NOTE | 2025-04-01 16:41 | PC.NURSE ---
[facility] called and is speaking with Dr Ortiz at this time
--- NOTE | 2025-04-01 16:48 | PC.NURSE ---
SPOKE WITH A PHYSICIAN AT [facility] WHO STATES THEY RECOMMEND SEEING HER IN THEIR CLINIC TOMORROW OUT PT.
--- NOTE | 2025-04-01 16:50 | PC.NURSE ---
BEDSIDE UPDATING THE PT
== END 2025-04-01 17:00 | disposition home or self-care (01) ==
PROVIDERS: Student in an Organized Health Care Education/Training Program; Emergency Provider Emergency Medicine; PCP Family Medicine
DX: N13.2 Hydronephrosis with renal and ureteral calculous obstruction (principal); R10.31 Right lower quadrant pain; M54.59 Other low back pain; F17.210 Nicotine dependence, cigarettes, uncomplicated
CPT/HCPCS: 74176; 80053; 81001; 84703; 85025; 96361; 96374; 96375; 99285; J0574; J1885; J2405; J7120

== ENCOUNTER 2025-04-04 14:40 | Emergency (ER) | payer MEDICAID, SELFPAY ==
--- OUTSIDE RECORDS SUMMARY | 2025-03-21 17:30 | XMS_ITS ---
Author Organization [facility] Address [address] [place] [address] Care Team Providers Care Diagnostics Tech Name Role Phone Migration, Provider Unavailable Unavailable [...] Active Encounters Encounter Location Date Provider Diagnosis [facility] [address] [place] [address] 03/21/2025 Provider Migration Plan Of Treatment No Information Progress Notes * Armida HORTA SDOB:[birth year] (49 yo F)Acc No.[id number]:03/21/2025 Patient: Armida Ly Provider: :1975 A ge:49 Y S ex:Female Date:03/21/2025 Address:[address] [id number] Subjective: * Chief Complaints: * M ultum [...] Electronic signature of Prov ider Migration on 04/04/2025 at 02:57 PM EDT Sign off status: Pending * Provider: Date: 03/21/2025 Generated for Ani rodriguez/Naveed/Brendon on: 04/04/2025 02:57 PM EDT
[2025-04-04] VITALS (7 sets, daily range): BP systolic 131–150; BP diastolic 77–108; PULSE 73–115; RESP 18–22; TEMP 36.5–36.7; O2SAT 96–100; BMI 31.8
--- OUTSIDE RECORDS SUMMARY | 2025-04-04 14:57 | XMS_ITS | Clinical Summary ---
Author Organization [facility] [facility] are Address [address] [place] [address] Phone Care Team Providers Care Inventory Controller Name Role Phone Miah Palomino MD Primary Care Physician [phone] Conditions or Problems Problem Name Problem Code Onset Date Status Entry Date Provider Comment Standard Description Annotate Body mass index (BMI) 35.0-35.9; adult Z68.35 (ICD-10-CM ) 05/23 Active 05/23 Duyen Black EMPLOYMENT OFFICE CLERK Body mass index [BMI] 35.0-35.9, adult Screening for vitamin D deficiency 171247488 (SNOMED CT) 05/23 Active 05/23 Duyen Black EMPLOYMENT OFFICE CLERK Procedure carried out on subject Screening for diabetes mellitus 564524206 (SNOMED CT) 05/23 Active 05/23 Duyen Black EMPLOYMENT OFFICE CLERK Diabetes mellitus screening Screening for cardiovascul ar condition 672934756 (SNOMED CT) 05/23 Active 05/23 Duyen Black EMPLOYMENT OFFICE CLERK Procedure carried out on subject Screening for anemia 550058108 (SNOMED CT) 05/23 Active 05/23 Duyen Black EMPLOYMENT OFFICE CLERK Anemia screening Screening for thyroid disorder 871409191 (SNOMED CT) 05/23 Active 05/23 Duyen Black EMPLOYMENT OFFICE CLERK Thyroid disorder screening Body mass index (BMI) 34.0-34.9; adult Z68.34 (ICD-10-CM ) 03/26 Correction 03/28 Duyen Black EMPLOYMENT OFFICE CLERK Body mass index [BMI] 34.0-34.9, adult Anxiety associated with depression 422550545 (SNOMED CT) 05/23 Active 05/23 Duyen Black EMPLOYMENT OFFICE CLERK Mixed anxiety and depressive disorder Endometriosi s 128816667 (SNOMED CT) 2014 Active 05/23 Duyen Castro EMPLOYMENT OFFICE CLERK Endometriosis (clinical) Body mass index (BMI) 34.0-34.9; [...] 34.0-34.9, adult Abscess, LEFT FACE / CHEEK 174340806 (SNOMED CT) 03/26 Inactive 03/26 Miah Palomino MD Abscess Body mass index (BMI) 34.0-34.9; adult Z68.34 (ICD-10-CM ) 11/20 Removed 11/20 Eleanor Hernandez EMPLOYMENT OFFICE CLERK Body mass index [BMI] 34.0-34.9, adult Sinusitis 99131116 (SNOMED CT) 11/20 Active 11/20 Eleanor Elvira David [employer]CHANT[employer] Sinusitis Medications Medication Instructions Start Date Stop Date Generic Name NDC Provider PAROXETINE HCL 20 MG TABS TAKE 1 TABLET BY MOUTH ONCE A DAY 9 PAROXETINE HCL 25350372156 Duyen Castro APRN ZOLOFT 100 MG TABS TAKE 1 & 1/2 TABLETS BY MOUTH ONCE A DAY 6 SERTRALINE HCL 56246668900 Duyen aCstro APRN HYDROXYZINE HCL 25 MG TABS 9 HYDROXYZINE HCL 25256190341 Duyen Black EMPLOYMENT OFFICE CLERK POTASSIUM GLUCONATE TABS 9 POTASSIUM GLUCONATE TABS 07925710853 Duyen Castro APRN CYMBALTA 30 MG CPEP 9 DULOXETINE HCL 05821411835 Duyen Castro APRN MUPIROCIN 2 % OINT APPLY TO AFFECTED AREA TWICE A DAY NEEDED FOR INFECTION 2 MUPIROCIN 33775259922 Miah Palomino MD NAPROXEN 500 MG TABS TAKE 1 TABLET BY MOUTH 2 TIMES A DAY NEEDED 2 NAPROXEN 85326684437 Miah Palomino MD CLINDAMYCIN HCL 300 MG CAPS TAKE 1 CAPSULE BY MOUTH 4 TIMES A DAY FOR 10 DAYS 2 CLINDAMYCIN HCL 29404495111 Miah Palomino MD BACTRIM DS 800-160 MG TABS TAKE 1 TABLET BY MOUTH 2 TIMES A DAY FOR 10 DAYS 2 SULFAMETHOXAZO LE-TRIMETHOPRI M 13268484672 Miah Palomino MD PREDNISONE 20 MG TABS TAKE 1 TABLET BY MOUTH 2 TIMES A DAY FOR 5 DAYS 6 PREDNISONE 21313321454 Eleanor Elvira David [employer] AMOXICILLIN 875 MG TABS TAKE 1 TABLET BY MOUTH 2 TIMES A DAY 6 AMOXICILLIN 75702173813 Eleanor Elvira David [employer] ZOLOFT 100 MG TABS TAKE 1 & 1/2 TABLETS BY MOUTH ONCE A DAY 6 SERTRALINE HCL 32095790428 Eleanor Hernandez EMPLOYMENT OFFICE CLERK Medications Administered No information available. Allergies, Adverse Reactions, Alerts Allergy Name Reaction Description Start Date Severity Statu s Provider SULFA Critical Active Duyen Oliver lack EMPLOYMENT OFFICE CLERK CODEINE Critical Active Eleanor Be th Hernandez EMPLOYMENT OFFICE CLERK Results No information available. Plan of Care Type Date Detail Pending order Injection(s) Ord ered Pending order T1 Wound Culture Aerobic Patient education Medications Patient education Patient Educat ion Given Patient education Medications Patient education Patient Educat ion Given Procedures Code Procedure Name Date Entry Date [facility]-[id number] Medication Reconciliation CPT-3074F Most recent systolic blood pressure <130 mm Hg CPT-3079F Most recent diastoli c blood pressure 80-89 mm Hg [facility] 6399 T1 CBC with diff [facility] 05711 T1 CMP [facility] 927 T1 B12 [facility] 33875 T1 Lipid Panel [facility] 98094 T1 TSH reflex to free T4 201 05/22/09 [facility] 98525 T2 Vitamin D 25 Dihydroxy 20 01/06/09 [id number] Medication Reconciliation CPT-3075F Most recent systolic blood pressure 130-139 mm Hg CPT-3079F Most recent diastoli c blood pressure 80-89 mm Hg K3544-809M 340B Rocephin 500mg Injection CPT-17975 IMADM >18YR IM ROUTE 1ST VAC/TOXOID 03/26 Inj Order Injection(s) Ordered [facility] 4550 T1 Wound Culture Aerobic 201 05/20/12 [id number] Medication Reconciliation [id number] Giving encouragement to exercise CPT-3075F Most recent [...]
--- OUTSIDE RECORDS SUMMARY | 2025-04-04 14:57 | XMS_ITS | Encounter Summary ---
Author Organization Healthcare Address [address] [place] [address] Care Team Providers Care Manager Studio Name Role Phone Pcp, No Primary Care Provider Unavailabl e Encounter Details Date Type Department Care Team (Late Contact Info) Description 01/07/2023 Orders Only External Location [address] [place] [address] Provider, External Social History Tobacco Use Types [...] Office Visit [facility] [address] [place] [address] Bell Lorenz documented as of this encounter [...] on filedocumented in this encounter Care Teams Manager Studio Relationship Specialty Start Date End Date Pcp, No [address] [place] [address] PCP - General 06/27/21 documented as of this encounter
--- OUTSIDE RECORDS SUMMARY | 2025-04-04 14:57 | XMS_ITS | Encounter Summary ---
Author Organization Healthcare Address [address] [phone] Care Team Providers Care Lapping Machine Set Up Operator Name Role Phone Pcp, No Primary Care Provider Unavailabl e Encounter Details Date Type Department Care Team (Late Contact Info) Description 03/03/2022 Orders Only External Location [address] [place] [address] Marcial Landaverde MD [address] [place] [address] Social History Tobacco Use Types Packs/Day Years [...] Office Visit [facility] [address] [place] [address] Bell Lorenz documented as of this encounter [...] on filedocumented in this encounter Care Teams Lapping Machine Set Up Operator Relationship Specialty Start Date End Date Pcp, No [address] [place] [address] PCP - General 06/27/21 documented as of this encounter
--- OUTSIDE RECORDS SUMMARY | 2025-04-04 14:57 | XMS_ITS | Clinical Summary ---
Author Organization 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 CYSTOSCOPY 04/17/2019 Right Cystoscopy, Right Stent Placement; Surgeon: Caesar Enriquez MD; Location: [facility] MAIN OR; Service: Urology Medical devices from this surgery are in the Medical Devices section. IR PICC INSERTION EQUAL OR > 5 YEARS 04/22/2019 IR PICC INSERTION EQUAL OR > 5 YEARS 04/22/2019 Mehnaz Rodriguez PA-C DOMINIC IR URETEROSCOPY 06/04/2019 Ureter/Right CYSTOSCOPY, RIGHT STENT exchangeLASER LITHOTRIPSY, RIGHT URETEROSCOPY; Surgeon: Tiffanie Alexandra MD; Location: [facility] MAIN OR; Service: Urology Medical [...] this topic Medical Devices Implanted Type Area Dice Manager Device Identifier Shelf Expiration Date Model / Serial / Lot Stent Contour 6 X 24 #180-222-01 - [id number] Implanted:Qty: 1 on 06/04/2019 by Tiffanie Alexandra MD at [facility] Stent Right: Ureter [employer]:MICROVASIVE: UROLOGY 03/09/2022 180-222 / / [id number] Stent Ureteral Contour 6 X 22cm - [id number] Implanted:Qty: 1 on 04/17/2019 by Caesar Enriquez MD at [facility] Right: Ureter [employer]:MICROVASIVE: UROLOGY 01/07/2021 [id number] / / [id number] Explanted Type Area Dice Manager Device Identifier Shelf Expiration Date Model / Serial / Lot Stent Contour 6 X 24 #[id number] - [id number] Implanted:Qty: 1 on 01/05/2019 by Tiffanie Alexandra MD at [facility] Explanted:Qty: 1 on 06/04/2019 by Tiffanie Alexandra MD at [facility] Stent Right: Ureter [employer]:MICROVASIVE: UROLOGY 02/06/2021 180-222 / / [id number] Insurance PLAN BY [facility] Advance Directives For more information, please contact: [phone] * Full Code (Latest Code Status on File) Date Activated Date Inactivated Comments 04/17/2019 1:20 PM 04/21/2019 9:20 PM * Full Code Date Activated Date Inactivated Comments 01/05/2019 7:36 PM 01/05/2019 11:37 PM Care Teams Portable Feed Mill Operator Relationship Specialty Start Date End Date Miah Palomino MD PCP - General Family Medicine 11/25/16
--- OUTSIDE RECORDS SUMMARY | 2025-04-04 14:57 | XMS_ITS | Patient Health Record ---
Author Organization [facility] Address [address] [place] [address] Care Team Providers Care Event Host Name Role Phone Migration, Provider Unavailable Unavailable [...] confirmed Encounters Encounter Location Date Provider Diagnosis [facility] Medicine [address] [place] [address] 03/21/2025 Provider Migration Plan Of Treatment Pending Test Test Name Order Date PTH,INTACT AND CALCIUM 01/07/2014 PROTEIN TOTAL, 24 HOUR URINE WITH CREATI NINE 12/30/2015 Insurance Providers Payer Name Payer Address Payer Phone Subscriber Number Group Number Insured Name Patient Relationship to Insured Coverage Start Date Coverage End Date Passport by [employer] (Medicaid) [address] [address] [place] Huang [place] [id number] Armida Horta Self - patient is the insured Medical (General) History Medical History History ICD Code Generalized anxiety disorder Endometriosis (dr. hamilton) Surgical History Surgery Date(Month/Year) 2004 Tooth Extraction 2000 Cholecystectomy 09/2001 Cystectomy and tubal ligation 03/2014 Endometriosis surgery 04/2014 tubal 2016
--- NOTE | 2025-04-04 14:58 | CT_ITS ---
PROCEDURE INFORMATION: Exam: CT Abdomen And Pelvis With Contrast Exam date and time: 04/04/2025 3:45 PM Age: 49 years old Clinical indication: Abdominal pain; Additional info: R flank pain. HX of known kidney stone. TECHNIQUE: Imaging protocol: Computed tomography of the abdomen and pelvis with contrast. Radiation optimization: All CT scans at this facility use at least one of these dose optimization techniques: automated exposure control; mA and/or kV adjustment per patient size (includes targeted exams where dose is matched to clinical indication); or iterative reconstruction. Contrast material: ISOVUE; Contrast volume: 75 ml; Contrast route: IV; COMPARISON: 1. CT ABDOMEN PELVIS WO CON 04/01/2025 1:[address] ABDOMEN PELVIS W CON 08/01/2023 6:05 PM FINDINGS: Lungs: Lung bases are clear. Liver: Fatty liver changes with associated hepatomegaly measuring 17.3 cm. Liver otherwise unremarkable. Gallbladder and biliary ducts: Status post cholecystectomy. No evident bile duct dilatation allowing for prior cholecystectomy. Pancreas: Normal. No ductal dilation. Spleen: Normal. No splenomegaly. Adrenal glands: Normal. No mass. Kidneys and ureters: Stable 15 mm cyst in the posterior right kidney compared to CT of 08/01/2023. No follow-up advised. Obstructing 8 mm stone in the distal right ureter at the ureterovesical junction with associated mild right-sided hydroureteronephrosis. Nonobstructing left kidney stones largest measuring 6 mm. Left kidney and ureter otherwise unremarkable with no obstructing stones or uropathy. Stomach and bowel: Unremarkable. No obstruction. No mucosal thickening. Appendix: Appendix is normal. No evidence of appendicitis. Intraperitoneal space: Unremarkable. No free air. No significant fluid collection. Vasculature: Unremarkable. No abdominal aortic aneurysm. Lymph nodes: Unremarkable. No enlarged lymph nodes. Urinary bladder: Unremarkable as visualized. Reproductive: Enlarged retroverted uterus redemonstrated. A 3.6 cm cyst right ovary. A 3.5 cm low-density lesion left ovary with density of 35. Bones/joints: Unremarkable. No acute fracture. Soft tissues: Unremarkable. IMPRESSION: 1. Obstructing 8 mm stone in the distal right ureter at the ureterovesical junction with associated mild right-sided hydroureteronephrosis. 2. A 3.5 cm low-density lesion left ovary with density of 35. This may be a hyperdense or hemorrhagic cyst but other process not totally excluded. Advise further assessment with nonemergent ultrasound of the pelvis.
--- OUTSIDE RECORDS SUMMARY | 2025-04-04 14:58 | XMS_ITS | Clinical Summary ---
Author Organization Healthcare Address [address] [place] [address] Care Team Providers Care Java Analyst Name Role Phone Pcp, No Primary [...] Office Visit [facility] [address] [place] [address] [facility] Health Maintenance Due Date Last [...] 2022 Sigmoidoscopy 2022 [facility]-Colorectal Cancer Screening 2022 [id number] Vaccine (1 - 20 24-25 season) 2024 [...] Narrative SUNQUEST - 11/07/2000 9:33 AM EST [facility] MR #: [id number] [place] [place], [place] [address] 1975 (Age: 25) FW Collect Date: 10/31/2000 00:00 Receipt Date: 11/01/2000 10:48 Page 1 DEPARTMENT OF PATHOLOGY AND LABORATORY MEDICINE CYTOPATHOLOGY REPORT Email: [email or web address] [phone] ATTENDING MD/Practitioner: Yuliya Huizar M.D. Service: OB [...] results is suggested (please call Microbiology at [phone] for results). CLINICAL INFORMATION: Menstrual History: : Second trimester Date of Last Menstrual Period: {Not Provided} SPECIMEN DESCRIPTION: A: THIN PREP (CERVICAL/VAGINAL) THIN PREP PROCESS CELLULAR ENHANCEMENT ICD: V76.2 CERVIX, SPECIAL SCREENING FOR MALIGNANT NEOPLASM V22.1 SUPERVISION OF OTHER NORMAL F: A; THIN SCRN [id number] SNOMED CODES: A; [id number] In cases where a pathologist has signed out the report, the service has been rendered in part by a resident. The signing pathologist has performed and is responsible for the reported pathologic evaluation. us Historical Provider MD LAB PATHOLOGY ORDERABLES Final Result Performing Organization Address City/State/[facility] Co de Phone Number SUNQUEST from Last 3 Months or Most Recently Relevant to Health Maintenance Insurance [facility] [address] [facility] [place] [address] Care Teams Java Analyst Relationship Specialty Start Date End Date Pcp, [place] [address] PCP - General 06/27/21
--- NOTE | 2025-04-04 15:07 | ED_ITS ---
<Statement entered by Rebecca Wang DO - 04/04/25 19:16> I was consulted by the CLARA, and we discussed the complexity of the problems being addressed. I approved the treatment and management plan for this patient's care in the emergency department, thus performing a substantive portion of the medical decision making. Rebecca Wang DO Discharge Plan Disposition Patient Disposition: Home, Self-Care Prescriptions Prescriptions: No Action cetirizine 10 mg tablet See Rx Instructions .ROUTE .COMPLEX Qty: 90 2RF Dose Instruction: TAKE ONE TABLET BY MOUTH ONCE A DAY Rx Instructions: TAKE ONE TABLET BY MOUTH ONCE A DAY cholecalciferol (vitamin D3) 1,250 mcg (50,000 unit) capsule See Rx Instructions .ROUTE .COMPLEX Qty: 12 4RF Dose Instruction: TAKE ONE CAPSULE BY MOUTH ONCE WEEKLY Rx Instructions: TAKE ONE CAPSULE BY MOUTH ONCE WEEKLY Vraylar 1.5 mg capsule 1.5 mg PO DAILY Qty: 30 2RF Vraylar 1.5 mg capsule 0RF clonazepam 0.5 mg tablet 0.25 mg PO BID 30 Days Qty: 30 2RF lisinopril 5 mg tablet PO Patient Comments: TAKE TWO TABLETS BY MOUTH ONCE A DAY sertraline 50 mg tablet See Rx Instructions .ROUTE .COMPLEX Qty: 90 3RF Dose Instruction: TAKE ONE TABLET BY MOUTH ONCE A DAY Rx Instructions: TAKE ONE TABLET BY MOUTH ONCE A DAY gabapentin 800 mg tablet 800 mg PO TID 30 Days Qty: 90 2RF simvastatin 20 mg tablet 20 mg PO QHS Qty: 90 1RF tamsulosin 0.4 mg capsule 0.4 mg PO HS Qty: 10 0RF Referrals Follow up/Referrals: Sarah Stewart APRN [Primary Care Provider, Family Practice] - See instructions Activity Restrictions/Add. Instructions Additional Instructions/Restrictions: Today you were evaluated in the emergency department noticed with a 8 mm stone. Please keep your follow-up with urology for this coming Sunday. Return to the ED for any worsening of condition. Increase your fluid intake, take acetaminophen and ibuprofen [id number] as directed. Clinical Impressions Clinical Impression: Kidney stone Instructions Patient Instructions: DI for Kidney Stones Print Language Print Language: Cymro Discharge ED Provider: Rebecca Wang General Adult HPI General Chief complaint: Urogenital-Female Stated complaint: right side pain, hx kidney stones Time Seen by Provider: 04/04/25 14:50 Mode of Arrival: Ambulatory Source of Information: Patient Description of Symptoms (Recalled from ER Triage Doc. by RN): pt reports r kidney pain, has passed a kidney stone recently and feels she may have another one. History of Present Illness HPI narrative: patient is a 49-year-old female PMHx LACEY, MDD, history of panic attack, fibromyalgia, history of pyelonephritis, history of tobacco use, history of kidney stones who presents to the ED for right flank pain, fatigue, dysuria and chills. Patient was evaluated in the ED on 04/01/[address] scan which was remarkable for an obstructing stone in the distal right ureter measuring 8 mm, multiple nonobstructing stones in the left kidney measuring up to 7 mm and bilateral medullary nephrocalcinosis. Related Data Home Medications ?Medication ?Instructions ?Recorded ?Confirmed lisinopril 5 mg tablet mg PO 04/02/25 04/02/25 Previous Rx's ?Medication ?Instructions ?Recorded cholecalciferol (vitamin D3) 1,250 See Rx Instructions .Route 04/21/24 mcg (50,000 unit) capsule .COMPLEX #12 caps cetirizine 10 mg tablet See Rx Instructions .Route 0 06/18/24 .COMPLEX #90 tabs sertraline 50 mg tablet See Rx Instructions .Route 0 10/21/24 .COMPLEX #90 tabs tamsulosin 0.4 mg capsule 0.4 mg PO HS #10 caps cariprazine 1.5 mg capsule 1.5 mg PO DAILY #30 caps (Vraylar) clonazepam 0.5 mg tablet 0.25 mg (1/2 x 0.5 mg) PO BI D 30 01/29/25 days #30 tabs gabapentin 800 mg tablet 800 mg PO TID 30 days #90 ta bs 03/30/25 simvastatin 20 mg tablet 20 mg PO QHS #90 tabs Allergies Allergy/AdvReac Type Severity Reaction Status Date / Time codeine Allergy Verified 04/02/25 09:41 Sulfa (Sulfonamide Allergy Verified 04/02/25 09:41 Antibiotics) [facility] Disclaimer: The information contained in this section may have been updated after the patient was seen, as this information can be updated by other users. Medical History History of nephrolithotomy with removal of calculi PTSD (post-traumatic stress disorder) Surgical History History of cholecystectomy History of x1 2003 Social History Smoking Status: Current every day smoker tobacco type: cigarettes packs per day: 2 alcohol intake: never substance use type: painkillers current occupational status: unemployed Travel in the last 8 weeks?: None household members: significant other and family housing: house Have you lived/traveled outside US in past 30 days?: No Contact w/someone who lives/traveled outside US past 30 days?: No Exposure to someone with infectious disease in past 14 days?: No Do you have a fever (greater than 100.4 F or 38 C)?: No Have you tested positive for COVID-19?: No Exposed to someone with COVID-19 in past 14 days?: No Do you have a sore throat?: No Do you have a cough?: No Do you have any weakness?: No Do you have any diarrhea?: No Are you experiencing any unusual bleeding?: No Do you have any muscle aches/pain?: No Do you have any abdominal pain?: No Are you experiencing loss of taste or smell?: No Other Medical History Have you received the Flu Vaccine for this season: No Have you received the Pneumonia Vaccine: Yes ROS Obtained: Yes Systems reviewed as appropriate & no additional complaints except as documented Physical Exam General General appearance: alert and in no apparent distress Head Head exam: atraumatic and normocephalic Eye Eye exam: Present normal appearance and PERRL ENT ENT exam: Present normal exam Neck Neck exam: Present normal inspection Chest Chest inspection: Present normal inspection and symmetric chest wall rise; Absent tenderness Respiratory Respiratory exam: Present normal lung sounds bilaterally Cardiovascular Cardiovascular exam: Present regular rate Abdominal Exam Abdominal exam: Present soft, tenderness (Mild suprapubic) and normal bowel sounds Extremities Exam Extremities exam: Present normal inspection and full ROM Back Exam Back exam: Present normal inspection, full ROM and CVA tenderness (R) Neurological Exam Neurological exam: Present alert and oriented X3 Psychiatric Psychiatric exam: Present normal affect and normal mood Skin Skin exam: Present warm and dry Medical Decision Making Medical Records Screening: Per USPSTF and CDC recommendations, given the prevalence of disease in our region, it is our hospital?s policy to screen for HIV and viral Hepatitis for all patients aged 18 and over and those with ongoing risk factors. Tee Inquiry Pt receiving controlled substance: No Vital Signs: 04/04/25 14:56 04/04/25 15:00 04/04/25 15:30 Temperature 97.7 F Temperature Source Oral Pulse Rate 99 H 97 H Pulse Rate [Right] 115 H Respiratory Rate 22 Blood Pressure 140/89 140/90 Blood Pressure [Right Arm] 144/108 H Blood Pressure Mean Blood Pressure Mean [Right Arm] 120 02 Sat by Pulse Oximetry 100 98 97 Oxygen Delivery Method Room Air 04/04/25 16:00 04/04/25 16:30 04/04/25 17:00 Temperature Temperature Source Pulse Rate 85 88 93 H Pulse Rate [Right] Respiratory Rate 18 Blood Pressure 131/77 146/87 H 139/91 H Blood Pressure [Right Arm] Blood Pressure Mean 109 Blood Pressure Mean [Right Arm] 02 Sat by Pulse Oximetry 98 99 98 Oxygen Delivery Method Lab Data Lab Results 04/04/25 14:43: Urine Color Yellow, Urine Appearance Sl cloudy, Urine pH 6.0, Ur Specific [place] 1.020, Urine Protein Trace, Urine Glucose (UA) Negative, Urine Ketones 2+, Urine Blood Trace-i, Urine Nitrate Negative, Urine Bilirubin Negative, Urine Urobilinogen 0.2, Ur Leukocyte Esterase Trace, Urine RBC 10-20, Urine WBC 20-50, Ur Squamous Epith Cells Tntc, Urine Bacteria 3+, Urine Mucus 2+, Urine HCG, Qual Negative 04/04/25 14:55: WBC 9.3, RBC 4.95, Hgb 14.0, Hct 42.7, MCV 86.3, MCH 28.3, MCHC 32.8, RDW 15.4, Plt Count 211, MPV 12.4 H, Neut % (Auto) 59.1, Lymph % (Auto) 35.0, [place] % (Auto) 4.0, Eos % (Auto) 1.4, Baso % (Auto) 0.4, Neut # (Auto) 5.5, Lymph # (Auto) 3.2, [place] # (Auto) 0.4, Eos # (Auto) 0.1, Baso # (Auto) 0.0, Sodium 136, Potassium 3.4 L, Chloride 101, Carbon Dioxide 31 H, Anion Gap 7.4, BUN 13, Creatinine 1.10 H, Estimated Creat Clear 81, Estimated GFR 53 L, Est GFR ( Amer) 64, Glucose 96, Calcium 10.2, Total Bilirubin 0.6, AST 25, ALT 15, Alkaline Phosphatase 69, Total Protein 7.9, Albumin 4.6, Globulin 3.3 H, Albumin/Globulin Ratio 1.4 04/04/25 14:55 04/04/25 14:55 Orders (Tests/Meds): ED MEDICATIONS Generic Name Dose Route Start Last Admin Trade Name Freq PRN Reason Stop Dose Admin Sodium Chloride 10 ml 04/04/25 15:45 04/04/25 15:47 Sodium Chloride 0.9% 10ml Syr (Rad Only) IV 05/04/25 15:44 10 ml NEEDED PRN Administration Maintain IV Site Discontinued Medications Generic Name Dose Route Start Last Admin Trade Name Freq PRN Reason Stop Dose Admin Sodium Chloride 1,000 mls @ 999 mls/hr 04/04/25 14:58 04/04/25 15:39 Sod Chlor 0.9% 1000ml Bag IV 04/04/25 15:58 999 mls/hr .Q1H1M ONE Administration Iopamidol 75 ml 04/04/25 15:45 04/04/25 15:47 Iopamidol-370 (76%);100ml Bottle IV 04/04/25 15:46 75 ml ONCE ONE Administration Ketorolac Tromethamine 15 mg 04/04/25 14:58 04/04/25 15:40 Ketorolac 30mg/Ml Vial IV 04/04/25 14:59 15 mg ONCE ONE Administration ORDERS Category Date Time Status CT abdomen pelvis w con Stat Cat Scan 04/04/25 14:58 Completed CBC w/Auto Diff [Complete Blood Count Auto Diff] Stat Lab 04/04/25 14:55 Completed CMP [Comprehensive Metabolic Panel] Stat Lab 04/04/25 14:55 Completed Urinalysis and Microscopic Stat Lab 04/04/25 14:43 Completed Urine , HCG Qual. Stat Lab 04/04/25 14:43 Completed Urine Culture Stat Micro 04/04/25 14:43 Received Medical Decision Narrative: In summary, patient is a 49-year-old female PMHx LACEY, MDD, history of panic attack, fibromyalgia, history of pyelonephritis, history of tobacco use, history of kidney stones who presents to the ED for right flank pain, fatigue, dysuria and chills. Patient was evaluated in the ED on 04/01/[address] scan which was remarkable for an obstructing stone in the distal right ureter measuring 8 mm, multiple nonobstructing stones in the left kidney measuring up to 7 mm and bilateral medullary nephrocalcinosis. She was advised to follow-up with urology the following day, however states they were unable to see her due to her insurance. Patient states she is scheduled with a different urologist for this coming Sunday however her pain has worsened she has developed severe fatigue. Upon initial evaluation patient is alert, oriented and cooperative. She is tachycardic. She has mild suprapubic tenderness, right CVA tenderness noted. Differential diagnosis include renal calculi, pyelonephritis, UTI, sepsis, among others. Discussed with patient we will proceed with labs, urinalysis, and repeat CT scan. Patient is agreeable to plan of care at this time. Will symptomatically managed with Toradol and IV fluids. Hematologic labs reviewed, CBC unremarkable for any leukocytosis, stable H&H. CMP remarkable for potassium of 3.4, BUN 13, creatinine 1.10, GFR 53. hCG negative. Urinalysis unremarkable for any infectious process. CT final read : Obstructing 8 mm stone in the distal right ureter at the ureterovesical junction with associated mild right-sided hydroureteronephrosis. Upon reassessment, patient's condition has improved. Given this, I feel that she is safe to be discharged home at this time. Discussed with patient to keep her follow-up appointment for this coming Sunday with urology. Advised her to increase her fluid intake, take acetaminophen ibuprofen [id number] for symptomatic relief. We discussed return precautions to the ED and patient verbalized understanding. Critical Care Critical Care Time Critical Care Time: No
[2025-04-04 15:14] LABS: Basophils % 0.4 % (0.1-2.0); Eosinophils # 0.1 Kmm3 (0.0-0.4); Eosinophils % 1.4 % (0.1-12.0); Hematocrit 42.7 % (37.0-47.0); Immature Granulocytes # 0.01 10^3uL; Immature Granulocytes % 0.1 %; Lymphocytes # 3.2 K/mm3 (0.7-4.5); Mean Corpuscular HGB Conc 32.8 g/dL (31.8-35.4); Mean Corpuscular Hemoglobin 28.3 pg (27.0-31.2); Mean Corpuscular Volume 86.3 fl (81-99); Mean Platelet Volume 12.4 fl (7.4-10.4); Monocytes # 0.4 K/mm3 (0.1-1.0); Neutrophils # 5.5 K/mm3 (1.8-7.8); Neutrophils % 59.1 % (37.0-80.0); Nucleated Red Blood Cells # 0 10^3/uL; Nucleated Red Blood Cells % 0 %; Platelet Count 211 K/mm3 (142-424); Red Blood Count 4.95 M/mm3 (4.20-5.40); Red Cell Distribution Width 15.4 % (11.5-17.5); Red Cell Distribution Width-SD 48.4 fL; White Blood Count 9.3 K/mm3 (4.8-10.8)
[2025-04-04 15:17] LABS: Urine Pregnancy, HCG Qual. Negative (Negative)
[2025-04-04 15:18] LABS: Microscopic, Urine URINE MICROSCOPIC (MICROSCOPIC)
[2025-04-04 15:19] LABS: Alanine Aminotransferase 15 U/L (12-78); Albumin Level 4.6 g/dl (3.5-5.0); Albumin/Globulin Ratio 1.4 (1.1-1.8); Alkaline Phosphatase 69 U/L (38-126); Anion Gap 7.4 mEq/L (5-15); Aspartate Amino Transferase 25 U/L (14-36); Bilirubin,Total 0.6 mg/dl (0.2-1.3); Blood Urea Nitrogen 13 mg/dl (7-17); Calcium 10.2 mg/dl (8.4-10.2); Carbon Dioxide 31 mmol/L (22.0-30.0); Chloride 101 mmol/L (98-107); Creatinine Clearance Estimated 81 mL/min (50-200); Estimated Glomerular Filt Rate 53 ml/min (>60); GFR (African American) 64 ML/MIN (>60); Globulin 3.3 g/dL (1.3-3.2); Glucose 96 mg/dl (74-100); Potassium 3.4 mmoL/L (3.5-5.1); Sodium 136 mmol/L (136-145); Total Protein,Serum 7.9 g/dl (6.3-8.2)
[2025-04-04 15:22] LABS: Appearance,Urine SL CLOUDY (Clear); Blood, Urine TRACE-I (Negative); Color,Urine YELLOW (Yellow); Glucose,Urine (UA) Negative (Negative); Ketones,Urine 2+ (Negative); Leukocyte Esterase,Urine TRACE (Negative); Nitrate,Urine Negative (Negative); Protein,Urine TRACE (Negative); Urobilinogen,Urine 0.2 EU/dl (0.2)
[2025-04-04 15:27] LABS: Bilirubin,Urine Negative (Negative)
[2025-04-04] MEDS: 0.9 % SODIUM CHLORIDE 1000ML 1,000 ML 999 ML IV (15:39)
[2025-04-04] MEDS: KETOROLAC 30MG/ML VIAL 15 MG IV (15:40)
[2025-04-04 15:44] LABS: Bacteria,Urine 3+ /lpf; Mucus,Urine 2+ /lpf; Squamous Epithelial Cell,Urine TNTC #/hpf (0-5); WBC,Urine 20-50 #/hpf (0-3)
[2025-04-04] MEDS: SODIUM CHLORIDE 0.9% 10ML SYR (RAD ONLY) 10 ML IV (15:47)
[2025-04-04] MEDS: IOPAMIDOL-370 (76%);100ML BOTTLE 75 ML IV (15:47)
== END 2025-04-04 17:36 | disposition home or self-care (01) ==
PROVIDERS: Nurse Practitioner; Emergency Provider Emergency Medicine; PCP Family Medicine
DX: N13.0 Hydronephrosis with ureteropelvic junction obstruction (principal); R10.31 Right lower quadrant pain; R53.83 Other fatigue; R30.0 Dysuria; F17.210 Nicotine dependence, cigarettes, uncomplicated
CPT/HCPCS: 74177; 80053; 81001; 81025; 85025; 87086; 96361; 96374; 99285; J1885; J7030; Q9967

== ENCOUNTER 2025-05-14 15:52 | Outpatient (CLI) | payer MEDICAID, SELFPAY ==
--- OUTSIDE RECORDS SUMMARY | 2025-04-08 12:30 | XMS_ITS | Encounter Summary ---
Author Organization [employer] ([place], [place], [place], [place]) Address [address] [place] [address] Care Team Providers Care Road Mender Name Role Phone Unavailable Primary Care Provider Unavailabl e Reason for Visit * Reason Comments Chronic Kidney Disease New Patient * Consultation (Routine) - Closed Specialty Diagnoses / Procedures Referred By Mihaela t Referred To Contact Urology Diagnoses Kidney stone [facility] [address] [place] [address] Phone: tel: [facility] - [place] [facility] [address] [facility] [address] [place] [address] Phone: tel: fax: Referral ID Status Reason Start Date Expiration Date V isits Requested Visits Authorized [id number] Closed Specialty Services Required 04/02/2025 04/02/2026 1 1 Encounter Details Date Type Department Care Team (Late st Contact Info) Description 04/08/2025 12:30 PM EDT Office Visit [facility] Urology - [facility] [address] [facility] [address] [place] [address] Abby Chandler, CANDLEMAKER [address] [place] [address] Kidney stone (Primary Dx); Right ureteral stone; Hydronephrosis of right kidney Social History Tobacco Use Types Packs/Day Years Used Date Smoking Tobacco: Every Day Cigarettes Tobacco Cessation:Ready to Q uit: Not Asked; Counseling Given: Not Answered Comments Unknown Sex and Gender Information Value Date Recorded Sex Assigned at Not on file Legal Sex Female 1:41 PM CDT Gender Identity Not on file Sexual Orientation Not on file documented as of this encounter Last Filed Vital Signs Vital Sign Reading Time Taken Comments Blood Pressure 109/70 04/08/2025 11:29 AM EDT Pulse - - Temperature - - Respiratory Rate - - Oxygen Saturation - - Inhaled Oxygen Concentration - - Weight - - Height 160 cm (5' 3 ) 04/08/2025 11:29 AM EDT Body Mass Index - - documented in this encounter Progress Notes * Abby Chandler, CANDLEMAKER - 04/08/2025 12:30 PM EDT Subjective: Patient ID: Armida Horta is a 49 y.o. female. Chief Complaint: Chronic Kidney Disease (New Patient) Patient is in clinic for obstructing right ureter stone. She reports a significant history of kidney stones for which she has had lithotripsy in past. She has been experiencing right flank pain. Was seen at [facility] in [place] on 04/01/[address] showing 8 mm obstructing distal right ureter stone with severe right hydronephrosis and hyd roureter. She also has multiple non obstructing stones in left kidney measuring up to 7 mm in size. Creatinine stable at 1.00. She returned to the ER on 04/04/[address] showing obstructing 8 mm distal right ureter stoneat UVJ with mild right hydroureteronephrosis. Today, she reports continued right flank pain. She denies any indication of stone passage. Review of Systems Constitutional: Negative. Negative for fever. Respiratory: Negative. Negative for shortness of breath. Cardiovascular: Negative. Negative for chest pain. Gastrointestinal: Negative. Genitourinary: Positive for flank pain. Neurological: Negative. Psychiatric/Behavioral: Negative. There are no active problems to display for this patient. No past medical history on file. Past Surgical Hx: she Past Surgical History: Procedure Laterality Date CHOLECYSTECTOMY Social Hx:she reports that she has been smoking cigarettes. She does not have any smokeless tobaccohistory on file. Social History Social History Narrative Not on file Family Hx: her family history is not on file. Allergies Allergen Reactions Sulfa (Sulfonamide Antibiotics) Hives Buspirone Anxiety Citalopram Anxiety Codeine Anxiety Per patient report it causes anxiety Fluoxetine Anxiety Sulfamethoxazole-Trimethoprim Rash Current Outpatient Medications on File Prior to Visit Medication Sig Dispense Refill buprenorphine-naloxone (SUBOXONE) 8-[address] 2 tablets under the tongue daily. clonazePAM (KlonoPIN) 0.5 MG tablet Take 0.5 tablets (0.25 mg total) by mouth 2 (two) times daily. gabapentin (NEURONTIN) 800 MG tablet Take 1 tablet (800 mg total) by mouth 3 (three) times daily. No current facility-administered medications on file prior to visit. No results found for: PSA , NA , K , CL , CO2 , GLUCOSE , CALCIUM , EGFR , TEBG , WBC , RBC , HGB , HCT , MCV , MCH , MCHC , RDW , PLT , MPV No results found for: COLORU , CLARITYU , SPECGRAV , PHUR , PROTEINUA , GLUCOSEU , KETONESU , BLOODU , NITRITE , UROBILINOGEN , RBCUA , WBCUA , BACTERIA , MUCUS , SQUAMEPIT , HYALINECASTS , URCASTS , GRANULARCAST , URCRYSTALS , TRICHOMONAS No results found for this or any previous visit. Objective: Vitals: BP 109/70 Ht 1.6 m (5' 3 ) Physical Exam Vitals reviewed. Constitutional: General: She is not in acute distress. Appearance: Normal appearance. Cardiovascular: Rate and Rhythm: Normal rate. Pulmonary: Effort: Pulmonary effort is normal. No respiratory distress. Abdominal: Palpations: Abdomen is soft. Musculoskeletal: General: Normal range of motion. Skin: General: Skin is warm and dry. Neurological: General: No focal deficit present. Mental Status: She is alert and oriented to person, place, and time. Psychiatric: Mood and Affect: Mood normal. Behavior: Behavior normal. Thought Content: Thought content normal. Judgment: Judgment normal. Assessment: Armida was seen today for chronic kidney disease. Diagnoses and all orders for this visit: Kidney stone - Ambulatory referral to Urology - POCT urinalysis dipstick Plan: We have discussed due to size of stone, there is probability she will not be able to fully pass it.We have discussed surgical intervention including ESWL. She is agreeable to proceed. We did discuss potential risks including anesthesia, infection, bleeding, pain, injury to ureter and kidney. We also discussed that stent would be placed. She would like to proceed. Discussed with Dr. Hoisington, will schedule for ESWL. There are no Patient Instructions on file for this visit. There is no immunization history on file for this patient. Outpatient Encounter Medications as of 04/08/2025 Medication Sig Dispense Refill buprenorphine-naloxone (SUBOXONE) 8-[address] 2 tablets under the tongue daily. clonazePAM (KlonoPIN) 0.5 MG tablet Take 0.5 tablets (0.25 mg total) by mouth 2 (two) times daily. gabapentin (NEURONTIN) 800 MG tablet Take 1 tablet (800 mg total) by mouth 3 (three) times daily. No facility-administered encounter medications on file as of 04/08/2025. No follow-ups on file. I have reviewed the following as needed: Tobacco Allergies Meds Problems Med Hx Surg Hx Fam Hx Abby Chandler APRN 04/08/2025 documented in this encounter Miscellaneous Notes * Addendum Note - Abby Chandler APRN - 04/08/2025 12:30 PM EDTAddended by: ABBY CHANDLER on: 04/10/2025 09:04 AM Modules accepted: Orders documented in this encounter Plan of Treatment Upcoming Encounters Date Type Department Care Team (Late st Contact Info) Description 05/22/2025 1:45 PM EDT Office Visit [facility] - [address] [facility] [address] [place] [address] Matt Salinas MD [address] [facility] [address] [place] [address] documented as of this encounter Procedures Procedure Name Priority Date/Time Associated Diagnosis Comments POCT URINALYSIS, AUTO W/O SCOPE Routine 04/08/2025 11:40 AM EDT Kidney stone documented in this encounter Results * (ABNORMAL) POCT urinalysis dipstick (04/08/2025 11:40 AM EDT) Glucose Urine, POC Negative Negative Bilirubin Urine, POC Negative Negative Ketones Urine, POC Negative Negative Specific Carmi Urine, POC 1.015 SG Ratio 1.005 SG Ratio, 1.010 SG Ratio, 1.015 SG Ratio, 1.020 SG Ratio, 1.025 SG Ratio, 1.030 SG Ratio Blood Urine, POC Trace(A) Negative pH, Urine 6.0 pH units 5.0 pH units, 5.5 pH units, 6.0 pH units, 6.5 pH units, 7.0 pH units, 7.5 pH units, 8.0 pH units Protein Urine, POC Negative Negative Urobilinogen Urine, POC 0.2 mg/dL 0.2 mg/dL, 1 mg/dL Nitrite Urine, POC Negative Negative Leukocyte Esterase Urine, POC Trace(A) Negative 04/08/2025 11:4 0 AM EDT Abby Chandler CANDLEMAKER POINT OF CARE TEST ORDERABLES Final Result documented in this encounter Visit Diagnoses Diagnosis Kidney stone- Primary Calculus of kidney Right ureteral stone Hydronephrosis of right kidney Hydronephrosis documented in this encounter
--- OUTSIDE RECORDS SUMMARY | 2025-04-22 04:58 | XMS_ITS | Encounter Summary ---
Author Organization [employer] ([place], [place], [place], [place]) Address [address] [place] [address] Care Team Providers Care Conformal Pad Former Name Role Phone Sarah Langford APRN Primary Care Provide r Reason for Visit * Auth/Cert (Routine) Specialty Diagnoses / Procedures Referred By Contac t Referred To Contact Diagnoses Right ureteral stone right ureter stone, hydronephrosis Procedures DE LITHOTRIPSY XTRCORP SHOCK WAVE LITHOTRIPSY,EXTRACORPOREAL SHOCK WAVE (ESWL) Matt Salinas MD [address] [place] [address] Phone: tel: fax: Referral ID Status Reason Start Date Expiration Date Visits Re quested Visits Authorized [id number] 04/08/2025 1 1 Encounter Details Date Type Department Care Team (Late st Contact Info) Description 04/22/2025 4:58 AM EDT - 04/22/2025 9:47 AM EDT Hospital Encounter [facility] Surgery Department [address] [place] [address] Matt Salinas MD [address] [place] [address] Discharge Disposition: Home or Self Care Social History Tobacco Use Types Packs/Day Years Used Date Smoking Tobacco: Every Day Cigarettes Comments Unknown Sex and Gender Information Value Date Recorded Sex Assigned at Not on file Legal Sex Female 1:41 PM CDT Gender Identity Not on file Sexual Orientation Not on file documented as of this encounter Last Filed Vital Signs Vital Sign Reading Time Taken Comments Blood Pressure 149/94 04/22/2025 9:23 AM EDT Pulse 100 04/22/2025 9:23 AM EDT Temperature 36.1 C (97 F) 04/22/2025 9:23 AM EDT Respiratory Rate 16 04/22/2025 9:23 AM EDT Oxygen Saturation 100% 04/22/2025 9:23 AM EDT Inhaled Oxygen Concentration - - Weight - - Height - - Body Mass Index - - documented in this encounter Discharge Instructions * Attachments The following attachments cannot be sent through Care Everywhere. * General Anesthesia Adult Care After (Czech) * ESWL for Kidney Stones Care After (Czech) documented in this encounter Medications at Time of Discharge buprenorphine-nal oxone (SUBOXONE) 8-[address] 2 tablets under the tongue daily. 03/13/2025 ciprofloxacin HCl (CIPRO) 500 MG tablet Take 1 tablet (500 mg total) by mouth 2 (two) times daily. 10 tablet 04/22/2025 clonazePAM (KlonoPIN) 0.5 MG tablet Take 0.5 tablets (0.25 mg total) by mouth 2 (two) times daily. 04/06/2025 gabapentin (NEURONTIN) 800 MG tablet Take 1 tablet (800 mg total) by mouth 3 (three) times daily. 03/30/2025 documented as of this encounter H&P Notes * Matt Salinas MD - 04/22/2025 7:36 AM EDT History of Present Illness History Of Present Illness Armida Horta is a 49 y.o. female presenting with a distal right ureteral calculus. Brought in today for ESWL. Past Medical History She has a past medical history of Anxiety and Drug abuse (HCC). Surgical History She has a past surgical history that includes Cholecystectomy; section; and Kidney stone surgery. Social History She reports that she has been smoking cigarettes. She does not have any smokeless tobacco history on file. No history on file for alcohol use and drug use. Family History Her family history is not on file. Allergies Sulfa (Sulfonamide Antibiotics), Buspirone, Citalopram, Codeine, Fluoxetine, and Sulfamethoxazole-Trimethoprim Medications Current Outpatient Medications Medication Instructions buprenorphine-naloxone (SUBOXONE) 8-2 mg 2 tablets, Daily clonazePAM (KLONOPIN) 0.25 mg, 2 times daily gabapentin (NEURONTIN) 800 mg, 3 times daily Review of Systems Review of Systems Constitutional: Negative. HENT: Negative. Respiratory: Negative. Cardiovascular: Negative. Gastrointestinal: Positive for abdominal pain. Genitourinary: Positive for flank pain. Last Recorded Vitals Blood pressure (!) 171/82, pulse 93, temperature 97.1 ??F (36.2 ??C), resp. rate 21, SpO2 100%. Physical Exam Constitutional: Appearance: Normal appearance. Pulmonary: Effort: Pulmonary effort is normal. Abdominal: General: Abdomen is flat. Palpations: Abdomen is soft. Neurological: Mental Status: She is alert. Diagnostic Results Admission on 04/22/2025 Component Date Value Ref Range Status POC, URINE HCG 04/22/2025 Negative Negative Final INTERNAL QC (VALID/INVALID) 04/22/2025 Valid Final Kit Lot Number 04/22/2025 [id number] Final Expiration Date 04/22/2025 [id number] Final No image results found. Assessment & Plan Principal Problem: Right ureteral stone Impression: Right ureteral calculus Plan: Right ESWL Electronically signed by: Matt Salinas MD, 04/22/2025 at 7:36 AM documented in this encounter OR Notes * Op Note - Matt Salinas MD - 04/22/2025 8:53 AM EDT Date: 04/22/2025 Procedures: Procedure(s): Diagnosis: Pre-Op Diagnosis Codes: * Right ureteral stone [N20.1] Post-Op Diagnosis Codes: * Right ureteral stone [N20.1] Indications: Armida Horta is an 49 y.o. female with a distal right ureteral calculus and left renal calculus brought in today for ESWL. The risks, benefits, and alternatives of the above procedure were discussed and the patient has elected to proceed. Surgeons: Surgeons and Role: * Matt Salinas MD - Primary Findings: Patient had passed the stone in the distal right ureter. Stone in the left kidney was treated Procedure Details: After induction of general anesthesia patient was prepped in the supine position. Fluoroscopy was used. It was found that the stone in the distal right ureter had passed. Stone in the left kidney was well-visualized. Patient was with physician for treatment of the stone. Patient received 100 shocks and 3-minute pause was taken. A total of 3000 shocks was given with a maximum level of 7. There was good fragmentation The patient was seen in the preoperative area. The site of surgery was properly noted/marked if necessary per policy. The patient has been actively warmed in preoperative area. Preoperative antibiotics are not indicated. Venous thrombosis prophylaxis have been ordered including bilateral sequentialcompression devices Anesthesia: General Estimated Blood Loss: * No values recorded between 04/22/2025 7:50 AM and 04/22/2025 8:53 AM * Total IV Fluids: See anesthesia record mL Drains: * No LDAs found * Specimens: Specimens (From admission, onward) None Complications: None * No complications entered in OR log * Disposition: PACU - hemodynamically stable. Condition: stable Attending Attestation: I performed the procedure. documented in this encounter Plan of Treatment Upcoming Encounters Date Type Department Care Team (Late st Contact Info) Description 05/22/2025 1:45 PM EDT Office Visit [facility] Urology - [facility] [address] [facility] [address] [place] [address] Matt Salinas MD [address] [place] [address] [address] [place] [address] documented as of this encounter Procedures Procedure Name Priority Date/Time Associated Diagnosis Comments DE LITHOTRIPSY XTRCORP SHOCK WAVE 04/22/2025 7:50 AM EDT Right ureteral stone Case Notes Right ESWL CONFIRMATION #[id number] SPOKE FS_MODEL_IP POCT , URINE Routine 04/22/2025 7:28 AM EDT documented in this encounter Results * POCT , urine (04/22/2025 7:28 AM EDT) POC, URINE HCG Negative Negative INTERNAL QC (VALID/INVALID ) Valid Kit Lot Number [id number] Expiration Date 04/22/2025 7:28 AM EDT Jeremías James BRIM POUNCER FS_MODEL_IP_POINT OF CARE TEST ENTER/EDIT ORDERABLES Final Result documented in this encounter Visit Diagnoses Diagnosis Right ureteral stone- Primary documented in this encounter Admitting Diagnoses Diagnosis Right ureteral stone documented in this encounter Administered Medications Inactive Administered Medications - up to 3 most recent administrations Medication Order MAR Action Action Date Dose Rate Site acetaminophen (TYLENOL) tablet 1,000 mg 1,000 mg Once, oral, On Sun04/22/25 at 0930, For 1 dose, Recommended maximum dose of acetaminophen is 4000 mg from all sources in 24 hours, PACU Given 04/22/2025 9:39 AM EDT 1,000 mg electrolyte-R (NORMOSOL-R) infusion at 100 mL/hr, intravenous, Continuous, Starting on Sun04/22/25 at 0800, Pre-op Continued by Anesthesia 04/22/2025 7:50 AM EDT 100 mL/hr 100 mL/hr New Bag 04/22/2025 7:28 AM EDT 100 mL/hr 100 mL/hr famotidine (PEPCID) tablet 20 mg 20 mg Once, oral, On Sun04/22/25 at 0800, For 1 dose, Pharmacist to renally dose if CrCl is less than 50 mL/min or on CRRT., Pre-op Given 04/22/2025 7:28 AM EDT 20 m g fentaNYL PF (SUBLIMAZE) injection 25 mcg 25 mcg Every 5 min PRN, intravenous, severe pain (7-10), First Line for pain moderate or greater, Starting on Sun04/22/25 at 0836, For 4 doses, Maximum cumulative dose 100 mcg. If maximum dose is reached, proceed to 2nd Line agent., PACU HYDROmorphone (DILAUDID) injection 0.5 mg 0.5 mg Every 10 min PRN, intravenous, severe pain (7-10), 2nd Line agent after max dose Fentanyl given if ordered., Starting on Sun04/22/25 at 0836, For 4 doses, Maximum cumulative dose 2 mg, PACU, PACU labetaloL (TRANDATE, NORMODYNE) injection 5 mg 5 mg Every 5 min PRN, intravenous, hypertension (sbp greater than 140), Starting on Sun04/22/25 at 0836, For 4 doses, Hold if SBP less than 140 mmHg, DBP less than 70 mmHg, or HR less than 60 bpm, PACU ondansetron (ZOFRAN) injection 4 mg 4 mg Every 15 min PRN, intravenous, nausea, Starting on Sun04/22/25 at 0836, For 2 doses, 1st line for nausea For IV push, give over 2 - 5 minutes., PACU oxyCODONE-acetaminophen (PERCOCET) 5-325 mg per tablet 1 tablet 1 tablet Every 6 hours PRN, oral, severe pain (7-10) use second line, Starting on Sun04/22/25 at 0856, Recommended maximum dose of acetaminophen is 4000 mg from all sources in 24 hours Look-alike/Sound-alike medication documented in this encounter Active and Recently Administered Medications Times are shown in EDT. Scheduled Medication Order 04/20/2025 04/21/2025 04/22/2025 acetaminophen (TYLENOL) tablet 1,000 mg (COMPLETED) 1,000 mg Once, oral, On Sun04/22/25 at 0930, For 1 dose, Recommended maximum dose of acetaminophen is 4000 mg from all sources in 24 hours, PACU 0939 (Given - Provid er: Diane Foster RN) cefTRIAXone (ROCEPHIN) IVPB 1 g in dextrose 5 % 50 mL (premix) (COMPLETED) 1 g Once pre-op, intravenous, Administer over 30 Minutes, On Sun05/11/25 at 0000, For 1 dose, DO NOT ADMNISTER, VIA Y-SITE, WITH ANY CALCIUM CONTAINING IV FLUIDS SUCH LACTATED RINGERS SOLUTION. FLUSH LINE BEFORE AND AFTER ROCEPHIN ADMINISTRATION IF ANY CALCIUM CONTAINING PRODUCTS ARE BEING ADMINISTERED., Please choose an indication: Surgical Prophylaxis 0656 (Handoff - Prov ider: Chasity Ahumada RN)0750 (Given - Provider: Jeremías James CRNA) ciprofloxacin HCl (CIPRO) tablet 500 mg 500 mg Once, oral, On Sun04/22/25 at 0900, For 1 dose, Please choose an indication: Surgical Prophylaxis 00 (Due) famotidine (PEPCID) tablet 20 mg (COMPLETED) 20 mg Once, oral, On Sun04/22/25 at 0800, For 1 dose, Pharmacist to renally dose if CrCl is less than 50 mL/min or on CRRT., Pre-op 0728 (Given - Provid er: Chasity Ahumada RN) ketorolac (TORADOL) injection 30 mg 30 mg Once, intravenous, On Sun04/22/25 at 0930, For 1 dose, PACU 09 (Due) pregabalin (LYRICA) capsule 150 mg 150 mg Once, oral, On Sun04/22/25 at 0930, For 1 dose, PACU 929 (Due) Continuous Medication Order 04/20/2025 04/21/2025 04/22/2025 electrolyte-R (NORMOSOL-R) infusion at 100 mL/hr, intravenous, Continuous, Starting on Sun04/22/25 at 0800, Pre-op 07 (New Bag - Prov ider: Chasity Ahumada RN)0750 (Continued by Anesthesia - Provider: Jeremías James CRNA)0855 (Anesthesia Volume Adjustment - Provider: Jeremías James CRNA) PRN Medication Order 04/20/2025 04/21/2025 04/22/2025 fentaNYL PF (SUBLIMAZE) injection 25 mcg 25 mcg Every 5 min PRN, intravenous, severe pain (7-10), First Line for pain moderate or greater, Starting on Sun04/22/25 at 0836, For 4 doses, Maximum cumulative dose 100 mcg. If maximum dose is reached, proceed to 2nd Line agent., PACU HYDROmorphone (DILAUDID) injection 0.5 mg 0.5 mg Every 10 min PRN, intravenous, severe pain (7-10), 2nd Line agent after max dose Fentanyl given if ordered., Starting on Sun04/22/25 at 0836, For 4 doses, Maximum cumulative dose 2 mg, PACU, PACU labetaloL (TRANDATE, NORMODYNE) injection 5 mg 5 mg Every 5 min PRN, intravenous, hypertension (sbp greater than 140), Starting on Sun04/22/25 at 0836, For 4 doses, Hold if SBP less than 140 mmHg, DBP less than 70 mmHg, or HR less than 60 bpm, PACU ondansetron (ZOFRAN) injection 4 mg 4 mg Every 15 min PRN, intravenous, nausea, Starting on Sun04/22/25 at 0836, For 2 doses, 1st line for nausea For IV push, give over 2 - 5 minutes., PACU oxyCODONE-acetaminophen (PERCOCET) 5-325 mg per tablet 1 tablet 1 tablet Every 6 hours PRN, oral, severe pain (7-10) use second line, Starting on Sun04/22/25 at 0856, Recommended maximum dose of acetaminophen is 4000 mg from all sources in 24 hours Look-alike/Sound-alike medication documented in this encounter Care Teams Conformal Pad Former Relationship Specialty Start Date End Date Sarah Langford, DARLENE [address] [place] [id number] PCP - General Emergency Medicine 04/22/25 documented as of this encounter
--- OUTSIDE RECORDS SUMMARY | 2025-04-22 07:30 | XMS_ITS | Encounter Summary ---
Author Organization [employer] ([place], [place], [place], [place]) Address [address] [place] [address] Care Team Providers Care Baked Goods Stock Clerk Name Role Phone Sarah Langford APRN Primary Care Provide r Reason for Visit * Auth/Cert (Routine) Specialty Diagnoses / Procedures Referred By Contac t Referred To Contact Diagnoses Right ureteral stone right ureter stone, hydronephrosis Procedures [place] LITHOTRIPSY XTRCORP SHOCK WAVE LITHOTRIPSY,EXTRACORPOREAL SHOCK WAVE (ESWL) Matt Salinas MD [address] [place] [address] Phone: tel: fax: Referral ID Status Reason Start Date Expiration Date Visits Re quested Visits Authorized [id number] 04/08/2025 1 1 Encounter Details Date Type Department Care Team (Late st Contact Info) Description 04/22/2025 7:30 AM EDT - 04/22/2025 8:50 AM EDT Surgery [facility] Surgery Department [address] [place] [phone] Matt Salinas MD [address] [place] [address] LITHOTRIPSY,EXTRACORP OREAL SHOCK WAVE (ESWL) Social History Tobacco Use Types Packs/Day Years Used Date Smoking Tobacco: Every Day Cigarettes Comments Unknown Sex and Gender Information Value Date Recorded Sex Assigned at Not on file Legal Sex Female 1:41 PM CDT Gender Identity Not on file Sexual Orientation Not on file documented as of this encounter Last Filed Vital Signs Vital Sign Reading Time Taken Comments Blood Pressure 171/82 04/22/2025 6:59 AM EDT Pulse 93 04/22/2025 6:59 AM EDT Temperature 36.2 C (97.1 F) 04/22/2025 6:59 AM EDT Respiratory Rate 21 04/22/2025 6:59 AM EDT Oxygen Saturation 100% 04/22/2025 6:59 AM EDT Inhaled Oxygen Concentration - - Weight - - Height - - Body Mass Index - - documented in this encounter Discharge Instructions * Attachments The following attachments cannot be sent through Care Everywhere. * General Anesthesia Adult Care After ([place]) * ESWL for Kidney Stones Care After ([place]) documented in this encounter Medications at Time [...] Description 05/22/2025 1:45 PM EDT Office Visit [facility] Urology - [facility] [address] [facility] [address] [place] [address] Matt Salinas MD [address] [place] [address] [address] [place] [address] documented as of this encounter Procedures Procedure Name Priority Date/Time Associated Diagnosis Comments [place] LITHOTRIPSY XTRCORP SHOCK WAVE 04/22/2025 7:50 AM EDT Right ureteral stone Case Notes Right ESWL CONFIRMATION #[id number] SPOKE FS_MODEL_IP POCT , URINE Routine 04/22/2025 7:28 AM EDT documented in this encounter Results * POCT , urine (04/22/2025 7:28 AM EDT) POC, URINE HCG Negative Negative INTERNAL QC (VALID/INVALID ) Valid Kit Lot Number [id number] Expiration Date 04/22/2025 7:28 AM EDT Jeremías James SAMPLES AND REPAIRS PREPARER FS_MODEL_IP_POINT OF CARE TEST ENTER/EDIT ORDERABLES Final Result documented in this encounter Visit Diagnoses Diagnosis Right ureteral stone- Primary Right ureteral stone documented in this encounter Admitting Diagnoses Diagnosis [...] dose, Please choose an indication: Surgical Prophylaxis 0900 (Due) famotidine (PEPCID) tablet 20 mg (COMPLETED) [...] Continuous, Starting on Sun04/22/25 at 0800, Pre-op 0728 (New Bag - Prov ider: Chasity Ahumada [...] medication documented in this encounter Care Teams Baked Goods Stock Clerk Relationship Specialty Start Date End Date Sarah Langford, REVIEW ASSISTANT [address] [place] [address] [place] [address] PCP - General Emergency Medicine 04/22/25 documented as of this encounter
--- OUTSIDE RECORDS SUMMARY | 2025-04-22 07:50 | XMS_ITS | Encounter Summary ---
Author Organization [employer] ([place], [place], [place], [place]) Address [address] [place] [address] Care Team Providers Care Toxicologist Name Role Phone Sarah Langford PRODUCT PICKER Primary Care Provide r Reason for Visit * Auth/Cert (Routine) Specialty Diagnoses / Procedures Referred By Mihaela maldonado Referred To Contact Diagnoses Right ureteral stone right ureter stone, hydronephrosis Procedures [place] LITHOTRIPSY XTRCORP SHOCK WAVE LITHOTRIPSY,EXTRACORPOREAL SHOCK WAVE (ESWL) [place] [address] [place] [address] [address] [place] [address] Phone: tel: fax: Referral ID Status Reason Start Date Expiration Date Visits Re quested Visits Authorized [id number] 04/08/2025 1 1 Encounter Details Date Type Department Care Team (Late st Contact Info) Description 04/22/2025 7:50 AM EDT Anesthesia Event [facility] Surgery Department [address] [place] [phone] Jeremías James CRNA [address] [place] [address] Yuri Mcclendon MD [address] [place] [address] [id number] Anesthesia Record Procedure Summary Procedure Name Responsible Anesthesiologist Anesthesia Start Time Anesthesia Stop Time LITHOTRIPSY,EXTRACO RPOREAL SHOCK WAVE (ESWL) (Left: Pelvis) Jeremías James CRNA 04/22/25 0750 04/22/25 0856 Events Date Time Event Comment 04/22/2025 0723 0750 An Start Patient identif ied and chart reviewed. 0750 An Start Data Anesthesia mac maru and monitors checked. 0753 Pre-Induction Eval FDA anest hesia machine pre-use checkout completed. Patient status reassessed prior to start of anesthesia care. 0756 An Induction 0756 An Intubation 0756 Anesthesia Ready 0849 An Extubation 0849 an stop data 0856 An Stop Meds Name Total dexamethasone (DECADRON) injection 4 mg/ mL 4 mg lidocaine (XYLOCAINE) injection 2% 100 m g midazolam (VERSED) injection 1 mg/ mL 2 mg ondansetron (ZOFRAN) injection vial 4 mg propofol (DIPRIVAN) injection 10 mg/mL b olus 200 mg cefTRIAXone (ROCEPHIN) IVPB 1 g in dextr ose 5 % 50 mL (premix) 1 g electrolyte-R (NORMOSOL-R) infusion 110 mL * Agents Name O2 N2O Air SEVOFLURANE * Blood No blood administrations on file. Lines, Drains, and Airways Type Details Placement Removal Peripheral IV Placement Date: 07/09; Placement Time: 658; Size: 20 G; Orientation: Posterior, Right; Location: Hand; Removal Date: 04/22/25; Removal Time: 0950 04/22/25 0659 by Chasity Ahumada RN 04/22/25 0950 by Diane Foster RN ETT Placement Date 04/22; Placement Time 0756 (created via procedure documentation); Removal Date 04/22/25; Removal Time 0849 04/22/25 0756 by Jeremías James CRNA 04/22/25 0849 by Jeremías James CRNA documented in this encounter Social History Tobacco Use Types Packs/Day Years Used Date Smoking Tobacco: Every Day Cigarettes Comments Unknown Sex and Gender Information Value Date Recorded Sex Assigned at Not on file Legal Sex Female 1:41 PM CDT Gender Identity Not on file Sexual Orientation Not on file documented as of this encounter OR Notes * Anesthesia Postprocedure Evaluation - Jeremías James CRNA - 04/22/2025 8:55 AM EDT Patient: Armida Horta Procedure Summary Date: 04/22/25 Room / Location: [facility]PER[facility] Anesthesia Start: 0750 Anesthesia Stop: Procedure: LITHOTRIPSY,EXTRACORPOREAL SHOCK WAVE (ESWL) (Left: Pelvis) Diagnosis: Right ureteral stone (right ureter stone, hydronephrosis) Surgeons: Matt Salinas MD Responsible Provider: Jeremías James CRNA Anesthesia Type: general ASA Status: 2 Anesthesia Type: general Vitals Value Taken Time BP 138/94 04/22/25 0854 Temp 98.1 04/22/25 0855 Pulse 103 04/22/25 0854 Resp 11 04/22/25 0854 SpO2 99 % 04/22/25 0854 Vitals shown include unfiled device data. There were no vitals taken for this visit. Anesthesia Post Evaluation Patient location during evaluation: PACU Patient participation: complete - patient participated Level of consciousness: awake Pain management: adequate Multimodal analgesia pain management approach Airway patency: patent Cardiovascular status: stable Respiratory status: room air Hydration status: stable Color: [place] Activity: Moves 4 extremities Inotropes/Vasopressors: N/A No notable events documented. Jeremías James CRNA 04/22/2025 8:55 AM EDT * Anesthesia Procedure Notes - Jeremías James CRNA - 04/22/2025 8:02 AM EDT Associated Order(s): Intubation Intubation Authorized by: Jeremías James CRNA Performed by: Jeremías James CRNA Date/Time: 04/22/2025 7:56 AM Urgency: elective Indications and Patient Condition Indications for airway management: anesthesia and airway protection Spontaneous Ventilation: absent Sedation level: general anesthesia Preoxygenated: yes Patient position: sniffing no Mask difficulty assessment: 2 - vent by mask + OA or adjuvant +/- NMBA no Final Airway Details Final airway type: supraglottic airway Supraglottic airway type: classic Size: 4 Cuff Pressure (cm H2O): 40 Airway Seal Pressure (cm H2O): 15 Number of attempts at approach: 1 Ventilation between attempts: none Number of other approaches attempted: 0 * Anesthesia Preprocedure Evaluation - Yuri Mcclendon MD - 04/22/2025 6:40 AM EDT ANESTHESIA PREOPERATIVE EVALUATION Patient: Armida Horta Date/Time: 04/22/25729 Procedure: LITHOTRIPSY,EXTRACORPOREAL SHOCK WAVE (ESWL) (Right) Location: [facility]PER[facility] Surgeons: Matt Salinas MD There were no vitals filed for this visit. Allergies Allergen Reactions Sulfa (Sulfonamide Antibiotics) Hives Buspirone Anxiety Citalopram Anxiety Codeine Anxiety Per patient report it causes anxiety Fluoxetine Anxiety Sulfamethoxazole-Trimethoprim Rash Current Outpatient Medications Medication Instructions buprenorphine-naloxone (SUBOXONE) 8-2 mg 2 tablets, sublingual, Daily clonazePAM (KLONOPIN) 0.25 mg, oral, 2 times daily gabapentin (NEURONTIN) 800 mg, oral, 3 times daily INPATIENT MEDICATIONS [START ON 05/11/2025] cefTRIAXone 1 g intravenous Once pre-op Relevant Problems Genitourinary (+) Right ureteral stone Problem List as of 04/22/2025 Genitourinary * (Principal) Right ureteral stone Past Surgical History: Procedure Laterality Date CHOLECYSTECTOMY Social History Tobacco Use Smoking status: Every Day Types: Cigarettes Vaping Use Vaping status: Unknown Physical Exam Airway Mallampati: II TM distance: >3 FB Neck ROM: full Cardiovascular - normal exam Dental Pulmonary - normal exam Abdominal - normal exam Anesthesia Plan ASA 2 general The patient is a current smoker. intravenous induction Postoperative administration of opioids is intended. Anesthetic plan and risks discussed with patient. Use of blood products discussed with patient who. Plan discussed with MEDICAL DOCTOR MD/MEDICAL DIRECTOR. documented in this encounter Plan of Treatment Upcoming Encounters Date Type Department Care Team (Late st Contact Info) Description 05/22/2025 1:45 PM EDT Office Visit [facility] Urology - [facility] [address] [facility] [address] [place] [address] Matt Salinas MD [address] [place] [address] [address] [place] [address] documented as of this encounter Procedures Procedure Name Priority Date/Time Associated Diagnosis Comments ANESTHESIA INTUBATION Routine 04/22/2025 7:56 AM EDT documented in this encounter Results * AN SINGLE LUMEN INTUBATION (04/22/2025 7:56 AM EDT) Narrative Jeremías James CRNA - 04/22/2025 7:56 AM EDT Jeremías James CRNA 04/22/2025 8:02 AM Intubation Authorized by: Jeremías James CRNA Performed by: Jeremías James CRNA Date/Time: 04/22/2025 7:56 AM Urgency: elective Indications and Patient Condition Indications for airway management: anesthesia and airway protection Spontaneous Ventilation: absent Sedation level: general anesthesia Preoxygenated: yes Patient position: sniffing no Mask difficulty assessment: 2 - vent by mask + OA or adjuvant +/- NMBA no Final Airway Details Final airway type: supraglottic airway Supraglottic airway type: classic Size: 4 Cuff Pressure (cm H2O): 40 Airway Seal Pressure (cm H2O): 15 Number of attempts at approach: 1 Ventilation between attempts: none Number of other approaches attempted: 0 Jeremías James CRNA ANESTHESIA ORDERABLES Fin al Result documented in this encounter Visit Diagnoses Not on filedocumented in this encounter Administered Medications Inactive Administered Medications - up to 3 most recent administrations Medication Order MAR Action Action Date Dose Rate Site cefTRIAXone (ROCEPHIN) IVPB 1 g in dextrose 5 % 50 mL (premix) 1 g Once pre-op, intravenous, Administer over 30 Minutes, On Sun05/11/25 at 0000, For 1 dose, DO NOT ADMNISTER, VIA Y-SITE, WITH ANY CALCIUM CONTAINING IV FLUIDS SUCH LACTATED RINGERS SOLUTION. FLUSH LINE BEFORE AND AFTER ROCEPHIN ADMINISTRATION IF ANY CALCIUM CONTAINING PRODUCTS ARE BEING ADMINISTERED., Please choose an indication: Surgical Prophylaxis Given 04/22/2025 7:50 AM EDT 1 g dexAMETHasone (DECADRON) injection As needed, intravenous, Starting on Sun04/22/25 at 0750, Anesthesia Intra-op Given 04/22/2025 7:50 AM EDT 4 mg electrolyte-R (NORMOSOL-R) infusion at 100 mL/hr, intravenous, Continuous, Starting on Sun04/22/25 at 0800, Pre-op Continued by Anesthesia 04/22/2025 7:50 AM EDT 100 mL/hr 100 mL/hr New Bag 04/22/2025 7:28 AM EDT 100 mL/hr 100 mL/hr lidocaine (XYLOCAINE) injection 2% As needed, intravenous, Starting on Sun04/22/25 at 0750, Anesthesia Intra-op Given 04/22/2025 7:50 AM EDT 100 mg midazolam (VERSED) injection As needed, intravenous, Starting on Sun04/22/25 at 0750, Anesthesia Intra-op Given 04/22/2025 7:50 AM EDT 2 mg ondansetron (ZOFRAN) injection As needed, intravenous, Starting on Sun04/22/25 at 0756, Anesthesia Intra-op Given 04/22/2025 7:56 AM EDT 4 mg propofol (DIPRIVAN) injection 10 mg/mL bolus As needed, intravenous, Starting on Sun04/22/25 at 0756, Anesthesia Intra-op Given 04/22/2025 7:56 AM EDT 200 mg documented in this encounter Care Teams Toxicologist Relationship Specialty Start Date End Date Sarah Langford, DARLENE [address] [place] [address] [place] [address] PCP - General Emergency Medicine 04/22/25 documented as of this encounter
[2025-05-14 19:57] LABS: Alanine Aminotransferase 16 U/L (12-78); Albumin Level 3.8 g/dl (3.5-5.0); Albumin/Globulin Ratio 2.0 (1.1-1.8); Alkaline Phosphatase 66 U/L (38-126); Anion Gap 8.4 mEq/L (5-15); Aspartate Amino Transferase 30 U/L (14-36); Blood Urea Nitrogen 9 mg/dl (7-17); Calcium 8.8 mg/dl (8.4-10.2); Carbon Dioxide 27 mmol/L (22.0-30.0); Chloride 105 mmol/L (98-107); Cholesterol 171 mg/dl (140-200); Creatinine,Serum 0.90 mg/dl (0.52-1.04); Estimated Glomerular Filt Rate 67 ml/min (>60); GFR (African American) 81 ML/MIN (>60); Globulin 1.9 g/dL (1.3-3.2); Glucose 99 mg/dl (74-100); HDL Cholesterol 31 mg/dl (40-60); Potassium 3.4 mmoL/L (3.5-5.1); Sodium 137 mmol/L (136-145); Total Protein,Serum 5.7 g/dl (6.3-8.2); Triglycerides 199 mg/dl (30-150)
[2025-05-14 19:58] LABS: Bilirubin,Total < 0.1 mg/dl (0.2-1.3)
[2025-05-14 20:27] LABS: Thyroid Stimulating Hormone 0.95 uIU/mL (0.465-4.68)
--- OUTSIDE RECORDS SUMMARY | 2025-05-15 10:24 | XMS_ITS | Clinical Summary ---
Author Organization [employer] [facility] are Address [address] [place] [address] Phone Care Team Providers Care Travel Pta Name Role Phone Miah Palomino MD Primary Care Physician Conditions or Problems Problem Name Problem Code Onset Date Status Entry Date Provider Comment Standard Description Annotate Body mass index (BMI) 35.0-35.9; adult Z68.35 (ICD-10-CM ) 05/23 Active 05/23 Duyen Black PLANNING SUPERVISOR Body mass index [BMI] 35.0-35.9, adult Screening for vitamin D deficiency 231276334 (SNOMED CT) 05/23 Active 05/23 Duyen Black PLANNING SUPERVISOR Procedure carried out on subject Screening for diabetes mellitus 478104226 (SNOMED CT) 05/23 Active 05/23 Duyen Black PLANNING SUPERVISOR Diabetes mellitus screening Screening for cardiovascul ar condition 487571815 (SNOMED CT) 05/23 Active 05/23 Duyen Black PLANNING SUPERVISOR Procedure carried out on subject Screening for anemia 891936124 (SNOMED CT) 05/23 Active 05/23 Duyen Black PLANNING SUPERVISOR Anemia screening Screening for thyroid disorder 183795545 (SNOMED CT) 05/23 Active 05/23 Duyen Black PLANNING SUPERVISOR Thyroid disorder screening Body mass index (BMI) 34.0-34.9; adult Z68.34 (ICD-10-CM ) 03/26 Correction 03/28 Duyen Black PLANNING SUPERVISOR Body mass index [BMI] 34.0-34.9, adult Anxiety associated with depression 698918364 (SNOMED CT) 05/23 Active 05/23 Duyen Black PLANNING SUPERVISOR Mixed anxiety and depressive disorder Endometriosi s 748404010 (SNOMED CT) 2014 Active 05/23 Duyen Castro PLANNING SUPERVISOR Endometriosis (clinical) Body mass index (BMI) 34.0-34.9; [...] 34.0-34.9, adult Abscess, LEFT FACE / CHEEK 002184259 (SNOMED CT) 03/26 Inactive 03/26 Miah Palomino MD Abscess Body mass index (BMI) 34.0-34.9; adult Z68.34 (ICD-10-CM ) 11/20 Removed 11/20 Eleanor Hernandez PLANNING SUPERVISOR Body mass index [BMI] 34.0-34.9, adult Sinusitis 02723524 (SNOMED CT) 11/20 Active 11/20 Eleanor Elvira David MERCHANTN Sinusitis Medications Medication Instructions Start Date Stop Date Generic Name NDC Provider PAROXETINE HCL 20 MG TABS TAKE 1 TABLET BY MOUTH ONCE A DAY 9 PAROXETINE HCL 83627033472 Duyen Castro APRN ZOLOFT 100 MG TABS TAKE 1 & 1/2 TABLETS BY MOUTH ONCE A DAY 6 SERTRALINE HCL 16030022901 Duyen Castro APRN HYDROXYZINE HCL 25 MG TABS 9 HYDROXYZINE HCL 31008486257 Duyen Black PLANNING SUPERVISOR POTASSIUM GLUCONATE TABS 9 POTASSIUM GLUCONATE TABS 88340082798 Duyen Castro APRN CYMBALTA 30 MG CPEP 9 DULOXETINE HCL 69303422152 Duyen Castro APRN MUPIROCIN 2 % OINT APPLY TO AFFECTED AREA TWICE A DAY NEEDED FOR INFECTION 2 MUPIROCIN 95930442617 Miah Palomino MD NAPROXEN 500 MG TABS TAKE 1 TABLET BY MOUTH 2 TIMES A DAY NEEDED 2 NAPROXEN 20955946573 Miah Palomino MD CLINDAMYCIN HCL 300 MG CAPS TAKE 1 CAPSULE BY MOUTH 4 TIMES A DAY FOR 10 DAYS 2 CLINDAMYCIN HCL 83353276360 Miah Palomino MD BACTRIM DS 800-160 MG TABS TAKE 1 TABLET BY MOUTH 2 TIMES A DAY FOR 10 DAYS 2 SULFAMETHOXAZO LE-TRIMETHOPRI M 19132241739 Miah Palomino MD PREDNISONE 20 MG TABS TAKE 1 TABLET BY MOUTH 2 TIMES A DAY FOR 5 DAYS 6 PREDNISONE 43651000512 Eleanor Elvira David MERCHANTN AMOXICILLIN 875 MG TABS TAKE 1 TABLET BY MOUTH 2 TIMES A DAY 6 AMOXICILLIN 16628708031 Eleanor Elvira David MERCHANTN ZOLOFT 100 MG TABS TAKE 1 & 1/2 TABLETS BY MOUTH ONCE A DAY 6 SERTRALINE HCL 67931497788 Eleanor Hernandez PLANNING SUPERVISOR Medications Administered No information available. Allergies, Adverse Reactions, Alerts Allergy Name Reaction Description Start Date Severity Statu s Provider SULFA Critical Active Duyen Oliver lack PLANNING SUPERVISOR CODEINE Critical Active Eleanor Be th Hernandez PLANNING SUPERVISOR Results No information available. Plan of Care Type Date Detail Pending order Injection(s) Ord ered Pending order T1 Wound Culture Aerobic Patient education Medications Patient education Patient Educat ion Given Patient education Medications Patient education Patient Educat ion Given Procedures Code Procedure Name Date Entry Date [id number] Medication Reconciliation CPT-3074F Most recent systolic blood pressure <130 mm Hg CPT-3079F Most recent diastoli c blood pressure 80-89 mm Hg [facility] 6399 T1 CBC with diff [facility] 54171 T1 CMP [facility] 927 T1 B12 [facility] 21544 T1 Lipid Panel [facility] 48751 T1 TSH reflex to free T4 201 05/22/09 [facility] 70471 T2 Vitamin D 25 Dihydroxy 20 01/06/09 [id number] Medication Reconciliation CPT-3075F Most recent systolic blood pressure 130-139 mm Hg CPT-3079F Most recent diastoli c blood pressure 80-89 mm Hg [id number] 340B Rocephin 500mg Injection CPT-47361 IMADM >18YR IM ROUTE 1ST VAC/TOXOID 03/26 Inj Order Injection(s) Ordered [facility] 4550 T1 Wound Culture Aerobic 201 05/20/12 [id number] Medication Reconciliation [id number] Giving encouragement to exercise CPT-3075F Most recent [...]
--- OUTSIDE RECORDS SUMMARY | 2025-05-15 10:26 | XMS_ITS | Clinical Summary ---
Author Organization [facility] Address [address] [place] [address] Phone Care Team Providers Care Residential Recycle Driver Name Role Phone Miah Palomino MD Primary Care Provider [phone] Allergies Active Allergy Reactions Criticality Noted Date [...] stent placement; Surgeon: Tiffanie Alexandra MD; Location: [facility] MAIN OR; Service: Urology Medical devices from this surgery are in the Medical Devices section. CYSTOSCOPY 04/17/2019 Right Cystoscopy, Right Stent Placement; Surgeon: Caesar Enriquez MD; Location: [facility] MAIN OR; Service: Urology Medical devices from this surgery are in the Medical Devices section. IR PICC INSERTION EQUAL OR > 5 YEARS 04/22/2019 IR PICC INSERTION EQUAL OR > 5 YEARS 04/22/2019 Mehnaz Rodriguez PA-C [facility] IR URETEROSCOPY 06/04/2019 Ureter/Right CYSTOSCOPY, RIGHT STENT exchangeLASER LITHOTRIPSY, RIGHT URETEROSCOPY; Surgeon: Tiffanie Alexandra MD; Location: [facility] MAIN OR; Service: Urology Medical devices [...] Date Smoking Tobacco: Every Day Cigarettes 1.5 32.6 Started: 10/15/1992 Smokeless Tobacco: Never Tobacco Cessation:Ready [...] - 2023-2 5 season) 2024 Influenza Vaccine (#1) 2025 6 (Declined) Pneumococcal Vaccine 0-49 Aged Out 01/06/2019 No longer eligible based on patient's age to complete this topic Meningococcal B Vaccine Aged Out No l onger eligible based on patient's age to complete this topic Medical Devices Implanted Type Area Motor Expert Device Identifier Shelf Expiration Date Model / Serial / Lot Stent Contour 6 X 24 #180-222-01 - [id number] Implanted:Qty: 1 on 06/04/2019 by Tiffanie Alexandra MD at [facility] Stent Right: Ureter [employer]:MI[employer]OV[employer]IVE: UROLOGY 03/09/2022 180-222 / / [id number] Stent Ureteral Contour 6 X 22cm - [id number] Implanted:Qty: 1 on 04/17/2019 by Caesar Enriquez MD at [facility] Right: Ureter [employer]:MICROV[employer]: UROLOGY 01/07/2021 [id number] / / [id number] Explanted Type Area Motor Expert Device Identifier Shelf Expiration Date Model / Serial / Lot Stent Contour 6 X 24 #[id number] - [id number] Implanted:Qty: 1 on 01/05/2019 by Tiffanie Alexandra MD at [facility] Explanted:Qty: 1 on 06/04/2019 by Tiffanie Alexandra MD at [facility] Stent Right: Ureter [employer]:MICROV[employer]: UROLOGY 02/06/2021 180-222 / / [id number] Insurance PLAN BY [facility] Advance Directives For more information, please contact: [phone] * Full Code (Latest Code Status on File) Date Activated Date Inactivated Comments 04/17/2019 1:20 PM 04/21/2019 9:20 PM * Full Code Date Activated Date Inactivated Comments 01/05/2019 7:36 PM 01/05/2019 11:37 PM Care Teams Residential Recycle Driver Relationship Specialty Start Date End Date Miah Palomino MD PCP - General Family Medicine 11/25/16
--- OUTSIDE RECORDS SUMMARY | 2025-05-15 10:26 | XMS_ITS | Referral Summary ---
Author Organization [employer] ([place], [place], [place], [place]) Address [address] [place] [address] Care Team Providers Care Employee Benefits Coordinator Name Role Phone Sarah Langford DARLENE Primary Care Provide r Encounters Date Type Department Care Team Description 04/28/2025 Telephone [facility] Urology - [address] [facility] [address] [place] [address] Matt Salinas MD Advice Only (Spoke with pt because she had a procedure on 04/22 and has blood in her urine. She described it as light pink. I spoke to about her concerns, per , it is normal and can be present off and on for several weeks. ) 04/22/2025 Orders Only [facility] Urology - [address] [facility] [address] [place] [address] [place] Salinas MD Kidney stone (Primary Dx) 04/22/2025 7:50 AM EDT Anesthesia Event [facility] Surgery Department [address] [place] [address] Jeremías James CRNA Littles, Joel T, MD 04/22/2025 7:30 AM EDT - 04/22/2025 8:50 AM EDT Surgery [facility] Surgery Department [address] [place] [address] Matt Salinas MD LITHOTRIPSY,EXTRACO RPOREAL SHOCK WAVE (ESWL) 04/22/2025 4:58 AM EDT - 04/22/2025 9:47 AM EDT Hospital Encounter [facility] Surgery Department [address] [place] [address] Matt Salinas MD Discharge Disposition: Home or Self Care 04/09/2025 Orders Only [facility] [address] [facility] [address] [place] [address] ProviderChandni MD 04/08/2025 12:30 PM EDT Office Visit [facility] [address] [facility] [address] [place] [address] Abby Hernandez APRN Kidney stone (Primary Dx); Right ureteral stone; Hydronephrosis of right kidney 04/07/2025 Telephone [facility] [address] [facility] [address] [place] [address] Abby Hernandez APRN Appointment (VM NOT SET) 04/07/2025 Telephone [facility] [address] [facility] [address] [place] [address] Abby Hernandez APRN Appointment (CONFIRMED- APPT 04.08.25) 04/02/[address] [place] [address] Abby Hernandez APRN Appointment (04/02/25 11:56am- Called to schedule referral. No answer, no voicemail set up. Sending letter in mail) 04/02/2025 Outside Orders [facility] [address] [facility] [address] [place] [address] [facility] Kidney stone (Primary Dx) from Last 3 Months Allergies Active Allergy Reactions Criticality Noted Date Comments Buspirone Anxiety Low 07/13/2010 Citalopram Anxiety Low 04/08/2025 Codeine Anxiety Low 04/08/2025 Per patient report it causes anxiety Fluoxetine Anxiety Low 07/08/2010 Sulfa (Sulfonamide Antibiotics) Hives High 03/25/2022 Sulfamethoxazole-Trimethopr im Rash Low 04/17/2019 Medications buprenorphine-n aloxone (SUBOXONE) 8-[address] 2 tablets under the tongue daily. 03/13/2025 Active clonazePAM (KlonoPIN) 0.5 MG tablet Take 0.5 tablets (0.25 mg total) by mouth 2 (two) times daily. 04/06/2025 Active gabapentin (NEURONTIN) 800 MG tablet Take 1 tablet (800 mg total) by mouth 3 (three) times daily. 03/30/2025 Active ciprofloxacin HCl (CIPRO) 500 MG tablet Take 1 tablet (500 mg total) by mouth 2 (two) times daily. 10 tablet 04/22/2025 Active Active Problems Problem Noted Date Diagnosed Date Right ureteral stone 04/08/2025 Social History Tobacco Use Types Packs/Day Years Used Date Smoking Tobacco: Every Day Cigarettes Tobacco Cessation:Ready to Q uit: Not Asked; Counseling Given: Not Answered Comments Unknown Sex and Gender Information Value Date Recorded Sex Assigned at Not on file Legal Sex Female 1:41 PM CDT Gender Identity Not on file Sexual Orientation Not on file Last Filed Vital Signs Vital Sign Reading [...] AM EDT Body Mass Index - - Plan of Treatment Upcoming Encounters Date Type Department Care Team (Late st Contact Info) Description 05/22/2025 1:45 PM EDT Office Visit [facility] Urology - [facility] [address] [facility] [address] [place] [address] [place] [address] [place] [address] [address] [place] [address] Procedures Procedure Name Priority Date/Time Associated Diagnosis Comments ANESTHESIA INTUBATION Routine 04/22/2025 7:56 AM EDT IN LITHOTRIPSY XTRCORP SHOCK WAVE 04/22/2025 7:50 AM EDT Right ureteral stone Case Notes Right ESWL CONFIRMATION #[id number] SPOKE FS_MODEL_IP POCT , URINE Routine 04/22/2025 7:28 AM EDT EXTERNAL IMAGING - CT Routine 04/09/2025 1:50 PM EDT POCT URINALYSIS, AUTO W/O SCOPE Routine 04/08/2025 11:40 AM EDT Kidney stone from Last 3 Months Results * AN SINGLE LUMEN INTUBATION (04/22/2025 [...] none Number of other approaches attempted: 0 us Jeremías James CRNA ANESTHESIA ORDERABLES Fin al Result * POCT , urine (04/22/2025 7:28 AM EDT) POC, URINE HCG Negative Negative INTERNAL QC (VALID/INVALID ) Valid Kit Lot Number [id number] Expiration Date 04/22/2025 7:28 AM EDT Jeremías James MYCOLOGY TEACHER FS_MODEL_IP_POINT OF CARE TEST ENTER/EDIT ORDERABLES Final Result * EXTERNAL IMAGING - CT (04/09/2025 1:50 PM EDT) Anatomical Region Laterality Modality Other Historical Provider HEALTH MAINTENANCE Final Result * (ABNORMAL) POCT urinalysis dipstick (04/08/2025 11:40 AM EDT) Glucose Urine, POC Negative Negative Bilirubin Urine, POC Negative Negative Ketones Urine, POC Negative Negative Specific [place] Urine, POC 1.015 SG Ratio 1.005 SG [...] Negative 04/08/2025 11:4 0 AM EDT Abby Hernandez STOCK PARTS INSPECTOR POINT OF CARE TEST ORDERABLES Final Result from Last [address] [facility] MEDICAID Care Teams Employee Benefits Coordinator Relationship Specialty Start Date End Date Sarah Langford, STOCK PARTS INSPECTOR [address] [address] PCP - General Emergency Medicine 04/22/25
--- OUTSIDE RECORDS SUMMARY | 2025-05-15 10:26 | XMS_ITS | Encounter Summary ---
Author Organization Healthcare Address [address] [place] [address] Care Team Providers Care Diabetes Nurse Name Role Phone Pcp, No Primary Care Provider Unavailabl e Encounter Details Date Type Department Care Team (Late st Contact Info) Description 01/07/2023 Orders Only External Location [address] [place] [address] Provider, External Social History Tobacco Use Types Packs/Day Years Used Date Smoking Tobacco: Never Assessed Comments Unknown Sex and Gender Information Value Date Recorded Sex Assigned at Not on file Legal Sex Female 7:27 PM EDT Gender Identity Not on file Sexual Orientation Not on file documented as of this encounter Plan of Treatment Not on file documented as of this encounter Procedures Procedure [...] on filedocumented in this encounter Care Teams Diabetes Nurse Relationship Specialty Start Date End Date Pcp, No [address] [place] [address] PCP - General 06/27/21 documented as of this encounter
--- OUTSIDE RECORDS SUMMARY | 2025-05-15 10:26 | XMS_ITS | Encounter Summary ---
Author Organization [employer] ([place], [place], [place], [place]) Address [address] [place] [address] Care Team Providers Care Food Scientist Name Role Phone Unavailable Primary Care Provider Unavailabl e Encounter Details Date Type Department Care Team (Late Contact Info) Description 04/09/2025 Orders Only [facility] Urology - [address] [place] [address] ProviderChandni MD [address] [place], [place] [id number] Social History Tobacco Use Types Packs/Day Years [...] Department Care Team (Late Contact Info) Description 05/22/2025 1:45 PM EDT Office Visit [facility] Urology [facility] [address] [facility] [address] [place] [address] Matt Salinas MD [address] [facility] [address] [place] [id number] documented as of this encounter Procedures Procedure Name Priority Date/Time Associated Diagnosis Comments EXTERNAL IMAGING - CT Routine 04/09/2025 1:50 PM EDT documented in this encounter Results * EXTERNAL IMAGING - CT (04/09/2025 1:50 PM EDT) Anatomical Region Laterality Modality Other us Historical Provider MD HEALTH MAINTENANCE Final Result documented in this encounter Visit Diagnoses Not on filedocumented in this encounter
--- OUTSIDE RECORDS SUMMARY | 2025-05-15 10:26 | XMS_ITS | Clinical Summary ---
Author Organization [employer] ([place], [place], [place], [place]) Address [address] [place] [address] Care Team Providers Care Band Instrument Repairer Name Role Phone AnastasiyaSarah APRN Primary Care Provide r Allergies Active Allergy Reactions Criticality Noted Date [...] Date Diagnosed Date Right ureteral stone 04/08/2025 Encounters Date Type Department Care Team Description 04/28/2025 Telephone [facility] Urology - [facility] [address] [place] [address] [place] Salinas MD Advice Only (Spoke with pt because she had a procedure on 04/22 and has blood in her urine. She described it as light pink. I spoke to about her concerns, per , it is normal and can be present off and on for several weeks. ) 04/22/2025 7:50 AM EDT Anesthesia Event [facility] Surgery Department [address] [place] [address] Jeremías James CRNA Littles, Joel T, MD 04/22/2025 7:30 AM EDT - 04/22/2025 8:50 AM EDT Surgery [facility] Surgery Department [address] [place] [address] Matt Salinas MD LITHOTRIPSY,EXTRACO RPOREAL SHOCK WAVE (ESWL) 04/22/2025 4:58 AM EDT - 04/22/2025 9:47 AM EDT Hospital Encounter [facility] Surgery Department [address] [place] [address] Matt Salinas MD Discharge Disposition: Home or Self Care 04/22/2025 Orders Only [facility] Urology - [address] [place] [address] Matt Salinas MD Kidney stone (Primary Dx) 04/09/2025 Orders Only [facility] Urology - [address] [place] [address] ProviderChandni MD 04/08/2025 12:30 PM EDT Office Visit [facility] Urology - [facility] [address] [facility] [address] [place] [address] Abby Hernandez APRN Kidney stone (Primary Dx); Right ureteral stone; Hydronephrosis of right kidney 04/07/2025 Telephone [facility] Urology - [facility] [address] [facility] [address] [place] [address] Abby Hernandez APRN Appointment (VM NOT SET) 04/07/2025 Telephone [facility] [address] [facility] [address] [place] [address] Abby Hernandez APRN Appointment (CONFIRMED- APPT 04.08.25) 04/02/2025 Telephone [facility] [address] [facility] [address] [place] [address] Abby Hernandez APRN Appointment (04/02/25 11:56am- Called to schedule referral. No answer, no voicemail set up. Sending letter in mail) 04/02/2025 Outside Orders [facility] [address] [facility] [address] [place] [address] [facility] Kidney stone (Primary Dx) from Last 3 Months Social History Tobacco Use Types Packs/Day Years [...] Description 05/22/2025 1:45 PM EDT Office Visit [facility] [address] [facility] [address] [place] [address] [place] [address] [place] [address] [address] [place] [address] Health Maintenance Due Date Last Done Comments CT Colonography 1977 Colonoscopy 1977 Colorectal Cancer Screening 1977 FOBT/FIT 1977 Fit-DNA (Cologuard) 1977 Sigmoidoscopy 1977 Depression Screening (12+) 1989 Tobacco Cessation Counseling and Screening (12+) 10/01 HIV Screening 1992 Hepatitis C Screening 1995 DTAP/TDAP/TD VACCINES (1 - Tdap) 1996 Pap Smear 1998 Breast Cancer Screening 2017 Pneumococcal Vaccine: 0-49 Years (2 of 2 - PCV) 201901/06/2019 Lipid Panel 2022 COVID-19 VACCINE (1 - 2023- season) 2024 Influenza Vaccine (#1) 2025 Procedures Procedure Name Priority Date/Time Associated Diagnosis Comments ANESTHESIA INTUBATION Routine 04/22/2025 7:56 AM EDT ID LITHOTRIPSY XTRCORP SHOCK WAVE 04/22/2025 7:50 AM EDT Right ureteral stone Case Notes Right ESWL CONFIRMATION #[id number] SPOKE FS_MODEL_IP POCT , URINE Routine 04/22/2025 [...] Date 04/22/2025 7:28 AM EDT Jeremías James CRNA FS_MODEL_IP_POINT OF CARE TEST ENTER/EDIT ORDERABLES Final Result * EXTERNAL IMAGING - CT (04/09/2025 1:50 PM EDT) Anatomical Region Laterality Modality Other Historical Provider HEALTH MAINTENANCE Final Result * (ABNORMAL) POCT urinalysis dipstick (04/08/2025 11:40 AM EDT) Glucose Urine, POC Negative Negative Bilirubin Urine, POC Negative Negative Ketones Urine, POC Negative Negative Specific [place] Urine, POC 1.015 SG Ratio 1.005 SG [...] 04/08/2025 11:4 0 AM EDT Abby Hernandez TORCH SHEARER POINT OF CARE TEST ORDERABLES Final Result from Last 3 Months Insurance MEDICAID Care Teams Band Instrument Repairer Relationship Specialty Start Date End Date Sarah Langford APRN [address] [address] PCP - General Emergency Medicine 04/22/25
--- OUTSIDE RECORDS SUMMARY | 2025-05-15 10:26 | XMS_ITS | Encounter Summary ---
Author Organization [employer] ([place], [place], [place], [place]) Address [address] [place] [address] Care Team Providers Care Manager Secondary Name Role Phone Unavailable Primary Care Provider Unavailabl e Reason for Referral * Consultation (Routine) - Closed Specialty Diagnoses / Procedures Referred By Mihaela maldonado Referred To Contact Urology Diagnoses Kidney stone [address] [facility] [place] [address] Phone: tel: [facility] Urology - [address] [place] [address] Phone: tel: fax: Referral ID Status Reason Start Date Expiration Date V isits Requested Visits Authorized [id number] Closed Specialty Services Required 04/02/2025 04/02/2026 1 1 Encounter Details Date Type Department Care Team (Late st Contact Info) Description 04/02/2025 Outside Orders [facility] Urology - [address] [facility] [address] [place] [address] [facility] [address] [place] [address] Kidney stone (Primary Dx) Social History Tobacco Use Types Packs/Day Years [...] Description 05/22/2025 1:45 PM EDT Office Visit [facility] Urology - [address] [facility] [address] [place] [address] Matt Salinas MD [address] [place] [address] [address] [place] [id number] Scheduled Referrals Name Type Priority Associated Diagnoses Order Schedule Ambulatory referral to Urology Outpatient Referral Routine Kidney stone Expected: 04/02/2025, Expires: 04/02/2026 documented as of this encounter Visit Diagnoses Diagnosis Kidney stone- Primary Calculus of kidney documented in this encounter
--- OUTSIDE RECORDS SUMMARY | 2025-05-15 10:26 | XMS_ITS | Encounter Summary ---
Author Organization [employer] ([place], [place], [place], [place]) Address [address] [place] [address] Care Team Providers Care Sole Dyer Name Role Phone Unavailable Primary Care Provider Unavailabl e Reason for Visit * Reason Onset Date Comments Appointment 04/07/2025 VM NOT SET Encounter Details Date Type Department Care Team (Late Contact Info) Description 04/07/2025 Telephone [facility] [address] [facility] [address] [place] [address] Abby Hernandez, CAMPAIGN MARKETING MANAGER [address] [place] [address] Appointment (VM NOT SET) Social History Tobacco Use Types Packs/Day Years Used Date Smoking Tobacco: Never Assessed Comments Unknown Sex and Gender Information Value Date Recorded Sex Assigned at Not on file Legal Sex Female 1:41 PM CDT Gender Identity Not on file Sexual Orientation Not on file documented as of this encounter Miscellaneous Notes * Telephone Encounter - Stan Millard - 04/07/2025 4:48 PM EDT VM NOT SET documented in this encounter Plan of Treatment Upcoming Encounters Date Type Department Care Team (Late Contact Info) Description 05/22/2025 1:45 PM EDT Office Visit [facility] Urology - [facility] [address] [facility] [address] [place] [address] Matt Salinas MD [address] [place] [address] documented as of this encounter Visit Diagnoses Not on filedocumented in this encounter
--- OUTSIDE RECORDS SUMMARY | 2025-05-15 10:26 | XMS_ITS | Encounter Summary ---
Author Organization [employer] ([place], [place], [place], [place]) Address [address] [place] [address] Care Team Providers Care Restaurant Assistant Manager Name Role Phone Unavailable Primary Care Provider Unavailabl e Reason for Visit * Reason Onset Date Comments Appointment 04/07/2025 CONFIRMED- APPT 6.. Encounter Details Date Type Department Care Team (Late Contact Info) Description 04/07/2025 Telephone [facility] Urology - [address] [place] [address] Abby Hernandez, BUCKLE STAPLER [address] [place] [address] Appointment (CONFIRMED- APPT 6..) Social History Tobacco Use Types Packs/Day Years Used Date Smoking Tobacco: Never Assessed Comments Unknown Sex and Gender Information Value Date Recorded Sex Assigned at Not on file Legal Sex Female 1:41 PM CDT Gender Identity Not on file Sexual Orientation Not on file documented as of this encounter Miscellaneous Notes * Telephone Encounter - Stan Millard - 04/07/2025 4:43 PM EDT CONFIRMED- APPT 6.. documented in this encounter Plan of Treatment Upcoming Encounters Date Type Department Care Team (Late Contact Info) Description 05/22/2025 1:45 PM EDT Office Visit [facility] Urology - [address] [place] [address] Matt Salinas MD [address] [facility] [address] [place] [address] documented as of this encounter Visit Diagnoses Not on filedocumented in this encounter
--- OUTSIDE RECORDS SUMMARY | 2025-05-15 10:26 | XMS_ITS | Encounter Summary ---
Author Organization [employer] ([place], [place], [place], [place]) Address [address] [place] [address] Care Team Providers Care Event Representative Name Role Phone Unavailable Primary Care Provider Unavailabl e Reason for Visit * Reason Onset Date Comments Appointment 04/02/2025 04/02/25 11:56am- Called to schedule referral. No answer, no voicemail set up. Sending letter in mail Encounter Details Date Type Department Care Team ([facility] Contact Info) Description 04/02/2025 Telephone [facility] Urology - [address] [place] [address] Abby Hernandez, IS TECHNICIAN [address] [place] [address] Appointment (04/02/25 11:56am- Called to schedule referral. No answer, no voicemail set up. Sending letter in mail) Social History Tobacco Use Types Packs/Day Years Used Date Smoking Tobacco: Never Assessed Comments Unknown Sex and Gender Information Value Date Recorded Sex Assigned at Not on file Legal Sex Female 1:41 PM CDT Gender Identity Not on file Sexual Orientation Not on file documented as of this encounter Miscellaneous Notes * Telephone Encounter - Rebecca Meneses - 04/02/2025 11:57 AM EDT 04/02/25 11:56am- Called to schedule referral. No answer, no voicemail set up. Sending letter in mail documented in this encounter Plan of Treatment Upcoming Encounters Date Type Department Care Team (Late st Contact Info) Description 05/22/2025 1:45 PM EDT Office Visit [facility] Urology - [address] [place] [address] [place] Salinas MD [address] [facility] [address] [place] [address] documented as of this encounter Visit Diagnoses Not on filedocumented in this encounter
--- OUTSIDE RECORDS SUMMARY | 2025-05-15 10:26 | XMS_ITS | Encounter Summary ---
Author Organization [employer] ([place], [place], [place], [place]) Address [address] [place] [address] Care Team Providers Care Installation Engineer Name Role Phone Sarah Langford DARLENE Primary Care Provide r Reason for Visit * Reason Onset Date Comments Advice Only 04/28/2025 Spoke with pt be cause she had a procedure on 04/22 and has blood in her urine. She described it as light pink. I spoke to about her concerns, per , it is normal and can be present off and on for several weeks. Encounter Details Date Type Department Care Team (Late st Contact Info) Description 04/28/2025 Telephone [facility] Urology - [facility] [address] [facility] [address] [place] [address] Matt Salinas MD [address] [facility] [address] [place] [address] Advice Only (Spoke with pt because she had a procedure on 04/22 and has blood in her urine. She described it as light pink. I spoke to about her concerns, per , it is normal and can be present off and on for several weeks. ) Social History Tobacco Use Types Packs/Day Years Used Date Smoking Tobacco: Every Day Cigarettes Comments Unknown Sex and Gender Information Value Date Recorded Sex Assigned at Not on file Legal Sex Female 1:41 PM CDT Gender Identity Not on file Sexual Orientation Not on file documented as of this encounter Miscellaneous Notes * Telephone Encounter - Anusha Brice MA - 04/28/2025 11:11 AM EDT Spoke to pt about her post-op concerns. documented in this encounter Plan of Treatment Upcoming Encounters Date Type Department Care Team (Late st Contact Info) Description 05/22/2025 1:45 PM EDT Office Visit [facility] Urology - [address] [place] [address] Matt Salinas MD [address] [facility] [address] [place] [address] documented as of this encounter Visit Diagnoses Not on filedocumented in this encounter Care Teams Installation Engineer Relationship Specialty Start Date End Date Sarah Langford, DARLENE [address] [address] PCP - General Emergency Medicine 04/22/25 documented as of this encounter
--- OUTSIDE RECORDS SUMMARY | 2025-05-15 10:26 | XMS_ITS | Encounter Summary ---
Author Organization Healthcare Address [address] [place] [address] Care Team Providers Care Manufacturer Name Role Phone Pcp, No Primary Care Provider Unavailabl e Encounter Details Date Type Department Care Team (Late st Contact Info) Description 03/03/2022 Orders Only External Location [address] [place] [address] Marcial Landaverde MD [address] [place] [address] Social History Tobacco Use Types Packs/Day Years [...] on filedocumented in this encounter Care Teams Manufacturer Relationship Specialty Start Date End Date Pcp, No [address] [place] [address] PCP - General 06/27/21 documented as of this encounter
--- OUTSIDE RECORDS SUMMARY | 2025-05-15 10:26 | XMS_ITS | Clinical Summary ---
Author Organization Healthcare Address [address] [place] [address] Care Team Providers Care Body Designer Name Role Phone Pcp, No Primary Care Provider Unavailabl e Social History Tobacco Use Types Packs/Day Years Used Date Smoking Tobacco: Never Assessed Comments Unknown Sex and Gender Information Value Date Recorded Sex Assigned at Not on file Legal Sex Female 7:27 PM EDT Gender Identity Not on file Sexual Orientation Not on file Plan of Treatment Health Maintenance Due Date [...] 2022 Sigmoidoscopy 2022 [facility]-Colorectal Cancer Screening 2022 [id number] Vaccine (1 - 20 24-25 season) 2024 [facility]-Influenza Vaccine (#1) 2025 [facility]-Zoster Vaccines (1 of 2) 2027 [...] Narrative SUNQUEST - 11/07/2000 9:33 AM EST [facility] MR #: [id number] [facility] [place] [address] 1975 (Age: 25) FW Collect Date: 10/31/2000 00:00 Receipt Date: 11/01/2000 10:48 Page 1 DEPARTMENT OF PATHOLOGY AND LABORATORY MEDICINE CYTOPATHOLOGY REPORT Email: [email or web address] ATTENDING MD/Practitioner: Yuliya Huizar M.D. Service: OB [...] results is suggested (please call Microbiology at [phone] for results). CLINICAL INFORMATION: Menstrual History: : Second trimester Date of Last Menstrual Period: {Not Provided} SPECIMEN DESCRIPTION: A: THIN PREP (CERVICAL/VAGINAL) THIN PREP PROCESS CELLULAR ENHANCEMENT ICD: V76.2 CERVIX, SPECIAL SCREENING FOR MALIGNANT NEOPLASM V22.1 SUPERVISION OF OTHER NORMAL F: A; THIN SCRN [id number] SNOMED CODES: A; [id number] [id number] In cases where a pathologist has signed out the report, the service has been rendered in part by a resident. The signing pathologist has performed and is responsible for the reported pathologic evaluation. Historical Provider MD LAB PATHOLOGY ORDERABLES Final Result Ablynx from Last 3 Months or Most Recently Relevant to Health Maintenance [place] [address] [place] [address] [facility] MEDICAID MEDICAID [facility] [facility] Care Teams Body Designer Relationship Specialty Start Date End Date Korina, [place] [address] PCP - General 06/27/21
--- OUTSIDE RECORDS SUMMARY | 2025-05-15 10:26 | XMS_ITS | Encounter Summary ---
Author Organization [employer] ([place], [place], [place], [place]) Address [address] [place] [address] Care Team Providers Care Ciaio Lumite Injector Name Role Phone Sarah Langford APRN Primary Care Provide r Reason for Referral * Diagnostic X-Ray (Routine) - Authorized Specialty Diagnoses / Procedures Referred By Contac t Referred To Contact Radiology Diagnoses Kidney stone Procedures [place]R Abdomen KUB 1 [place] [address] [place] [address] [address] [place] [address] Phone: tel: fax: [facility] [address] [facility] [address] [place] [address] Phone: tel: fax: Referral ID Status Reason Start Date Expiration Date Visits Requested Visits Authorized [id number] Authorized Continuity of Care 05/20/2025 05/20/2026 1 1 Encounter Details Date Type Department Care Team (Late st Contact Info) Description 04/22/2025 Orders Only [facility] - [facility] [address] [facility] [address] [place] [address] Matt Salinas MD [address] [place] [address] [address] [place] [address] Kidney stone (Primary Dx) Social History Tobacco [...] Description 05/22/2025 1:45 PM EDT Office Visit [facility] - [address] [place] [id number] Matt Salinas MD [address] [facility] [address] [place] [address] Scheduled Orders Name Type Priority Associated Diagnoses Orde r Schedule XR Abdomen KUB 1 view Imaging Routine Kidney stone Expected: 05/20/2025, Expires: 05/23/2026 documented as of this encounter Visit Diagnoses Diagnosis Kidney stone- Primary Calculus of kidney documented in this encounter Care Teams Ciaio Lumite Injector Relationship Specialty Start Date End Date Sarah Langford, [employer] [address] [address] PCP - General Emergency Medicine 04/22/25 documented as of this encounter
[2025-05-16 08:32] LABS: Hep A Ab, Total Positive (Negative); Hep B Core Ab, Total Negative (Negative); Hep B Surface Ab, Qual Non Reactive (.); Hepatitis B Surface Antigen Negative (Negative)
== END 2025-05-14 23:59 | disposition home or self-care (01) ==
LOC: LAB.DROPOF 05-15 10:24
PROVIDERS: PCP Family Medicine; Visit Provider Family Medicine
DX: B19.20 Unspecified viral hepatitis C without hepatic coma (principal); F41.9 Anxiety disorder, unspecified; E78.5 Hyperlipidemia, unspecified
CPT/HCPCS: 80053; 80061; 84443; 86704; 86706; 86708; 87340; 87902